=== PATIENT | male | born 1945 | race Caucasian/White ===

== ENCOUNTER 2019-08-21 12:47 | Outpatient (CLI) | payer MEDICARE, SELFPAY ==
--- NOTE | ~2019-08-21 | XR_ITS ---
XR chest 2V DATE: 08/21/2019 13:13 INDICATION: Malignant neoplasm of right breast in a male TECHNIQUE: PA and lateral views COMPARISON: 07/17/2018 portable AP chest FINDINGS: Removal left Port-A-Cath catheter since 07/17/2018. Surgical clips overlie the right lateral lower chest. There is mild discoid atelectasis or scarring at the lung bases. Otherwise no pulmonary consolidation , pleural effusion, pulmonary vascular congestion or pneumothorax is detected. Normal heart size. There is aortic calcification and tortuosity. There is dextro scoliosis and degenerative spurring of the thoracic spine. IMPRESSION: Mild bibasilar atelectasis and/or scarring Reviewed, dictated and finalized at location B. NT SPECIALIST
== END 2019-08-21 12:48 | disposition home or self-care (01) ==
LOC: ANHIMG 12:52
PROVIDERS: PCP Family Medicine; Visit Provider Internal Medicine Hematology & Oncology
DX: C50.421 Malignant neoplasm of upper-outer quadrant of right male breast (principal); Z17.0 Estrogen receptor positive status [ER+]; R91.8 Other nonspecific abnormal finding of lung field
CPT/HCPCS: 71046

== ENCOUNTER 2019-10-04 12:27 | Outpatient (CLI) | payer MEDICARE, SELFPAY ==
--- NOTE | 2019-10-04 12:58 | ECG_ITS ---
Measurements Intervals [place] Rate: 62 P: 38 MN: 219 QRS: 22 QRSD: 93 T: 29 QT: 393 QTc: 400 Interpretive Statements SINUS RHYTHM WITH FIRST DEGREE AV BLOCK LOW QRS VOLTAGE IN PRECORDIAL LEADS ABNORMAL ECG Electronically Signed On 10-04-2019 13:26:43 CDT by Liang Schmitt D.O.
== END 2019-10-04 12:28 | disposition home or self-care (01) ==
PROVIDERS: PCP Family Medicine; Visit Provider Anesthesiology
DX: I10 Essential (primary) hypertension (principal); I44.0 Atrioventricular block, first degree
CPT/HCPCS: 93005

== ENCOUNTER 2019-10-10 01:41 | Day surgery (SDC) | payer MEDICARE, SELFPAY ==
[2019-10-03 14:34] VITALS: BMI 42.4
[2019-10-10] VITALS (11 sets, daily range): BP systolic 121–157; BP diastolic 65–88; PULSE 62–76; RESP 14–24; TEMP 36.3–37.1; O2SAT 92–100
[2019-10-10] MEDS: LACTATED RINGERS 1,000 ML 30 ML IV CONT (07:00)
[2019-10-10 07:10] LABS: Glucose Point of Care 133 (65-105)
--- NOTE | 2019-10-10 08:01 | WPDANESEPPF ---
Anes - Initial Pre Proc Eval Procedure: Operation Date: 10/10/19 08:30 Proposed Procedures p Excision Right Chest Wall Mass, Possible Skin Graft Right Chest Wall - Forrest Ramirez MD Date/Time: 10/10/19 08:01 Surgeon: Forrest Ramirez MD Pre Op Diagnosis: Right Chest Wall Mass/ Ulcer Chest Wall Patient Data Age: 74 Gender: M Height: 6 ft 2 in Weight: 149.8 kg Last Vital Signs Temp 37.1 C 10/10/19 06:38 Pulse 76 10/10/19 06:38 Resp 20 10/10/19 06:38 BP 121/65 10/10/19 06:38 Pulse Ox 93 10/10/19 06:38 Allergies Allergy/AdvReac Type Severity Reaction Status Date / Time epinephrine Allergy Intermediate Chest Verified 10/10/19 07:42 tightness Home Medications Medication Instructions Recorded Confirmed Type tamoxifen 20 mg tablet 20 mg PO DAILY 05/25/19 10/10/19 History vitamin E 200 unit capsule 200 unit PO DAILY 05/25/19 10/10/19 History metformin 500 mg tablet 1,000 mg PO BID #120 tablet 06/04/19 10/10/19 Rx carvedilol 3.125 mg tablet 3.125 mg PO BID #60 tablet 06/19/19 10/10/19 Rx citalopram 20 mg tablet 20 mg PO DAILY #90 tablet 06/20/19 10/10/19 Rx finasteride 5 mg tablet 5 mg PO DAILY #90 tablet 08/13/19 10/10/19 Rx quinapril 20 mg tablet 20 mg PO BID #180 tablet 09/08/19 10/10/19 Rx aspirin [Aspir-81] 81 mg PO QPM 10/03/19 10/10/19 History atorvastatin 20 mg PO QPM 10/03/19 10/10/19 History diclofenac sodium 75 mg PO PRN PRN 10/03/19 10/10/19 History lorazepam 1 mg PO PRN PRN 10/03/19 10/10/19 History tadalafil 5 mg PO HS 10/03/19 10/10/19 History terazosin 2 mg PO HS 10/03/19 10/10/19 History Laboratory Tests 10/10/19 07:08 POC Capillary Glucose 133 mg/dl H mg/dl (65-105) Patient hx anesthesia problems: none Family hx anesthesia problems: none PMFSH Past Medical History Medical History Anxiety Breast cancer in male Diabetes High cholesterol HTN (hypertension) YULISA (obstructive sleep apnea) Surgical History Surgical History H/O total mastectomy of right breast Performed by Dr. Doherty in 2018 History of bilateral knee replacement 2014 & 2016 History of removal of Port-a-Cath Hx of breast biopsy Incisional right breast biopsy at mastectomy site 09/18/19 Family History Family History Other Hypertension Social History Social History Smoking status: Never smoker Alcohol intake: current Anes - Eval Final PreProcedure Day of Procedure 10/10/19 08:01 Patient weight: morbidly obese Heart: regular rate and rhythm Lungs: clear to auscultation Airway: Mallampati scale class II Neurological: alert and oriented Last oral intake: >/= 8 hours ASA classification: III Emergent: no Anesthetic plan: proceed Anesthesia type and monitoring: general LMA and standard monitoring Informed Consent: The patient's anesthetic plan and its attendant risks and benefits were discussed with the patient/family/POA. Questions were solicited and answers provided to the satisfaction of the patient/family/POA.
--- NOTE | 2019-10-10 09:11 | WPDHPUPDATE1 ---
History and Physical Update Update Date/Time: 10/10/19 09:11 History and Physical has been reviewed, including an updated exam of the patient. There are NO changes in the patient's condition. Risks, benefits, and alternatives have been discussed and questions answered. Patient agrees to proceed with procedure.
[2019-10-10] MEDS: ceFAZolin 3 GM/D5W 100 ML 100 ML IVPB (09:16)
--- NOTE | 2019-10-10 11:05 | PM.PROC ---
Procedure Note - Detailed Date of procedure: 10/10/19 Pre-op diagnosis: Right Chest Wall Mass/ Ulcer Chest Wall; right chest wall ulcerated mass, history right breast cancer and radiation therapy Post-op diagnosis: same Procedure performed: Excision right chest wall mass -skin, subcutaneous, muscle with partial closure. Excision 36 x 14 x 10 cm, elliptical, 266 sq cm.total Description of procedure: The patient was taken to surgery and induced into general anesthesia. The right chest was prepped and draped. The right arm was prepped and mobile in the field. The proposed elliptical excision was drawn around the right chest wall mass. The ulceration was more or less in the center of the mass. The mass was primarily on the superior flap of the previous mastectomy incision although some of it extended on to the inferior flap across the incision scar. The elliptical excision was then created. The skin edges were quite bloody and required a fair amount of cautery to control the bleeding. I started to elevate the mass off the chest wall musculature of the inferior flap. I was able to take a plane of tissue and proceeded towards the center of the mass removing it from the chest wall. I then moved the dissection to the medial aspect of the ellipse and excised that from the pectoralis major muscle taking what appeared to be pectoralis major fascia or at least some connective tissue associated with the muscle with the specimen. I also excised then, laterally, the edge of the ellipse and proceeded up to the upper aspect of the excision. Entry into a cyst-like portion of the mass occurred during the dissection. Some purulent appearing fluid was noted. This was cultured for aerobes and anaerobes and gram stain. The excision was continued but on the superior flap side there was the appearance of a large sebaceous cyst. This would be consistent with the incisional biopsy although certainly concern for malignancy did still exist. I continued to remove all of the cystic lesion with the surrounding skin but left all chest wall musculature other than the investing fibrous connective tissue or superficial fascia. Once the mass was excised it was sent to pathology in formalin. I then continued to use the cautery to achieve good hemostasis. There was quite a bit of axillary fat under the superior flap which was problematic for the patient in that it bothered him when he crossed his right arm towards his left. I went ahead and excised this and sent that off as right axillary fat. This area was made hemostatic as well. I then undermined some of the skin so that the skin edges were not scarred under and the skin would lay flat on the chest wall. There was a considerable dog ear at the lateral aspect of the excision. I removed the dog ear so that the lateral aspect of the wound could be closed and approximate well.. Once this dog ear was excised, the overall length of the excision was 36 cm. The width at the widest portion of the the excision was 14 cm. The greatest depth of the wound was 10 cm.. The extent of resection was then roughly 266 sq cm. After hemostasis was achieved, I then closed the deeper portions of the wound leading to the axilla with interrupted 3 0 Monocryl suture. The lateral 12 cm of the wound were closed with subcuticular interrupted 3 0 Vicryl suture. The remainder of the wound was not able to be drawn together nor was the tissue felt to be very healthy as it had been the focus of radiation treatment. This portion was left open with plans for wound VAC therapy to the area starting tomorrow. We dressed the wound with Xeroform gauze fluffs and ABDs. The patient was awakened and taken to recovery in good condition. Sponge and needle counts were correct x2. Anesthesia: GLMA Surgeon: Forrest Ramirez MD Valuation Manager: Leigha HILARIO Estimated blood loss (mL): 50 Drains: No Packing: Yes ( Xeroform gauze, fluffs) Pathology: yes ( chest wall mass and cult
--- NOTE | 2019-10-10 11:41 | SUR.PHASEI ---
1135- AT BESIDE TO VISIT WITH PT. ALL BELONGINGS AND WOUND VAC WILL GO WITH PT TO FLOOR.
[2019-10-10] MEDS: MORPHINE SULFATE 4 MG/ML INJ IV PUSH ×2 (12:19→16:25)
[2019-10-10] MEDS: LACTATED RINGERS 1,000 ML 100 ML IV CONT (12:24)
[2019-10-10 15:20] LABS: Glucose Point of Care 142 (65-105)
--- NOTE | 2019-10-10 16:33 | PHAR ---
Home Med Verified Tadalafil 5mg take 1 tablet po daily
[2019-10-10] MEDS: ASPIRIN 81 MG ENTERIC TABLET PO (18:40)
[2019-10-10] MEDS: metFORMIN HCL 500 MG TABLET 1000 MG PO (18:40)
[2019-10-10] MEDS: ATORVASTATIN 20 MG TABLET PO (18:40)
[2019-10-10] MEDS: carvediloL 3.125 MG TABLET PO (18:42)
[2019-10-10] MEDS: lisinopriL 20 MG TABLET PO (21:08)
[2019-10-10] MEDS: TERAZOSIN HCL 1 MG CAPSULE 2 MG PO (21:08)
[2019-10-10] MEDS: FAMOTIDINE 20 MG TABLET PO (21:08)
[2019-10-10] MEDS: ENOXAPARIN 30 MG/0.3 ML SYRINGE SUB-Q (21:09)
[2019-10-11 01:24] VITALS: PULSE 68; RESP 16; O2SAT 91
[2019-10-11 05:44] LABS: Hematocrit 40.8 % (42.0-52.0); Hemoglobin 12.9 g/dL (14.0-18.0); Immature Platelet Fraction Pct 4.2 % (0.9-11.2); Mean Corpuscular HGB Conc 31.6 g/dl (32-36); Mean Corpuscular Hemoglobin 30.4 pg (26-34); Mean Platelet Volume 11.2 fl (7.4-10.4); Platelet Count Result 114 k/mm3 (150-375); Red Blood Count 4.25 M/mm3 (4.6-6.20); Red Cell Distribution Width 14.4 % (11.5-14.5); White Blood Count 7.5 K/mm3 (4.5-10.0)
[2019-10-11 05:55] LABS: Blood Urea Nitrogen 15 mg/dL (9-20); Calcium 8.7 mg/dL (8.4-10.2); Carbon Dioxide 32 mmol/L (22-30); Chloride 101 mmol/L (98-107); Estimated CRCL calculation 101 ml/min; Estimated Glomerular Filt Rate > 60; Glucose 147 mg/dL (75-110); Potassium 4.6 mmol/L (3.4-5.0); Sodium 137 mmol/L (137-145)
[2019-10-11 06:00] VITALS: BP 108/56; PULSE 69; RESP 16; TEMP 36.6; O2SAT 92
[2019-10-11] MEDS: metFORMIN HCL 500 MG TABLET 1000 MG PO (08:32)
[2019-10-11] MEDS: lisinopriL 20 MG TABLET PO (08:32)
[2019-10-11] MEDS: FAMOTIDINE 20 MG TABLET PO (08:32)
[2019-10-11] MEDS: TAMOXIFEN CITRATE (*CHEMO) 10 MG TABLET 20 MG PO (08:32)
[2019-10-11] MEDS: CITALOPRAM HYDROBROMIDE 20 MG TABLET PO (08:32)
[2019-10-11] MEDS: ENOXAPARIN 30 MG/0.3 ML SYRINGE SUB-Q (08:32)
[2019-10-11 08:33] VITALS: PULSE 68
[2019-10-11] MEDS: carvediloL 3.125 MG TABLET PO (08:33)
[2019-10-11] MEDS: VITAMIN E 100 UNIT CAPSULE 200 UNIT PO (08:33)
[2019-10-11] MEDS: FINASTERIDE 5 MG TABLET PO (08:33)
--- NOTE | 2019-10-11 09:42 | PM.DS ---
DS: Diagnosis Admitting Diagnosis Admitting Diagnosis: Right chest wall mass, history right breast cancer status post radiation therapy post mastectomy Discharge Diagnosis (1) Mass of chest wall, right: Code(s): R22.2 - Localized swelling, mass and lump, trunk Status: Chronic Assessment and Plan: patient underwent excess patient of right chest wall mass on 10/10/2019. This included skin subcutaneous and the muscular fascia. Approximately half of the lateral aspect of the wound was able to be closed. More medial aspect was unable to be closed. Patient was observed overnight and wound VAC therapy is planned as an outpatient. Intraoperative findings suggested this was an epithelial inclusion cyst. Pathology is pending. (2) Hx of breast cancer: Code(s): Z85.3 - Personal history of malignant neoplasm of breast Status: Chronic Assessment and Plan: History of right mastectomy last year. (3) Hx of radiation therapy: Code(s): Z92.3 - Personal history of irradiation Status: Chronic Assessment and Plan: Completed radiation therapy last January. (4) YULISA (obstructive sleep apnea): Code(s): G47.33 - Obstructive sleep apnea (adult) (pediatric) Status: Chronic Assessment and Plan: Maintained on home CPAP settings. (5) HTN (hypertension): Code(s): I10 - Essential (primary) hypertension Status: Chronic Assessment and Plan: Monitored. Continue home meds on discharge. (6) Diabetes: Code(s): E11.9 - Type 2 diabetes mellitus without complications Status: Chronic Assessment and Plan: Monitored. Continue diabetic diet and home meds on discharge. DS: Summary Time Spent with Patient Time attestation: Total time spent providing and/or coordinating discharge services: Patient had excision of a suspicious right chest wall mass. This was in the setting of right breast cancer with previous right modified radical mastectomy. The chest wall mass occurred since last February. It had developed ulceration and drainage. Incisional biopsy in the office suggested epithelial inclusion cyst. The appearance and history however was very suspicious for recurrent cancer. The patient was taken to surgery and extensive excision of the mass was performed. Wound healing will of course be a problem as the patient has had radiation therapy to the right chest. Pathology is pending. He will go home on wound VAC therapy in follow-up in the wound clinic regularly. Dr. Ramirez will see him regularly as an outpatient in follow-up as well. If the wound does not heal with wound VAC therapy, skin graft for other modality may be necessary. Exam Chest: Chest palpation & inspection: abnormal inspection of the chest ( Right chest wall wound looks good, healthy and healing.) DS: Data Data Completed and Pending Pending studies at discharge: Pending at discharge 10/10/19 09:57 Surgical [PTH] Routine Labs on day of discharge: Labs from last 24 hours 10/11/19 10/11/19 10/10/19 05:23 05:23 10:46 WBC 7.5 RBC 4.25 L Hgb 12.9 L Hct 40.8 L MCV 96.0 MCH 30.4 MCHC 31.6 L RDW 14.4 Plt Count 114 L MPV 11.2 H % Immature Plt Fraction 4.2 Sodium 137 Potassium 4.6 Chloride 101 Carbon Dioxide 32 H BUN 15 Creatinine 0.90 Estim Creat Clear Calc 101 Estimated GFR > 60 Glucose 147 H POC Capillary Glucose 142 H Calcium 8.7 Discharge Plan Discharge Patient Disposition: Home, Self-Care Discharge Instructions: Ambulate 3-4 x per day and as tolerated. No lifting over 15-20lbs. May bathe or shower. Stairs are OK. May drive a car in 3 days. Follow-up/Referrals: Forrest Ramirez MD [Physician] - 2 Weeks ( Dr. Ramirez will see patient in wound clinic week after next.) Discharge Medications: New hydrocodone-acetaminophen 5-325 mg tablet 1 - 2 tablet PO Q6H PRN
== END 2019-10-11 12:15 | disposition home or self-care (01) ==
LOC: ANHSURGERY 11:06 → ANH3MED 11:56
PROVIDERS: PCP Family Medicine; Visit Provider Surgery
PROC: (CPT 11406; principal; 2019-10-10 08:30)
DX: L02.213 Cutaneous abscess of chest wall (principal); Z85.3 Personal history of malignant neoplasm of breast; Z92.3 Personal history of irradiation; I10 Essential (primary) hypertension; E78.00 Pure hypercholesterolemia, unspecified; E11.9 Type 2 diabetes mellitus without complications; G47.33 Obstructive sleep apnea (adult) (pediatric); F41.9 Anxiety disorder, unspecified; Z79.82 Long term (current) use of aspirin; Z79.84 Long term (current) use of oral hypoglycemic drugs; Z79.810 Long term (current) use of selective estrogen receptor modulators (SERMs); E66.01 Morbid (severe) obesity due to excess calories; Z68.41 Body mass index [BMI] 40.0-44.9, adult
CPT/HCPCS: 11406; 13101; 13102 ×6; 36415; 80048; 85027; 85055; 87070; 87075; 87205; 88305; 88307; A9270; J0690; J1650; J2270; J2405; J2704; J3010; J7120

== ENCOUNTER 2019-12-05 00:36 | Outpatient (CLI) | payer MEDICARE, SELFPAY ==
[2019-12-05 17:43] LABS: SARS-CoV-2 RNA PCR Negative
== END 2019-12-05 00:37 | disposition home or self-care (01) ==
LOC: ANHCOVIDDT 00:36
PROVIDERS: PCP Family Medicine; Visit Provider Surgery Plastic and Reconstructive Surgery
DX: Z01.818 Encounter for other preprocedural examination (principal); Z11.59 Encounter for screening for other viral diseases
CPT/HCPCS: 87635; C9803; U0003

== ENCOUNTER 2019-12-07 01:24 | Day surgery (SDC) | payer MEDICARE, SELFPAY ==
[2019-12-04 12:56] VITALS: BMI 41.1
[2019-12-07] VITALS (8 sets, daily range): BP systolic 120–148; BP diastolic 66–84; PULSE 60–68; RESP 16–20; TEMP 36.2–36.9; O2SAT 95–99
[2019-12-07] MEDS: LACTATED RINGERS 1,000 ML 30 ML IV CONT (11:30)
[2019-12-07 11:38] LABS: Glucose Point of Care 121 (65-105)
--- NOTE | 2019-12-07 11:39 | WPDHPUPDATE1 ---
History and Physical Update Update Date/Time: 12/07/19 11:39 History and Physical has been reviewed, including an updated exam of the patient. There are NO changes in the patient's condition. Risks, benefits, and alternatives have been discussed and questions answered. Patient agrees to proceed with procedure.
--- NOTE | 2019-12-07 11:41 | WPDANESEPPF ---
Anes - Initial Pre Proc Eval Procedure: Operation Date: 12/07/19 12:30 Proposed Procedures p Split Thickness Skin Graft Right Chest With Wound Vac - Sathish Rosado MD Date/Time: 12/07/19 11:41 Surgeon: Sathish Rosado MD Pre Op Diagnosis: wound right chest Patient Data Age: 74 Gender: M Height: 6 ft 2 in Weight: 145.15 kg Allergies Allergy/AdvReac Type Severity Reaction Status Date / Time epinephrine Allergy Severe Chest Verified 12/07/19 11:41 tightness Home Medications Medication Instructions Recorded Confirmed Type tamoxifen 20 mg tablet 20 mg PO DAILY 05/25/19 12/04/19 History vitamin E 200 unit capsule 200 unit PO DAILY 05/25/19 12/04/19 History metformin 500 mg tablet 1,000 mg PO BID #120 tablet 06/04/19 12/04/19 Rx carvedilol 3.125 mg tablet 3.125 mg PO BID #60 tablet 06/19/19 12/04/19 Rx citalopram 20 mg tablet 20 mg PO DAILY #90 tablet 06/20/19 12/04/19 Rx finasteride 5 mg tablet 5 mg PO DAILY #90 tablet 08/13/19 12/04/19 Rx atorvastatin 20 mg PO QPM 10/03/19 12/04/19 History lorazepam 1 mg PO PRN PRN 10/03/19 12/04/19 History tadalafil 5 mg PO HS 10/03/19 12/04/19 History terazosin 2 mg capsule 2 mg PO HS #90 cap 11/23/19 12/04/19 Rx ascorbic acid (vitamin C) 1 g PO DAILY 12/04/19 12/04/19 History quinapril 20 mg PO DAILY 12/04/19 12/04/19 History Laboratory Tests 12/07/19 11:36 POC Capillary Glucose 121 mg/dl H mg/dl (65-105) Patient hx anesthesia problems: none Family hx anesthesia problems: none PMFSH Social History Social History Smoking status: Never smoker Alcohol intake: current Gender identity (if verbalized by the patient): Male Anes - Eval Final PreProcedure Day of Procedure 12/07/19 11:41 Patient weight: morbidly obese Heart: regular rate and rhythm Lungs: decreased breath sounds Airway: Mallampati scale class II Neurological: alert and oriented Last oral intake: >/= 8 hours ASA classification: III Emergent: no Anesthetic plan: proceed Anesthesia type and monitoring: general LMA and standard monitoring Informed Consent: The patient's anesthetic plan and its attendant risks and benefits were discussed with the patient/family/POA. Questions were solicited and answers provided to the satisfaction of the patient/family/POA.
--- NOTE | 2019-12-07 11:54 | P.OP_ITS ---
Procedure Note - Detailed Date of procedure: 12/07/19 Pre-op diagnosis: wound right chest History right breast cancer. Post-op diagnosis: same Procedure performed: Debridement right chest subcutaneous tissue 6 x 20cm (120cm 2) STSG right chest 6x20cm (120cm2) with application of VAC Description of procedure: He was marked in the preoperative holding area with his verification. He was taken to the operating room placed supine on the operating room table. Anesthesia provided by anesthesiology and prepped and draped in a standard sterile fashion. Surgical time-out was taken. He describes an allergy to epinephrine but this is really just feels like his heart is racing and some tightness while he is awake. No true allergy. As such 1% lidocaine with epinephrine was used anesthetize locally. I also anesthetize the right thigh for planned graft harvest. A dermatome was used to harvest the split-thickness skin graft at 12/ thousands of an inch on the right thigh. An occlusive dressing placed. I meshed at a 1.5-1 ratio. I then sharply debrided the right chest wound back to good clean viable tissue. The split-thickness skin graft was placed and tacked into place with franco. I then used 6 layers of Adaptic and a VAC dressing was placed on 125 mm of continuous suction. Tolerated the procedure well. Was taken the PACU without difficulty. All in strument sponge counts were correct at the end of the case. Anesthesia: GLMA Surgeon: Sathish Rosado MD Estimated blood loss (mL): 10 Drains: No Packing: Yes (VAC dressing) Pathology: none sent Complications: No immediate complications Condition: stable Disposition: PACU
[2019-12-07] MEDS: ceFAZolin 3 GM/D5W 100 ML 100 ML IVPB (12:32)
[2019-12-07] MEDS: LIDO 1%/EPINEPHRINE 1:100,000 20 ML VIAL INFILTRATE (12:34)
--- NOTE | 2019-12-07 13:33 | PCWOUND ---
WOCN NOTE Skin graft applied to right chest, measures 6 cm in length by 20 cm in width. Wound vac applied over graft.
[2019-12-07] MEDS: BUPIVACAINE HCL 0.25% PF 30 ML VIAL INFILTRATE (13:52)
[2019-12-07] MEDS: EPINEPHrine HCL INJ 1 MG/ML AMPUL IRRIGATION (13:57)
--- NOTE | 2019-12-07 13:58 | SUR.OPER ---
EBL:10cc
[2019-12-10 11:18] LABS: Glucose Point of Care 119 (65-105)
== END 2019-12-07 15:34 | disposition home or self-care (01) ==
PROVIDERS: PCP Family Medicine; Visit Provider Surgery Plastic and Reconstructive Surgery
PROC: (CPT 15100; principal; 2019-12-07 12:30)
DX: T81.89XA Other complications of procedures, not elsewhere classified, initial encounter (principal); S21.101A Unspecified open wound of right front wall of thorax without penetration into thoracic cavity, initial encounter; Z85.3 Personal history of malignant neoplasm of breast; Z90.11 Acquired absence of right breast and nipple; Z79.82 Long term (current) use of aspirin; Z79.810 Long term (current) use of selective estrogen receptor modulators (SERMs); Z92.3 Personal history of irradiation; E11.9 Type 2 diabetes mellitus without complications; E66.01 Morbid (severe) obesity due to excess calories; Z68.41 Body mass index [BMI] 40.0-44.9, adult; Z79.84 Long term (current) use of oral hypoglycemic drugs
CPT/HCPCS: 15100; 15101; 15002; 15003; J0171; J0690; J2704; J7030; J7120

== ENCOUNTER 2019-12-21 07:22 | Outpatient (RCR) | payer MEDICARE, SELFPAY ==
--- NOTE | 2019-10-14 12:10 | WPDWOUNDNOTE ---
Wound Care Note Date/Time: 10/14/19 12:10 patient is a 74-year-old gentleman who in May of 2018 had a right modified radical mastectomy for stage IIIA, ER/GA + breast carcinoma. He completed radiation therapy in January. Aside from some depigmentation, his follow-up visit with showed only some depigmentation. Since then he developed a swelling reddened and draining mass in the right mastectomy wound. Imaging suggested a complex seroma hematoma or abscess. The patient 1st noticed this about the middle of September. I did an incisional biopsy in the office on September 17. This showed evidence of a sebaceous cyst. No sign of cancer was seen. The chest wall mass was ulcerated and was failing to heal. The patient was returned to surgery on 10/10/2019. Excision of the right chest wall mass as well as some skin subcutaneous and fascia was performed. The lateral aspect of the excision was able to be closed in surgery. The patient was able to be discharged on 10/11/2019 to continue wound VAC therapy at home. He is seen now in the wound clinic for surgical follow-up. Pathology on the chest wall mass shows chronic abscess, 5.5 cm in greatest dimension. No evidence of cancer was noted. Assessment and Plan Assessment and plan (1) Open wound of right chest wall: Code(s): S21.101A - Unspecified open wound of right front wall of thorax without penetration into thoracic cavity, initial encounter Status: Chronic Assessment and Plan: healing well. Continue wound VAC therapy and follow up as an outpatient. Patient may eventually need skin graft but we will see how this goes with wound VAC therapy only. 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 Completely excised with no sign of cancer. Now has resulting wound care as noted above. (3) Hx of breast cancer: Code(s): Z85.3 - Personal history of malignant neoplasm of breast Status: Chronic (4) Hx of radiation therapy: Code(s): Z92.3 - Personal history of irradiation Status: Chronic (5) Diabetes: Code(s): E11.9 - Type 2 diabetes mellitus without complications Status: Chronic (6) Morbid obesity with BMI of 40.0-44.9, adult: Code(s): E66.01 - Morbid (severe) obesity due to excess calories; Z68.41 - Body mass index (BMI) 40.0-44.9, adult Status: Chronic Review of Systems Review of Systems: All systems reviewed & are unremarkable except as noted in HPI and below ( HPI) Constitutional: Constitutional: Denies anorexia, Denies body ache(s), Denies chills and Denies fever(s) Exam Const: General: no acute distress, well developed, awake and Physically active Nutritional Appearance: obese Orientation/consciousness: patient oriented x3 Chest: Chest palpation & inspection: abnormal inspection of the chest ( wound VAC removed, right chest wound examined) Other: chest wound seems to be healing well. Developing granulation tissue. No evidence of purulence. No skin breakdown from the area that was closed previously. Improving.
[2019-10-15 09:00] VITALS: BMI 42.4
--- NOTE | 2019-10-25 15:56 | WPDWOUNDNOTE ---
Wound Care Note Date/Time: 10/25/19 15:56 patient is a 74-year-old gentleman who in May of 2018 had a right modified radical mastectomy for stage IIIA, ER/MA + breast carcinoma. He completed radiation therapy in January. After completing radiation therapy, his follow-up visits with showed only some depigmentation. Since then he developed a painful, reddened, and draining mass in the right mastectomy wound. Imaging suggested a complex seroma, hematoma, or abscess. The patient 1st noticed this about the middle of September. I did an incisional biopsy in the office on September 17. This showed evidence of a sebaceous cyst. No sign of cancer was seen. The chest wall mass was ulcerated and was failing to heal. The patient was returned to surgery on 10/10/2019. Excision of the right chest wall mass as well as some skin subcutaneous and fascia was performed. The lateral aspect of the excision was able to be partially closed in surgery. The patient was able to be discharged on 10/11/2019 to continue wound VAC therapy at home. Pathology on the chest wall mass shows chronic abscess, 5.5 cm in greatest dimension. No evidence of cancer was noted. He is continued to be followed in the wound clinic. He is taking [place] still due to pain associated with the wound and with changing the wound VAC. Dr. Hughes just called in a prescription for [place] 7.5/325 on October 18 and the patient is almost out of these pills. Assessment and Plan Assessment and plan (1) Open wound of right chest wall: Code(s): S21.101A - Unspecified open wound of right front wall of thorax without penetration into thoracic cavity, initial encounter Status: Chronic Assessment and Plan: Continue wound VAC therapy as before. Will contact Dr. Boykin to see him in the wound clinic in the next 1-2 weeks about possibly placing a skin graft over the most medial aspects of the wound. It is granulating well and appears it would accept a skin graft. I did refill the patient's prescription for [place] 7.5. I gave him 30 additional pills 1-2 Q 6 hours p.r.n. for pain. I instructed him that he is only to take these at night to sleep or before he comes in for dressing changes. He should not take more than about 1 pill during the day otherwise. I explained that he will have to work to distance in self from taking the [place] on such a regular basis as it is quite addictive. He will see me again in the wound clinic in 2 weeks. (2) Hx of radiation therapy: Code(s): Z92.3 - Personal history of irradiation Status: Chronic (3) Hx of breast cancer: Code(s): Z85.3 - Personal history of malignant neoplasm of breast Status: Chronic (4) Diabetes: Code(s): E11.9 - Type 2 diabetes mellitus without complications Status: Chronic (5) Morbid obesity with BMI of 40.0-44.9, adult: Code(s): E66.01 - Morbid (severe) obesity due to excess calories; Z68.41 - Body mass index (BMI) 40.0-44.9, adult Status: Chronic Review of Systems Review of Systems: All systems reviewed & are unremarkable except as noted in HPI and below (HPI) Constitutional: Constitutional: Denies chills, Denies fever(s) and Denies poor appetite Exam Chest: Chest palpation & inspection: abnormal inspection of the chest (Wound is beefy red, granulating well.) other (Skin dehiscence of at least 50% of the axillary closure) Other: Wound bed looks very good. The lateral aspect of the wound should contract and heal without difficulty. The most medial aspect however may require skin grafting.
--- NOTE | 2019-11-05 12:16 | WPDWOUNDNOTE ---
Wound Care Note Date/Time: 11/05/19 12:16 patient is a 74-year-old gentleman who in May of 2018 had a right modified radical mastectomy for stage IIIA, ER/LA + breast carcinoma. He completed radiation therapy in January. After completing radiation therapy, his follow-up visits with showed only some depigmentation. Since then he developed a painful, reddened, and draining mass in the right mastectomy wound. Imaging suggested a complex seroma, hematoma, or abscess. The patient 1st noticed this about the middle of September. I did an incisional biopsy in the office on September 17. This showed evidence of a sebaceous cyst. No sign of cancer was seen. The chest wall mass was ulcerated and was failing to heal. The patient was returned to surgery on 10/10/2019. Excision of the right chest wall mass as well as some skin subcutaneous and fascia was performed. The lateral aspect of the excision was able to be partially closed in surgery. The patient was able to be discharged on 10/11/2019 to continue wound VAC therapy at home. Pathology on the chest wall mass shows chronic abscess, 5.5 cm in greatest dimension. No evidence of cancer was noted. Today the patient is seen again in the wound clinic. He reports quite a bit less pain with the right chest wound. He is not requiring near as much narcotic pain medication. He is able to move his right shoulder almost 100%. He notices some pulling around the elbow and radial aspect of the right wrist when he reaches for something. Otherwise he is had significant improvement since his last visit. I spoke to since Mr. Walsh's last visit. Dr. Russell will see him in consultation in the wound clinic on December 02. Assessment and Plan Assessment and plan (1) Open wound of right chest wall: Code(s): S21.101A - Unspecified open wound of right front wall of thorax without penetration into thoracic cavity, initial encounter Status: Chronic Assessment and Plan: Much improved both in appearance and in symptoms. I reassured patient that the right arm complaints are not neurologic in nature and will resolve with time. I recommended some circular elbow movements as well as raising his right arm slowly to improved the range of motion of his right shoulder. We will continue wound VAC therapy with anti fungal powder to the area of maceration. He probably will need to skin graft at some point and is scheduled to see Dr. Russell on December 02. I will see him again in 2 weeks in the wound clinic. (2) Hx of radiation therapy: Code(s): Z92.3 - Personal history of irradiation Status: Chronic (3) Hx of breast cancer: Code(s): Z85.3 - Personal history of malignant neoplasm of breast Status: Chronic (4) Diabetes: Code(s): E11.9 - Type 2 diabetes mellitus without complications Status: Chronic (5) Morbid obesity with BMI of 40.0-44.9, adult: Code(s): E66.01 - Morbid (severe) obesity due to excess calories; Z68.41 - Body mass index (BMI) 40.0-44.9, adult Status: Chronic Review of Systems Review of Systems: All systems reviewed & are unremarkable except as noted in HPI and below ( HPI) Constitutional: Constitutional: Denies body ache(s), Denies chills, Denies fever(s), Denies night sweats and Denies poor appetite Exam Chest: Chest palpation & inspection: abnormal inspection of the chest ( right chest wound smaller and continues to granulate.) Other: Lateral aspect of the wound continues to decrease in size. Maceration around the wound edges in the more medial aspect is improved. Antifungal powder has been used on the skin around the wound. It is sealed in with skin prep before the wound VAC is applied. The lateral aspect of the wound is granulating and cailin. There is very little under the superior flap anymore. This is also starting to granulate in well.
--- NOTE | 2019-11-22 12:40 | WPDWOUNDNOTE ---
Wound Care Note Date/Time: 11/22/19 12:40 Patient seen in the wound clinic for continued management of his right chest wound status post mastectomy and radiation therapy to the right chest. He is having much less pain. His wound VAC was stopped for the last week and he was switched to silver gel dressings. He is moving his right arm much better. No new complaints or problems. Assessment and Plan Assessment and plan (1) Open wound of right chest wall: Code(s): S21.101A - Unspecified open wound of right front wall of thorax without penetration into thoracic cavity, initial encounter Status: Chronic Assessment and Plan: Patient did very well off the wound VAC. He was taken off the wound VAC due to some skin maceration around the edges of the wound. We will continue him on silver gel, Mepilex transfer, and antifungal powder. He will do these dressing changes daily. Dr. Rosado will see him in the wound clinic on December 04. I will recheck him again in the wound clinic in 3 weeks. Hopefully he can proceed to skin grafting in December. (2) Hx of breast cancer: Code(s): Z85.3 - Personal history of malignant neoplasm of breast Status: Chronic Assessment and Plan: No evidence cancer recurrence (3) Hx of radiation therapy: Code(s): Z92.3 - Personal history of irradiation Status: Chronic (4) Diabetes: Code(s): E11.9 - Type 2 diabetes mellitus without complications Status: Chronic (5) Morbid obesity with BMI of 40.0-44.9, adult: Code(s): E66.01 - Morbid (severe) obesity due to excess calories; Z68.41 - Body mass index (BMI) 40.0-44.9, adult Status: Chronic Review of Systems Review of Systems: All systems reviewed & are unremarkable except as noted in HPI and below (HPI) Exam Chest: Chest palpation & inspection: abnormal inspection of the chest (Open wound pink and granulating. Minimal tunneling towards right axilla.) other (Did very well off wound VAC last week.) Other: Right chest wound continues to improve. 100% pink and granulating with minimal tunneling.
--- NOTE | 2019-12-03 12:58 | PM.IMHP ---
H&P: HPI History of Present Illness Chief complaint: wound vac dressing change right chest Narrative: Rayray Walsh is a 74 year old male who was diagnosed with a right breast cancer. In May of 2018 he underwent a right breast mastectomy with axillary node dissection by Dr. Doherty. Postoperatively did developed a hematoma and has done well. He had chemo and radiation in his radiation therapy completed January of 2019. He developed right chest mass. Biopsy was completed which appeared to be a cyst. Subsequent excision returned as chronic abscess. Following this he developed open wound. He has been doing wound VAC for quite some time and wound has now come to a stable wound size without any tunneling. He states he feels well. No fevers or chills. No nausea vomiting. Overall doing well he is anxious to have resolution. History: 05/29/2018 - Right breast CA Stage IIIA, ER/TX+. Right breast mastectomy by Dr. Doherty. 05/30/2018 - Right breast hematoma. 01/2019 - Completed radiation 10/10/2019 - Debridement right chest - pathology chronic abscess. Review of Systems Review of Systems: All systems reviewed & are unremarkable except as noted in HPI and below PMFSH Social History Social History Smoking status: Never smoker Alcohol intake: current Gender identity (if verbalized by the patient): Male Meds Home Medications and Allergies Home Medications Medication Instructions Recorded Confirmed Type tamoxifen 20 mg tablet 20 mg PO DAILY 05/25/19 10/15/19 History vitamin E 200 unit capsule 200 unit PO DAILY 05/25/19 10/15/19 History metformin 500 mg tablet 1,000 mg PO BID #120 tablet 06/04/19 10/15/19 Rx carvedilol 3.125 mg tablet 3.125 mg PO BID #60 tablet 06/19/19 10/15/19 Rx citalopram 20 mg tablet 20 mg PO DAILY #90 tablet 06/20/19 10/15/19 Rx finasteride 5 mg tablet 5 mg PO DAILY #90 tablet 08/13/19 10/15/19 Rx quinapril 20 mg tablet 20 mg PO BID #180 tablet 09/08/19 10/15/19 Rx aspirin [Aspir-81] 81 mg PO QPM 10/03/19 10/15/19 History atorvastatin 20 mg PO QPM 10/03/19 10/15/19 History diclofenac sodium 75 mg PO PRN PRN 10/03/19 10/15/19 History lorazepam 1 mg PO PRN PRN 10/03/19 10/15/19 History tadalafil 5 mg PO HS 10/03/19 10/15/19 History ibuprofen 600 mg PO Q6H PRN #14 tablet 10/11/19 10/15/19 Rx hydrocodone-acetaminophen [[place]ber[place]] 1 tablet PO Q6H PRN #25 tablet 10/19/19 Rx hydrocodone 7.5 mg-acetaminophen 1 - 2 tablet PO Q6H PRN #30 tablet 10/25/19 Rx 325 mg tablet terazosin 2 mg capsule 2 mg PO HS #90 cap 11/23/19 Rx Allergies Allergy/AdvReac Type Severity Reaction Status Date / Time epinephrine Allergy Intermediate Chest Verified 10/10/19 07:42 tightness Exam Narrative: Exam Narrative: He has an open wound on his right chest with good granulation. There is no undermining. See wound care measurements. Const: General: no acute distress Eyes: General: appearance normal, both eyes and all related structures Resp: Effort & Inspection: normal respiratory effort Auscultation: no wheezes Cardio: Rate: regular rate GI: GI Palp: Yes Soft to palpation Skin: General skin exam: normal color Neuro: Cognition (Neuro): normal cognition Speech: normal speech Extrem: General: normal to inspection Psych: Mental Status: mental status grossly normal Assessment and Plan Assessment and plan (1) Open wound of right chest wall: Code(s): S21.101A - Unspecified open wound of right front wall of thorax without penetration into thoracic cavity, initial encounter Status: Chronic Assessment and Plan: He would like proceed with split-thickness skin graft to the right chest wall. Postop in surgery we will place a VAC dressing. We will submit for insurance approval. This was a 35 minutes visit with 25 minutes of [id number] time. Today we had a lengthy discussion with him and his about their options. Went o
--- NOTE | 2019-12-14 12:00 | WPDPN ---
Progress Note: A&P Assessment and Plan (1) Open wound of right chest wall: Code(s): S21.101A - Unspecified open wound of right front wall of thorax without penetration into thoracic cavity, initial encounter Status: Chronic Assessment and Plan: He has greater than 95% take of the skin graft to his chest. Donor site healing well. Xeroform dressings twice a day. We will see him back in 1 week. He has a full list of instructions. Understands what monitor for. He will call with any questions or concerns. (2) Hx of breast cancer: Code(s): Z85.3 - Personal history of malignant neoplasm of breast Status: Chronic (3) Hx of radiation therapy: Code(s): Z92.3 - Personal history of irradiation Status: Chronic (4) YULISA (obstructive sleep apnea): Code(s): G47.33 - Obstructive sleep apnea (adult) (pediatric) Status: Chronic (5) HTN (hypertension): Code(s): I10 - Essential (primary) hypertension Status: Chronic (6) Diabetes: Code(s): E11.9 - Type 2 diabetes mellitus without complications Status: Chronic (7) Morbid obesity with BMI of 40.0-44.9, adult: Code(s): E66.01 - Morbid (severe) obesity due to excess calories; Z68.41 - Body mass index (BMI) 40.0-44.9, adult Status: Chronic Review of Systems Review of Systems: All systems reviewed & are unremarkable except as noted in HPI and below Exam Narrative: Exam Narrative: Right chest wound has greater than 95% take of the split-thickness skin graft. No signs of infection. No hematoma. No seroma. Donor site is also healing well. Const: General: no acute distress Eyes: General: appearance normal, both eyes and all related structures Resp: Effort & Inspection: normal respiratory effort Auscultation: no wheezes Cardio: Rate: regular rate GI: GI Palp: Yes Soft to palpation Skin: General skin exam: normal color Neuro: Cognition (Neuro): normal cognition Speech: normal speech Extrem: General: normal to inspection Psych: Mental Status: mental status grossly normal Objective Data Meds/Results Medications: Active Medications Generic Name Dose Route Start Last Admin Trade Name Freq PRN Reason Stop Dose Admin Silver Nitrate 1 applic 11/19/19 11:51 Silvergel TOPICAL 02/19/20 23:59 PRN PRN Wound Care Tolnaftate 1 applic 10/25/19 08:54 Tolnaftate 1% Powder TOPICAL 01/24/20 23:59 PRN PRN Wound Care Wound Care/Dressing Products 1 patch 11/19/19 11:52 Mepilex Transfer Drsg 6x8 TOPICAL 02/19/20 23:59 PRN PRN Wound Care
--- NOTE | 2019-12-21 07:25 | P.PN_ITS ---
Progress Note: A&P Assessment and Plan (1) Open wound of right chest wall: Qualifiers: Encounter type: subsequent encounter Qualified Code(s): S21.101D - Unspecified open wound of right front wall of thorax without penetration into thoracic cavity, subsequent encounter Code(s): S21.101A - Unspecified open wound of right front wall of thorax without penetration into thoracic cavity, initial encounter Status: Chronic Assessment and Plan: Essentially healed. Discontinue dressings. Follow-up 3-4 weeks. He has a full list of instructions. Understands what to monitor for. He will call with any questions or concerns. (2) Hx of breast cancer: Code(s): Z85.3 - Personal history of malignant neoplasm of breast Status: Chronic (3) Hx of radiation therapy: Code(s): Z92.3 - Personal history of irradiation Status: Chronic (4) YULISA (obstructive sleep apnea): Code(s): G47.33 - Obstructive sleep apnea (adult) (pediatric) Status: Chronic (5) HTN (hypertension): Qualifiers: Hypertension type: essential hypertension Qualified Code(s): I10 - Essential (primary) hypertension Code(s): I10 - Essential (primary) hypertension Status: Chronic (6) Diabetes: Qualifiers: Diabetes mellitus type: type 2 Diabetes mellitus manager terminal insulin use: with manager terminal use Diabetes mellitus complication status: without complication Qualified Code(s): E11.9 - Type 2 diabetes mellitus without complications; Z79.4 - ferry terminal supervisor (current) use of insulin Code(s): E11.9 - Type 2 diabetes mellitus without complications Status: Chronic (7) Morbid obesity with BMI of 40.0-44.9, adult: Code(s): E66.01 - Morbid (severe) obesity due to excess calories; Z68.41 - Body mass index (BMI) 40.0-44.9, adult Status: Chronic Review of Systems Review of Systems: All systems reviewed & are unremarkable except as noted in HPI and below Exam Narrative: Exam Narrative: Right chest wound is healed. No signs of infection. No hematoma. No seroma. Jose removed. Donor site also healing well. Const: General: no acute distress Eyes: General: appearance normal, both eyes and all related structures Resp: Effort & Inspection: normal respiratory effort Auscultation: no wheezes Cardio: Rate: regular rate GI: GI Palp: Yes Soft to palpation Skin: General skin exam: normal color Neuro: Cognition (Neuro): normal cognition Speech: normal speech Extrem: General: normal to inspection Psych: Mental Status: mental status grossly normal Objective Data Meds/Results Medications: Active Medications Generic Name Dose Route Start Last Admin Trade Name Freq PRN Reason Stop Dose Admin Silver Nitrate 1 applic 11/19/19 11:51 Silvergel TOPICAL 02/19/20 23:59 PRN PRN Wound Care Tolnaftate 1 applic 10/25/19 08:54 Tolnaftate 1% Powder TOPICAL 01/24/20 23:59 PRN PRN Wound Care Wound Care/Dressing Products 1 patch 11/19/19 11:52 Mepilex Transfer Drsg 6x8 TOPICAL 02/19/20 23:59 PRN PRN Wound Care
== END 2020-01-13 23:59 | disposition home or self-care (01) ==
LOC: ANHWOC 07:22
PROVIDERS: PCP Family Medicine; Visit Provider Surgery Plastic and Reconstructive Surgery
DX: Z48.01 Encounter for change or removal of surgical wound dressing (principal)
CPT/HCPCS: 36415; 80061; 82043; 83036; 84439; 84443; 84480; 97606; 99212; 99213; A9270; G0463

== ENCOUNTER 2019-12-21 08:22 | Outpatient (CLI) | payer MEDICARE, SELFPAY ==
[2019-12-21 08:57] LABS: Cholesterol 128 mg/dL (0-200); HDL Direct 30 mg/dL; Triglycerides 142 mg/dL (<150)
[2019-12-21 09:05] LABS: Hemoglobin A1C 7.2 % (<5.7)
[2019-12-21 09:09] LABS: LDL Cholesterol Direct 76 mg/dL
[2019-12-21 09:27] LABS: Creatinine Urine 169.7 mg/dL; MALB Creatinine Ratio 6.5 mg/g (0-30)
[2019-12-21 22:11] LABS: Free T4 Free Thyroxine Reflex 0.93 ng/dL (0.78-2.19)
[2019-12-21 22:53] LABS: Total Triiodothyronine (T3) 1.46 NG/ML (0.97-1.69)
== END 2019-12-21 08:23 | disposition home or self-care (01) ==
LOC: ANHLAB 08:23
PROVIDERS: PCP Family Medicine; Visit Provider Nurse Practitioner
DX: E78.5 Hyperlipidemia, unspecified (principal); E03.9 Hypothyroidism, unspecified; E11.9 Type 2 diabetes mellitus without complications
CPT/HCPCS: 36415; 80061; 82043; 83036; 84439; 84443; 84480

== ENCOUNTER 2020-01-16 07:57 | Outpatient (RCR) | payer MEDICARE, SELFPAY ==
[2020-01-14 00:02] VITALS: BMI 42.4
== END 2020-01-30 15:04 | disposition home or self-care (01) ==
LOC: ANHWOC 07:57
PROVIDERS: PCP Family Medicine; Visit Provider Surgery Plastic and Reconstructive Surgery
DX: Z48.817 Encounter for surgical aftercare following surgery on the skin and subcutaneous tissue (principal)
CPT/HCPCS: 99212; A9270; G0463

== ENCOUNTER 2020-04-10 14:30 | Outpatient (RCR) | payer MEDICARE, SELFPAY ==
--- NOTE | 2020-02-20 10:23 | PTOPEVAL ---
PHYSICAL THERAPY EVALUATION AND PLAN OF CARE 02-20-2020 Thank you for referring Rayray Walsh to [facility].? He is scheduled to be seen for therapy? 2-3x/week for 4 weeks. Please review, sign, date and return this plan of care PEDRO. I agree with and certify that the following plan of care is medically necessary. Referring Physician Date Attending Provider: Abigail Hughes MD *PT Outpatient Evaluation Start: 02/20/20 09:07 Document 02/20/20 09:00 COOPER (Rec: 02/20/20 10:22 COOPER [id number]) Therapy Assessment Status Assessment Status Assessment Status Evaluation Outpatient Past Medical History Past Medical History Source of Past Medical History Patient Neurological History Hx Neurological Disorders No Significant History Cardiovascular History Hx Hypercholesterolemia Yes: meds Hx Hypertension Yes: meds Respiratory History Hx Sleep Apnea Yes: USES BI PAP Gastrointestinal History Hx Gastrointestinal Disorders No Significant History Genitourinary History Hx Benign Prostatic Hyperplasia Yes Hx Other Genitourinary Disorders Yes: FREQ. Musculoskeletal History Hx Arthritis Yes: GENERALIZED Hx Back Pain Yes Hx Joint Replacement Yes: BILAT TOTAL KNEES 2014 2015 Hematological History Hx Hematological Disorders No Significant History Endocrine History Hx Diabetes Yes: meds HEENT History Hx Cataracts Yes: BILAT SURG. Hx Deviated Septum Yes: SURGERY Integumentary History Hx Other Skin Disorders Yes: RT. CHEST WALL WOUND Reproductive History Hx Mastectomy Yes: 2018 RT MASTECTOMY BREAST CA Psychosocial History Hx Anxiety Yes: TAKES MED Hx Depression Yes: TAKES MED Pain History History of Any Previous or Ongoing No Significant History Instance of Pain Anesthesia History Hx Anesthesia Reactions No Significant History Other History Hx Cancer Yes: RT BREAST Hx Chemotherapy Yes: RT BREAST Hx Radiation Therapy Yes: RT BREAST 33 TX Evaluation Information Problem Diagnosis lymphedema, R UE Onset January 16, 2020 Prior Level of Function Activity Level (Last 3 Months) Occupation retired Cooking Yes Cleaning Yes Laundry Yes Shopping Yes Driving Yes Comments Additional Prior Level of Function able to do home and self tasks Comments , reports not have his full endurance back yet; have just
--- NOTE | 2020-03-20 14:50 | PTOPEVAL ---
PHYSICAL THERAPY RE-EVALUATION AND UPDATED PLAN OF CARE 03-20-2020 Refer to the clinical summary below, for comparison to initial evaluation. Recommend to have a re-assessment visit in 3 weeks, to assess how he is doing managing his lymphedema on his own. Thank you for referring Mr. Walsh to [facility].? Please review, sign, date and return this plan of care PEDRO. I agree with and certify that the following plan of care is medically necessary. Referring Physician Date Attending Provider: Abigail Hughes MD *PT Outpatient Re-Evaluation Document 03/20/20 14:09 COOPER (Rec: 03/20/20 14:49 COOPER [id number]) Subjective Information Sid reports: hand and arm are Query Text:As Reported By Patient/ swollen today, he has been Family using his arm and digging-- preparing for a patio at home; glove and sleeve are comfortable and he has not had any problems with them; understands that he can use the reduction/velcro strap garment at night to help get the swelling down; Pain Assessment Timing of Pain Assessment Timing of Pain Assessment Assessment Self Report Self Report Pain Level 0 Pain Score Pain Score 0: Self Report Upper Extremity Range of Motion General Upper Extremity Range of Motion Gross Upper Extremity Range of Motion R shoulder AROM WNL with ER Comments reports tight over anterior shoulder Lymphedema Evaluation Skin Inspection Location Right Upper Extremity,Right Anterior Upper Quadrant,Right Posterior Lower Quadrant Skin Observations Hyperpigmentation Tissue Texture Firm Skin Inspection Comment R UE: minimal redness over entire forearm with slight fibrosis of tissue over anterior forearm; R trunk: collection of fluid proximal to trunk indentation/ site of surgery, without fibrosis; at inferior incision, there is a ridge of fibrosis along entire incision ~ 1 to 1& 1/2 cm; center of surgical area/removed tissue, with minimal redness and adherent to his trunk; R axilla: firmness of tissue and tenderness to touch;
--- NOTE | 2020-04-10 15:48 | PTOPEVAL ---
PHYSICAL THERAPY DISCHARGE 04-10-2020 Thank you for referring Rayray Walsh to [facility].? Refer to the clinical summary below for the comparison to the last reevaluation and discharge summary. Please review, sign, date and return this discharge PEDRO. I agree with and certify that the following plan of care is medically necessary. Referring Physician Date Attending Provider: Abigail Hughes MD *PT Outpatient Discharge Document 04/10/20 14:40 COOPER (Rec: 04/10/20 15:41 COOPER [id number]) Subjective Information Rayray reports: has been Query Text:As Reported By Patient/ doing his self massage over Family the arm and chest; the garments are comfortable and no concerns about them; did have 2-3 days when his arm was more swollen- not sure why; has been working some in the yard and golfing about once every other week--tried every week and his chest was sore; Pain Assessment Timing of Pain Assessment Timing of Pain Assessment Assessment Self Report Self Report Pain Level 0 Pain Score Pain Score 0: Self Report Additional Pain Score Comments pain in arm, feels bruised in chest; have been golfing, but only able to about once every other week due to chest pain Upper Extremity Range of Motion General Upper Extremity Range of Motion Gross Upper Extremity Range of Motion R shoulder AROM is WNL, some Comments stretch across anterior shoulder, but not painful reinforced HEP and stretching to shoulder and theraband in doorway to simulate golf swing to increase tolerance with activity and increase strength ; Lymphedema Evaluation Skin Inspection Location Right Upper Extremity,Right Anterior Upper Quadrant,Right Posterior Lower Quadrant Skin Observations Hyperpigmentation Tissue Texture Firm Lymphedema Stage II Skin Inspection Comment -in sitting: slight edema over R lateral trunk/scapular area ; -in supine, palpation over R upper trunk scar, with shoulder abduction 90', fibrotic ridge ~ 1 cm below
== END 2020-05-05 10:05 | disposition home or self-care (01) ==
LOC: ANHPT 14:30
PROVIDERS: PCP Family Medicine; Visit Provider Radiology Radiation Oncology
DX: I89.0 Lymphedema, not elsewhere classified (principal); Z90.11 Acquired absence of right breast and nipple
CPT/HCPCS: 29581; 97140; 97161

== ENCOUNTER 2020-06-30 12:13 | Outpatient (CLI) | payer MEDICARE, SELFPAY ==
--- NOTE | ~2020-06-30 | XR_ITS ---
XR chest 2V DATE: 06/30/2020 12:35 INDICATION: Malignant neoplasm of upper outer quadrant of right breast TECHNIQUE: PA and lateral views COMPARISON: 08/21/2019 PA and lateral chest FINDINGS: Heart size is within normal range. There is aortic calcification, ectasia and tortuosity. N o hilar or mediastinal enlargement. No hilar or mediastinal mass lesion or adenopathy is evident. There is minimal atelectasis or infiltrate at the posterior lung bases; otherwise there is no pulmona ry infiltrate or consolidation, pleural effusion or pulmonary vascular congestion or pneumothorax. There is degenerative spurring and mild dextroscoliosis of the thoracic spine. IMPRESSION: Minimal infiltrate or atelectasis at the posterior lung bases Aortic atherosclerosis Reviewed, dictated and finalized at location A. ERCIAL LOAN ANALYST
== END 2020-06-30 12:14 | disposition home or self-care (01) ==
LOC: ANHIMG 12:23
PROVIDERS: PCP Nurse Practitioner Family; Visit Provider Internal Medicine Hematology & Oncology
DX: C50.421 Malignant neoplasm of upper-outer quadrant of right male breast (principal); Z17.0 Estrogen receptor positive status [ER+]; I70.0 Atherosclerosis of aorta
CPT/HCPCS: 71046

== ENCOUNTER 2020-09-19 10:11 | Outpatient (CLI) | payer MEDICARE, SELFPAY ==
[2020-09-19 10:49] LABS: Hematocrit 43.5 % (42.0-52.0); Hemoglobin 14.6 g/dL (14.0-18.0); Immature Platelet Fraction Pct 4.6 % (0.9-11.2); Mean Corpuscular HGB Conc 33.6 g/dl (32-36); Mean Corpuscular Hemoglobin 31.3 pg (26-34); Mean Corpuscular Volume 93.3 fl (80-100); Mean Platelet Volume 10.5 fl (7.4-10.4); Platelet Count Result 139 k/mm3 (150-375); Red Blood Count 4.66 M/mm3 (4.6-6.20); Red Cell Distribution Width 13.3 % (11.5-14.5); White Blood Count 7.1 K/mm3 (4.5-10.0)
[2020-09-19 11:00] LABS: Hemoglobin A1C 8.3 % (<5.7)
[2020-09-19 11:04] LABS: Alanine Aminotransferase 22 U/L (4-50); Albumin Level 3.8 g/dL (3.5-5.1); Alkaline Phosphatase 44 U/L (38-126); Anion Gap 6 mmol/L (8-16); Aspartate Amino Transferase 29 U/L (17-59); Bilirubin,Total 0.4 mg/dL (0.2-1.3); Blood Urea Nitrogen 19 mg/dL (9-20); Calcium 9.3 mg/dL (8.4-10.2); Carbon Dioxide 28 mmol/L (22-30); Chloride 104 mmol/L (98-107); Cholesterol 105 mg/dL (0-200); Estimated Glomerular Filt Rate > 60; Glucose 162 mg/dL (75-110); HDL Direct 39 mg/dL; Potassium 4.4 mmol/L (3.4-5.0); Sodium 138 mmol/L (137-145); Triglycerides 139 mg/dL (<150)
[2020-09-19 11:21] LABS: LDL Cholesterol Direct 50 mg/dL
[2020-09-19 11:55] LABS: Prostate Specific Antigen 0.4 ng/mL (< OR = 4.0)
== END 2020-09-19 10:12 | disposition home or self-care (01) ==
PROVIDERS: PCP Nurse Practitioner Family; Visit Provider Nurse Practitioner Family
DX: E11.9 Type 2 diabetes mellitus without complications (principal); I10 Essential (primary) hypertension; E78.5 Hyperlipidemia, unspecified; Z12.5 Encounter for screening for malignant neoplasm of prostate
CPT/HCPCS: 36415; 80053; 80061; 83036; 84153; 85027; 85055; G0103

== ENCOUNTER 2020-10-22 12:39 | Outpatient (CLI) | payer MEDICARE, SELFPAY ==
[2020-10-22 13:00] LABS: Basophils Percent Auto 0.5 % (0.2-1.2); Eosinophils Absolute Auto 0.2 K/mm3 (0-0.3); Eosinophils Percent Auto 2.8 % (0-4.4); Hematocrit 42.3 % (42.0-52.0); Immature Granulocyte Absolute 0.03 K/mm3 (0.00-0.031); Immature Granulocyte Percent A 0.5 % (0-0.5); Immature Platelet Fraction Pct 3.6 % (0.9-11.2); Lymphocytes Absolute Auto 1.51 K/mm3 (0.9-3.2); Lymphocytes Percent Auto 23.8 % (18.3-44.2); Mean Corpuscular HGB Conc 33.1 g/dl (32-36); Mean Corpuscular Volume 93.6 fl (80-100); Mean Platelet Volume 10.7 fl (7.4-10.4); Monocytes Absolute Auto 0.4 K/mm3 (0.1-0.6); Monocytes Percent Auto 6.3 % (2.6-8.5); Neutrophils Absolute Auto 4.2 K/mm3 (1.3-6.7); Neutrophils Percent Auto 66.1 % (45.5-73.1); Platelet Count Result 132 k/mm3 (150-375); Red Blood Count 4.52 M/mm3 (4.6-6.20); Red Cell Distribution Width 13.8 % (11.5-14.5); White Blood Count 6.4 K/mm3 (4.5-10.0)
[2020-10-22 16:39] LABS: Alanine Aminotransferase 21 U/L (4-50); Albumin Level 3.9 g/dL (3.5-5.1); Alkaline Phosphatase 44 U/L (38-126); Anion Gap 8 mmol/L (8-16); Aspartate Amino Transferase 32 U/L (17-59); Bilirubin,Total 0.3 mg/dL (0.2-1.3); Blood Urea Nitrogen 18 mg/dL (9-20); Carbon Dioxide 26 mmol/L (22-30); Chloride 105 mmol/L (98-107); Estimated Glomerular Filt Rate > 60; Glucose 160 mg/dL (75-110); Potassium 4.6 mmol/L (3.4-5.0); Sodium 139 mmol/L (137-145)
[2020-10-25 08:02] LABS: CA 15-3 16 U/mL (<32)
== END 2020-10-22 12:40 | disposition home or self-care (01) ==
LOC: ANHLAB 12:41
PROVIDERS: PCP Nurse Practitioner Family; Visit Provider Internal Medicine Hematology & Oncology
DX: C50.421 Malignant neoplasm of upper-outer quadrant of right male breast (principal); Z17.0 Estrogen receptor positive status [ER+]
CPT/HCPCS: 36415; 80053; 85025; 85055; 86300

== ENCOUNTER 2021-03-04 10:50 | Outpatient (CLI) | payer MEDICARE, SELFPAY ==
--- NOTE | ~2021-03-04 | XR_ITS ---
EXAMINATION: XR chest 2V DATE: 03/04/2021 11:17 INDICATION: Malignant neoplasm of the upper outer quadrant of the right breast in male TECHNIQUE: PA and lateral views of the chest are obtained. COMPARISON: 06/30/2020 FINDINGS: The lungs are free of acute opacities. There is no pleural effusion or pneumothorax. The ca rdiomediastinal silhouette is normal. There is moderate thoracic spondylosis. IMPRESSION: 1. No acute cardiopulmonary abnormality. Reviewed, dictated and finalized at location A.
== END 2021-03-04 10:51 | disposition home or self-care (01) ==
LOC: ANHIMG 10:56
PROVIDERS: PCP Nurse Practitioner Family; Visit Provider Internal Medicine Hematology & Oncology
DX: C50.421 Malignant neoplasm of upper-outer quadrant of right male breast (principal); Z17.0 Estrogen receptor positive status [ER+]
CPT/HCPCS: 71046

== ENCOUNTER 2021-04-08 07:28 | Outpatient (CLI) | payer MEDICARE, SELFPAY ==
--- NOTE | 2021-04-21 16:47 | WPDSLEEPSTUD ---
Sleep Study Date of Study: 04/08/21 <Delia Duarte DO - Last Filed: 04/21/21 17:29> Ordering Provider: Geovanna Hartman NP <Delia Duarte DO - Last Filed: 04/21/21 17:29> Interpreting Physician: Delia Duarte DO <Delia Duarte DO - Last Filed: 04/21/21 17:29> Sleep Study Type: Polysomnogram <Delia Duarte DO - Last Filed: 04/21/21 17:29> Height: 1.88 m <Delia Duarte DO - Last Filed: 04/21/21 17:29> Weight: 149.685 kg <Delia Duarte DO - Last Filed: 04/21/21 17:29> Body Mass Index: 42.3 <Delia Duarte DO - Last Filed: 04/21/21 17:29> Neck Circumference (inches): 19 <Delia Duarte DO - Last Filed: 04/21/21 17:29> [place]: 6 <Delia Duarte DO - Last Filed: 04/21/21 17:29> Reason for Sleep Study The patient has YULISA that is being treated with BPAP since 2012. He needs new equipment and he was told he had to have a repeat sleep study. <Delia Duarte DO - Last Filed: 04/21/21 17:29> Sleep History The patient is a 75-year-old male with hypertension, hyperlipidemia, type 2 diabetes, YULISA on BPAP, anxiety, hx of breast cancer and morbid obesity that had a split night study ordered because he needs a new BPAP machine. He has been on BPAP since 2012. He was put on testosterone in the past to help with his fatigue but he was taken off it when he was diagnosed with breast cancer. Since then, he has constant fatigue and sleeps during the day. Sleep history with patient consistently using BPAP: The patient states that he never awakens from sleep short of breath. He never awakens at night with heartburn, belching or cough. He rarely snores and is never loud enough that others complain. He denies having trouble sleeping when he has a cold. He denies suddenly waking up gasping for breath during the night. He denies having breathing problems at night observed by others. He constantly sweats is excessively at night. He denies heart palpitations throughout the night. He often falls asleep during the day. He denies falling asleep while driving. He denies sleep paralysis, cataplexy and hypnopompic/ hypnopompic hallucinations. He denies having trouble at school or work due to sleepiness. He rarely has nightmares. He never has thoughts racing through his mind. He frequently feels sad, depressed and anxious. He often notices parts of his body jerk. He often kicks throughout the night. He rarely experiences crawling and aching feelings in his legs as well as leg pain throughout night. He denies grinding his teeth during sleep and waking up with morning jaw pain. He has never bothered by pain during the day and never awakened by pain during the night. He constantly wakes up feeling stiff in the morning. He often wakes up with sore and achy muscles. The patient goes to bed at 10:30 p.m. on weekdays and weekends. He is unsure how long it takes him to fall asleep. He typically wakes up once per hours to urinate. He wakes up at 9:00 a.m. on the weekdays and weekends. The patient states he typically gets 8 hours of sleep per night. He currently lives with his . He denies consuming any caffeinated beverages 2 hours prior to bedtime. He does not engage in physical exercise before bedtime. He will read and watch television before falling asleep. He does takes naps in the afternoon or evening but they are not refreshing. The patient denies cigarette use. He will have alcohol occasionally. He denies recreational drug use. <Delia Duarte DO - Last Filed: 04/21/21 17:29> [facility] Past Medical History Medical History: Medical History Anxiety Breast cancer in male High cholesterol HTN (hypertension) YULISA (obstructive sleep apnea) Urinary incontinence <Delia Duarte DO - Last Filed: 04/21/21 17:29> Surgical History Surgical History:
[2021-04-21 16:54] VITALS: BMI 42.3
== END 2021-04-09 06:57 | disposition home or self-care (01) ==
LOC: ANHCSM 07:28
PROVIDERS: PCP Nurse Practitioner Family; Visit Provider Nurse Practitioner Family
DX: G47.33 Obstructive sleep apnea (adult) (pediatric) (principal)
CPT/HCPCS: 95810

== ENCOUNTER 2021-08-26 07:58 | Outpatient (CLI) | payer MEDICARE, SELFPAY ==
--- NOTE | 2021-09-06 00:31 | WPDSLEEPSTUD ---
Sleep Study Date of Study: 08/26/21 Ordering Provider: Geovanna Hartman NP Interpreting Physician: Delia Duarte DO Sleep Study Type: BiPAP Titration Height: 1.88 m Weight: 149.685 kg Body Mass Index: 42.3 Neck Circumference (inches): 19.5 [place]: 12 Reason for Sleep Study The patient has excessive daytime sleepiness, involuntary daytime napping and frequent urination throughout the night despite being compliant with BPAP therapy. Sleep History The patient is a 76-year-old male with hypertension, hyperlipidemia, type 2 diabetes, YULISA on BPAP, anxiety, hx of breast cancer and morbid obesity that had a split night study ordered because he needs a new BPAP machine. He has been on BPAP since 2012. He was put on testosterone in the past to help with his fatigue but he was taken off it when he was diagnosed with breast cancer. Since then, he has constant fatigue and sleeps during the day. Sleep history with patient consistently using BPAP: The patient states that he never awakens from sleep short of breath. He never awakens at night with heartburn, belching or cough. He rarely snores and is never loud enough that others complain. He denies having trouble sleeping when he has a cold. He denies suddenly waking up gasping for breath during the night. He denies having breathing problems at night observed by others. He constantly sweats is excessively at night. He denies heart palpitations throughout the night. He often falls asleep during the day. He denies falling asleep while driving. He denies sleep paralysis, cataplexy and hypnopompic/ hypnopompic hallucinations. He denies having trouble at school or work due to sleepiness. He rarely has nightmares. He never has thoughts racing through his mind. He frequently feels sad, depressed and anxious. He often notices parts of his body jerk. He often kicks throughout the night. He rarely experiences crawling and aching feelings in his legs as well as leg pain throughout night. He denies grinding his teeth during sleep and waking up with morning jaw pain. He has never bothered by pain during the day and never awakened by pain during the night. He constantly wakes up feeling stiff in the morning. He often wakes up with sore and achy muscles. The patient goes to bed at 10:30 p.m. on weekdays and weekends. He is unsure how long it takes him to fall asleep. He typically wakes up once per hours to urinate. He wakes up at 9:00 a.m. on the weekdays and weekends. The patient states he typically gets 8 hours of sleep per night. He currently lives with his . He denies consuming any caffeinated beverages 2 hours prior to bedtime. He does not engage in physical exercise before bedtime. He will read and watch television before falling asleep. He does takes naps in the afternoon or evening but they are not refreshing. The patient denies cigarette use. He will have alcohol occasionally. He denies recreational drug use. [facility] Past Medical History Medical History Anxiety Breast cancer in male High cholesterol HTN (hypertension) YULISA (obstructive sleep apnea) Urinary incontinence Surgical History Surgical History H/O total mastectomy of right breast Performed by Dr. Doherty in 2018 History of bilateral knee replacement 2015 & 2016 History of removal of Port-a-Cath Hx of breast biopsy Incisional right breast biopsy at mastectomy site 09/18/19 Family History Family History Other Hypertension Social History Social History Smoking status: Never smoker Alcohol intake: current Gender identity (if verbalized by the patient): Male Medications Home Medications Medication Instructions Recorded Confirmed Type tamoxifen 20 mg tablet 20 mg
[2021-09-07 10:52] VITALS: BMI 42.3
== END 2021-08-27 07:34 | disposition home or self-care (01) ==
LOC: ANHCSM 07:58
PROVIDERS: PCP Nurse Practitioner Family; Visit Provider Nurse Practitioner Family
DX: G47.33 Obstructive sleep apnea (adult) (pediatric) (principal); G47.61 Periodic limb movement disorder
CPT/HCPCS: 95811

== ENCOUNTER 2021-09-14 08:10 | Outpatient (CLI) | payer MEDICARE, SELFPAY ==
--- NOTE | 2021-09-14 08:33 | ECG_ITS ---
Measurements Intervals [place] Rate: 67 P: 58 MI: 176 QRS: -41 QRSD: 174 T: 150 QT: 461 QTc: 490 Interpretive Statements SINUS RHYTHM MARKED LEFT AXIS DEVIATION [QRS AXIS < -30] LEFT BUNDLE BRANCH BLOCK [120+ ms QRS DURATION, 80+ ms Q/S IN V1/V2, 85+ ms R IN I/aVL/V5/V6] COMPARED TO ECG 10/04/2019 13:04:22 LEFT BUNDLE-BRANCH BLOCK NOW PRESENT MYOCARDIAL INFARCT FINDING NOW PRESENT Electronically Signed On 09-14-2021 14:23:39 CDT by Tucker Tinsley M.D.
== END 2021-09-14 08:11 | disposition home or self-care (01) ==
PROVIDERS: PCP Nurse Practitioner Family; Visit Provider Urology
DX: I10 Essential (primary) hypertension (principal); Z01.818 Encounter for other preprocedural examination; I44.7 Left bundle-branch block, unspecified
CPT/HCPCS: 93005

== ENCOUNTER 2021-09-28 12:38 | Outpatient (CLI) | payer MEDICARE, SELFPAY ==
--- NOTE | ~2021-09-28 | CT_ITS ---
EXAMINATION: CTA chest DATE: 09/28/2021 13:14 INDICATION: Thoracic aortic aneurysm TECHNIQUE: Computed tomographic angiography (CTA) of the chest was performed without and with 100 mL Omnipaque-350 intravenous contrast. Volume-rendered 3D-reconstructions of the aorta and large arterie s were constructed by the technologist on a separate workstation. Automated exposure control and iter ative reconstruction technique were employed. The dose-length product was 1121.43 mGy-cm. COMPARISON: 07/28/2018 FINDINGS: Mild dependent atelectasis in the bilateral lower lobes. No pneumonia, pulmonary edema or other pulmo nary infiltrates. No pleural effusion or pneumothorax. Heart size is normal. Atherosclerotic coronary artery calcification. There is a 5.0 x 4.2 cm superior mediastinal fluid collection situated between the trachea, the ascending thoracic aorta and the inferior vena cava likely either fluid within the superior pericardial recess or a pericardial cyst with differential including less likely a foregut d uplication cyst. No pericardial effusion. Thoracic aorta is tortuous but normal in caliber with minim al scattered atherosclerotic plaque. No pathologically enlarged thoracic lymphadenopathy. Diffuse hep atic steatosis. 1.5 cm cyst at the upper pole of the right kidney. Postoperative change of prior righ t mastectomy. Unchanged T11 bone island. IMPRESSION: 1. Tortuous but normal caliber thoracic aorta. No aneurysm or dissection. 2. Unchanged 5.0 x 4.2 cm loculated superior mediastinal fluid collection most likely pericardial cys t or fluid within the superior pericardial recess versus less likely foregut duplication cyst. Reviewed, dictated and finalized at location A. IMPRESSION: 1. Tortuous but normal caliber thoracic aorta. No aneurysm or dissection. 2. Unchanged 5.0 x 4.2 cm loculated superior mediastinal fluid collection most likely pericardial cyst or fluid within the superior pericardial recess versus less likely foregut duplication cyst.
== END 2021-09-28 12:39 | disposition home or self-care (01) ==
LOC: ANHIMG 12:43
PROVIDERS: PCP Nurse Practitioner Family; Visit Provider Internal Medicine Cardiovascular Disease
DX: I71.2 Thoracic aortic aneurysm, without rupture (principal)
CPT/HCPCS: 71275; Q9967

== ENCOUNTER 2021-10-12 07:42 | Outpatient (CLI) | payer MEDICARE, SELFPAY ==
--- NOTE | 2021-10-12 08:10 | ECHO_ITS ---
Patient Info Name: Rayray Walsh Age: 76 years : 1945 Gender: Male Ht: 74 in Wt: 320 lbs BSA: 2.81 m2 HR: 66 bpm BP: 138 / 74 mmHg Technical Quality: Poor Exam Date: 10/12/2021 8:41 AM Exam Location: [facility] Patient Status: Outpatient Admit Date: 10/12/2021 Staff Ordering Physician: Liang Schmitt DO Steel Sash Erector: Piedad Glover RDCS Attending Provider: Liang Schmitt DO Referring Physician: Oskar DE PAZ; Exam Type: CA echo dop color flow w con Study Info Indications G47.33 - OBSTRUCTIVE SLEEP APNEA Complete two-dimensional, color flow and Doppler transthoracic echocardiogram is performed with contrast to opacify the left ventricle and to improve the deliniation of the left ventricle endocardial borders. Contrast/Agitated Saline Contrast/Ag. Saline: Definity Amount: 5.00 ml Administered By: Piedad Glover RDCS New IV Access: Inner Forearm and Left Site Condition: IV removed Reason for Poor Study: patient body habitus Summary 1. Left ventricular chamber dimension is normal. 2. Definity contrast administered improved wall motion interpretation. 3. Left ventricular systolic function is normal, estimated at 60-65%. 4. Left ventricular septal wall motion is abnormal with septal motion related to bundle branch block. 5. The left ventricular diastolic function is grade II diastolic dysfunction. 6. E/e' 11 is mildly elevated. 7. Left atrial chamber dimension is mildly enlarged. 8. There is mild aortic valve sclerosis. 9. No pulmonary hypertension, estimated pulmonary arterial systolic pressure is 20 mmHg. Left Ventricle E/e' 11 is mildly elevated. Definity contrast administered improved wall motion interpretation. Left ventricular chamber dimension is normal. Left ventricular systolic function is normal, estimated at 60-65%. Left ventricular septal wall motion is abnormal with septal motion related to bundle branch block. The left ventricular diastolic function is grade II diastolic dysfunction. Right Ventricle Right ventricular systolic function is normal and with normal TAPSE 2.1 cm. Right ventricular chamber dimension is normal. Left Atria Left atrial chamber dimension is mildly enlarged. Right Atria Right atrial chamber dimension is normal. Aortic Valve The aortic valve is trileaflet. There is mild aortic valve sclerosis. There is no aortic valve stenosis. There is no aortic valve regurgitation. Pulmonic Valve There is no pulmonic regurgitation. Mitral Valve There is no mitral valve stenosis. There is no mitral valve regurgitation. Tricuspid Valve There is no tricuspid valve regurgitation. No pulmonary hypertension, estimated pulmonary arterial systolic pressure is 20 mmHg. Pericardium/Pleural There is no pericardial effusion. Inferior Vena Cava Normal inferior vena cava with >50% collapse upon inspiration consistent with normal right atrial pressure, 5 mmHg. Aorta The aortic root size at the sinus of Valsalva is normal. Left Ventricular Outflow Tract Name Value Normal LVOT 2D LVOT Diameter 2.31 cm LVOT Doppler
[2021-10-12] MEDS: PERFLUTREN LIPID MICROSPHERES 1.5 ML VIAL DILUTED TO 10 ML TOTAL VOLUME IV PUSH (09:20)
== END 2021-10-12 07:43 | disposition home or self-care (01) ==
LOC: ANHCARD 07:43
PROVIDERS: PCP Family Medicine; Visit Provider Internal Medicine Cardiovascular Disease
DX: G47.33 Obstructive sleep apnea (adult) (pediatric) (principal)
CPT/HCPCS: C8929; Q9957

== ENCOUNTER 2021-12-17 08:55 | Outpatient (CLI) | payer MEDICARE, SELFPAY ==
[2021-12-17 09:32] LABS: Anion Gap 6 mmol/L (8-16); Blood Urea Nitrogen 14 mg/dL (9-20); Calcium 8.7 mg/dL (8.4-10.2); Carbon Dioxide 26 mmol/L (22-30); Chloride 107 mmol/L (98-107); Estimated Glomerular Filt Rate > 60; Glucose 174 mg/dL (65-110); Potassium 4.1 mmol/L (3.4-5.0); Sodium 139 mmol/L (137-145)
== END 2021-12-17 08:56 | disposition home or self-care (01) ==
LOC: ANHSURGERY 09:00
PROVIDERS: Anesthesiology; PCP Family Medicine; Visit Provider Urology
DX: E11.9 Type 2 diabetes mellitus without complications (principal); Z01.818 Encounter for other preprocedural examination
CPT/HCPCS: 36415; 80048

== ENCOUNTER 2021-12-24 01:10 | Day surgery (SDC) | payer MEDICARE, SELFPAY ==
[2021-12-16 12:47] VITALS: BMI 42.4
--- NOTE | 2021-12-16 12:55 | PC.NURSE ---
Report to the Outpatient Waiting Room, entrance under the green pavilion located off [facility], at time _1100 on date _12/24/21_. OR Time: _1 PM_. - You and your visitor will be asked a series of questions to screen for COVID 19 for your protection. - Only one visitor is allowed at this time. - The patient visitor is requested to leave or wait in car when not with patient. - A mask is required within the hospital. Patients may have clear liquids (water, carbonated beverages, clear teas, apple juice) until 3 hours prior to surgery (1000 AM) with a maximum of 20 ounces. - No food from midnight until time of surgery Take the following medications with a SIP of water the morning of surgery: _CARVEDILOL, CITALOPRAM, LORAZEPAM_ Medications to discontinue per ANESTHESIA - ALL VITAMINS/SUPPLEMENTS, PRO-BIOTIC 3 DAYS PRIOR TO SURGERY, Date to take last dose 12/20/21_ Please no make-up, nail irish, hairspray, perfume, deodorant, or body powder the day of surgery. No jewelry (including any body piercings) or valuables the day of surgery, leave them at home. Please take a shower or bath the night before, or the morning of, surgery with an antibacterial soap. Wear comfortable, loose fitting clothing. \ - Jewelry must be removed prior to entering the operating room. Rings and piercings that are not removed may be cut off. - The hospital will not accept responsibility for valuables. - Please leave all valuables, including medications, at home the day of surgery. If you are going home after surgery, a licensed truck driver flatbed must drive you home. - NO public transportation without another adult. - We recommend that an adult stay with you for 24 hours following discharge. - We also recommend that you do not drive, make important decision, drink alcoholic beverages, or take any drugs that were not prescribed by your health care provider for at least 24 hours after your discharge time. Follow any additional instructions given to you from your surgeon. If you or anyone in your household have experienced Covid symptoms in the past week, please notify your surgeon or the nurse liaison at the phone number below for possible testing. Telephone instructions given to _MAVIS (PT'S SPOUSE)_and asked if any additional questions and then verbalized understanding. Patient advised to call surgeon office or pre surgery nurse liaison [phone] if any additional questions.
--- NOTE | 2021-12-17 07:36 | PM.IMHP ---
H&P: HPI History of Present Illness Date/Time: 12/17/21 07:36 Chief Complaint: Difficulty urinating Narrative: Patient is a 76-year-old gentleman with longstanding outlet obstructive voiding symptoms at become refractory to medical management with both alpha blockers and 5 alpha reductase inhibitors. He continues to have both significant obstructive and irritable voiding symptoms. Urodynamics revealed high-grade obstruction. After discussion of therapeutic options, including areas minimally invasive procedures for BPH, he has elected to proceed with TURP. He is aware the risk of this procedure including, but not limited to, adverse cardiopulmonary events, postoperative hematuria, persistent voiding symptoms and urinary incontinence. Review of Systems Cardiovascular: Cardiovascular: Denies chest pain, Denies lightheadedness, Denies palpitations and Denies dyspnea Respiratory: Respiratory: Denies dyspnea Gastrointestinal: Gastrointestinal: Denies diarrhea, Denies nausea and Denies vomiting Genitourinary: Genitourinary: Denies hematuria and Denies dysuria Endocrine: Endocrine: Denies palpitations PMFSH Past Medical History Medical History Anxiety Breast cancer in male High cholesterol HTN (hypertension) YULISA (obstructive sleep apnea) Urinary incontinence Surgical History Surgical History H/O total mastectomy of right breast Performed by Dr. Doherty in 2018 History of bilateral knee replacement 2014 & 2016 History of removal of Port-a-Cath Hx of breast biopsy Incisional right breast biopsy at mastectomy site 09/18/19 Family History Family History Other Hypertension Social History Social History Smoking status: Never smoker Second hand tobacco smoke exposure: No Alcohol intake: current Alcohol use details: SPOUSE STATES VERY RARELY - MAYBE 1/MONTH IF THAT Substance use: never Substance use type: does not use Additional living arrangements comments: Gender identity (if verbalized by the patient): Male Spiritual care concerns: No Meds Home Medications and Allergies Home Medications Medication Instructions Recorded Confirmed Type tamoxifen 20 mg tablet 20 mg PO QAM 05/25/19 12/16/21 History vitamin E 200 unit capsule 200 unit PO QAM 05/25/19 12/16/21 History Lactobacillus acidophilus 1.5 mg 100 mmu cells PO QAM 03/19/21 12/16/21 History (250 million cell) capsule atorvastatin 20 mg tablet 20 mg PO QHS #90 tabs 04/30/21 12/16/21 Rx carvedilol 3.125 mg tablet 3.125 mg PO BID #180 tabs 04/30/21 12/16/21 Rx quinapril 20 mg tablet 20 mg PO BID #180 tabs 04/30/21 12/16/21 Rx cholecalciferol (vitamin D3) 25 75 mcg PO DAILY 09/10/21 12/16/21 History mcg (1,000 unit) chewable tablet citalopram 20 mg tablet 20 mg PO QAM 09/10/21 12/16/21 History finasteride 5 mg tablet 5 mg PO QAM 09/10/21 12/16/21 History lorazepam 1 mg tablet 2 mg PO PRN PRN anxiety 09/10/21 12/16/21 History tamsulosin 0.4 mg capsule 0.4 mg PO QAM 09/10/21 12/16/21 History zinc 50 mg capsule 50 mg PO QAM 09/10/21 12/16/21 History metformin 500 mg tablet 500 mg PO BID #180 tabs 09/22/21 12/16/21 Rx terazosin 2 mg capsule 2 mg PO QHS #90 caps 10/22/21 12/16/21 Rx glipizide 5 mg tablet, extended 5 mg PO QAM #180 tabs 12/10/21 12/16/21 Rx release 24 hr coffee extract 100 mg-phosphatidyl 1 cap PO QAM 12/16/21 12/16/21 History serine 100 mg capsule (Neuriva Original) Allergies Allergy/AdvReac Type Severity Reaction Status Date / Time epinephrine Allergy Severe Chest Verified 12/16/21 12:42 tightness Exam Const: General: no acute distress Resp: Effort & Inspection: normal respiratory effort GI: Inspection: non-distended GI Palp: No abdominal tenderness and No Guarding
[2021-12-24] VITALS (16 sets, daily range): BP systolic 119–143; BP diastolic 60–78; PULSE 62–92; RESP 14–25; TEMP 36.3–37.6; O2SAT 94–100
--- NOTE | 2021-12-24 06:24 | WPDHPUPDATE1 ---
History and Physical Update Update Date/Time: 12/24/21 06:24 History and Physical has been reviewed, including an updated exam of the patient. There are NO changes in the patient's condition. Risks, benefits, and alternatives have been discussed and questions answered. Patient agrees to proceed with procedure.
--- NOTE | 2021-12-24 12:11 | WPDANESEPPF ---
Anes - Initial Pre Proc Eval Procedure: Operation Date: 12/24/21 13:00 Proposed Procedures p Trans Urethral Resection Prostate - Alfred Nelson MD Date/Time: 12/24/21 12:11 Surgeon: Alfred Nelson MD Pre Op Diagnosis: BPH Patient Data Age: 76 Gender: M Height: 1.88 m Weight: 141.94 kg Allergies Allergy/AdvReac Type Severity Reaction Status Date / Time epinephrine Allergy Severe Chest Verified 12/24/21 11:39 tightness Home Medications Medication Instructions Recorded Confirmed Type tamoxifen 20 mg tablet 20 mg PO QAM 05/25/19 12/16/21 History vitamin E 200 unit capsule 200 unit PO QAM 05/25/19 12/16/21 History Lactobacillus acidophilus 1.5 mg 100 mmu cells PO QAM 03/19/21 12/16/21 History (250 million cell) capsule atorvastatin 20 mg tablet 20 mg PO QHS #90 tabs 04/30/21 12/16/21 Rx carvedilol 3.125 mg tablet 3.125 mg PO BID #180 tabs 04/30/21 12/16/21 Rx quinapril 20 mg tablet 20 mg PO BID #180 tabs 04/30/21 12/16/21 Rx cholecalciferol (vitamin D3) 25 75 mcg PO DAILY 09/10/21 12/16/21 History mcg (1,000 unit) chewable tablet finasteride 5 mg tablet 5 mg PO QAM 09/10/21 12/16/21 History lorazepam 1 mg tablet 2 mg PO PRN PRN anxiety 09/10/21 12/16/21 History tamsulosin 0.4 mg capsule 0.4 mg PO QAM 09/10/21 12/16/21 History zinc 50 mg capsule 50 mg PO QAM 09/10/21 12/16/21 History metformin 500 mg tablet 500 mg PO BID #180 tabs 09/22/21 12/16/21 Rx terazosin 2 mg capsule 2 mg PO QHS #90 caps 10/22/21 12/16/21 Rx glipizide 5 mg tablet, extended 5 mg PO QAM #180 tabs 12/10/21 12/16/21 Rx release 24 hr coffee extract 100 mg-phosphatidyl 1 cap PO QAM 12/16/21 12/16/21 History serine 100 mg capsule (Neuriva Original) citalopram 20 mg tablet 20 mg PO QAM #90 tabs 12/21/21 12/24/21 Rx Patient hx anesthesia problems: none Family hx anesthesia problems: none Results Review: All pre-operative results and documents have been reviewed as part of the pre-operative evaluation. [facility] Past Medical History Medical History Anxiety Breast cancer in male High cholesterol HTN (hypertension) YULISA (obstructive sleep apnea) Urinary incontinence Surgical History Surgical History H/O total mastectomy of right breast Performed by Dr. Doherty in 2018 History of bilateral knee replacement 2014 & 2016 History of removal of Port-a-Cath Hx of breast biopsy Incisional right breast biopsy at mastectomy site 09/18/19 Family History Family History Other Hypertension Social History Social History Smoking status: Never smoker Second hand tobacco smoke exposure: No Alcohol intake: current Alcohol use details: SPOUSE STATES VERY RARELY - MAYBE 1/MONTH IF THAT Substance use: never Substance use type: does not use Living arrangements: with family Additional living arrangements comments: Gender identity (if verbalized by the patient): Male Spiritual care concerns: No Anes - Eval Final PreProcedure Day of Procedure 12/24/21 12:11 Patient weight: morbidly obese Heart: regular rate and rhythm Lungs: clear to auscultation Airway: Mallampati scale class III Neurological: alert and oriented Last oral intake: >/= 8 hours ASA classification: III Emergent: no Anesthetic plan: proceed Anesthesia type and monitoring: general LMA and standard monitoring Results Review: All pre-operative results and documents have been reviewed as part of the pre-operative evaluation. Informed Consent: The patient's anesthetic plan and its attendant risks and benefits were discussed with the patient/family/POA. Questions were solicited and answers provided to the satisfaction of the patient/family/POA.
[2021-12-24 12:12] LABS: Glucose Point of Care 176 mg/dl (65-105)
[2021-12-24] MEDS: LACTATED RINGERS 1,000 ML 30 ML IV CONT (12:22)
[2021-12-24] MEDS: ceFAZolin 3 GM/D5W 100 ML 100 ML IVPB (12:49)
--- NOTE | 2021-12-24 13:51 | P.OP_ITS ---
Procedure Note - Detailed Date of Procedure 12/24/21 Pre-op Diagnosis BPH Post-op Diagnosis Same Procedure Performed TURP Surgeon Alfred Nelson MD Anesthesia General Description of Procedure The patient was brought to the operative suite where he is prepped and draped in routine sterile fashion while in the dorsal lithotomy position after the uneventful induction of a general LMA anesthetic. A 27 S[place]inese resectoscope sheath was placed into his bladder. He had no urethral strictures. The patient had trilobar hyperplasia with a small median lobe. The bladder itself was endoscopically normal, showing no mucosal hyperemia, intravesical neoplasm or foreign bodies. There was a single, orthotopic ureteral orifice bilaterally. These orifices were identified and preserved throughout the remainder of the procedure. Attention was first turned to resection of the median lobe. This resection was undertaken from the bladder neck to the verumontanum and carried out until the transverse fibers of the bladder neck were identified. The left lateral lobe was then resected starting at the 6 o'clock position, working counter clockwise to the 12 o'clock position. Again, resection was carried out from the bladder neck to the verumontanum until the capsular fibers of the prostate were identified. The right lateral lobe was resected in a similar fashion starting at the 6 o'clock position working clockwise to the 12 o'clock position and carried out until the capsular fibers of the prostate were identified. Apical tissue was then circumferentially resected. All chips were evacuated from the bladder using an [id number] evacuator. Hemostasis was obtained with electric cautery. The ureteral orifices were again inspected and found to be without injury. Estimated blood loss throughout this procedure was 50cc. The patient was taken to recovery room having tolerated this well. Drains Yes Pathology Yes Complications No immediate complications Condition Stable Disposition PACU
[2021-12-24 13:59] LABS: Glucose Point of Care 170 mg/dl (65-105)
--- NOTE | 2021-12-24 14:26 | ECG_ITS ---
Measurements Intervals [place] Rate: 63 P: 39 ND: 245 QRS: -29 QRSD: 189 T: 111 QT: 490 QTc: 503 Interpretive Statements SINUS RHYTHM WITH FIRST DEGREE AV BLOCK WITH OCCASIONAL SUPRAVENTRICULAR PREMATURE COMPLEXES LEFT BUNDLE BRANCH BLOCK [120+ ms QRS DURATION, 80+ ms Q/S IN V1/V2, 85+ ms R IN I/aVL/V5/V6] COMPARED TO ECG 09/14/2021 08:43:55 PACS ARE PRESENT Electronically Signed On 12-25-2021 16:32:54 CDT by Tucker Tinsley M.D.
--- NOTE | 2021-12-24 15:41 | ADMGEN ---
This patient, Rayray Walsh, was admitted to 2 Medical Room 241-01. Patient/family oriented to hospital policies and general routines including ID bracelet, bed and alarms, visiting hours, pain management, procedures, bathroom and other care routines, personal items, smoking policy, room service/diet, and visiting hours. Information on how to activate the Rapid Response Team has been discussed. Patient/Family are encouraged to report perceived risks to care and to ask questions if they do not understand what they are told or what they should do. Report received from CHIDI Anguiano
[2021-12-24 16:40] LABS: Glucose Point of Care 147 mg/dl (65-105)
[2021-12-24] MEDS: metFORMIN HCL 500 MG TABLET PO (17:28)
[2021-12-24] MEDS: glipiZIDE XL 5 MG TABCR PO (17:28)
[2021-12-24] MEDS: carvediloL 3.125 MG TABLET PO (17:28)
[2021-12-24] MEDS: HYDROcodone/acetaminophen (*CRX) 5-325 MG TABLET 1 TAB PO (20:14)
[2021-12-24] MEDS: ATORVASTATIN 20 MG TABLET PO (20:15)
[2021-12-24] MEDS: lisinopriL 20 MG TABLET PO (20:15)
[2021-12-24] MEDS: TERAZOSIN HCL 1 MG CAPSULE 2 MG PO (20:15)
[2021-12-25] VITALS (8 sets, daily range): BP systolic 103–129; BP diastolic 60–74; PULSE 65–119; RESP 16–18; TEMP 36.1–36.6; O2SAT 94–95
[2021-12-25] MEDS: HYDROcodone/acetaminophen (*CRX) 5-325 MG TABLET 1 TAB PO (00:53)
[2021-12-25 04:56] LABS: Hematocrit 40.3 % (42.0-52.0); Hemoglobin 13.7 g/dL (14.0-18.0)
[2021-12-25 05:03] LABS: Anion Gap 5 mmol/L (8-16); Blood Urea Nitrogen 13 mg/dL (9-20); Calcium 8.6 mg/dL (8.4-10.2); Carbon Dioxide 29 mmol/L (22-30); Chloride 102 mmol/L (98-107); Estimated CRCL calculation 95 ml/min; Estimated Glomerular Filt Rate > 60; Glucose 154 mg/dL (65-110); Potassium 4.3 mmol/L (3.4-5.0); Sodium 136 mmol/L (137-145)
--- NOTE | 2021-12-25 08:23 | WPDANESPN ---
Anes - Prog Note Post-Op Date/Time: 12/25/21 08:23 Vital Signs: Last Vital Signs Temp 36.1 C L 12/25/21 05:08 Pulse 81 12/25/21 08:00 Resp 16 12/25/21 05:08 BP 122/73 12/25/21 06:13 Pulse Ox 94 12/25/21 05:08 O2 Del Method Room Air 12/24/21 15:15 O2 Flow Rate 10 12/24/21 14:15 Pain Score (VAS): 0 I/O: Intake & Output 12/24/21 12/25/21 12/25/21 23:59 07:59 15:59 Intake Total 450 500 476 Output Total 500 1050 Balance -50 -550 476 Laboratory Tests 12/25/21 04:25 12/25/21 04:25 12/24/21 12/24/21 12/24/21 12:07 13:57 16:22 Hgb Hct Sodium Potassium Chloride Carbon Dioxide Anion Gap BUN Creatinine Estim Creat Clear Calc Estimated GFR Glucose POC Capillary Glucose 176 H 170 H 147 H Calcium 12/25/21 12/25/21 04:25 04:25 Hgb 13.7 L Hct 40.3 L Sodium 136 L Potassium 4.3 Chloride 102 Carbon Dioxide 29 Anion Gap 5 L BUN 13 Creatinine 0.90 Estim Creat Clear Calc 95 Estimated GFR > 60 Glucose 154 H POC Capillary Glucose Calcium 8.6 Patient Feedback: Patient satisfied with anesthetic care.
[2021-12-25] MEDS: carvediloL 3.125 MG TABLET PO (08:37)
[2021-12-25] MEDS: metFORMIN HCL 500 MG TABLET PO (08:37)
[2021-12-25] MEDS: glipiZIDE XL 5 MG TABCR PO (08:39)
[2021-12-25] MEDS: CITALOPRAM HYDROBROMIDE 20 MG TABLET PO (08:39)
[2021-12-25] MEDS: lisinopriL 20 MG TABLET PO (08:39)
[2021-12-25] MEDS: TAMOXIFEN CITRATE (*CHEMO) 10 MG TABLET 20 MG PO (08:39)
[2021-12-25] MEDS: CEPHALEXIN 500 MG CAPSULE PO (12:28)
--- NOTE | 2021-12-25 14:12 | WPDUROPN2 ---
Progress Note: A&P Assessment and Plan (1) BPH loc w urin obs/LUTS: Code(s): N40.1 - Benign prostatic hyperplasia with lower urinary tract symptoms Status: Acute Plan TURP postop day 1 -patient is voiding well. He has minimal PVR. -plan discharge home today. Subjective Subjective Date/Time Seen: 12/25/21 14:12 Patient is feeling well. He has voided since catheter removal. He states slight dysuria. Objective Data Vital Signs Vital Signs: Vital Signs - 24 hr 12/24/21 14:15 12/24/21 14:30 12/24/21 14:45 Temperature Pulse Rate 74 67 68 Respiratory Rate 17 25 H 19 Blood Pressure 127/78 134/70 119/67 Pulse Oximetry 100 95 94 Oxygen Delivery Simple Face Mask Room Air Room Air Oxygen Flow Rate 10 12/24/21 15:00 12/24/21 15:15 12/24/21 16:00 Temperature Pulse Rate 65 66 62 Respiratory Rate 19 19 Blood Pressure 119/67 141/72 H Pulse Oximetry 95 95 Oxygen Delivery Room Air Room Air Oxygen Flow Rate 12/24/21 15:35 12/24/21 15:50 12/24/21 17:28 Temperature 36.4 C 36.3 C L Pulse Rate 66 63 62 Respiratory Rate 18 18 Blood Pressure 141/75 H 133/69 Pulse Oximetry 99 96 Oxygen Delivery Oxygen Flow Rate 12/24/21 16:20 12/24/21 17:20 12/24/21 20:00 Temperature 36.3 C L 36.4 C L Pulse Rate 65 62 92 Respiratory Rate 16 16 Blood Pressure 139/63 143/75 H Pulse Oximetry 99 98 Oxygen Delivery Oxygen Flow Rate 12/24/21 21:04 12/25/21 00:00 12/25/21 01:08 Temperature 36.4 C 36.6 C Pulse Rate 73 78 119 H Respiratory Rate 18 18 Blood Pressure 140/76 129/74 Pulse Oximetry 97 95 Oxygen Delivery Oxygen Flow Rate 12/25/21 04:00 12/25/21 05:08 12/25/21 06:13 Temperature 36.1 C L Pulse Rate 72 74 Respiratory Rate 16 Blood Pressure 103/60 122/73 Pulse Oximetry 94 Oxygen Delivery Oxygen Flow Rate 12/25/21 08:00 12/25/21 08:37 12/25/21 10:38 Temperature 36.6 C Pulse Rate 81 70 65 Respiratory Rate 16 Blood Pressure 110/60 Pulse Oximetry 95 Oxygen Delivery Oxygen Flow Rate Intake/Output Intake/Output: Intake & Output 12/22/21 12/23/21 12/24/21 12/25/21 23:59 23:59 23:59 23:59 Intake Total 950 1716 Output Total 2350 1150 Balance -1400 566 Meds/Results Medications: Active Medications Generic Name Dose Route Start Last Admin Trade Name Freq PRN Reason Stop Dose Admin Hydrocodone Bitart/Acetaminophen 1 tab 12/24/21 15:23 12/25/21 00:53 Hydrocodone/Acetaminophen (*Crx) 5-325 Mg Tablet PO 1 tab Q4H PRN Administration Pain Rated 1-6 Atorvastatin Calcium 20 mg 12/24/21 21:00 12/24/21 20:15 Atorvastatin 20 Mg Tablet PO 20 mg QHS JOSHUA Administration Carvedilol 3.125 mg 12/24/21 17:00 12/25/21 08:37 Carvedilol 3.125 Mg Tablet PO 3.125 mg BID JOSHUA Administration Cephalexin HCl 500 mg 12/25/21 13:00 12/25/21 12:28 Cephalexin 500 Mg Capsule PO 500 mg QID JOSHUA Administration Citalopram Hydrobromide 20 mg 12/25/21 09:00 12/25/21 08:39 Citalopram Hydrobromide 20 Mg Tablet PO 20 mg QAM JOSHUA Administration Docusate Sodium 100 mg 12/24/21 17:00 12/25/21 08:39 Docusate Sodium 100 Mg Capsule PO Not Given BID JOSHUA Fentanyl Citrate 25 mcg 12/24/21 10:41 Fentanyl Citrate Inj (*Crx) 100 Mcg/2 Ml Vial IV PUSH Q2M PRN Pain Glipizide 5 mg 12/24/21 17:00 12/25/21 08:39 Glipizide Xl 5 Mg Tabcr PO 5 mg BID JOSHUA Administration Hyoscyamine 0.125 mg 12/24/21 15:23 Hyoscyamine Sulfate 0.125 Mg Tablet SUBLINGUAL Q6H PRN Bladder Spasm Lisinopril 20 mg 12/24/21 21:00 12/25/21 08:39 Lisinopril 20 Mg Tablet PO 20 mg Q12HR JOSHUA Administration Lorazepam 2 mg 12/24/21 15:23 Lorazepam (*Crx) 1 Mg Tablet PO BID PRN anxiety Metformin HCl 500 mg 12/24/21 17:00 12/25/21 08:37 Metformin Hcl 500 Mg Tablet PO 500 mg BIDWM JOSHUA Administration Morphine Sulfate 2 mg 12/24/21 15:
== END 2021-12-25 14:20 | disposition home or self-care (01) ==
LOC: ANHSURGERY 11:02 → ANH2MED 15:28
PROVIDERS: PCP Family Medicine; Visit Provider Urology
PROC: 0VT08ZZ Resection of Prostate, Via Natural or Artificial Opening Endoscopic (ICD-10-PCS; CPT 52601; principal; 2021-12-24 13:00)
DX: N40.1 Benign prostatic hyperplasia with lower urinary tract symptoms (principal); N13.9 Obstructive and reflux uropathy, unspecified; Z79.84 Long term (current) use of oral hypoglycemic drugs; I10 Essential (primary) hypertension; G47.33 Obstructive sleep apnea (adult) (pediatric); F41.9 Anxiety disorder, unspecified; E78.00 Pure hypercholesterolemia, unspecified; Z79.810 Long term (current) use of selective estrogen receptor modulators (SERMs); Z85.3 Personal history of malignant neoplasm of breast; E66.01 Morbid (severe) obesity due to excess calories; Z68.41 Body mass index [BMI] 40.0-44.9, adult
CPT/HCPCS: 52601; 36415; 80048; 82948; 85014; 85018; 88305; 93005; A9270; C1758; J0690; J2405; J2704; J3010; J7120

== ENCOUNTER 2022-03-05 13:52 | Outpatient (CLI) | payer MEDICARE, SELFPAY ==
[2022-03-05 14:08] LABS: Basophils Percent Auto 0.4 % (0.2-1.2); Eosinophils Absolute Auto 0.2 K/mm3 (0-0.3); Eosinophils Percent Auto 2.4 % (0-4.4); Hematocrit 43.4 % (42.0-52.0); Hemoglobin 14.5 g/dL (14.0-18.0); Immature Granulocyte Absolute 0.04 K/mm3 (0.00-0.031); Immature Granulocyte Percent A 0.6 % (0-0.5); Lymphocytes Absolute Auto 1.79 K/mm3 (0.9-3.2); Lymphocytes Percent Auto 24.9 % (18.3-44.2); Mean Corpuscular HGB Conc 33.4 g/dl (32-36); Mean Corpuscular Hemoglobin 31.4 pg (26-34); Mean Corpuscular Volume 93.9 fl (80-100); Monocytes Absolute Auto 0.5 K/mm3 (0.1-0.6); Monocytes Percent Auto 7.5 % (2.6-8.5); Neutrophils Absolute Auto 4.6 K/mm3 (1.3-6.7); Neutrophils Percent Auto 64.2 % (45.5-73.1); Platelet Count Result 147 k/mm3 (150-375); Red Blood Count 4.62 M/mm3 (4.6-6.20); White Blood Count 7.2 K/mm3 (4.5-10.0)
[2022-03-05 14:53] LABS: Alanine Aminotransferase 23 U/L (6-50); Albumin Level 4.1 g/dL (3.5-5.1); Alkaline Phosphatase 52 U/L (38-126); Anion Gap 12 mmol/L (8-16); Aspartate Amino Transferase 40 U/L (17-59); Bilirubin,Total 0.6 mg/dL (0.2-1.3); Blood Urea Nitrogen 16 mg/dL (9-20); Calcium 9.3 mg/dL (8.4-10.2); Carbon Dioxide 29 mmol/L (22-30); Chloride 99 mmol/L (98-107); Estimated Glomerular Filt Rate > 60; Glucose 185 mg/dL (65-110); Potassium 5.1 mmol/L (3.4-5.0); Sodium 140 mmol/L (137-145)
[2022-03-09 20:21] LABS: CA 15-3 19 U/mL (<32)
== END 2022-03-05 13:53 | disposition home or self-care (01) ==
LOC: ANHLAB 13:53
PROVIDERS: PCP Family Medicine; Visit Provider Internal Medicine Hematology & Oncology
DX: C50.421 Malignant neoplasm of upper-outer quadrant of right male breast (principal); Z17.0 Estrogen receptor positive status [ER+]
CPT/HCPCS: 36415; 80053; 85025; 86300

== ENCOUNTER 2022-03-15 11:26 | Outpatient (CLI) | payer MEDICARE, SELFPAY ==
[2022-03-15 19:09] LABS: Cholesterol 122 mg/dL (0-200); HDL Direct 35 mg/dL; Triglycerides 120 mg/dL (<150)
[2022-03-15 19:20] LABS: LDL Cholesterol Direct 63 mg/dL
[2022-03-15 19:33] LABS: Vitamin D 25 Hydroxy 38.2 ng/mL
[2022-03-15 19:48] LABS: Hemoglobin A1C 8.2 % (<5.7)
== END 2022-03-15 11:27 | disposition home or self-care (01) ==
LOC: ANHGOSHLAB 11:29
PROVIDERS: PCP Family Medicine; Visit Provider Nurse Practitioner Family
DX: E78.5 Hyperlipidemia, unspecified (principal); E11.9 Type 2 diabetes mellitus without complications; E55.9 Vitamin D deficiency, unspecified
CPT/HCPCS: 36415; 80061; 82306; 83036

== ENCOUNTER 2022-04-01 07:49 | Outpatient (CLI) | payer MEDICARE, SELFPAY ==
--- NOTE | ~2022-04-01 | MR_ITS ---
EXAMINATION: MR lumbar spine wo con DATE: 04/01/2022 08:32 INDICATION: Left-sided low back pain. TECHNIQUE: Magnetic resonance imaging (MRI) of the lumbar spine was performed without intravenous con trast. Sequences included sagittal T2-weighted FSE, sagittal T2-weighted FS FSE, sagittal T1-weighted FSE, and axial T2-weighted FSE. COMPARISON: None FINDINGS: There is 4 mm retrolisthesis of L2 on L3 and 3 mm retrolisthesis of L5 on S1. Vertebral bod y heights are normal. There is severely decreased disc height at L2-L3 and L5-S1. The distal spinal c ord signal intensity is normal. The conus medullaris is at L1. The following disc levels are specific ally discussed: L1-L2: The disc does not extend beyond the endplate margin. There is severe right and moderate left f acet joint osteoarthritis. There is mild lateral neural foraminal stenosis. There is no central canal stenosis. L2-L3: The disc is bulging with superimposed central extrusion. There is severe right and moderate le ft facet joint osteoarthritis. There is moderate bilateral neural foraminal stenosis. There is mild c entral canal stenosis. L3-L4: The disc is mildly bulging. There is severe bilateral facet joint osteoarthritis. There is mil d bilateral neural foraminal stenosis. There is no central canal stenosis. L4-L5: The disc is bulging and has an annular fissure. There is severe bilateral facet joint osteoart hritis. There is mild bilateral neural foraminal stenosis. There is mild central canal stenosis. L5-S1: The disc is bulging and has an annular fissure. There is moderate bilateral facet joint osteoa rthritis. There is moderate bilateral neural foraminal stenosis. There is mild central canal stenosis . IMPRESSION: 1. Severe lumbar spondylosis. Reviewed, dictated and finalized at location A.
== END 2022-04-01 07:50 | disposition home or self-care (01) ==
PROVIDERS: PCP Family Medicine; Visit Provider Nurse Practitioner Family
DX: M54.50 Low back pain, unspecified (principal); M47.816 Spondylosis without myelopathy or radiculopathy, lumbar region
CPT/HCPCS: 72148

== ENCOUNTER 2022-05-05 07:45 | Outpatient (CLI) | payer MEDICARE, SELFPAY ==
--- NOTE | 2022-06-04 12:22 | WPDSLEEPSTUD ---
Sleep Study Date of Study: 05/05/22 Ordering Provider: CAMILLA Kang Interpreting Physician: Pinky Akhtar MD Sleep Study Type: BiPAP Titration Height: 1.88 m Weight: 143.789 kg Body Mass Index: 40.6 Neck Circumference (inches): 19.5 [place]: 14 Reason for Sleep Study Obstructive sleep apnea with treatment emergent central apneas, previously called complex sleep apnea; he needs a repeat BiPAP titration. Sleep History Rayray Walsh is a 76-year-old man with obstructive sleep apnea his been on BiPAP since 2012. He had an unsuccessful BiPAP titration on 08/26/2021. He returns for a repeat BiPAP titration. His medical conditions include hypertension, hyperlipidemia, type 2 diabetes, anxiety, history of breast cancer as well as YULISA. He was put on testosterone in the past to help with his fatigue but he was taken off it when he was diagnosed with breast cancer. Since then, he has constant fatigue and sleeps during the day. He never awakens from sleep short of breath.? He never awakens at night with heartburn, belching or cough.? He rarely snores, and never is his snoring loud enough that others complain. He denies having trouble sleeping when he has a cold.? He denies suddenly waking up gasping for breath during the night.? He denies having breathing problems at night observed by others.? He constantly sweats excessively at night.? He denies heart palpitations during the night.? He often falls asleep during the day.? He denies falling asleep while driving.? He denies feeling muscle weakness with strong emotion or feeling paralyzed and waking or falling asleep. HE does not have vivid dream like hallucinations on waking or falling asleep. He denies having daytime difficulties due to excessive daytime sleepiness.? He rarely has nightmares.? He never has thoughts racing through his mind.? He frequently feels sad, depressed and anxious.??He often notices parts of his body jerk.? He often kicks throughout the night.??He rarely experiences crawling and aching feelings in his legs as well as leg pain throughout night.? He denies grinding his teeth during sleep and waking up with morning jaw pain.? He has never bothered by pain during the day and never awakened by pain during the night.? He constantly wakes up feeling stiff in the morning.? He often wakes up with sore and achy muscles. Normal bedtime is 10:30 p.m., uncertain regarding how long it takes him to fall asleep. He typically wakes up every few hours to urinate.? He wakes up at 9:00 a.m. He typically gets 8 hours of sleep per night.? He takes naps in the afternoon or evening but they are not refreshing.? Habits: No tobacco, occasional alcohol, no recreational drug use. [facility] Past Medical History Medical History (Updated 06/04/22 @ 13:31 by Pinky Akhtar MD) Anxiety Anxiety disorder, unspecified Breast cancer in male Complex sleep apnea syndrome High cholesterol HTN (hypertension) YULISA (obstructive sleep apnea) Treatment-emergent central sleep apnea Urinary incontinence Surgical History Surgical History H/O total mastectomy of right breast Performed by Dr. Doherty in 2018 History of bilateral knee replacement 2015 & 2016 History of prostate surgery (~11/2021) History of removal of Port-a-Cath Hx of breast biopsy Incisional right breast biopsy at mastectomy site 09/18/19 Family History Family History Unknown Hypertension Social History Social History Smoking status: Never smoker Second hand tobacco smoke exposure: No Alcohol intake: current Alcohol use details: SPOUSE STATES VERY RARELY - MAYBE 1/MONTH IF THAT Substance use: never Substance use type: does not use Lack of Transportation: No Lack of Food: Never True Current Housing: I Have Housing Concerned About Future Housi
[2022-06-04 12:59] VITALS: BMI 40.6
--- NOTE | 2022-08-12 16:06 | SLEEP ---
pt just got machine adjusted
== END 2022-05-06 06:44 | disposition home or self-care (01) ==
PROVIDERS: PCP Family Medicine; Visit Provider Physician Assistant
DX: G47.31 Primary central sleep apnea (principal); G47.33 Obstructive sleep apnea (adult) (pediatric); G47.39 Other sleep apnea; G47.61 Periodic limb movement disorder
CPT/HCPCS: 95811

== ENCOUNTER 2022-05-14 01:52 | Day surgery (SDC) | payer MEDICARE, SELFPAY ==
[2022-05-14 09:58] VITALS: BP 147/96; PULSE 95; RESP 18; TEMP 36.8; O2SAT 98; BMI 39.5
[2022-05-14 10:06] LABS: Glucose Point of Care 180 mg/dl (65-105)
[2022-05-14] MEDS: LACTATED RINGERS 1,000 ML 150 ML IV CONT (10:25)
--- NOTE | 2022-05-14 10:25 | WPDANESEPPF ---
Anes - Initial Pre Proc Eval Procedure: Operation Date: 05/14/22 11:00 Proposed Procedures p Screening Colonoscopy - Eligio Hardin MD Date/Time: 05/14/22 10:25 Surgeon: Eligio Hardin MD Pre Op Diagnosis: Hx of colon polyps Patient Data Age: 76 Gender: M Height: 1.88 m Weight: 139.6 kg Last Vital Signs Temp 36.8 C 05/14/22 09:58 Pulse 95 05/14/22 09:58 Resp 18 05/14/22 09:58 BP 147/96 H 05/14/22 09:58 Pulse Ox 98 05/14/22 09:58 O2 Del Method Room Air 05/14/22 09:58 Allergies Allergy/AdvReac Type Severity Reaction Status Date / Time epinephrine Allergy Severe Chest Verified 04/14/22 13:28 tightness Home Medications Medication Instructions Recorded Confirmed Type tamoxifen 20 mg tablet 20 mg PO QAM 05/25/19 05/04/22 History vitamin E 200 unit capsule 200 unit PO QAM 05/25/19 05/04/22 History cholecalciferol (vitamin D3) 25 75 mcg PO DAILY 09/10/21 05/04/22 History mcg (1,000 unit) chewable tablet lorazepam 1 mg tablet 2 mg PO PRN PRN anxiety 09/10/21 05/04/22 History zinc 50 mg capsule 50 mg PO QAM 09/10/21 05/04/22 History coffee extract 100 mg-phosphatidyl 1 cap PO QAM 12/16/21 05/04/22 History serine 100 mg capsule (Neuriva Original) citalopram 20 mg tablet 20 mg PO QAM #90 tabs 12/21/21 05/04/22 Rx carvedilol 3.125 mg tablet 3.125 mg PO BID #180 tabs 02/15/22 05/04/22 Rx flash glucose scanning reader #1 ea 03/15/22 04/14/22 Rx (FreeStyle Vikki 14 Day [place]) flash glucose sensor (FreeStyle #1 ea 03/15/22 04/14/22 Rx Vikki 14 Day Sensor kit) metformin 1,000 mg tablet 1,000 mg PO BID #180 tabs 03/16/22 05/04/22 Rx terazosin 2 mg capsule 2 mg PO QHS #90 caps 03/22/22 05/04/22 Rx glipizide 5 mg tablet, extended 5 mg PO QAM #180 tabs 03/23/22 05/04/22 Rx release 24 hr cephalexin 500 mg capsule 500 mg PO DAILY 04/12/22 05/04/22 History tadalafil 5 mg tablet 5 mg PO DAILY 04/13/22 05/04/22 History eszopiclone 2 mg tablet (Lunesta) 2 mg PO ONCE #1 tablet 04/14/22 05/04/22 Rx sodium,potassium,mag sulfates 17.5 See Rx Instructions PO .COMPLEX 04/23/22 05/04/22 Rx gram-3.13 gram-1.6 gram oral soln #354 mL (Suprep Bowel Prep Kit) atorvastatin 20 mg tablet See Rx Instructions .Route 05/13/22 Rx .COMPLEX #90 tabs quinapril 20 mg tablet See Rx Instructions .Route 05/13/22 Rx .COMPLEX #180 tabs Laboratory Tests 05/14/22 10:03 POC Capillary Glucose 180 mg/dl H mg/dl (65-105) Patient hx anesthesia problems: none Family hx anesthesia problems: none Results Review: All pre-operative results and documents have been reviewed as part of the pre-operative evaluation. [facility] Past Medical History Medical History Anxiety Anxiety disorder, unspecified Breast cancer in male Complex sleep apnea syndrome High cholesterol HTN (hypertension) YULISA (obstructive sleep apnea) Urinary incontinence Surgical History Surgical History H/O total mastectomy of right breast Performed by Dr. Doherty in 2018 History of bilateral knee replacement 2015 & 2016 History of prostate surgery (~11/2021) History of removal of Port-a-Cath Hx of breast biopsy Incisional right breast biopsy at mastectomy site 09/18/19 Family History Family History Unknown Hypertension Social History Social History Smoking status: Never smoker Second hand tobacco smoke exposure: No Alcohol intake: current Alcohol use details: SPOUSE STATES VERY RARELY - MAYBE 1/MONTH IF THAT Substance use: never Substance use type: does not use Living arrangements: with family Additional living arrangements comments: Gender identity (if verbalized by the patient): Male Spiritual care concerns: No Anes - Eval Final PreProcedure Day of Proced
--- NOTE | 2022-05-14 10:49 | PM.HPGS ---
History of Present Illness History of Present Illness Consent: Risks, benefits, and alternatives have been discussed and questions answered. Patient agrees to proceed with procedure. Chief complaint: Hx of colon polyps Narrative: Rayray Walsh is a 76 year old male Presents for screening colonoscopy. Patient's current weight appetite and bowel movements are normal. Patient denies abdominal pain. He has had no bleeding. Family history noncontributory. Patient does have a history of adenomatous colon polyp removed from the colon 2015. Past medical history is significant for breast carcinoma with status post right mastectomy felt to be cured. Review of Systems Review of Systems: Review of systems noncontributory. [facility] Past Medical History Medical History Anxiety Anxiety disorder, unspecified Breast cancer in male Complex sleep apnea syndrome High cholesterol HTN (hypertension) YULISA (obstructive sleep apnea) Urinary incontinence Surgical History Surgical History H/O total mastectomy of right breast Performed by Dr. Doherty in 2018 History of bilateral knee replacement 2014 & 2016 History of prostate surgery (~11/2021) History of removal of Port-a-Cath Hx of breast biopsy Incisional right breast biopsy at mastectomy site 09/18/19 Family History Family History Unknown Hypertension Social History Social History Smoking status: Never smoker Second hand tobacco smoke exposure: No Alcohol intake: current Alcohol use details: SPOUSE STATES VERY RARELY - MAYBE 1/MONTH IF THAT Substance use: never Substance use type: does not use Living arrangements: with family Additional living arrangements comments: Gender identity (if verbalized by the patient): Male Spiritual care concerns: No Meds Home Medications and Allergies Home Medications Medication Instructions Recorded Confirmed Type tamoxifen 20 mg tablet 20 mg PO QAM 05/25/19 05/04/22 History vitamin E 200 unit capsule 200 unit PO QAM 05/25/19 05/04/22 History cholecalciferol (vitamin D3) 25 75 mcg PO DAILY 09/10/21 05/04/22 History mcg (1,000 unit) chewable tablet lorazepam 1 mg tablet 2 mg PO PRN PRN anxiety 09/10/21 05/04/22 History zinc 50 mg capsule 50 mg PO QAM 09/10/21 05/04/22 History coffee extract 100 mg-phosphatidyl 1 cap PO QAM 12/16/21 05/04/22 History serine 100 mg capsule (Neuriva Original) citalopram 20 mg tablet 20 mg PO QAM #90 tabs 12/21/21 05/04/22 Rx carvedilol 3.125 mg tablet 3.125 mg PO BID #180 tabs 02/15/22 05/04/22 Rx flash glucose scanning reader #1 ea 03/15/22 04/14/22 Rx (FreeStyle Vikki 14 Day [place]) flash glucose sensor (FreeStyle #1 ea 03/15/22 04/14/22 Rx Vikki 14 Day Sensor kit) metformin 1,000 mg tablet 1,000 mg PO BID #180 tabs 03/16/22 05/04/22 Rx terazosin 2 mg capsule 2 mg PO QHS #90 caps 03/22/22 05/04/22 Rx glipizide 5 mg tablet, extended 5 mg PO QAM #180 tabs 03/23/22 05/04/22 Rx release 24 hr cephalexin 500 mg capsule 500 mg PO DAILY 04/12/22 05/04/22 History tadalafil 5 mg tablet 5 mg PO DAILY 04/13/22 05/04/22 History eszopiclone 2 mg tablet (Lunesta) 2 mg PO ONCE #1 tablet 04/14/22 05/04/22 Rx sodium,potassium,mag sulfates 17.5 See Rx Instructions PO .COMPLEX 04/23/22 05/04/22 Rx gram-3.13 gram-1.6 gram oral soln #354 mL (Suprep Bowel Prep Kit) atorvastatin 20 mg tablet See Rx Instructions .Route 05/13/22 Rx .COMPLEX #90 tabs quinapril 20 mg tablet See Rx Instructions .Route 05/13/22 Rx .COMPLEX #180 tabs Allergies Allergy/AdvReac Type Severity Reaction Status Date / Time epinephrine Allergy Severe Chest Verified 04/14/22 13:28 tightness Vital Signs Vital Signs - 24 hr 05/14/22 09:58 Temperature 98.2 F Pulse Ra
[2022-05-14 11:05] VITALS: BP 148/97; PULSE 81; RESP 25; O2SAT 95
[2022-05-14 11:15] VITALS: BP 152/94; PULSE 73; RESP 24; O2SAT 97
[2022-05-14 11:25] VITALS: BP 136/80; PULSE 75; RESP 22; O2SAT 97
== END 2022-05-14 11:35 | disposition home or self-care (01) ==
PROVIDERS: PCP Family Medicine; Visit Provider Internal Medicine Gastroenterology
PROC: 0DJD8ZZ Inspection of Lower Intestinal Tract, Via Natural or Artificial Opening Endoscopic (ICD-10-PCS; CPT 45378; principal; 2022-05-14 11:00)
DX: Z12.11 Encounter for screening for malignant neoplasm of colon (principal); D12.5 Benign neoplasm of sigmoid colon; K64.8 Other hemorrhoids; K57.30 Diverticulosis of large intestine without perforation or abscess without bleeding; Z85.3 Personal history of malignant neoplasm of breast; I10 Essential (primary) hypertension; G47.33 Obstructive sleep apnea (adult) (pediatric); E78.00 Pure hypercholesterolemia, unspecified; Z96.653 Presence of artificial knee joint, bilateral
CPT/HCPCS: 45385; 82948; 88305; J2704; J7120

== ENCOUNTER → 2022-05-28 14:05 | Outpatient (CLI) | payer MEDICARE, SELFPAY ==
--- NOTE | ~2022-05-28 | XR_ITS ---
XR knee LT min 4V DATE: 05/28/2022 14:23 INDICATION: Left knee pain. No injury. TECHNIQUE: 4 views including sunrise COMPARISON: 05/29/2015 left knee FINDINGS: Status post left total knee arthroplasty with patellar resurfacing. No recent fracture or dislocation or joint effusion is detected. No periosteal reaction or bone destr uction. There is osteopenia. IMPRESSION: Status post left total knee arthroplasty Osteopenia Reviewed, dictated and finalized at location A. [employer]TER
== END ==
PROVIDERS: PCP Family Medicine; Visit Provider Family Medicine
DX: M25.562 Pain in left knee (principal); Z96.652 Presence of left artificial knee joint; M85.862 Other specified disorders of bone density and structure, left lower leg
CPT/HCPCS: 73564

== ENCOUNTER 2022-08-18 10:13 | Outpatient (CLI) | payer MEDICARE, SELFPAY ==
[2022-08-18 19:59] LABS: Basophils Percent Auto 0.7 % (0.2-1.2); Eosinophils Absolute Auto 0.1 K/mm3 (0-0.3); Eosinophils Percent Auto 2.2 % (0-4.4); Hematocrit 41.7 % (42.0-52.0); Hemoglobin 14.1 g/dL (14.0-18.0); Immature Granulocyte Absolute 0.02 K/mm3 (0.00-0.031); Immature Granulocyte Percent A 0.3 % (0-0.5); Lymphocytes Absolute Auto 1.25 K/mm3 (0.9-3.2); Lymphocytes Percent Auto 21.2 % (18.3-44.2); Mean Corpuscular HGB Conc 33.8 g/dl (32-36); Mean Corpuscular Volume 91.6 fl (80-100); Mean Platelet Volume 10.8 fl (7.4-10.4); Monocytes Absolute Auto 0.5 K/mm3 (0.1-0.6); Monocytes Percent Auto 9.1 % (2.6-8.5); Neutrophils Absolute Auto 3.9 K/mm3 (1.3-6.7); Neutrophils Percent Auto 66.5 % (45.5-73.1); Platelet Count Result 158 k/mm3 (150-375); Red Blood Count 4.55 M/mm3 (4.6-6.20); Red Cell Distribution Width 13.1 % (11.5-14.5); White Blood Count 5.9 K/mm3 (4.5-10.0)
[2022-08-18 21:06] LABS: Alanine Aminotransferase 39 U/L (6-50); Albumin Level 3.9 g/dL (3.5-5.1); Alkaline Phosphatase 43 U/L (38-126); Amylase 200 U/L (30-110); Anion Gap 6 mmol/L (8-16); Aspartate Amino Transferase 54 U/L (17-59); Bilirubin,Total 0.7 mg/dL (0.2-1.3); Blood Urea Nitrogen 17 mg/dL (9-20); Calcium 8.8 mg/dL (8.4-10.2); Carbon Dioxide 27 mmol/L (22-30); Chloride 98 mmol/L (98-107); Estimated Glomerular Filt Rate > 60; Glucose 181 mg/dL (65-110); Lipase 1465 U/L (23-300); Potassium 4.5 mmol/L (3.4-5.0); Sodium 131 mmol/L (137-145)
[2022-08-18 21:07] LABS: Hemoglobin A1C 7.5 % (<5.7)
== END 2022-08-18 10:14 | disposition home or self-care (01) ==
LOC: ANHGOSHLAB 10:14
PROVIDERS: PCP Family Medicine; Visit Provider Nurse Practitioner
DX: E11.9 Type 2 diabetes mellitus without complications (principal); R10.9 Unspecified abdominal pain
CPT/HCPCS: 36415; 80053; 82150; 83036; 83690; 85025

== ENCOUNTER 2022-08-19 10:01 | Inpatient (IN) | payer MEDICARE, SELFPAY ==
--- NOTE | ~2022-08-19 | MR_ITS ---
EXAMINATION: MR MRCP wo/w con/w 3D wo ind DATE: 08/20/2022 12:04 INDICATION: Pancreatitis. Generalized abdominal pain. TECHNIQUE: Magnetic resonance imaging (MRI) of the abdomen was performed without and with 20 mL Multi Philippe intravenous contrast. Sequences included coronal T2-weighted FS FSE, coronal T2-weighted FSE, a xial T1-weighted LAVA, coronal FS FIESTA, axial dual-echo T1-weighted SPGR, coronal lava-FLEX, sagitt al T2-weighted FSE, axial T2-weighted FSE, and axial DWI. Thick-slab T2-weighted FSE images were obta ined for magnetic resonance cholangiopancreatography (MRCP). Maximum intensity projection 3-D reconst ructions of the volumetric data were created by the technologist. Postcontrast sequences included cor onal LAVA-flex and time course of axial T1-weighted LAVA. COMPARISON: CT abdomen and pelvis 08/19/2022 FINDINGS: ABDOMEN MRI: There is diffuse hepatic steatosis. The gallbladder is distended, likely secondary to fa sting. The spleen is normal. There is fat stranding around the pancreas, consistent with acute inters titial pancreatitis. The adrenal glands are normal. There is cortical thinning of the kidneys. There are cysts in right kidney measuring up to 2.5 cm. There are no dilated loops of bowel. The appendix i s normal. There are no pathologically enlarged lymph nodes. There is no free intraperitoneal fluid. ABDOMEN MRCP: The common duct is normal and measures 1 mm. IMPRESSION: 1. Normal common duct. No choledocholithiasis. 2. Acute interstitial pancreatitis. 3. Diffuse hepatic steatosis. Reviewed, dictated and finalized at location A. [facility]
--- NOTE | ~2022-08-19 | US_ITS ---
EXAMINATION: US abdomen limited DATE: 08/19/2022 13:47 INDICATION: Right upper quadrant pain TECHNIQUE: Multiple grayscale and Doppler ultrasound images of the abdomen were obtained. COMPARISON: None available FINDINGS: Bowel gas obscures visualization of the pancreas. The liver demonstrates increased echogeni city, heterogenous echotexture, and decreased through transmission. No surface nodularity. Normal hep atopetal flow in the main portal vein. The gallbladder is normal with no abnormal wall thickening, pe richolecystic fluid or stones. The normal common bile duct measures 4 mm. There was no sonographic Mu rphy sign. There is an approximately 12.7 x 9.2 x 13.5 cm heterogeneous masslike area in the perihepa tic space of the right upper quadrant which appears to exert mass effect on the liver. IMPRESSION: 1. Large heterogeneous, masslike area of the right upper quadrant of unclear etiology. Further evalua tion with CT with contrast is recommended. Reviewed, dictated and finalized at location A. HEN AIDE IMPRESSION: 1. Large heterogeneous, masslike area of the right upper quadrant of unclear et iology. Further evaluation with CT with contrast is recommended.
--- NOTE | ~2022-08-19 | CT_ITS ---
EXAMINATION: CT abdomen pelvis w con DATE: 08/19/2022 14:16 INDICATION: Epigastric pain TECHNIQUE: Computed tomography (CT) of the abdomen and pelvis was performed with 100 mL Omnipaque-350 intravenous contrast. Automated exposure control and iterative reconstruction technique were employe d. The dose-length product was 1515.93 mGy-cm. COMPARISON: None FINDINGS: Mild linear discoid atelectasis in the left lower lobe. Tree-in-bud opacities in the right lower lobe consistent with endobronchial spread of disease such as pneumonia. Heart size is normal. Atheroscler otic coronary artery calcifications. No pericardial or pleural effusion. Liver, gallbladder, spleen a nd bilateral adrenal glands are normal. Pancreas appears normal but there is subtle haziness to some of the peripancreatic fat. There is also a aurelia mesentery with relative sparing of fat halos surroun ding the vessels and multiple normal-sized mesenteric lymph nodes. Mild bilateral renal atrophy with a few small left parapelvic cysts and larger cortical cyst at the right kidney, the latter measuring up to 2.3 cm . Bladder is normal. Mild prostatomegaly. Bowels including the appendix are normal. No f ree intraperitoneal gas or fluid. No pathologically enlarged abdominal or pelvic lymphadenopathy. IMPRESSION: 1. Tree-in-bud opacities in the right lower lobe consistent with pneumonia. 2. Subtle haziness to the fat surrounding the pancreas and in the mesentery without evident soft tiss ue nodules or lymphadenopathy. Differential would include acute interstitial pancreatitis or other no nspecific inflammation including mesenteric panniculitis. Correlate with amylase and lipase levels. N o associate soft tissue deposits or pathologically enlarged lymphadenopathy to suggest lymphoma or ot her malignancy. Reviewed, dictated and finalized at location A. ANIC HELPER IMPRESSION: 1. Tree-in-bud opacities in the right lower lobe consistent with pneumonia. 2. Subtle haziness to the fat surrounding the pancreas and in the mesentery wit hout evident soft tissue nodules or lymphadenopathy. Differential would include acute interstitial pancreatitis or other nonspecific inflammation including me senteric panniculitis. Correlate with amylase and lipase levels. No associate s oft tissue deposits or pathologically enlarged lymphadenopathy to suggest lymph judd or other malignancy.
[2022-08-19 10:31] VITALS: BP 128/52; PULSE 116; RESP 18; TEMP 36.6; O2SAT 96
[2022-08-19 12:44] VITALS: BP 139/92; PULSE 65; RESP 16; O2SAT 99
--- NOTE | 2022-08-19 12:46 | ED.ABDPAIN ---
HPI - Abdominal Pain General Chief Complaint: Abdominal Pain Stated Complaint: abdominal pain - concerns for pancreatitis Time Seen by Provider: 08/19/22 12:37 History of Present Illness HPI narrative: 76-year-old male here for evaluation of epigastric abdominal discomfort for the past several weeks. Patient states that the pain that is present in numerous spots over his abdomen but appears to be the most severe in his epigastric region. He has had decreased appetite over the past several weeks and has lost weight. Also notes numerous episodes of diarrhea that is nonbloody. No nausea, vomiting, fevers, chills. Has a history of breast cancer and status postmastectomy on the right but has had no intra-abdominal surgeries. No significant alcohol use. Related Data Home Medications Medication Instructions Recorded Confirmed tamoxifen 20 mg tablet 20 mg PO QAM 05/25/19 08/18/22 vitamin E 200 unit capsule 200 unit PO QAM 05/25/19 08/18/22 cholecalciferol (vitamin D3) 25 75 mcg PO DAILY 09/10/21 08/18/22 mcg (1,000 unit) chewable tablet zinc 50 mg capsule 50 mg PO QAM 09/10/21 08/18/22 coffee extract 100 mg-phosphatidyl 1 cap PO QAM 12/16/21 08/18/22 serine 100 mg capsule (Neuriva Original) tadalafil 5 mg tablet 5 mg PO DAILY 04/13/22 08/18/22 atorvastatin 20 mg tablet 20 mg PO DAILY 08/17/22 08/18/22 quinapril 20 mg tablet 20 mg PO BID 08/17/22 08/18/22 Allergies Allergy/AdvReac Type Severity Reaction Status Date / Time epinephrine Allergy Severe Chest Verified 08/19/22 10:02 tightness Review of Systems Review of Systems: Gen.: Denies fevers or chills Eyes: Denies eye pain or visual change ENT: Denies congestion Respiratory: Denies shortness of breath or cough CV: Denies chest pain or palpitations GI: Reports abdominal pain and diarrhea denies burning, urgency, frequency or hematuria Musculoskeletal: Denies back pain or muscle pain Neuro: Denies numbness, tingling, weakness or focal weakness Skin: Denies rash Except as documented, all other systems reviewed and negative [facility] Past Medical History Medical History (Updated 08/19/22 @ 18:01 by Iesha You PA-C) Anxiety Benign prostatic hyperplasia 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 Gout Hypercholesterolemia Hypertension Obstructive sleep apnea treated with BiPAP Urinary incontinence Surgical History Surgical History (Updated 08/19/22 @ 15:48 by Devorah Underwood PA-C) History of arthroscopy of left knee (06/2013) History of bilateral knee replacement Right knee in June 2014. Left knee in May 2015. History of colonoscopy with polypectomy History of nasal septoplasty History of prostate surgery (11/2021) History of removal of Port-a-Cath History of right breast biopsy At incisional site of mastectomy History of total mastectomy of right breast (05/2018) Family History Family History Other Heart disease High cholesterol Hypertension Social History Social History (Updated 08/19/22 @ 15:49 by Devorah Underwood PA-C) Social History: Surrogate medical decision maker: Code status: Smoking status: Never smoker Second hand tobacco smoke exposure: No Alcohol intake: current Alcohol use details: Perhaps 1 alcoholic beverage a month. Substance use: never Substance use type: does not use Lack of Transportation: No Lack of Food: Never True Current Housing: I Do Not Have Housing Concerned About Future Housing: No Difficulty Paying Gas/Electric Bills: No Difficulty Paying for Meds: No Currently Unemployed: No Education: Master's Degree or Higher Difficulty w/ Childcare or Family Care: No Additional living arrangements comments: Lives with in [place]. Additional occupation/education comments: Retired teacher. Spiritual care concerns: No Exam Narrative: APPEARANCE:
[2022-08-19] MEDS: SODIUM CHLORIDE 0.9% IV 1,000 ML 999 ML IV CONT (12:50)
--- NOTE | 2022-08-19 12:50 | PC.NURSE ---
ultrasound at bedside for exam
[2022-08-19 13:29] LABS: Basophils Percent Auto 0.5 % (0.2-1.2); Eosinophils Absolute Auto 0.2 K/mm3 (0-0.3); Eosinophils Percent Auto 3.2 % (0-4.4); Hematocrit 40.3 % (42.0-52.0); Hemoglobin 13.8 g/dL (14.0-18.0); Immature Granulocyte Absolute 0.02 K/mm3 (0.00-0.031); Immature Granulocyte Percent A 0.4 % (0-0.5); Lymphocytes Absolute Auto 1.43 K/mm3 (0.9-3.2); Lymphocytes Percent Auto 25.4 % (18.3-44.2); Mean Corpuscular HGB Conc 34.2 g/dl (32-36); Mean Corpuscular Hemoglobin 31.4 pg (26-34); Mean Corpuscular Volume 91.8 fl (80-100); Mean Platelet Volume 10.4 fl (7.4-10.4); Monocytes Absolute Auto 0.4 K/mm3 (0.1-0.6); Monocytes Percent Auto 7.5 % (2.6-8.5); Neutrophils Absolute Auto 3.6 K/mm3 (1.3-6.7); Platelet Count Result 169 k/mm3 (150-375); Red Blood Count 4.39 M/mm3 (4.6-6.20); Red Cell Distribution Width 13.2 % (11.5-14.5); White Blood Count 5.6 K/mm3 (4.5-10.0)
[2022-08-19 13:41] LABS: Lactic Acid Reflex 0.9 mmol/L (0.7-2.0)
[2022-08-19 13:42] LABS: Alanine Aminotransferase 46 U/L (6-50); Albumin Level 3.8 g/dL (3.5-5.1); Alkaline Phosphatase 44 U/L (38-126); Anion Gap 5 mmol/L (8-16); Aspartate Amino Transferase 52 U/L (17-59); Bilirubin,Total 0.7 mg/dL (0.2-1.3); Blood Urea Nitrogen 16 mg/dL (9-20); Calcium 8.7 mg/dL (8.4-10.2); Carbon Dioxide 26 mmol/L (22-30); Chloride 104 mmol/L (98-107); Estimated CRCL calculation 93 ml/min; Estimated Glomerular Filt Rate > 60; Glucose 145 mg/dL (65-110); Lipase 782 U/L (23-300); Potassium 4.7 mmol/L (3.4-5.0); Sodium 135 mmol/L (137-145)
[2022-08-19 14:04] LABS: Influenza A QL RT-PCR Negative (Negative); Influenza B QL RT-PCR Negative (Negative); SARS-CoV-2 RNA PCR Negative
[2022-08-19 15:20] LABS: Triglycerides 107 mg/dL (<150)
[2022-08-19] MEDS: LACTATED RINGERS 1,000 ML 999 ML IV CONT (15:36)
--- NOTE | 2022-08-19 16:00 | PM.IMHP ---
H&P: HPI History of Present Illness Date/Time: 08/19/22 16:00 Chief Complaint: Abdominal pain. Narrative: This is a very pleasant 76-year-old male with history of hypertension, hyperlipidemia, type 2 diabetes mellitus, obstructive sleep apnea on BiPAP, benign prostatic hyperplasia with urinary incontinence, anxiety, and breast cancer who presented to the emergency department from home for evaluation of abdominal pain. Patient provides the following history. He has had intermittent abdominal pain and loose stools since May 2022. The pain is mainly throughout the upper quadrant and tends to occur most frequently after eating certain meals (creamy sauces or soups and fried food) but not always. He has been taking Imodium daily for the loose stools and that seems to keep them at bay. He has lost about 20 lb since he started having these issues as his appetite has not been as great as it was before. He denies fever, chills, sweats, vomiting, bloating, belching, hematemesis, melena, and hematochezia. He had a colonoscopy in May by Dr. Hardin which showed diverticulosis. He was seen by his PCP yesterday and had some lab work drawn which showed that his lipase was elevated he was directed to the ER today. He was afebrile on arrival with stable vital signs. White blood cell count, electrolytes, creatinine, and LFTs were all normal on labs drawn today. Lipase was a bit elevated at 782 which is about half of what it was on labs drawn yesterday. Right upper quadrant ultrasound showed a large heterogeneous masslike area in the right upper quadrant of unclear etiology. A subsequent CT of the abdomen and pelvis showed subtle haziness to the fat surrounding the pancreas and in the mesentery without evidence soft tissue nodules or lymphadenopathy with a differential to include acute interstitial pancreatitis or other nonspecific inflammation cleaning mesenteric panniculitis. No soft tissue deposits or pathologically enlarged lymphadenopathy to suggest lymphoma or malignancy. He is being admitted in this setting for further treatment and evaluation as well as GI consultation. Review of Systems Review of Systems: Twelve systems were reviewed. No fever, chills, or sweats. No recent cold or flu symptoms. No history of malignancy. He has chronic low back pain and had radiofrequency ablation a couple of weeks ago which seems to have helped. Except as documented, all other systems were reviewed and are negative. [facility] Past Medical History Medical History (Updated 08/19/22 @ 21:15 by Devorah Underwood PA-C) Anxiety Benign prostatic hyperplasia 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 Gout Hypercholesterolemia Hypertension Obstructive sleep apnea treated with BiPAP Type 2 diabetes mellitus Urinary incontinence Surgical History Surgical History History of arthroscopy of left knee (06/2013) History of bilateral knee replacement Right knee in June 2014. Left knee in May 2015. History of colonoscopy with polypectomy History of nasal septoplasty History of prostate surgery (11/2021) History of removal of Port-a-Cath History of right breast biopsy At incisional site of mastectomy History of total mastectomy of right breast (05/2018) Family History Family History Other Heart disease High cholesterol Hypertension Social History Social History (Updated 08/19/22 @ 21:11 by Devorah Underwood PA-C) Social History: Surrogate medical decision maker: Princess Walsh, spouse. Code status: Full code. Smoking status: Never smoker Second hand tobacco smoke exposure: No Alcohol intake: current Alcohol use details: Perhaps 1 alcoholic beverage a month. Substance use: never Substance use type: does not use Lack of Transportation: No Lack of Food: Never True Current Housing: I Do
[2022-08-19 16:17] VITALS: BP 125/71; PULSE 76; RESP 16; O2SAT 98
--- NOTE | 2022-08-19 16:48 | ADMGEN ---
This patient, Rayray Walsh, was admitted to Medical Room 344-01. Patient/family oriented to hospital policies and general routines including ID bracelet, bed and alarms, visiting hours, pain management, procedures, bathroom and other care routines, personal items, smoking policy, room service/diet, and visiting hours. Information on how to activate the Rapid Response Team has been discussed. Patient/Family are encouraged to report perceived risks to care and to ask questions if they do not understand what they are told or what they should do.
[2022-08-19 17:00] VITALS: BP 153/79; PULSE 63; RESP 20; TEMP 36.4; O2SAT 100
[2022-08-19] MEDS: LACTATED RINGERS 1,000 ML 150 ML IV CONT (17:26)
[2022-08-19 17:29] VITALS: BMI 38.7
[2022-08-19 18:34] VITALS: BMI 37.3
[2022-08-19 21:24] VITALS: BP 139/82; PULSE 81; RESP 18; TEMP 36.6; O2SAT 99
--- NOTE | 2022-08-19 23:55 | PCRCNOTE ---
Pt does not want to wear our cpap/bipap machine. Pt in no apparent distress
[2022-08-20 00:32] LABS: Glucose Point of Care 104 mg/dl (65-105)
[2022-08-20 04:51] VITALS: BP 151/69; PULSE 62; RESP 16; TEMP 36.4; O2SAT 98
[2022-08-20 04:57] LABS: Glucose Point of Care 112 mg/dl (65-105)
[2022-08-20 06:57] LABS: Hematocrit 41.5 % (42.0-52.0); Hemoglobin 14.1 g/dL (14.0-18.0); Mean Corpuscular Hemoglobin 31.5 pg (26-34); Mean Corpuscular Volume 92.6 fl (80-100); Mean Platelet Volume 10.4 fl (7.4-10.4); Platelet Count Result 177 k/mm3 (150-375); Red Blood Count 4.48 M/mm3 (4.6-6.20); Red Cell Distribution Width 13.2 % (11.5-14.5); White Blood Count 5.9 K/mm3 (4.5-10.0)
[2022-08-20 07:31] LABS: Alanine Aminotransferase 54 U/L (6-50); Albumin Level 3.7 g/dL (3.5-5.1); Alkaline Phosphatase 45 U/L (38-126); Anion Gap 6 mmol/L (8-16); Aspartate Amino Transferase 66 U/L (17-59); Bilirubin,Total 0.7 mg/dL (0.2-1.3); Blood Urea Nitrogen 12 mg/dL (9-20); Calcium 8.8 mg/dL (8.4-10.2); Carbon Dioxide 24 mmol/L (22-30); Chloride 107 mmol/L (98-107); Estimated CRCL calculation 102 ml/min; Estimated Glomerular Filt Rate > 60; Glucose 125 mg/dL (65-110); Lipase 603 U/L (23-300); Magnesium 1.6 mg/dL (1.6-2.3); Potassium 4.5 mmol/L (3.4-5.0); Sodium 137 mmol/L (137-145)
[2022-08-20 08:33] LABS: Hemoglobin A1C 7.3 % (<5.7)
[2022-08-20] MEDS: ASPIRIN 81 MG CHEWABLE TABLET PO (10:12)
[2022-08-20] MEDS: ATORVASTATIN 20 MG TABLET PO (10:12)
[2022-08-20] MEDS: metFORMIN HCL 500 MG TABLET 1000 MG PO ×2 (10:12→18:17)
[2022-08-20] MEDS: CITALOPRAM HYDROBROMIDE 20 MG TABLET PO (10:12)
[2022-08-20] MEDS: lisinopriL 20 MG TABLET PO ×2 (10:18→17:20)
[2022-08-20] MEDS: ZINC SULFATE 220 MG CAPSULE PO (10:18)
[2022-08-20] MEDS: TAMOXIFEN CITRATE (*CHEMO) 10 MG TABLET 20 MG PO (10:18)
[2022-08-20] MEDS: PANTOPRAZOLE 40 MG TABLET PO (10:18)
[2022-08-20] MEDS: glipiZIDE XL 5 MG TABCR PO ×2 (10:18→18:17)
[2022-08-20] MEDS: VITAMIN E 400 UNIT CAPSULE PO (10:18)
[2022-08-20 10:20] VITALS: PULSE 77
[2022-08-20] MEDS: carvediloL 3.125 MG TABLET PO ×2 (10:20→17:19)
[2022-08-20 10:36] VITALS: BMI 37.3
[2022-08-20 10:37] VITALS: O2SAT 96
[2022-08-20 12:33] LABS: Glucose Point of Care 151 mg/dl (65-105)
[2022-08-20 14:00] VITALS: BP 101/44; PULSE 64; RESP 20; TEMP 36.6; O2SAT 99
--- NOTE | 2022-08-20 14:35 | WPDGICN ---
Assessment and Plan Assessment and plan (1) Abnormal computed tomography of abdomen and pelvis: Code(s): R93.5 - Abnormal findings on diagnostic imaging of other abdominal regions, including retroperitoneum Status: Acute Assessment and Plan: the ultrasound showed what appeared to be a mass in the right upper quadrant near the liver. CT scan did not show any actual mass but shows some haziness in the fat around the pancreas suggestive of pancreatitis. (2) Elevated lipase: Code(s): R74.8 - Abnormal levels of other serum enzymes Status: Acute Assessment and Plan: Lipase was elevated when done in the lab at his primary care physician's request; it is coming down but still elevated today at over 600. LFTs are normal hence it is unlikely that this is biliary pancreatitis. (3) Abdominal pain: Code(s): R10.9 - Unspecified abdominal pain Status: Acute Assessment and Plan: His pain is not severe but it was 1 of the primary reasons he saw his primary care provider yesterday because it has been present for several weeks (4) Chronic diarrhea: Code(s): K52.9 - Noninfective gastroenteritis and colitis, unspecified Status: Acute Assessment and Plan: this began a few months ago. He does not believe that he was having diarrhea when he had his last colonoscopy about 4 months ago. He does not see blood in his stools. He had not been traveling has not been on any recent antibiotics. Will order stool studies including fecal leukocytes, culture, and the last days (5) Obstructive sleep apnea treated with BiPAP: Code(s): G47.33 - Obstructive sleep apnea (adult) (pediatric) Status: Acute Assessment and Plan: He uses CPAP at home. (6) Hx of colonic polyps: Code(s): Z86.010 - Personal history of colonic polyps Status: Acute Assessment and Plan: His last colonoscopy was okay except for the presence of 1 small sigmoid polyp which was removed. He also had diverticulosis. The report shows no indication of inflammation and likewise the images show no colitis. He does not believe that he was having any significant diarrhea at the time of that exam (7) Weight loss: Code(s): R63.4 - Abnormal weight loss Status: Acute Assessment and Plan: he believes that he has lost about 30 lb in the last couple of months. Part of this he states his because he gets uncomfortable when he eats and he is most likely a have diarrhea after meal. He denies vomiting Plan order MRCP to get better imaging of the pancreas and hopefully an understanding as to why he is having pancreatitis. GI Consult Note Consult date/time: 08/20/22 14:35 HPI: Rayray Walsh is a 76 year old male Was admitted with abdominal pain and diarrhea. He states that for the past couple months he has had loose stools. Some days he may only have 1 bowel movement other days he could have fiber stick. Almost always he has a bowel movement after he eats. He has tried taking Imodium which has helped slightly. He is also having discomfort across the upper abdomen. It waxes and wanes. Only once that he have a severe pain. He saw his primary care provider yesterday who ordered blood work and he was found have an elevation of his lipase. He was 1465. On arrival here was 782 and today it is a bit lower. He denies having any prior history of pancreatitis or of liver disease. He states he rarely drinks alcohol. He has never been known to have gallbladder disease. There is no family history of pancreatic disease. He does not have hyperlipidemia. Denies vomiting significant heartburn dysphagia but has been losing weight, at least 20 more likely 30 lb in the last few months. Review of Systems Review of Systems: All systems reviewed & are unremarkable except as noted in HPI and below [facility] Past Medical History Medical History (Reviewed 08/20/22 @ 14:36 by Anthony Boateng
--- NOTE | 2022-08-20 16:19 | PM.IMPN ---
Progress Note: A&P Assessment and Plan (1) Pancreatitis: Code(s): K85.90 - Acute pancreatitis without necrosis or infection, unspecified Status: Acute Assessment and Plan: Patient presented to the ED due to abdominal pain and lose stools and found to have elevated Lipase. CT of the abdomen and pelvis showed subtle haziness to the fat surrounding the pancreas and in the mesentery which could be secondary to pancreatitis or other nonspecific inflammation including mesenteric panniculitis. Consulted Dr. Sanchez to see the patient consultation for his recommendations. ERCP preformed and revealed acute interstitial pancreatitis and diffuse hepatic steatosis. Advance diet as tolerated analgesics as needed. (2) Elevated lipase: Code(s): R74.8 - Abnormal levels of other serum enzymes Status: Acute Assessment and Plan: see above. (3) Type 2 diabetes mellitus: Code(s): E11.9 - Type 2 diabetes mellitus without complications Status: Acute Assessment and Plan: Continue home medications hypogycemic protocols sliding scale accu check achs (4) Hypertension: Code(s): I10 - Essential (primary) hypertension Status: Acute Assessment and Plan: Continue home medication (5) Obstructive sleep apnea treated with BiPAP: Code(s): G47.33 - Obstructive sleep apnea (adult) (pediatric) Status: Acute Assessment and Plan: BiPap provided Subjective Date/time seen: 08/20/22 16:19 Interval history: Patient resting in bed upon entering room. Patient states that he has been having abdominal pain for couple weeks. He has had decreased appetite, approximately a 20 lb weight loss since . Patient was found to have elevated lipase. Patient denies that he is had diarrhea although he told the admitting provider that he did. He denies fever, chest pain, shortness a breath, nausea, vomiting and lower extremity edema. Review of Systems Review of Systems: All systems reviewed & are unremarkable except as noted in HPI and below Exam Narrative: GENERAL: Comfortable, no acute distress HENMT: moist mucous membranes EYES: EOM intact b/l NECK: no lymphadenopathy RESPIRATORY: clear to auscultation CARDIO: RRR GI: distended, Right upper quadrant tenderness, bowel sounds present SKIN: no rashes EXTREMITIES: no edema, redness or tenderness Objective Data Vital Signs Vital Signs: Vital Signs - 24 hr 08/19/22 17:00 08/19/22 18:11 08/19/22 21:24 Temperature 97.5 F L 98 F Pulse Rate 63 81 Respiratory Rate 20 18 Blood Pressure 153/79 H 139/82 Pulse Oximetry 100 99 Oxygen Delivery Room Air 08/20/22 04:51 08/20/22 10:20 08/20/22 10:37 Temperature 97.6 F Pulse Rate 62 77 Respiratory Rate 16 Blood Pressure 151/69 H Pulse Oximetry 98 96 Oxygen Delivery Room Air 08/20/22 08:00 08/20/22 14:00 Temperature 97.9 F Pulse Rate 64 Respiratory Rate 20 Blood Pressure 101/44 L Pulse Oximetry 99 Oxygen Delivery Room Air Intake/Output Intake/Output: Intake & Output 08/17/22 08/18/22 08/19/22 08/20/22 23:59 23:59 23:59 23:59 Intake Total 1999 1000 Balance 1999 1000 Meds/Results Medications: Active Medications Generic Name Dose Route Start Last Admin Trade Name Freq PRN Reason Stop Dose Admin Aspirin 81 mg 08/20/22 08:00 08/20/22 10:12 Aspirin 81 Mg Chewable Tablet PO 81 mg DAILY@0800 JOSHUA Administration Atorvastatin Calcium 20 mg 08/20/22 09:00 08/20/22 10:12 Atorvastatin 20 Mg Tablet PO 20 mg DAILY JOSHUA Administration Carvedilol 3.125 mg 08/20/22 09:00 08/20/22 10:20 Carvedilol 3.125 Mg Tablet PO 3.125 mg BID JOSHUA Administration Citalopram Hydrobromide 20 mg 08/20/22 09:00 08/20/22 10:12 Citalopram Hydrobromide 20 Mg Tablet PO 20 mg QAM JOSHUA Administration Dextrose 12.5 gm 08/19/22 21:19 Dextrose 50% 25 Gm/50 Ml S
[2022-08-20 17:11] LABS: Glucose Point of Care 98 mg/dl (65-105)
[2022-08-20 17:19] VITALS: PULSE 53
--- NOTE | 2022-08-20 17:23 | PC.NURSE ---
Pt takes glipizide and metformin at home. Pt does not check his blood sugar. Education provided to pt regarding the importance of checking blood sugars before meals and at bedtime. Will add educational paperwork to discharge packet and continue to educate where needed.
[2022-08-20 20:07] VITALS: BP 114/61; PULSE 65; RESP 20; TEMP 37.1; O2SAT 97
[2022-08-20 20:14] LABS: Glucose Point of Care 173 mg/dl (65-105)
[2022-08-20] MEDS: PANTOPRAZOLE SODIUM IV 40 MG VIAL IV PUSH (21:43)
[2022-08-20] MEDS: TERAZOSIN HCL 1 MG CAPSULE 2 MG PO (21:43)
[2022-08-21 05:16] VITALS: BP 99/56; PULSE 58; RESP 18; TEMP 36.9; O2SAT 95
[2022-08-21 06:43] LABS: Glucose Point of Care 118 mg/dl (65-105)
[2022-08-21 06:52] LABS: Hematocrit 39.5 % (42.0-52.0); Hemoglobin 13.5 g/dL (14.0-18.0); Mean Corpuscular HGB Conc 34.2 g/dl (32-36); Mean Corpuscular Hemoglobin 31.3 pg (26-34); Mean Corpuscular Volume 91.6 fl (80-100); Mean Platelet Volume 10.1 fl (7.4-10.4); Platelet Count Result 172 k/mm3 (150-375); Red Blood Count 4.31 M/mm3 (4.6-6.20); Red Cell Distribution Width 13.1 % (11.5-14.5)
[2022-08-21 07:03] LABS: Alanine Aminotransferase 50 U/L (6-50); Albumin Level 3.5 g/dL (3.5-5.1); Alkaline Phosphatase 41 U/L (38-126); Anion Gap 7 mmol/L (8-16); Aspartate Amino Transferase 50 U/L (17-59); Bilirubin,Total 0.4 mg/dL (0.2-1.3); Blood Urea Nitrogen 14 mg/dL (9-20); Calcium 8.6 mg/dL (8.4-10.2); Carbon Dioxide 27 mmol/L (22-30); Chloride 104 mmol/L (98-107); Estimated CRCL calculation 91 ml/min; Estimated Glomerular Filt Rate > 60; Glucose 114 mg/dL (65-110); Lipase 603 U/L (23-300); Potassium 4.2 mmol/L (3.4-5.0); Sodium 138 mmol/L (137-145)
[2022-08-21 08:44] LABS: Glucose Point of Care 155 mg/dl (65-105)
[2022-08-21 09:00] VITALS: PULSE 83; RESP 18; O2SAT 95
[2022-08-21] MEDS: ATORVASTATIN 20 MG TABLET PO (09:00)
[2022-08-21] MEDS: TAMOXIFEN CITRATE (*CHEMO) 10 MG TABLET 20 MG PO (09:00)
[2022-08-21] MEDS: ASPIRIN 81 MG CHEWABLE TABLET PO (09:00)
[2022-08-21] MEDS: VITAMIN E 400 UNIT CAPSULE PO (09:00)
[2022-08-21] MEDS: PANTOPRAZOLE 40 MG TABLET PO (09:00)
[2022-08-21] MEDS: metFORMIN HCL 500 MG TABLET 1000 MG PO ×2 (09:00→17:01)
[2022-08-21] MEDS: carvediloL 3.125 MG TABLET PO ×2 (09:00→17:03)
[2022-08-21] MEDS: lisinopriL 20 MG TABLET PO ×2 (09:01→17:04)
[2022-08-21] MEDS: CITALOPRAM HYDROBROMIDE 20 MG TABLET PO (09:01)
[2022-08-21] MEDS: ZINC SULFATE 220 MG CAPSULE PO (09:01)
[2022-08-21] MEDS: glipiZIDE XL 5 MG TABCR PO ×2 (09:02→17:02)
[2022-08-21] MEDS: PANTOPRAZOLE SODIUM IV 40 MG VIAL IV PUSH (09:02)
[2022-08-21 12:16] LABS: Glucose Point of Care 185 mg/dl (65-105)
--- NOTE | 2022-08-21 12:21 | WPDGIPROGNO ---
Progress Note: A&P Assessment and Plan (1) Abnormal computed tomography of abdomen and pelvis: Code(s): R93.5 - Abnormal findings on diagnostic imaging of other abdominal regions, including retroperitoneum Status: Acute Assessment and Plan: the ultrasound showed what appeared to be a mass in the right upper quadrant near the liver. CT scan did not show any actual mass but shows some haziness in the fat around the pancreas suggestive of pancreatitis. MRI rule out any lesion other than the pancreatitis. Specifically: 1. Normal common duct. No choledocholithiasis. 2. Acute interstitial pancreatitis. 3. Diffuse hepatic steatosis. (2) Elevated lipase: Code(s): R74.8 - Abnormal levels of other serum enzymes Status: Acute Assessment and Plan: Lipase was elevated when done in the lab at his primary care physician's request; it is coming down but still elevated today at over 600. LFTs are normal hence it is unlikely that this is biliary pancreatitis. lipase remains at 603, no change from yesterday. I told that if we placed him on clear liquids another day that it should start coming down more (3) Abdominal pain: Code(s): R10.9 - Unspecified abdominal pain Status: Acute Assessment and Plan: His pain is not severe but it was 1 of the primary reasons he saw his primary care provider yesterday because it has been present for several weeks the pain came back when he tried eating last night and again this morning. We will switch him to clear liquid diet and perhaps try solid food again tomorrow. (4) Chronic diarrhea: Code(s): K52.9 - Noninfective gastroenteritis and colitis, unspecified Status: Acute Assessment and Plan: this began a few months ago. He does not believe that he was having diarrhea when he had his last colonoscopy about 4 months ago. He does not see blood in his stools. He had not been traveling has not been on any recent antibiotics. Will order stool studies including fecal leukocytes, culture, and Elastase (5) Obstructive sleep apnea treated with BiPAP: Code(s): G47.33 - Obstructive sleep apnea (adult) (pediatric) Status: Acute Assessment and Plan: He uses CPAP at home. (6) Hx of colonic polyps: Code(s): Z86.010 - Personal history of colonic polyps Status: Acute Assessment and Plan: His last colonoscopy was okay except for the presence of 1 small sigmoid polyp which was removed. He also had diverticulosis. The report shows no indication of inflammation and likewise the images show no colitis. He does not believe that he was having any significant diarrhea at the time of that exam (7) Weight loss: Code(s): R63.4 - Abnormal weight loss Status: Acute Assessment and Plan: he believes that he has lost about 30 lb in the last couple of months. Part of this he states his because he gets uncomfortable when he eats and he is most likely a have diarrhea after meal. He denies vomiting Plan order MRCP to get better imaging of the pancreas and hopefully an understanding as to why he is having pancreatitis. resume liquid diet because of intolerance to low-fat diet Subjective Date/time seen: 08/21/22 12:21 He states that he is having more pain today. He was uncomfortable after he ate breakfast. Apparently he was placed on a regular low-fat diet yesterday because he had dinner which also made him a bit uncomfortable. He is having bowel movements which remain somewhat loose. He is anxious to go home. I reminded him that we would like to advance his diet slowly and then begin pancreatic enzyme supplements along with his diet. Exam Const: General: alert and obese Nutritional Appearance: obese Orientation/consciousness: patient oriented x3 Resp: Auscultation: clear to auscultation bilaterally Cardio: Rhythm: regular rhythm GI: Inspection: distended and obesity GI Palp: Yes S
[2022-08-21 14:00] VITALS: BP 122/69; PULSE 72; RESP 20; TEMP 36.9; O2SAT 95
--- NOTE | 2022-08-21 15:46 | PM.IMPN ---
Progress Note: A&P Assessment and Plan (1) Pancreatitis: Code(s): K85.90 - Acute pancreatitis without necrosis or infection, unspecified Status: Acute Assessment and Plan: Patient presented to the ED due to abdominal pain and lose stools and found to have elevated Lipase. CT of the abdomen and pelvis showed subtle haziness to the fat surrounding the pancreas and in the mesentery which could be secondary to pancreatitis or other nonspecific inflammation including mesenteric panniculitis. Consulted Dr. Sanchez to see the patient consultation for his recommendations. ERCP preformed and revealed acute interstitial pancreatitis and diffuse hepatic steatosis. Advance diet as tolerated analgesics as needed. 08/21/22 Patient stated that he had some abdominal pain and diarrhea last night after he consumed the bland diet. Recommended patient regress back to clear liquid diet. Lipase stay the same as yesterday. This is not surprising due to patient starting oral intake again. Will continue to trend lipase levels. Patient has had diarrhea on and off for about 2 months and he was recently on antibiotic therapy. Ordered C. diff in stool cultures to rule out infectious etiology of diarrhea. Patient has had a history of C. diff in the past. (2) Elevated lipase: Code(s): R74.8 - Abnormal levels of other serum enzymes Status: Acute Assessment and Plan: see above. (3) Type 2 diabetes mellitus: Code(s): E11.9 - Type 2 diabetes mellitus without complications Status: Acute Assessment and Plan: Continue home medications hypogycemic protocols sliding scale accu check achs (4) Hypertension: Code(s): I10 - Essential (primary) hypertension Status: Acute Assessment and Plan: Continue home medication (5) Obstructive sleep apnea treated with BiPAP: Code(s): G47.33 - Obstructive sleep apnea (adult) (pediatric) Status: Acute Assessment and Plan: BiPap provided Time Spent With Patient Time with patient: Greater than 35 minutes Subjective Date/time seen: 08/21/22 15:46 Interval history: Patient resting in bed with in the room at bedside. Patient stated that he was having some abdominal pain and diarrhea after dinner last night on a bland diet. Regressed patient's diet to clear liquids. patient did come in with complaints of diarrhea and states that he has had diarrhea for approximately 2 months. Patient has a history of C diff. will order stool cultures and C diff do diarrhea. Patient denies nausea, vomiting, fever, chest pain, shortness a breath and lower extremity edema. Review of Systems Review of Systems: All systems reviewed & are unremarkable except as noted in HPI and below Exam Narrative: GENERAL: Comfortable, no acute distress HENMT: moist mucous membranes EYES: EOM intact b/l NECK: no lymphadenopathy RESPIRATORY: clear to auscultation CARDIO: RRR GI: distended, Right upper quadrant tenderness, bowel sounds present SKIN: no rashes EXTREMITIES: no edema, redness or tenderness Objective Data Vital Signs Vital Signs: Vital Signs - 24 hr 08/20/22 17:19 08/20/22 20:07 08/21/22 05:16 Temperature 98.7 F 98.4 F Pulse Rate 53 L 65 58 L Respiratory Rate 20 18 Blood Pressure 114/61 99/56 L Pulse Oximetry 97 95 Oxygen Delivery 08/21/22 09:00 08/21/22 09:00 Temperature Pulse Rate 83 83 Respiratory Rate 18 Blood Pressure Pulse Oximetry 95 Oxygen Delivery Room Air Intake/Output Intake/Output: Intake & Output 08/18/22 08/19/22 08/20/22 08/21/22 23:59 23:59 23:59 23:59 Intake Total 1999 1350 Output Total 300 Balance 1999 1050 Meds/Results Medications: Active Medications Generic Name Dose Route Start Last Admin Trade Name Freq PRN Reason Stop Dose Admin Acetaminophen 650 mg 08/20/22 16:26 Acetaminophen 325 Mg Tablet PO Q6H PRN
[2022-08-21 17:00] LABS: Glucose Point of Care 135 mg/dl (65-105)
[2022-08-21 17:03] VITALS: PULSE 73
[2022-08-21 20:00] VITALS: PULSE 73; RESP 20; O2SAT 95
[2022-08-21] MEDS: TERAZOSIN HCL 1 MG CAPSULE 2 MG PO (20:20)
[2022-08-21 20:21] LABS: Glucose Point of Care 110 mg/dl (65-105)
[2022-08-21 22:00] VITALS: BP 131/77; PULSE 78; RESP 20; TEMP 36.6; O2SAT 97
[2022-08-22 04:55] VITALS: BP 102/50; PULSE 64; RESP 22; TEMP 36.9; O2SAT 97
[2022-08-22 08:13] LABS: Glucose Point of Care 134 mg/dl (65-105)
[2022-08-22] MEDS: ATORVASTATIN 20 MG TABLET PO (08:31)
[2022-08-22] MEDS: TAMOXIFEN CITRATE (*CHEMO) 10 MG TABLET 20 MG PO (08:31)
[2022-08-22] MEDS: metFORMIN HCL 500 MG TABLET 1000 MG PO (08:31)
[2022-08-22] MEDS: lisinopriL 20 MG TABLET PO (08:31)
[2022-08-22] MEDS: ZINC SULFATE 220 MG CAPSULE PO (08:31)
[2022-08-22] MEDS: CITALOPRAM HYDROBROMIDE 20 MG TABLET PO (08:31)
[2022-08-22] MEDS: ASPIRIN 81 MG CHEWABLE TABLET PO (08:31)
[2022-08-22] MEDS: VITAMIN E 400 UNIT CAPSULE PO (08:31)
[2022-08-22] MEDS: PANTOPRAZOLE 40 MG TABLET PO (08:31)
[2022-08-22 08:32] VITALS: PULSE 75
[2022-08-22] MEDS: carvediloL 3.125 MG TABLET PO (08:32)
[2022-08-22] MEDS: glipiZIDE XL 5 MG TABCR PO (08:32)
[2022-08-22 10:54] LABS: Hematocrit 43.7 % (42.0-52.0); Hemoglobin 14.8 g/dL (14.0-18.0); Mean Corpuscular HGB Conc 33.9 g/dl (32-36); Mean Corpuscular Hemoglobin 31.4 pg (26-34); Mean Corpuscular Volume 92.6 fl (80-100); Mean Platelet Volume 10.3 fl (7.4-10.4); Platelet Count Result 176 k/mm3 (150-375); Red Blood Count 4.72 M/mm3 (4.6-6.20); Red Cell Distribution Width 13.2 % (11.5-14.5); White Blood Count 6.1 K/mm3 (4.5-10.0)
[2022-08-22 11:08] LABS: Alanine Aminotransferase 55 U/L (6-50); Albumin Level 4.1 g/dL (3.5-5.1); Alkaline Phosphatase 44 U/L (38-126); Anion Gap 7 mmol/L (8-16); Aspartate Amino Transferase 63 U/L (17-59); Bilirubin,Total 0.5 mg/dL (0.2-1.3); Blood Urea Nitrogen 14 mg/dL (9-20); Carbon Dioxide 24 mmol/L (22-30); Chloride 103 mmol/L (98-107); Estimated CRCL calculation 84 ml/min; Estimated Glomerular Filt Rate > 60; Glucose 169 mg/dL (65-110); Lipase 518 U/L (23-300); Potassium 4.6 mmol/L (3.4-5.0); Sodium 134 mmol/L (137-145)
--- NOTE | 2022-08-22 11:45 | WPDGIPROGNO ---
Progress Note: A&P Assessment and Plan (1) Abnormal computed tomography of abdomen and pelvis: Code(s): R93.5 - Abnormal findings on diagnostic imaging of other abdominal regions, including retroperitoneum Status: Acute Assessment and Plan: the ultrasound showed what appeared to be a mass in the right upper quadrant near the liver. CT scan did not show any actual mass but shows some haziness in the fat around the pancreas suggestive of pancreatitis. MRI rule out any lesion other than the pancreatitis. Specifically: 1. Normal common duct. No choledocholithiasis. 2. Acute interstitial pancreatitis. 3. Diffuse hepatic steatosis. (2) Elevated lipase: Code(s): R74.8 - Abnormal levels of other serum enzymes Status: Acute Assessment and Plan: Lipase was elevated when done in the lab at his primary care physician's request; it is coming down but still elevated today at over 600. LFTs are normal hence it is unlikely that this is biliary pancreatitis. lipase remains at 603, no change from yesterday. I told that if we placed him on clear liquids another day that it should start coming down more 08/21/22 lipase is down to 500 today (3) Abdominal pain: Code(s): R10.9 - Unspecified abdominal pain Status: Acute Assessment and Plan: His pain is not severe but it was 1 of the primary reasons he saw his primary care provider yesterday because it has been present for several weeks the pain came back when he tried eating last night and again this morning. We will switch him to clear liquid diet and perhaps try solid food again tomorrow. he is feeling good today. No pain after eating (4) Chronic diarrhea: Code(s): K52.9 - Noninfective gastroenteritis and colitis, unspecified Status: Acute Assessment and Plan: this began a few months ago. He does not believe that he was having diarrhea when he had his last colonoscopy about 4 months ago. He does not see blood in his stools. He had not been traveling has not been on any recent antibiotics. Will order stool studies including fecal leukocytes, culture, and Elastase 08/22/2022 his diarrhea has subsided. Stool studies therefore will not be necessary (5) Obstructive sleep apnea treated with BiPAP: Code(s): G47.33 - Obstructive sleep apnea (adult) (pediatric) Status: Acute Assessment and Plan: He uses CPAP at home. (6) Hx of colonic polyps: Code(s): Z86.010 - Personal history of colonic polyps Status: Acute Assessment and Plan: His last colonoscopy was okay except for the presence of 1 small sigmoid polyp which was removed. He also had diverticulosis. The report shows no indication of inflammation and likewise the images show no colitis. He does not believe that he was having any significant diarrhea at the time of that exam (7) Weight loss: Code(s): R63.4 - Abnormal weight loss Status: Acute Assessment and Plan: he believes that he has lost about 30 lb in the last couple of months. Part of this he states his because he gets uncomfortable when he eats and he is most likely a have diarrhea after meal. He denies vomiting I asked him to weigh himself on a scale at home today and again prior to coming to the office for follow-up. Plan Gradually advancing him to a low-fat diet. He will be a pancreatic enzyme supplements for the next few weeks office follow-up in 3 weeks no alcohol Subjective Date/time seen: 08/22/22 11:45 He is feeling better today and tolerating his diet. We discussed the need for low-fat diet for several weeks. I told that along with that he will be on pancreatic enzyme supplements. Also, his diarrhea has stopped. He had no bowel movement for over 24 hours and passed only 1 soft stool. Exam Const: General: alert and obese Nutritional Appearance: obese Orientation/consciousness: patient oriented x3 Resp: Ausc
[2022-08-22 12:32] LABS: Glucose Point of Care 198 mg/dl (65-105)
[2022-08-22] MEDS: LIPASE/AMYLASE/PROTEASE 12,000 UNITS CAP 2 CAP PO (13:12)
--- NOTE | 2022-08-22 14:36 | PM.DS ---
DS: Admitting Diagnosis Discharge Date 08/22/22 Admitting Diagnosis pancreatitis DS: Discharge Diagnosis Discharge Diagnosis (1) Pancreatitis: Code(s): K85.90 - Acute pancreatitis without necrosis or infection, unspecified Status: Acute Assessment and Plan: Patient presented to the ED due to abdominal pain and lose stools and found to have elevated Lipase. CT of the abdomen and pelvis showed subtle haziness to the fat surrounding the pancreas and in the mesentery which could be secondary to pancreatitis or other nonspecific inflammation including mesenteric panniculitis. Consulted Dr. Sanchez to see the patient consultation for his recommendations. ERCP preformed and revealed acute interstitial pancreatitis and diffuse hepatic steatosis. Advance diet as tolerated analgesics as needed. 08/21/22 Patient stated that he had some abdominal pain and diarrhea last night after he consumed the bland diet. Recommended patient regress back to clear liquid diet. Lipase stay the same as yesterday. This is not surprising due to patient starting oral intake again. Will continue to trend lipase levels. Patient has had diarrhea on and off for about 2 months and he was recently on antibiotic therapy. Ordered C. diff in stool cultures to rule out infectious etiology of diarrhea. Patient has had a history of C. diff in the past. (2) Elevated lipase: Code(s): R74.8 - Abnormal levels of other serum enzymes Status: Acute Assessment and Plan: see above. (3) Type 2 diabetes mellitus: Code(s): E11.9 - Type 2 diabetes mellitus without complications Status: Acute Assessment and Plan: Continue home medications hypogycemic protocols sliding scale accu check achs (4) Hypertension: Code(s): I10 - Essential (primary) hypertension Status: Acute Assessment and Plan: Continue home medication (5) Obstructive sleep apnea treated with BiPAP: Code(s): G47.33 - Obstructive sleep apnea (adult) (pediatric) Status: Acute Assessment and Plan: BiPap provided DS: Summary Hospital Course Reason for hospitalization: pancreatitis Hospital Course: 76-year-old patient with history of hypertension, hyperlipidemia, type 2 diabetes and YULISA presents to the ED on 08/19/2022 for evaluation of abdominal pain. Patient's abdominal pain located in upper quadrants and occurs most frequently after meals. Patient also has associated diarrhea with the abdominal pain. Patient has been taking Imodium for the abdominal pain. Patient mentions a 20 lb Unintentional weight loss over the past couple months. patient was found to have an elevated lipase level. right upper quadrant ultrasound showed a large heterogeneous masslike area in the right upper quadrant. CT abdomen pelvis revealed a subtle haziness to the fat surrounding the pancreas and in the mesentery without evidence of soft tissue nodules or lymphadenopathy To suggest lymphoma or malignancy. GI consulted. GI performed an MRCP which revealed acute interstitial pancreatitis and diffuse hepatic steatosis. MRI showed a normal common duct, no choledocholithiasis, acute interstitial pancreatitis and diffuse hepatic steatosis. Patient's diet was advanced as tolerated. Patient was experiencing some diarrhea. Stool studies were ordered but canceled after patient did not have a bowel movement after 24 hours. With the lack of bowel movement in 24 hours it is unlikely that patient has infectious diarrhea. patient does not have a history of smoking or alcohol intake. Patient does ingest a lot of rich and fatty foods. Diet was discussed with the patient and he voices understanding although his told me that he wanted her to get him Anshul in the [facility] once they were discharged. Again had long conversation about triggers for pancreatitis and that patient could possibly have another flare if he is not complian
[2022-08-30 23:33] LABS: Calprotectin, Stool 11 mcg/g
[2022-08-31 00:34] LABS: Pancreatic Elastase, Stool >500 mcg/g
== END 2022-08-22 15:00 | disposition home or self-care (01) | DRG 440 ==
LOC: ANHED 13:49 → ANH3MED 16:31
PROVIDERS: Internal Medicine Gastroenterology; Physician Assistant; Admitting Provider Hospitalist; Emergency Provider Physician Assistant; PCP Family Medicine; Visit Provider Internal Medicine Critical Care Medicine
DX: K85.80 Other acute pancreatitis without necrosis or infection (principal); K52.9 Noninfective gastroenteritis and colitis, unspecified; R63.4 Abnormal weight loss; Z20.822 Contact with and (suspected) exposure to COVID-19; N40.0 Benign prostatic hyperplasia without lower urinary tract symptoms; G47.33 Obstructive sleep apnea (adult) (pediatric); F41.9 Anxiety disorder, unspecified; R32 Unspecified urinary incontinence; Z96.653 Presence of artificial knee joint, bilateral; E78.5 Hyperlipidemia, unspecified; I10 Essential (primary) hypertension; Z85.3 Personal history of malignant neoplasm of breast; E66.9 Obesity, unspecified; Z68.38 Body mass index [BMI] 38.0-38.9, adult; Z86.010 Personal history of colon polyps
CPT/HCPCS: 36415; 74177; 74183; 76376; 76705; 80053; 82150; 82653; 82948; 83036; 83605; 83690; 83735; 83993; 84478; 85025; 85027; 87636; 89055; 96360; 99285; A9270; A9577; C9113; J7030; J7120; Q9967

== ENCOUNTER 2022-08-28 18:15 | Emergency (ER) | payer MEDICARE, SELFPAY ==
[2022-08-28 18:30] VITALS: BP 136/57; PULSE 88; RESP 20; TEMP 36.9; O2SAT 99
--- NOTE | 2022-08-28 18:36 | ED.NAVMDI ---
HPI - Nausea/Vomiting/Diarrhea General Chief complaint: Urogenital-Male Stated complaint: BLOOD IN URINE Time Seen by Provider: 08/28/22 18:30 Source: patient, family, RN notes reviewed and old records reviewed Mode of arrival: ambulatory Limitations: no limitations History of Present Illness HPI Narrative: 77 year old male accompanied with with complaints of blood noted in his urine since last night with urinary burning and some chills. reports that patient had TURP in December of last year and had problems with urinary tract infections and was on Keflex daily till June prophylactically. Patient was released from the hospital on the with diagnosis of pancreatitis. Patient reports that he has not had fevers but has felt chilled, denies any pain anywhere at this time, denies any CVA tenderness,. MD elicited complaint: other (blood in urine and burning with urination) Pertinent past history: other (recent hospitalization for pancreatitis) Onset (ago): day(s) (yesterday) Treatment prior to arrival: none Related Data Home Medications Medication Instructions Recorded Confirmed tamoxifen 20 mg tablet 20 mg PO QAM 05/25/19 08/28/22 vitamin E 200 unit capsule 200 unit PO QAM 05/25/19 08/28/22 zinc 50 mg capsule 50 mg PO QAM 09/10/21 08/28/22 coffee extract 100 mg-phosphatidyl 1 cap PO QAM 12/16/21 08/28/22 serine 100 mg capsule (Neuriva Original) tadalafil 5 mg tablet 5 mg PO DAILY 04/13/22 08/28/22 atorvastatin 20 mg tablet 20 mg PO DAILY 08/17/22 08/28/22 quinapril 20 mg tablet 20 mg PO BID 08/17/22 08/28/22 aspirin 81 mg capsule 81 mg PO DAILY 08/19/22 08/28/22 Allergies Allergy/AdvReac Type Severity Reaction Status Date / Time epinephrine Allergy Severe Chest Verified 08/28/22 18:22 tightness Review of Systems Review of Systems: CONSTITUTIONAL: Denies fever,positive for chills, no sweats. CARDIOVASCULAR: Denies chest pain, palpitations, or edema. RESPIRATORY: Denies cough or dyspnea. GASTROINTESTINAL: Denies abdominal pain, nausea, vomiting, or diarrhea. GENITOURINARY: Reports dysuria, frequency, urgency. Denies flank pain positive for hematuria SKIN: Denies rash or itching. MUSCULOSKELETAL: Denies back pain or myalgia. 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 Gout Hypercholesterolemia Hypertension Obstructive sleep apnea treated with BiPAP Type 2 diabetes mellitus Urinary incontinence Surgical History Surgical History History of arthroscopy of left knee (06/2013) History of bilateral knee replacement Right knee in June 2014. Left knee in May 2015. History of colonoscopy with polypectomy History of nasal septoplasty History of prostate surgery (11/2021) History of removal of Port-a-Cath History of right breast biopsy At incisional site of mastectomy History of total mastectomy of right breast (05/2018) Family History Family History Other Heart disease High cholesterol Hypertension Social History Social History Social History: Surrogate medical decision maker: Princess Walsh, spouse. Code status: Full code. Smoking status: Never smoker Second hand tobacco smoke exposure: No Alcohol intake: current Alcohol use details: Perhaps 1 alcoholic beverage a month. Substance use: never Substance use type: does not use Lack of Transportation: No Lack of Food: Never True Current Housing: I Do Not Have Housing Concerned About Future Housing: No Difficulty Paying Gas/Electric Bills: No Difficulty Paying f
== END 2022-08-28 19:09 | disposition home or self-care (01) ==
PROVIDERS: Emergency Provider Registered Nurse; PCP Family Medicine
DX: N39.0 Urinary tract infection, site not specified (principal); B96.1 Klebsiella pneumoniae [K. pneumoniae] as the cause of diseases classified elsewhere; N40.0 Benign prostatic hyperplasia without lower urinary tract symptoms; M10.9 Gout, unspecified; E78.00 Pure hypercholesterolemia, unspecified; I10 Essential (primary) hypertension; G47.33 Obstructive sleep apnea (adult) (pediatric); E11.9 Type 2 diabetes mellitus without complications; Z85.3 Personal history of malignant neoplasm of breast; Z96.653 Presence of artificial knee joint, bilateral; Z90.11 Acquired absence of right breast and nipple; Z79.82 Long term (current) use of aspirin
CPT/HCPCS: 81003; 87077; 87086; 87186; 99213; G0463

== ENCOUNTER 2022-08-31 06:58 | Inpatient (IN) | payer MEDICARE, SELFPAY ==
[2022-08-31] VITALS (23 sets, daily range): BP systolic 110–160; BP diastolic 62–86; PULSE 70–88; RESP 13–26; TEMP 36.2–38.9; O2SAT 90–99
--- NOTE | ~2022-08-31 | CT_ITS ---
Non-contrast Head CT History: Head injury COMPARISON: 02/21/2012 Technique: Axial non-contrast imaging of the brain was performed. Dose reduction technique was used on this scan by utilizing automated exposure control and iterative reconstruction technique. The dose -length product (DLP) was 681.00 mGy-cm. Findings: There is no evidence of intracranial hemorrhage, mass lesion, or acute infarct. Brain par enchyma appears normal. The ventricles and subarachnoid spaces are normal in size. The calvarium ap pears normal. The visualized paranasal sinuses and mastoid air cells are clear. Impression: No significant abnormality seen. Reviewed, dictated and finalized at [facility]. PROCESSING TECHNICIAN Impression: No significant abnormality seen.
--- NOTE | ~2022-08-31 | XR_ITS ---
EXAMINATION: XR chest 1V portable DATE: 08/31/2022 09:50 INDICATION: Fever. TECHNIQUE: A single frontal view of the chest was obtained on 2 radiographs. COMPARISON: Chest 2 views 03/04/2021, CT abdomen and pelvis 08/31/2022 FINDINGS: There is no pneumonia, pleural effusion, or pneumothorax. The heart size is normal. IMPRESSION: 1. No acute cardiopulmonary disease. Reviewed, dictated and finalized at location A. EPOINT NET DEVELOPER
--- NOTE | ~2022-08-31 | CT_ITS ---
CT of the Abdomen and Pelvis: Indication: Abdominal pain, recent pancreatitis Technique: 2.5 mm axial scans were obtained through the abdomen and pelvis following intravenous adm inistration of 100 cc of Omnipaque 350. Dose reduction technique was used on this scan by utilizing a utomated exposure control and iterative reconstruction technique. The dose-length product (DLP) was 1 536.44 mGy-cm. COMPARISON: 08/19/2022 Findings: Scans through the lung bases are unremarkable. Coronary artery calcifications are noted. The liver, spleen, pancreas, gallbladder, adrenals and kidneys are within normal limits. No evidence of aortic aneurysm. No lymphadenopathy. No bowel obstruction or bowel wall thickening. There is no evidence to suggest acute appendicitis. Images through the pelvis were performed. Urinary bladder unremarkable. Prostate gland and seminal ve sicles are unremarkable. No ascites. Impression: No significant abnormalities seen. Reviewed, dictated and finalized at [facility]. OR APPLICATIONS DEVELOPER Impression: No significant abnormalities seen.
--- NOTE | 2022-08-31 07:53 | ED.GENADULT ---
HPI - General Adult General Chief complaint: Urogenital-Male Stated complaint: bladder infection Time Seen by Provider: 08/31/22 07:03 History of Present Illness HPI narrative: 77-year-old male presenting to the emergency department for evaluation of fever with associated abdominal pain. Patient had a recent hospitalization for pancreatitis, patient was recommended to have dietary changes and will have follow-up with GI. Since being discharged patient was having urinary pain and did have follow-up with a urgent care and was started on cefdinir. Since that time patient reports he has had increased generalized weakness. Patient also noticed some hematuria as well. Patient does have a prior history of enlarged prostate and did have a TURP procedure by Dr. Nelson. Related Data Home Medications Medication Instructions Recorded Confirmed tamoxifen 20 mg tablet 20 mg PO QAM 05/25/19 08/31/22 vitamin E 200 unit capsule 200 unit PO QAM 05/25/19 08/31/22 zinc 50 mg capsule 50 mg PO QAM 09/10/21 08/31/22 coffee extract 100 mg-phosphatidyl 1 cap PO QAM 12/16/21 08/31/22 serine 100 mg capsule (Neuriva Original) tadalafil 5 mg tablet 5 mg PO DAILY 04/13/22 08/31/22 atorvastatin 20 mg tablet 20 mg PO DAILY 08/17/22 08/31/22 quinapril 20 mg tablet 20 mg PO BID 08/17/22 08/31/22 aspirin 81 mg capsule 81 mg PO DAILY 08/19/22 08/31/22 Allergies Allergy/AdvReac Type Severity Reaction Status Date / Time epinephrine Allergy Severe Chest Verified 08/31/22 14:04 tightness Review of Systems Review of Systems: CONSTITUTIONAL: See HPI EYES: Denies visual changes, redness, or discharge. ENT: Denies rhinorrhea, congestion, sore throat, or otalgia. CARDIOVASCULAR: Denies chest pain, palpitations, or edema. RESPIRATORY: Denies cough or dyspnea. GASTROINTESTINAL: See HPI GENITOURINARY: See HPI SKIN: Denies rash or itching. MUSCULOSKELETAL: Denies back pain, joint pain, or myalgia. NEUROLOGIC: Denies headache, numbness, or weakness. [facility] Past Medical History Medical History (Updated 08/31/22 @ 17:52 by Colt Potts MD) Anxiety Benign prostatic hyperplasia 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 Gout Hypercholesterolemia Hypertension Obstructive sleep apnea treated with BiPAP Pancreatitis (08/2022) Type 2 diabetes mellitus Urinary incontinence Surgical History Surgical History History of arthroscopy of left knee (06/2013) History of bilateral knee replacement Right knee in June 2014. Left knee in May 2015. History of colonoscopy with polypectomy History of nasal septoplasty History of prostate surgery (11/2021) History of removal of Port-a-Cath History of right breast biopsy At incisional site of mastectomy History of total mastectomy of right breast (05/2018) Family History Family History Other Heart disease High cholesterol Hypertension Social History Social History Social History: Surrogate medical decision maker: Princess Walsh, spouse. Code status: Full code. Smoking status: Never smoker Second hand tobacco smoke exposure: No Alcohol intake: current Alcohol use details: Perhaps 1 alcoholic beverage a month. Substance use: never Substance use type: does not use Lack of Transportation: No Lack of Food: Never True Current Housing: I Have Housing Concerned About Future Housing: No Difficulty Paying Gas/Electric Bills: No Difficulty Paying for Meds: No Currently Unemployed: No Education: Master's Degree or Higher Difficulty w/ Childcare or Family Care: No Additional living arrangements comments: Lives with in [place]. Additional occupation/education comments: Retired teacher. Spiritual care concerns: No Exam Narrative: APPEARANC
[2022-08-31 08:07] LABS: Basophils Percent Auto 0.5 % (0.2-1.2); Eosinophils Percent Auto 0.2 % (0-4.4); Hematocrit 40.8 % (42.0-52.0); Hemoglobin 13.9 g/dL (14.0-18.0); Immature Granulocyte Absolute 0.03 K/mm3 (0.00-0.031); Immature Granulocyte Percent A 0.5 % (0-0.5); Immature Platelet Fraction Pct 5.7 % (0.9-11.2); Lymphocytes Absolute Auto 0.64 K/mm3 (0.9-3.2); Lymphocytes Percent Auto 10.4 % (18.3-44.2); Mean Corpuscular HGB Conc 34.1 g/dl (32-36); Mean Corpuscular Volume 93.8 fl (80-100); Mean Platelet Volume 10.9 fl (7.4-10.4); Monocytes Absolute Auto 0.4 K/mm3 (0.1-0.6); Monocytes Percent Auto 7.1 % (2.6-8.5); Neutrophils Percent Auto 81.3 % (45.5-73.1); Platelet Count Result 128 k/mm3 (150-375); Red Blood Count 4.35 M/mm3 (4.6-6.20); Red Cell Distribution Width 12.9 % (11.5-14.5); White Blood Count 6.2 K/mm3 (4.5-10.0)
[2022-08-31 08:13] LABS: Lipase 189 U/L (23-300)
[2022-08-31 08:13] LABS: Lactic Acid Reflex 1.3 mmol/L (0.7-2.0)
[2022-08-31 08:13] LABS: INR 1.3; Prothrombin Time 15.2 Seconds (11.1-14.7)
[2022-08-31 08:15] LABS: Alanine Aminotransferase 36 U/L (6-50); Albumin Level 3.7 g/dL (3.5-5.1); Alkaline Phosphatase 55 U/L (38-126); Anion Gap 7 mmol/L (8-16); Aspartate Amino Transferase 39 U/L (17-59); Bilirubin,Total 0.6 mg/dL (0.2-1.3); Blood Urea Nitrogen 18 mg/dL (9-20); Calcium 8.6 mg/dL (8.4-10.2); Carbon Dioxide 27 mmol/L (22-30); Chloride 98 mmol/L (98-107); Estimated CRCL calculation 91 ml/min; Estimated Glomerular Filt Rate > 60; Glucose 139 mg/dL (65-110); Partial Thromboplastin Time 27.6 SECONDS (22.3-36.8); Sodium 132 mmol/L (137-145)
[2022-08-31 09:10] LABS: Influenza A QL RT-PCR Negative (Negative); Influenza B QL RT-PCR Negative (Negative); RSV RNA, RT-PCR Negative (Negative); SARS-CoV-2 RNA PCR Negative
[2022-08-31 09:17] LABS: Appearance Urine Cloudy (Clear); Bacteria Urine None Seen /hpf; Bilirubin Urine 1+ (Negative); Blood Urine 3+ (Negative); Color Urine Dark Yellow (Yellow); Glucose Urine UA Negative (Negative); Ketones Urine Trace mg/dL (Negative); Leukocyte Esterase Ur 2+ LEU/UL (Negative); Need Manual Microscopic Need Manual; Nitrate Urine Negative (Negative); Protein Urine 2+ mg/dL (Negative); Specific Grav Ur 1.025 (1.001-1.035); Squamous Epithelial Cell Urine None seen /hpf (Few); WBC Urine >100 /hpf
[2022-08-31 09:18] LABS: Non Pathogenic Casts Not Present
[2022-08-31 09:19] LABS: Add Urine Microscopic? YES
[2022-08-31 11:51] LABS: CRP 17.1 mg/dL (<1.0)
[2022-08-31 11:57] LABS: Procalcitonin 0.3 ng/mL
--- NOTE | 2022-08-31 13:30 | PM.IMHP ---
H&P: HPI History of Present Illness Date/Time: 08/31/22 13:30 Chief Complaint: Fever and weakness. Narrative: This is a very pleasant 77-year-old male with history of hypertension, hyperlipidemia, type 2 diabetes mellitus, obstructive sleep apnea on BiPAP, benign prostatic hyperplasia with urinary incontinence, anxiety, and breast cancer who presented to the emergency department from home for evaluation of fever and weakness. Patient provides the following history. He is known to myself and the hospitalist service from a recent admission on 08/19/2022 for pancreatitis after presenting with abdominal pain. He improved with supportive care and was discharged on the . He has not had issues with abdominal pain but his appetite is still not great and he has occasional loose stools. On the evening of the when he noticed blood in his urine associated with dysuria and chills. He was seen at a local urgent care where he was diagnosed with a UTI and prescribed cefdinir. Urine culture has since grown out Klebsiella pneumoniae and sensitivity suggests cefdinir would be an affective treatment. He has been compliant with his antibiotic but he is not feeling any better with continue dysuria, mild suprapubic discomfort, and he has noticed a decrease in urine output. He continues to run fevers and was 102.1? F on arrival to the ED today. Labs were significant for WBC of 6.2, CRP 17.1, creatinine 0.90, lipase 189. Urine was cloudy with 2+ protein, 3+ blood, 2+ leukocyte esterase, and greater than 100 WBC. He tested negative for influenza, RSV, and COVID. CT of the abdomen and pelvis showed no significant abnormalities and chest x-ray was unremarkable. A brain CT was done as he reports getting tripped up when his dog was under his feet and he fell onto the ground and hit his head a couple of days ago. CT was negative for acute intracranial process. Review of Systems Review of Systems: Twelve systems were reviewed. No headache or neck ache. No rash or joint swelling. No sinus congestion or sore throat. He denies vomiting. He feels generally weak, nothing focal. Currently in physical therapy for left knee pain which is unchanged. No neurologic symptoms. Except as documented, all other systems were reviewed and are negative. [facility] Past Medical History Medical History Anxiety Benign prostatic hyperplasia 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 Gout Hypercholesterolemia Hypertension Obstructive sleep apnea treated with BiPAP Pancreatitis (08/2022) Type 2 diabetes mellitus Urinary incontinence Surgical History Surgical History History of arthroscopy of left knee (06/2013) History of bilateral knee replacement Right knee in June 2014. Left knee in May 2015. History of colonoscopy with polypectomy History of nasal septoplasty History of prostate surgery (11/2021) History of removal of Port-a-Cath History of right breast biopsy At incisional site of mastectomy History of total mastectomy of right breast (05/2018) Family History Family History Other Heart disease High cholesterol Hypertension Social History Social History Social History: Surrogate medical decision maker: Princess Walsh, spouse. Code status: Full code. Smoking status: Never smoker Second hand tobacco smoke exposure: No Alcohol intake: current Alcohol use details: Perhaps 1 alcoholic beverage a month. Substance use: never Substance use type: does not use Lack of Transportation: No Lack of Food: Never True Current Housing: I Have Housing Concerned About Future Housing: No Difficulty Paying Gas/Electric Bills: No Difficulty Paying for Meds: No Currently Unemployed: No Education:
--- NOTE | 2022-08-31 14:03 | ADMGEN ---
This patient, Rayray Walsh, was admitted to [facility] Surg Room 317-02. Report received from CHIDI Cueto. Patient/family oriented to hospital policies and general routines including ID bracelet, bed and alarms, visiting hours, pain management, procedures, bathroom and other care routines, personal items, smoking policy, room service/diet, and visiting hours. Information on how to activate the Rapid Response Team has been discussed. Patient/Family are encouraged to report perceived risks to care and to ask questions if they do not understand what they are told or what they should do.
[2022-08-31 16:28] LABS: Glucose Point of Care 143 mg/dl (65-105)
[2022-08-31] MEDS: ACETAMINOPHEN 325 MG TABLET 650 MG PO (17:16)
[2022-08-31 21:39] LABS: Glucose Point of Care 159 mg/dl (65-105)
[2022-08-31] MEDS: carvediloL 3.125 MG TABLET PO (22:43)
[2022-08-31] MEDS: lisinopriL 20 MG TABLET PO (22:44)
[2022-08-31] MEDS: TERAZOSIN HCL 1 MG CAPSULE 2 MG PO (22:44)
--- NOTE | 2022-08-31 22:50 | PCRCNOTE ---
Bipap offered to pt. Pt kindly refused.
[2022-09-01] VITALS (12 sets, daily range): BP systolic 101–130; BP diastolic 60–87; PULSE 61–122; RESP 14–32; TEMP 36.6–37.4; O2SAT 25–96; BMI 38.9
[2022-09-01 06:39] LABS: Hematocrit 39.2 % (42.0-52.0); Hemoglobin 13.1 g/dL (14.0-18.0); Immature Platelet Fraction Pct 5.7 % (0.9-11.2); Mean Corpuscular HGB Conc 33.4 g/dl (32-36); Mean Corpuscular Hemoglobin 31.6 pg (26-34); Mean Corpuscular Volume 94.7 fl (80-100); Mean Platelet Volume 10.9 fl (7.4-10.4); Platelet Count Result 122 k/mm3 (150-375); Red Blood Count 4.14 M/mm3 (4.6-6.20); Red Cell Distribution Width 12.9 % (11.5-14.5); White Blood Count 4.7 K/mm3 (4.5-10.0)
[2022-09-01 06:47] LABS: Anion Gap 3 mmol/L (8-16); Blood Urea Nitrogen 14 mg/dL (9-20); Calcium 8.5 mg/dL (8.4-10.2); Carbon Dioxide 28 mmol/L (22-30); Chloride 96 mmol/L (98-107); Estimated CRCL calculation 102 ml/min; Estimated Glomerular Filt Rate > 60; Glucose 121 mg/dL (65-110); Magnesium 1.7 mg/dL (1.6-2.3); Potassium 4.1 mmol/L (3.4-5.0); Sodium 127 mmol/L (137-145)
[2022-09-01 07:22] LABS: Glucose Point of Care 125 mg/dl (65-105)
[2022-09-01] MEDS: CITALOPRAM HYDROBROMIDE 20 MG TABLET PO (09:33)
[2022-09-01] MEDS: ZINC SULFATE 220 MG CAPSULE PO (09:33)
[2022-09-01] MEDS: ASPIRIN 81 MG CHEWABLE TABLET PO (09:33)
[2022-09-01] MEDS: TAMOXIFEN CITRATE (*CHEMO) 10 MG TABLET 20 MG PO (09:34)
[2022-09-01] MEDS: PANTOPRAZOLE 40 MG TABLET PO (09:34)
[2022-09-01] MEDS: ATORVASTATIN 20 MG TABLET PO (09:34)
[2022-09-01] MEDS: VITAMIN E 100 UNIT CAPSULE 200 UNIT PO (09:34)
[2022-09-01] MEDS: lisinopriL 20 MG TABLET PO ×2 (09:35→16:42)
[2022-09-01] MEDS: carvediloL 3.125 MG TABLET PO ×2 (09:35→16:42)
[2022-09-01] MEDS: LIPASE/AMYLASE/PROTEASE 12,000 UNITS CAP 1 CAP PO ×3 (09:36→16:42)
[2022-09-01 11:24] LABS: Glucose Point of Care 160 mg/dl (65-105)
[2022-09-01] MEDS: cefTRIAXone 2 GM in SODIUM CHLORIDE 0.9% IV 100 ML 200 ML IVPB (13:54)
--- NOTE | 2022-09-01 14:55 | PM.IMPN ---
Progress Note: A&P Assessment and Plan (1) Recent urinary tract infection: Code(s): Z87.440 - Personal history of urinary (tract) infections Status: Acute Assessment and Plan: Patient present to the ED on 08/31/2022 with complaints of fever. patient presented to the clinic a couple days ago and was found to have a UTI and was prescribed cefdinir. Cultures came back positive for Klebsiella pneumonia. Repeat urine with 3+ blood, 2+ LE, 11-20 rbc's, and greater than [address] abdomen and pelvis negative for acute pyelonephritis. Blood culture positive for Gram-negative bacilli in the aerobic bottle only repeat Urine culture pending Patient started on 1 g Rocephin that was increased to 2 g after blood culture came back positive. Tylenol P.r.n. for fever (2) Generalized weakness: Code(s): R53.1 - Weakness Status: Acute Assessment and Plan: Most likely due to possible bacteremia /UTI PT evaluation Fall precautions (3) Hypertension: Code(s): I10 - Essential (primary) hypertension Status: Acute Assessment and Plan: blood pressure stable Continue home antihypertensives. (4) Type 2 diabetes mellitus: Code(s): E11.9 - Type 2 diabetes mellitus without complications Status: Acute Assessment and Plan: Initiate sliding scale insulin, Accu-Cheks, and hypoglycemic protocol. Hold oral hypoglycemics given poor oral intake. (5) Obstructive sleep apnea treated with BiPAP: Code(s): G47.33 - Obstructive sleep apnea (adult) (pediatric) Status: Acute Assessment and Plan: CPAP provided. (6) Head injury: Qualifiers: Encounter type: initial encounter Qualified Code(s): S09.90XA - Unspecified injury of head, initial encounter Code(s): S09.90XA - Unspecified injury of head, initial encounter Status: Acute Assessment and Plan: Patient stated that he had tripped over his dog a couple days ago and fell and hit his head. CT head negative for acute intracranial process If neurological status changes can repeat head CT. Subjective Date/time seen: 09/01/22 14:55 Interval history: Patient lying in room bed resting When I entered the room. Patient states that he feels very weak. patient denies urinary frequency, urgency and pain with urination. Patient does state that it is difficult to start urinate although he does have a history of BPH. Patient denies body aches, chills, nausea, vomiting, chest pain, shortness a breath and diarrhea. Review of Systems Review of Systems: All systems reviewed & are unremarkable except as noted in HPI and below Exam Narrative: GENERAL: Comfortable, no acute distress HENMT: moist mucous membranes EYES: EOM intact b/l NECK: no lymphadenopathy RESPIRATORY: clear to auscultation CARDIO: RRR GI: Distended, soft, nontender, bowel sounds present SKIN: no rashes EXTREMITIES: no edema, redness or tenderness Objective Data Vital Signs Vital Signs: Vital Signs - 24 hr 08/31/22 17:16 08/31/22 22:43 08/31/22 22:00 Temperature 98.2 F 99.0 F Pulse Rate 76 80 Respiratory Rate 14 Blood Pressure 149/79 H Pulse Oximetry 90 Oxygen Delivery 08/31/22 20:00 09/01/22 06:00 09/01/22 08:53 Temperature 98.3 F Pulse Rate 76 88 Respiratory Rate 14 Blood Pressure 130/68 Pulse Oximetry 91 93 Oxygen Delivery Room Air Room Air 09/01/22 09:35 09/01/22 08:00 09/01/22 10:29 Temperature 99.4 F Pulse Rate 93 79 122 H Respiratory Rate 32 H Blood Pressure 122/67 101/61 Pulse Oximetry 94 Oxygen Delivery 09/01/22 10:29 09/01/22 09:40 09/01/22 14:00 Temperature 97.8 F Pulse Rate 105 H 105 H 71 Respiratory Rate 32 H 22 H Blood Pressure 112/70 107/61 Pulse Oximetry 93 96 Oxygen Delivery Room Air Intake/Output Intake/Output: Intake & Output 08/29/22 08/30/22 08/31/22 09/01/22 23:59
[2022-09-01 16:37] LABS: Glucose Point of Care 169 mg/dl (65-105)
[2022-09-01] MEDS: TERAZOSIN HCL 1 MG CAPSULE 2 MG PO (20:09)
[2022-09-01 21:43] LABS: Glucose Point of Care 166 mg/dl (65-105)
[2022-09-02] VITALS (7 sets, daily range): BP systolic 101–131; BP diastolic 60–97; PULSE 60–116; RESP 16–22; TEMP 36–37.2; O2SAT 94–96
[2022-09-02 07:34] LABS: Glucose Point of Care 146 mg/dl (65-105)
[2022-09-02 07:46] LABS: Basophils Percent Auto 0.8 % (0.2-1.2); Eosinophils Absolute Auto 0.2 K/mm3 (0-0.3); Eosinophils Percent Auto 3.9 % (0-4.4); Hematocrit 38.4 % (42.0-52.0); Hemoglobin 13.1 g/dL (14.0-18.0); Immature Granulocyte Absolute 0.04 K/mm3 (0.00-0.031); Immature Granulocyte Percent A 0.8 % (0-0.5); Immature Platelet Fraction Pct 4.7 % (0.9-11.2); Lymphocytes Percent Auto 22.7 % (18.3-44.2); Mean Corpuscular HGB Conc 34.1 g/dl (32-36); Mean Corpuscular Hemoglobin 31.3 pg (26-34); Mean Corpuscular Volume 91.6 fl (80-100); Mean Platelet Volume 10.7 fl (7.4-10.4); Monocytes Absolute Auto 0.7 K/mm3 (0.1-0.6); Monocytes Percent Auto 13.8 % (2.6-8.5); Neutrophils Absolute Auto 2.8 K/mm3 (1.3-6.7); Platelet Count Result 111 k/mm3 (150-375); Red Blood Count 4.19 M/mm3 (4.6-6.20); Red Cell Distribution Width 12.6 % (11.5-14.5); White Blood Count 4.8 K/mm3 (4.5-10.0)
[2022-09-02 08:00] LABS: Alanine Aminotransferase 57 U/L (6-50); Albumin Level 3.3 g/dL (3.5-5.1); Alkaline Phosphatase 53 U/L (38-126); Anion Gap 4 mmol/L (8-16); Aspartate Amino Transferase 65 U/L (17-59); Bilirubin,Total 0.4 mg/dL (0.2-1.3); Blood Urea Nitrogen 13 mg/dL (9-20); Calcium 8.6 mg/dL (8.4-10.2); Carbon Dioxide 28 mmol/L (22-30); Chloride 98 mmol/L (98-107); Estimated CRCL calculation 102 ml/min; Estimated Glomerular Filt Rate > 60; Glucose 133 mg/dL (65-110); Lipase 201 U/L (23-300); Magnesium 1.8 mg/dL (1.6-2.3); Potassium 3.9 mmol/L (3.4-5.0); Sodium 130 mmol/L (137-145)
[2022-09-02] MEDS: ZINC SULFATE 220 MG CAPSULE PO (09:13)
[2022-09-02] MEDS: lisinopriL 20 MG TABLET PO ×2 (09:14→16:54)
[2022-09-02] MEDS: carvediloL 3.125 MG TABLET PO ×2 (09:14→16:52)
[2022-09-02] MEDS: PANTOPRAZOLE 40 MG TABLET PO (09:14)
[2022-09-02] MEDS: ASPIRIN 81 MG CHEWABLE TABLET PO (09:14)
[2022-09-02] MEDS: LIPASE/AMYLASE/PROTEASE 12,000 UNITS CAP 1 CAP PO ×3 (09:14→16:54)
[2022-09-02] MEDS: VITAMIN E 100 UNIT CAPSULE 200 UNIT PO (09:14)
[2022-09-02] MEDS: ATORVASTATIN 20 MG TABLET PO (09:14)
[2022-09-02] MEDS: CITALOPRAM HYDROBROMIDE 20 MG TABLET PO (09:14)
[2022-09-02] MEDS: TAMOXIFEN CITRATE (*CHEMO) 10 MG TABLET 20 MG PO (09:15)
[2022-09-02] MEDS: cefTRIAXone 2 GM in SODIUM CHLORIDE 0.9% IV 100 ML 200 ML IVPB (09:17)
[2022-09-02 11:19] LABS: Glucose Point of Care 223 mg/dl (65-105)
[2022-09-02] MEDS: INSULIN ASPART (*BKC) 100 UNITS/ML SUB-Q ×2 (12:18→16:54)
--- NOTE | 2022-09-02 15:19 | PM.IMPN ---
Progress Note: A&P Assessment and Plan (1) Recent urinary tract infection: Code(s): Z87.440 - Personal history of urinary (tract) infections Status: Acute Assessment and Plan: Patient present to the ED on 08/31/2022 with complaints of fever. patient presented to the clinic a couple days ago and was found to have a UTI and was prescribed cefdinir. Cultures came back positive for Klebsiella pneumonia. Repeat urine with 3+ blood, 2+ LE, 11-20 rbc's, and greater than [address] abdomen and pelvis negative for acute pyelonephritis. Blood culture positive for Klebsiella pneumoniae sensitivities pending Urine culture no growth Patient started on 1 g Rocephin that was increased to 2 g after blood culture came back positive. Tylenol P.r.n. for fever (2) Generalized weakness: Code(s): R53.1 - Weakness Status: Acute Assessment and Plan: Most likely due to possible bacteremia /UTI PT evaluation Fall precautions (3) Hypertension: Code(s): I10 - Essential (primary) hypertension Status: Acute Assessment and Plan: blood pressure stable Continue home antihypertensives. (4) Type 2 diabetes mellitus: Code(s): E11.9 - Type 2 diabetes mellitus without complications Status: Acute Assessment and Plan: Initiate sliding scale insulin, Accu-Cheks, and hypoglycemic protocol. Hold oral hypoglycemics given poor oral intake. (5) Obstructive sleep apnea treated with BiPAP: Code(s): G47.33 - Obstructive sleep apnea (adult) (pediatric) Status: Acute Assessment and Plan: CPAP provided. (6) Head injury: Qualifiers: Encounter type: initial encounter Qualified Code(s): S09.90XA - Unspecified injury of head, initial encounter Code(s): S09.90XA - Unspecified injury of head, initial encounter Status: Acute Assessment and Plan: Patient stated that he had tripped over his dog a couple days ago and fell and hit his head. CT head negative for acute intracranial process If neurological status changes can repeat head CT. Subjective Date/time seen: 09/02/22 15:19 Interval history: Patient sitting up in bed patient's is in room. Patient is still feeling very fatigue and tired. Patient's blood cultures positive for Klebsiella pneumoniae. Patient denies chest pain, shortness a breath, nausea, vomiting, dysuria. Review of Systems Review of Systems: All systems reviewed & are unremarkable except as noted in HPI and below Exam Narrative: GENERAL: Comfortable, no acute distress HENMT: moist mucous membranes EYES: EOM intact b/l NECK: no lymphadenopathy RESPIRATORY: clear to auscultation CARDIO: RRR GI: soft, nontender, bowel sounds present SKIN: no rashes EXTREMITIES: no edema, redness or tenderness Objective Data Vital Signs Vital Signs: Vital Signs - 24 hr 09/01/22 16:42 09/01/22 22:00 09/01/22 20:00 Temperature 98.4 F Pulse Rate 73 61 Respiratory Rate 20 Blood Pressure 123/70 Pulse Oximetry 25 L Oxygen Delivery Room Air 09/01/22 20:00 09/02/22 06:00 09/01/22 20:05 Temperature 97.7 F Pulse Rate 73 70 75 Respiratory Rate 20 Blood Pressure 101/60 101/60 104/87 Pulse Oximetry 95 Oxygen Delivery 09/01/22 20:10 09/02/22 09:14 09/02/22 08:00 Temperature 96.8 F L Pulse Rate 88 83 60 Respiratory Rate 22 H Blood Pressure 120/84 122/84 Pulse Oximetry 95 Oxygen Delivery 09/02/22 10:13 09/02/22 10:13 09/02/22 14:00 Temperature 98.8 F Pulse Rate 99 116 H 71 Respiratory Rate 18 Blood Pressure 108/78 117/97 H 128/68 Pulse Oximetry 96 Oxygen Delivery Intake/Output Intake/Output: Intake & Output 08/30/22 08/31/22 09/01/22 09/02/22 23:59 23:59 23:59 23:59 Intake Total 594 6370 801 Output Total 250 250 Balance 594 1530 551 Meds/Results Medications: Active Medications Ge
[2022-09-02 16:42] LABS: Glucose Point of Care 224 mg/dl (65-105)
[2022-09-02] MEDS: TERAZOSIN HCL 1 MG CAPSULE 2 MG PO (20:11)
[2022-09-03 06:00] VITALS: BP 147/86; PULSE 74; RESP 18; TEMP 36.6; O2SAT 97
[2022-09-03 08:14] LABS: Glucose Point of Care 153 mg/dl (65-105)
[2022-09-03 08:36] LABS: Hematocrit 38.8 % (42.0-52.0); Hemoglobin 13.4 g/dL (14.0-18.0); Mean Corpuscular HGB Conc 34.5 g/dl (32-36); Mean Corpuscular Hemoglobin 31.8 pg (26-34); Mean Corpuscular Volume 92.2 fl (80-100); Mean Platelet Volume 10.4 fl (7.4-10.4); Platelet Count Result 143 k/mm3 (150-375); Red Blood Count 4.21 M/mm3 (4.6-6.20); Red Cell Distribution Width 12.7 % (11.5-14.5); White Blood Count 6.1 K/mm3 (4.5-10.0)
[2022-09-03 08:53] LABS: Alanine Aminotransferase 52 U/L (6-50); Albumin Level 3.4 g/dL (3.5-5.1); Alkaline Phosphatase 54 U/L (38-126); Anion Gap 3 mmol/L (8-16); Aspartate Amino Transferase 54 U/L (17-59); Bilirubin,Total 0.4 mg/dL (0.2-1.3); Blood Urea Nitrogen 13 mg/dL (9-20); Calcium 8.4 mg/dL (8.4-10.2); Carbon Dioxide 28 mmol/L (22-30); Chloride 100 mmol/L (98-107); Estimated CRCL calculation 101 ml/min; Estimated Glomerular Filt Rate > 60; Glucose 172 mg/dL (65-110); Sodium 131 mmol/L (137-145)
[2022-09-03 09:14] VITALS: PULSE 96
[2022-09-03] MEDS: ATORVASTATIN 20 MG TABLET PO (09:14)
[2022-09-03] MEDS: carvediloL 3.125 MG TABLET PO (09:14)
[2022-09-03] MEDS: ASPIRIN 81 MG CHEWABLE TABLET PO (09:14)
[2022-09-03] MEDS: CITALOPRAM HYDROBROMIDE 20 MG TABLET PO (09:15)
[2022-09-03] MEDS: lisinopriL 20 MG TABLET PO (09:16)
[2022-09-03] MEDS: PANTOPRAZOLE 40 MG TABLET PO (09:16)
[2022-09-03] MEDS: TAMOXIFEN CITRATE (*CHEMO) 10 MG TABLET 20 MG PO (09:16)
[2022-09-03] MEDS: LIPASE/AMYLASE/PROTEASE 12,000 UNITS CAP 1 CAP PO ×2 (09:16→12:34)
[2022-09-03] MEDS: VITAMIN E 100 UNIT CAPSULE 200 UNIT PO (09:17)
[2022-09-03] MEDS: ZINC SULFATE 220 MG CAPSULE PO (09:17)
[2022-09-03 11:47] LABS: Glucose Point of Care 179 mg/dl (65-105)
--- NOTE | 2022-09-03 11:57 | PM.DS ---
DS: Admitting Diagnosis Discharge Date 09/02/22 Admitting Diagnosis UTI DS: Discharge Diagnosis Discharge Diagnosis (1) Recent urinary tract infection: Code(s): Z87.440 - Personal history of urinary (tract) infections Status: Acute Assessment and Plan: Patient present to the ED on 08/31/2022 with complaints of fever. patient presented to the clinic a couple days ago and was found to have a UTI and was prescribed cefdinir. Cultures came back positive for Klebsiella pneumonia. Repeat urine with 3+ blood, 2+ LE, 11-20 rbc's, and greater than [address] abdomen and pelvis negative for acute pyelonephritis. Blood culture positive for Klebsiella pneumoniae Sensitive to Levaquin Urine culture no growth 2 g Rocephin transition to Levaquin 750 for an additional 7 days. Discussed with ID pharmacist about treatment of patient And he recommended Levaquin 750 mg. (2) Generalized weakness: Code(s): R53.1 - Weakness Status: Acute Assessment and Plan: Most likely due to possible bacteremia /UTI PT evaluation Fall precautions (3) Hypertension: Code(s): I10 - Essential (primary) hypertension Status: Acute Assessment and Plan: blood pressure stable Continue home antihypertensives. (4) Type 2 diabetes mellitus: Code(s): E11.9 - Type 2 diabetes mellitus without complications Status: Acute Assessment and Plan: Initiate sliding scale insulin, Accu-Cheks, and hypoglycemic protocol. Hold oral hypoglycemics given poor oral intake. (5) Obstructive sleep apnea treated with BiPAP: Code(s): G47.33 - Obstructive sleep apnea (adult) (pediatric) Status: Acute Assessment and Plan: CPAP provided. (6) Head injury: Qualifiers: Encounter type: initial encounter Qualified Code(s): S09.90XA - Unspecified injury of head, initial encounter Code(s): S09.90XA - Unspecified injury of head, initial encounter Status: Acute Assessment and Plan: Patient stated that he had tripped over his dog a couple days ago and fell and hit his head. CT head negative for acute intracranial process If neurological status changes can repeat head CT. DS: Summary Hospital Course Reason for hospitalization: UTI Hospital Course: 77-year-old male with history of hypertension, hyperlipidemia, diabetes, obstructive sleep apnea and BPH presented to the ED on 08/31/2022 for evaluation of weakness. Patient had recently been at the hospital for acute pancreatitis on 08/19/2022. Patient recently seen is low-grade altered care and was diagnosed for UTI and was prescribed cefdinir. Urine culture from Urgent Care grew Klebsiella pneumoniae that suggested sensitivity to cefdinir. Although patient has been taking medication as prescribed he was still not feeling better and presented to the ED. patient was found to have a fever of 102.1. Labs unremarkable UA with +2 protein, 3+ blood, 2+ leukocyte esterase greater than [address] abdomen pelvis negative for acute abnormalities and chest x-ray unremarkable. Patient was started on Rocephin. Blood cultures drawn and positive for Klebsiella pneumoniae. Rocephin then increase to 2 g after positive blood cultures. Repeat urine culture negative for bacteria. culture sensitive to Levaquin. Discussed case with ID pharmacist and he agreed that Levaquin would be a good choice to continue for an additional 7 days. Patient received 3 days of Rocephin 2 g in the hospital. Patient feeling much better on discharge day and is very eager to go home. His weakness has improved as well as urinary symptoms. Patient's labs are stable. Time Spent with Patient Time attestation: Total time spent providing and/or coordinating discharge services: Exam Narrative: GENERAL: Comfortable, no acute distress HENMT: moist mucous membranes EYES: EOM intact b/l NECK:
[2022-09-03 13:38] VITALS: BP 122/65; PULSE 67; RESP 18; TEMP 36.6; O2SAT 93
[2022-09-03 13:39] VITALS: BP 121/60; PULSE 70; RESP 20; TEMP 36.7; O2SAT 96
[2022-09-03 13:40] VITALS: BP 85/49; PULSE 82; RESP 20; TEMP 36.6; O2SAT 94
[2022-09-03 13:42] VITALS: BP 122/65; PULSE 67; RESP 18; TEMP 36.6; O2SAT 93
== END 2022-09-03 15:20 | disposition home or self-care (01) | DRG 690 ==
LOC: ANHED 10:38 → ANH3MEDSUR 11:40
PROVIDERS: Physician Assistant; Admitting Provider Student in an Organized Health Care Education/Training Program; Emergency Provider Emergency Medicine; PCP Family Medicine; Visit Provider Internal Medicine Critical Care Medicine
DX: N39.0 Urinary tract infection, site not specified (principal); R78.81 Bacteremia; B96.1 Klebsiella pneumoniae [K. pneumoniae] as the cause of diseases classified elsewhere; R32 Unspecified urinary incontinence; S09.90XA Unspecified injury of head, initial encounter; W01.198A Fall on same level from slipping, tripping and stumbling with subsequent striking against other object, initial encounter; G47.33 Obstructive sleep apnea (adult) (pediatric); E78.5 Hyperlipidemia, unspecified; I10 Essential (primary) hypertension; N40.0 Benign prostatic hyperplasia without lower urinary tract symptoms; E11.9 Type 2 diabetes mellitus without complications; F41.9 Anxiety disorder, unspecified; Z96.653 Presence of artificial knee joint, bilateral; Z85.3 Personal history of malignant neoplasm of breast
CPT/HCPCS: 36415; 70450; 71045; 74177; 80048; 80053; 81001; 82948; 83605; 83690; 83735; 84145; 85025; 85027; 85055; 85610; 85730; 86140; 87040; 87077; 87086; 87186; 87637; 96365; 96375; 97161; 99285; A9270; G0378; J0131; J0696; J1815; Q9967

== ENCOUNTER 2023-01-07 12:18 | Outpatient (CLI) | payer MEDICARE, SELFPAY ==
[2023-01-07 13:04] LABS: Cholesterol 138 mg/dL (0-200); HDL Direct 40 mg/dL; Triglycerides 191 mg/dL (<150)
[2023-01-07 13:14] LABS: LDL Cholesterol Direct 63 mg/dL
== END 2023-01-07 12:19 | disposition home or self-care (01) ==
LOC: ANHLAB 12:20
PROVIDERS: PCP Internal Medicine Cardiovascular Disease; Visit Provider Internal Medicine Cardiovascular Disease
DX: E78.00 Pure hypercholesterolemia, unspecified (principal)
CPT/HCPCS: 36415; 80061

== ENCOUNTER 2023-04-15 11:04 | Outpatient (CLI) | payer MEDICARE, SELFPAY ==
[2023-04-15 19:43] LABS: Basophils Absolute Auto 0.1 K/mm3 (0.0-0.1); Basophils Percent Auto 0.7 % (0.2-1.2); Eosinophils Absolute Auto 0.2 K/mm3 (0-0.3); Eosinophils Percent Auto 3.2 % (0-4.4); Hematocrit 46.2 % (42.0-52.0); Hemoglobin 15.1 g/dL (14.0-18.0); Immature Granulocyte Absolute 0.03 K/mm3 (0.00-0.031); Immature Granulocyte Percent A 0.4 % (0-0.5); Lymphocytes Absolute Auto 2.11 K/mm3 (0.9-3.2); Lymphocytes Percent Auto 28.2 % (18.3-44.2); Mean Corpuscular HGB Conc 32.7 g/dl (32-36); Mean Corpuscular Volume 97.9 fl (80-100); Mean Platelet Volume 11.5 fl (7.4-10.4); Monocytes Absolute Auto 0.6 K/mm3 (0.1-0.6); Monocytes Percent Auto 7.6 % (2.6-8.5); Neutrophils Absolute Auto 4.5 K/mm3 (1.3-6.7); Neutrophils Percent Auto 59.9 % (45.5-73.1); Platelet Count Result 126 k/mm3 (150-375); Red Blood Count 4.72 M/mm3 (4.6-6.20); Red Cell Distribution Width 13.3 % (11.5-14.5); White Blood Count 7.5 K/mm3 (4.5-10.0)
[2023-04-15 19:57] LABS: Alanine Aminotransferase 18 U/L (6-50); Alkaline Phosphatase 56 U/L (38-126); Anion Gap 5 mmol/L (8-16); Aspartate Amino Transferase 28 U/L (17-59); Bilirubin,Total 0.6 mg/dL (0.2-1.3); Blood Urea Nitrogen 20 mg/dL (9-20); Calcium 9.1 mg/dL (8.4-10.2); Carbon Dioxide 30 mmol/L (22-30); Chloride 102 mmol/L (98-107); Cholesterol 126 mg/dL (0-200); Estimated Glomerular Filt Rate > 60; Glucose 175 mg/dL (65-110); HDL Direct 33 mg/dL; Potassium 4.9 mmol/L (3.4-5.0); Sodium 137 mmol/L (137-145); Triglycerides 152 mg/dL (<150)
[2023-04-15 20:07] LABS: LDL Cholesterol Direct 67 mg/dL
[2023-04-15 20:27] LABS: Creatinine Urine 74.8 mg/dL
[2023-04-15 20:28] LABS: Vitamin D 25 Hydroxy 42.2 ng/mL
[2023-04-15 20:38] LABS: Hemoglobin A1C 8.4 % (<5.7)
[2023-04-15 20:39] LABS: MALB Creatinine Ratio < 8.0 mg/g (0-30); Microalbumin Urine Random < 6.0 mg/L (0-16.7)
== END 2023-04-15 11:05 | disposition home or self-care (01) ==
PROVIDERS: PCP Internal Medicine Cardiovascular Disease; Visit Provider Nurse Practitioner Family
DX: E11.9 Type 2 diabetes mellitus without complications (principal); I10 Essential (primary) hypertension; E78.5 Hyperlipidemia, unspecified; E55.9 Vitamin D deficiency, unspecified
CPT/HCPCS: 36415; 80053; 80061; 82043; 82306; 83036; 84443; 85025

== ENCOUNTER 2023-07-26 12:53 | Outpatient (CLI) | payer MEDICARE, SELFPAY ==
[2023-07-26 14:30] LABS: Alanine Aminotransferase 24 U/L (6-50); Albumin Level 3.9 g/dL (3.5-5.1); Alkaline Phosphatase 54 U/L (38-126); Anion Gap 7 mmol/L (8-16); Aspartate Amino Transferase 45 U/L (17-59); Bilirubin,Total 0.6 mg/dL (0.2-1.3); Blood Urea Nitrogen 24 mg/dL (9-20); Calcium 9.3 mg/dL (8.4-10.2); Carbon Dioxide 30 mmol/L (22-30); Chloride 101 mmol/L (98-107); Estimated Glomerular Filt Rate > 60; Glucose 229 mg/dL (65-110); Potassium 4.6 mmol/L (3.4-5.0); Sodium 138 mmol/L (137-145)
[2023-07-26 16:21] LABS: Prostate Specific Antigen 0.5 ng/mL (< OR = 4.0)
== END 2023-07-26 12:54 | disposition home or self-care (01) ==
LOC: ANHGOSHLAB 12:56
PROVIDERS: PCP Family Medicine; Visit Provider Nurse Practitioner Family
DX: E11.9 Type 2 diabetes mellitus without complications (principal); I10 Essential (primary) hypertension; N40.1 Benign prostatic hyperplasia with lower urinary tract symptoms; Z12.5 Encounter for screening for malignant neoplasm of prostate
CPT/HCPCS: 36415; 80053; 83036; 84153; G0103

== ENCOUNTER 2024-09-21 15:03 | Outpatient (CLI) | payer MEDICARE, SELFPAY ==
--- OUTSIDE RECORDS SUMMARY | 2024-09-21 15:06 | XMS_ITS ---
Care Plan - [facility] Created on: September 21, 2024 ALEX JENSEN : 1945 Sex: Male Author Organization [facility] Address [address] [place] [address] Phone Care Team Providers Care Eight Section Blower Name Role Phone Unavailable Unavailable Unavailable
--- OUTSIDE RECORDS SUMMARY | 2024-09-21 15:06 | XMS_ITS | Clinical Summary ---
Author Organization [facility] Address [address] [place] [address] Phone Care Team Providers Care Garbage Collector Driver Name Role Phone Unavailable Unavailable Unavailable Reason for Visit and Chief Complaint NEW PATIENT VISIT Plan of Treatment No Plan of Treatment Recorded Assessments Includes: Assessments from this encounter No Assessments Recorded Medical Equipment - Implanted Devices Includes: Current Devices No Medical Equipment Recorded Medications Administered Includes: Administered Medications from this encounter No Administered Medications Recorded Results Includes: Results discussed during this encounter No Results Recorded For Specified Dates History of Present Illness Includes: History of Present Illness from this encounter No History of Present Illness Recorded Social History No Social History Recorded - Smoking Status Unknown Medical History Includes: Medical History addressed during this encounter No Medical History Recorded Family History Includes: Family History addressed during this encounter No Family History Recorded Review of Systems Includes: Review of Systems from this encounter No Review of Systems Recorded Mental Status Includes: Mental Status from this encounter No Mental Status Recorded Functional Status Includes: Functional Status from this encounter No Functional Status Recorded Physical Exam Includes: Physical Exam from this encounter No Physical Exam Recorded Encounters Encounter Provider Location Date Check-In Time Check- Out Time Diagnosis NEW PATIENT VISIT [facility] 6 9:00AM 11:59PM Clinical Notes Includes: Clinical Notes from this encounter No Clinical Notes Recorded
--- OUTSIDE RECORDS SUMMARY | 2024-09-21 15:06 | XMS_ITS | Encounter Summary ---
Author Organization [facility] Address [address] [place] [address] Care Team Providers Care Regional Agronomist Name Role Phone Gabriel Barrios MD Primary Care Provider [phone] Encounter Details Date Type Department Care Team (Late Contact Info) Description 11/16/2018 Chart Note [facility] Radiation Therapy [address] [place] [address] [place] [address] [place] [address] Social History Tobacco Use Types Packs/Day Years Used Date Smoking Tobacco: Never Smokeless Tobacco: Never Alcohol Use Standard Drinks/Week Comments Yes 0 (1 standard drink = 0.6 oz pur e alcohol) Sex and Gender Information Value Date Recorded Sex Assigned at Not on file Legal Sex Male 1:07 PM CDT Gender Identity Not on file Sexual Orientation Not on file documented as of this encounter Plan of Treatment Upcoming Encounters Date Type Department Care Team (Late st Contact Info) Description 09/25/2024 11:00 AM CDT Office Visit [facility] Oncology and Hematology - [place] [address] [facility] [address] [place] [address] Raul Leger MD [address] [facility] [address] [place] [address] documented as of this encounter Visit Diagnoses Not on filedocumented in this encounter Care Teams Regional Agronomist Relationship Specialty Start Date End Date Gabriel Barrios MD [address] [place] [address] PCP - General Family Practice 05/01/18 documented as of this encounter
--- OUTSIDE RECORDS SUMMARY | 2024-09-21 15:06 | XMS_ITS ---
Author Organization [facility] Address [address] [place] [address] Phone Care Team Providers Care Sexual Assault Social Worker Name Role Phone Unavailable Unavailable Unavailable Plan of Treatment No Plan of Treatment Recorded Assessments Includes: Assessments for all patient encounters No Assessments Recorded Medical Equipment - Implanted Devices Includes: Current and historical Devices No Medical Equipment Recorded Medications Administered Includes: Administered Medications in patient's chart No Administered Medications Recorded Results Includes: Results from 09/22/2023 through 09/21/2024 No Results Recorded For Specified Dates History of Present Illness History of Present Illness not supported for this document type No History of Present Illness Recorded Social History No Social History Recorded - Smoking Status Unknown Medical History Includes: Medical History in patient's chart No Medical History Recorded Family History Includes: Family History in patient's chart No Family History Recorded Review of Systems Review of Systems not supported for this document type No Review of Systems Recorded Mental Status No Mental Status Recorded Functional Status No Functional Status Recorded Physical Exam Physical Exam not supported for this document type No Physical Exam Recorded Clinical Notes Includes: Signed Clinical Notes starting from 07/23/2022 No Clinical Notes Recorded
--- OUTSIDE RECORDS SUMMARY | 2024-09-21 15:06 | XMS_ITS | Clinical Summary ---
Author Organization [facility] Address [address] [place] [address] Care Team Providers Care Director Of Analytical Development Name Role Phone Geovanny Mccarty MD Primary Care Provider Source Comments [facility],non-owned Affiliates and Associated Physician Practices is amultiple site organization consisting of ambulatory clinics and hospital sitesin [place], [place], [place] and [place]. This disclosure is being madepursuant to the Care Everywhere program and may not contain all information available regarding this patient. Last updated 18.[facility] Allergies Active Allergy Reactions Criticality Noted Date Comments Epinephrine Anaphylaxis High 08/14/2017 Medications * Be aware that medications may not be up to date on this document. Alwaysverify current medications with the patient. Medication Sig Dispensed Refills Start Date End Date Status QUINAPRIL HCL PO Take 40 mg by mouth Active terazosin (HYTRIN) 5 MG capsule Take 5 mg by mouth once daily Active finasteride (PROPECIA) 1 MG tablet Take 2 mg by mouth once daily Active Testosterone Cypionate 200 MG/ML Activ e acetaZOLAMIDE (DIAMOX) 250 MG tablet Take 250 mg by mouth 3 times daily Active citalopram (CELEXA) 20 MG tablet Take 20 mg by mouth once daily Active tadalafil (CIALIS) 5 MG tablet Take 5 mg by mouth once as needed Active amLODIPine (NORVASC) 10 MG tablet Take 10 mg by mouth once daily Active fluticasone propionate (FLONASE) 50 MCG/ACT nasal spray [place] 2 sprays into each nostril once daily 1 bottles 08/14/2017 Active LORazepam (ATIVAN) 1 MG tablet Take 1 mg by mouth every 8 hours as needed for Anxiety Active Active Problems No known active problems Family History Medical History Relation Name Comments CAD (Coronary Artery Disease) Father Relation Name Status Comments Father Mother Alive Social History Tobacco Use Types Packs/Day Years Used Date Smoking Tobacco: Never Smokeless Tobacco: Never Sex and Gender Information Value Date Recorded Sex Assigned at Not on file Gender Identity Not on file Sexual Orientation Not on file Last Filed Vital Signs Vital Sign Reading Time Taken Comments Blood Pressure 140/80 08/14/2017 10:40 AM ENGRAVER LETTER Pulse 102 08/14/2017 10:40 AM ENGRAVER LETTER Temperature 36.5 C (97.7 F) 08/14/2017 10:40 AM ENGRAVER LETTER Respiratory Rate 16 08/14/2017 10:40 AM ENGRAVER LETTER Oxygen Saturation 96% 08/14/2017 10:40 AM ENGRAVER LETTER Inhaled Oxygen Concentration - - Weight 149.7 kg (330 lb) 08/14/2017 10:40 AM ENGRAVER LETTER Height 188 cm (6' 2 ) 08/14/2017 10:40 AM ENGRAVER LETTER Body Mass Index 42.37 08/14/2017 10:40 AM ENGRAVER LETTER Plan of Treatment Health Maintenance Due Date Last Done Comments MEDICARE AWV 12 MONTHS 1945 HEPATITIS C SCREENING 08/19/1965 DTAP/TDAP/TD VACCINES (1 - Tdap) 1966 PNEUMOCOCCAL VACCINE 50+ (1 of 1 - PCV) 1997 ZOSTER VACCINE (1 of 2) 1997 SCREENING FOR DIABETES 08/14/2017 Respiratory Syncytial Virus (RSV) Vaccine Pt: or over 60 yrs (1 - 1-dose 75+ series) 2022 COVID-19 VACCINE ( - 2023-2 5 season) 2024 INFLUENZA VACCINE (#1) 2024 DEPRESSION SCREENING 07/04/2024 HEPATITIS B VACCINE Aged Out No longe r eligible based on patient's age to complete this topic HIB VACCINE Aged Out No longer eligi ble based on patient's age to complete this topic HPV VACCINE Aged Out No longer eligi ble based on patient's age to complete this topic MENINGOCOCCAL (Group B) VACC INE SHARED DECISION-MAKING Aged Out No longer eligibl e based on patient's age to complete this topic MENINGOCOCCAL GROUPS A/C/Y/W VACCINE Aged Out No longer eligible b ased on patient's age to complete this topic Care Teams Director Of Analytical Development Relationship Specialty Start Date End Date Geovanny Mccarty MD [address] [place] [address] PCP - General 12/29/21
--- OUTSIDE RECORDS SUMMARY | 2024-09-21 15:07 | XMS_ITS | Clinical Summary ---
Author Organization [facility] Address [address] [place] [address] Care Team Providers Care Country Printer Apprentice Name Role Phone Gabriel Barrios MD Primary Care Provider [phone] Allergies Active Allergy Reactions Criticality Noted Date Comments Epinephrine Arrhythmia High 05/10/2018 Medications atorvastatin (LIPITOR) 20 mg tablet Take 20 mg by mouth daily . 0 04/14/20 18 Active citalopram (CeleXA) 20 mg tablet Take 20 mg by mouth daily . 1 03/22/20 18 Active metFORMIN (GLUCOPHAGE) 500 mg tablet Take 500 mg by mouth 2 times daily with meals . 2 04/13/20 18 Active CIALIS 5 mg tablet Take 5 mg by mouth daily . 0 02/09/20 18 Active finasteride (PROPECIA) 1 mg Tablet Take 2 mg by mouth daily . Active LORazepam (ATIVAN) 1 mg tablet Take 1 mg by mouth every 8 hours as needed . Active Lactobacillus acidophilus (PROBIOTIC ACIDOPHILUS) 1.5 mg (250 million cell) Capsule Take 1 Capsule by mouth 2 times daily. 60 Capsule 2 06/06/20 18 Active Additional Information Patient taking differently:1 Capsule OralDAILY, Reported on 06/22/2018 lidocaine-prilo dona (EMLA) 2.5-2.5 % Cream Apply to port site 30-60 min before use. 30 Gram 3 07/18/19 19 Active quinapril (ACCUPRIL) 20 mg tablet Take 20 mg by mouth 2 times daily . 4 07/19/19 19 Active carvedilol (COREG) 3.125 mg tablet Take 3.125 mg by mouth every 12 hours . 4 07/19/19 19 Active terazosin (HYTRIN) 2 mg capsule Take 2 mg by mouth daily at bedtime . 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, estrogen receptor positive 05/10/2018 Resolved Problems Problem Noted Date Diagnosed Date Resolved Date Lump of left breast 05/04/2019 05/14/20 19 Breast skin changes 08/03/2018 11/23/19 19 Venous insufficiency 06/29/2018 019 Enlarged lymph nodes in armpit 05/16/2018 08/03/2018 Carcinoma of upper-outer fawn drant of right breast in male, estrogen receptor positive 05/16/2018 11/22/2018 Encounters Date Type Department Care Team Description 09/05/2024 External Device Data ST[facility] ABSTRACTION Provider, Abstract 08/22/2024 External Device Data ST[facility] ABSTRACTION Provider, Abstract 08/21/2024 External Device Data [facility] ABSTRACTION Provider, Abstract 08/07/2024 External Device Data [facility] ABSTRACTION Provider, Abstract 08/07/2024 External Device Data [facility] ABSTRACTION Provider, Abstract 08/07/2024 External Device Data [facility] ABSTRACTION Provider, Abstract 08/02/2024 4:30 PM INSURANCE MARKETING REP Telephone Check Up [facility] Oncology and [facility] [address] [place] [address] Raul Leger MD 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, estrogen receptor positive (CMS/HCC) (Primary Dx) 07/30/2024 Orders Only [facility] Oncology and [facility] [address] [place] [address] Raul Leger MD 07/26/2024 External Device Data ST[facility] ABSTRACTION Provider, Abstract 07/25/2024 External Device Data [facility] ABSTRACTION Provider, Abstract 07/24/2024 External Device Data [facility] ABSTRACTION Provider, Abstract 07/17/2024 External Device Data STL ABSTRACTION Provider, Abstract 07/17/2024 Telephone [facility] Oncology and [facility] [address] [place] [address] Raul Leger MD Test Review 07/17/2024 Telephone [facility] Oncology and [facility] [address] [place] [address] Raul Leger MD Testing 07/13/2024 Telephone [facility] Oncology and [facility] [address] [place] [address] Raul Leger MD Dexa bone scan appt (Dexa bone scan scheduled at [facility] ) from Last 3 Months Family History Medical History Relation Name Comments Diabetes Brother 1 Diabetes Brother 2 Diabetes Father Diabetes Sister 1 Relation Name Status Comments Brother 1 Alive Brother 2 Alive Father Mother Alive Sister 1 Alive Sister 2 Alive Sister 3 Alive Social History Tobacco Use Types Packs/Day Years Used Date Smoking Tobacco: Never Smokeless Tobacco: Never Tobacco Cessation:Counseling Given: Not Answered Alcohol Use Standard Drinks/Week Comments Yes 0 (1 standard drink = 0.6 oz pur e alcohol) Sex and Gender Information Value Date Recorded Sex Assigned at Not on file Legal Sex Male 1:07 PM CDT Gender Identity Not on file Sexual Orientation Not on file Last Filed Vital Signs Vital Sign Reading Time Taken Comments Blood Pressure 105/68 03/26/2024 11:24 AM CDT Pulse 71 03/26/2024 11:24 AM CDT Temperature 36.4 C (97.5 F) 03/26/2024 11:24 AM CDT Respiratory Rate 16 03/26/2024 11:24 AM CDT Oxygen Saturation 95% 03/26/2024 11:24 AM CDT Inhaled Oxygen Concentration - - Weight 129 kg (284 lb 6.4 oz) 03/26/2024 11:24 A M CDT Height 188 cm (6' 2 ) 03/11/2022 10:58 AM CDT Body Mass Index 36.51 03/11/2022 10:58 AM CDT Plan of Treatment Upcoming Encounters Date Type Department Care Team (Late st Contact Info) Description 09/25/2024 11:00 AM CDT Office Visit [facility] Oncology and Hematology - [place] [address] [facility] [address] [place] [address] Raul Leger MD [address] [facility] [place] [address] Health Maintenance Due Date Last Done Comments DTAP/TDAP/TD VACCINES (1 - Tdap) 1966 PNEUMOCOCCAL VACCINE 50+ YEA RS (1 of 2 - PCV) 1966 Traditional Medicare (ACO) A nnual Wellness Visit 1966 ZOSTER VACCINE (1 of 2) 1966 RSV VACCINE (60+ or ) (1 - 1-dose 75+ series) 2022 INFLUENZA VACCINE (#1) 2024 COLORECTAL SCREENING Discontinued 05/14/2022, 10/01/19 16 Colorectal Cancer Screening Discontinued FIT-DNA Q 3 years Discontinued FIT/FOBT Q 1 year Discontinued Flex Sig/CT Colonography Q 5 years Discontinued Procedures Procedure Name Priority Date/Time Associated Diagnosis Comments NM BONE SCAN WHOLE BODY Routine 07/27/2024 10:57 AM INSURANCE MARKETING REP from Last 3 Months Results * NM BONE SCAN WHOLE BODY (07/27/2024 10:57 AM INSURANCE MARKETING REP) Anatomical Region Laterality Modality Nuclear Medicine Rual Leger MD NM ORDERABLES Final Result from Last 3 Months Insurance [facility] SUPP [facility] MEDICARE PART A AND B [facility] SUPP Care Teams Country Printer Apprentice Relationship Specialty Start Date End Date Gabriel Barrios MD [address] [place] [address] PCP - General Family Practice 05/01/18
[2024-09-21 15:18] LABS: Basophils Percent Auto 0.5 % (0.2-1.2); Eosinophils Absolute Auto 0.3 K/mm3 (0-0.3); Eosinophils Percent Auto 3.2 % (0-4.4); Hematocrit 51.5 % (42.0-52.0); Hemoglobin 17.4 g/dL (14.0-18.0); Immature Granulocyte Absolute 0.04 K/mm3 (0.00-0.031); Immature Granulocyte Percent A 0.5 % (0-0.5); Lymphocytes Absolute Auto 2.03 K/mm3 (0.9-3.2); Lymphocytes Percent Auto 23.1 % (18.3-44.2); Mean Corpuscular HGB Conc 33.8 g/dl (32-36); Mean Corpuscular Hemoglobin 31.8 pg (26-34); Mean Platelet Volume 10.9 fl (7.4-10.4); Monocytes Absolute Auto 0.7 K/mm3 (0.1-0.6); Monocytes Percent Auto 7.7 % (2.6-8.5); Neutrophils Absolute Auto 5.7 K/mm3 (1.3-6.7); Platelet Count Result 143 k/mm3 (150-375); Red Blood Count 5.48 M/mm3 (4.6-6.20); Red Cell Distribution Width 12.9 % (11.5-14.5); White Blood Count 8.8 K/mm3 (4.5-10.0)
[2024-09-21 17:00] LABS: Alanine Aminotransferase 16 U/L (6-50); Albumin Level 4.3 g/dL (3.5-5.1); Alkaline Phosphatase 71 U/L (38-126); Anion Gap 9 mmol/L (4-12); Aspartate Amino Transferase 39 U/L (17-59); Bilirubin,Total 0.6 mg/dL (0.2-1.3); Blood Urea Nitrogen 24 mg/dL (9-20); Calcium 9.3 mg/dL (8.4-10.2); Carbon Dioxide 30 mmol/L (22-30); Chloride 100 mmol/L (98-107); Estimated Glomerular Filt Rate > 60; Glucose 193 mg/dL (65-110); Potassium 4.5 mmol/L (3.4-5.0); Sodium 139 mmol/L (137-145)
[2024-09-24 17:59] LABS: CA 15-3 25 U/mL (<32)
== END 2024-09-21 15:04 | disposition home or self-care (01) ==
LOC: ANHLAB 15:04
PROVIDERS: PCP Family Medicine; Visit Provider Internal Medicine Hematology & Oncology
DX: C50.421 Malignant neoplasm of upper-outer quadrant of right male breast (principal); Z17.0 Estrogen receptor positive status [ER+]
CPT/HCPCS: 36415; 80053; 85025; 86300

== ENCOUNTER 2024-10-06 11:31 | Emergency (ER) | payer MEDICARE, SELFPAY ==
--- OUTSIDE RECORDS SUMMARY | 2024-10-06 11:33 | XMS_ITS ---
Care Plan - [facility] Created on: October 06, 2024 ALEX JENSEN : 1945 Sex: Male Author Organization [facility] Address [address] [place] [address] Phone Care Team Providers Care Director Data Analytics Name Role Phone Unavailable Unavailable Unavailable
--- OUTSIDE RECORDS SUMMARY | 2024-10-06 11:33 | XMS_ITS | Clinical Summary ---
Author Organization [facility] Address [address] [place] [address] Phone Care Team Providers Care Senior Reservations Agent Name Role Phone Unavailable Unavailable Unavailable Reason [...]
--- OUTSIDE RECORDS SUMMARY | 2024-10-06 11:33 | XMS_ITS | Clinical Summary ---
Author Organization [facility] Address [address] [place] [address] Care Team Providers Care Lab Support Tech Name Role Phone Geovanny Mccarty MD Primary Care Provider Source Comments [facility],non-owned Affiliates and Associated Physician Practices is amultiple site organization consisting of ambulatory clinics and hospital sitesin [place], [place], [place] and [place]. This disclosure is being madepursuant to the Care Everywhere program and may not contain all information available regarding this patient. Last updated 18.[facility] Allergies Active Allergy Reactions Criticality Noted Date [...] fluticasone propionate (FLONASE) 50 MCG/ACT nasal spray [place] 2 sprays into each nostril once daily [...] Comments Blood Pressure 140/80 08/14/2017 10:40 AM GALLEY COOK Pulse 102 08/14/2017 10:40 AM GALLEY COOK Temperature 36.5 C (97.7 F) 08/14/2017 10:40 AM GALLEY COOK Respiratory Rate 16 08/14/2017 10:40 AM GALLEY COOK Oxygen Saturation 96% 08/14/2017 10:40 AM GALLEY COOK Inhaled Oxygen Concentration - - Weight 149.7 kg (330 lb) 08/14/2017 10:40 AM GALLEY COOK Height 188 cm (6' 2 ) 08/14/2017 10:40 AM GALLEY COOK Body Mass Index 42.37 08/14/2017 10:40 AM GALLEY COOK Plan of Treatment Health Maintenance Due Date [...] age to complete this topic Care Teams Lab Support Tech Relationship Specialty Start Date End Date Geovanny Mccarty MD [address] [place] [address] PCP - General 12/29/21
--- OUTSIDE RECORDS SUMMARY | 2024-10-06 11:33 | XMS_ITS ---
Author Organization [facility] MEDICAL [facility] Address [address] [place] [address] Phone Care Team Providers Care Chief Sustainability Officer Name Role Phone Unavailable Unavailable Unavailable Plan of Treatment No Plan of Treatment Recorded Assessments Includes: Assessments for all patient encounters No Assessments Recorded Medical Equipment - Implanted Devices Includes: Current and historical Devices No Medical Equipment Recorded Medications Administered Includes: Administered Medications in patient's chart No Administered Medications Recorded Results Includes: Results from 10/07/2023 through 10/06/2024 No Results Recorded For Specified Dates History [...]
--- OUTSIDE RECORDS SUMMARY | 2024-10-06 11:33 | XMS_ITS | Encounter Summary ---
Author Organization [facility] Address [address] [place] [address] Care Team Providers Care Accountant Budget Name Role Phone Gabriel Barrios MD Primary Care Provider [phone] Encounter Details Date Type Department Care Team (Late Contact Info) Description 11/16/2018 Chart Note [facility] Radiation Therapy [address] [place] [address] [place] [address] [place] [address] Social History Tobacco Use Types [...] Care Team (Late st Contact Info) Description 04/01/2025 10:15 AM CDT Office Visit [facility] Oncology and Hematology - [place] [address] [facility] [address] [place] [address] Raul Leger MD [address] [facility] [address] [place] [address] documented as of this encounter Visit Diagnoses Not on filedocumented in this encounter Care Teams Accountant Budget Relationship Specialty Start Date End Date Gabriel Barrios MD [address] [place] [address] PCP - General Family Practice 05/01/18 documented as of this encounter
--- OUTSIDE RECORDS SUMMARY | 2024-10-06 11:34 | XMS_ITS | Clinical Summary ---
Author Organization [facility] Address [address] [place] [address] Care Team Providers Care Horse Racer Name Role Phone Gabriel Barrios MD Primary Care Provider [phone] Allergies Active Allergy Reactions Criticality Noted Date [...] mouth. Active tamoxifen (NOLVADEX) 20 mg tablet Take 1 Tablet (20 mg) by mouth daily. 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, estrogen receptor positive (CMS/HCC) (Primary Dx) 09/25/2024 Orders Only [facility] Oncology and Hematology [facility] [address] [place] [address] Raul Leger MD 09/05/2024 External Device Data STL ABSTRACTION Provider, Abstract 08/22/2024 External Device Data STL ABSTRACTION Provider, Abstract 08/21/2024 External Device Data STL ABSTRACTION Provider, Abstract 08/07/2024 External Device Data STL ABSTRACTION Provider, Abstract 08/07/2024 External Device Data STL ABSTRACTION Provider, Abstract 08/07/2024 External Device Data STL ABSTRACTION Provider, Abstract 08/02/2024 4:30 PM PROCESSING SUPERVISOR Telephone Check Up [facility] Oncology [facility] Hematology [facility] [address] [place] [address] Raul Leger MD 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, estrogen receptor positive (CMS/HCC) (Primary Dx) 07/30/2024 Orders Only [facility] Oncology and Hematology [facility] [address] [place] [address] Raul Leger MD 07/26/2024 External Device Data STL ABSTRACTION Provider, Abstract 07/25/2024 External Device Data STL ABSTRACTION Provider, Abstract 07/24/2024 External Device Data STL ABSTRACTION Provider, Abstract 07/17/2024 External Device Data STL ABSTRACTION Provider, Abstract 07/17/2024 Telephone [facility] Oncology [facility] [address] [place] [address] Raul Leger MD Test Review 07/17/2024 Telephone [facility] Oncology [facility] Hematology [facility] [address] [place] [address] Raul Leger MD Testing 07/13/2024 Telephone [facility] Oncology and Hematology - [place] [address] [place] [address] Raul Leger MD Dexa bone scan appt (Dexa bone scan scheduled at [facility] ) from Last 3 Months Family History [...] Sign Reading Time Taken Comments Blood Pressure 137/69 09/25/2024 10:54 AM CDT Pulse 61 09/25/2024 10:54 AM CDT Temperature 36.2 C (97.2 F) 09/25/2024 10:54 AM CDT Respiratory Rate 16 09/25/2024 10:5 4 AM CDT Oxygen Saturation 93% 09/25/2024 10: 54 AM CDT Inhaled Oxygen Concentration - - Weight 130.4 kg (287 lb 6.4 oz) 025 10:54 AM CDT Height 188 cm (6' 2 ) 03/11/2022 10:58 AM CDT Body Mass Index 36.9 03/11/2022 10:58 AM CDT Plan of Treatment Upcoming Encounters Date Type Department Care Team (Late st Contact Info) Description 04/01/2025 10:15 AM CDT Office Visit [facility] Oncology and Hematology - [place] [address] [place] [address] Raul Leger MD [address] [facility] [address] [place] [address] Health Maintenance Due Date Last [...] Procedure Name Priority Date/Time Associated Diagnosis Comments CANCER ANTIGEN 15-3 Routine 09/21/2024 3:17 PM CDT NM BONE SCAN WHOLE BODY Routine 07/27/2024 10:57 AM PROCESSING SUPERVISOR from Last 3 Months Results * CANCER ANTIGEN 15-3 (09/21/2024 3:17 PM CDT) Blood Raul Leger MD CHEMISTRY ORDERABLES Final Resu lt * NM BONE SCAN WHOLE BODY (07/27/2024 10:57 AM PROCESSING SUPERVISOR) Anatomical Region Laterality Modality Nuclear Medicine Raul Leger MD NM ORDERABLES Final Result from Last [address] [facility]PP [facility] MEDICARE PART A AND [facility] SUPP Care Teams Horse Racer Relationship Specialty Start Date End Date Gabriel Barrios MD [address] [place] [address] PCP - General Family Practice 05/01/18
--- NOTE | 2024-10-06 11:42 | ECG_ITS ---
Test Date: 2024-10-06 11:47:25 Measurements Intervals Luck Rate: 77 P: -71 OK: 164 QRS: -32 QRSD: 175 T: 120 QT: 430 QTc: 488 Interpretive Statements ECTOPIC ATRIAL RHYTHM LEFT AXIS DEVIATION LEFT BUNDLE BRANCH BLOCK BASELINE ARTIFACT- I, II, III, AVR, AVL, AVF, V6 ABNORMAL ECG No previous ECG available for comparison Electronically Signed On 10-06-2024 14:47:57 CDT by Liang Schmitt D.O.
--- OUTSIDE RECORDS SUMMARY | 2024-10-06 11:47 | XMS_ITS ---
Care Plan - [facility] Created on: October 06, 2024 ALEX JENSEN : 1945 Sex: Male Author Organization [facility] Address [address] [place] [address] Phone Care Team Providers Care Crepe Machine Operator Name Role Phone Unavailable Unavailable Unavailable
--- OUTSIDE RECORDS SUMMARY | 2024-10-06 11:47 | XMS_ITS ---
Author Organization [facility] Address [address] [place] [address] Phone Care Team Providers Care Fugitive Detective Name Role Phone Unavailable Unavailable Unavailable Plan [...]
--- OUTSIDE RECORDS SUMMARY | 2024-10-06 11:47 | XMS_ITS | Clinical Summary ---
Author Organization [facility] Address [address] [place] [address] Phone Care Team Providers Care Dba Developer Name Role Phone Unavailable Unavailable Unavailable Reason [...]
[2024-10-06 11:51] VITALS: BP 147/78; PULSE 78; RESP 22; TEMP 36.8; O2SAT 100
[2024-10-06 11:59] LABS: Basophils Percent Auto 0.4 % (0.2-1.2); Eosinophils Absolute Auto 0.2 K/mm3 (0-0.3); Eosinophils Percent Auto 2.5 % (0-4.4); Hematocrit 48.6 % (42.0-52.0); Hemoglobin 16.5 g/dL (14.0-18.0); Immature Granulocyte Absolute 0.05 K/mm3 (0.00-0.031); Immature Granulocyte Percent A 0.6 % (0-0.5); Immature Platelet Fraction Pct 4.4 % (0.9-11.2); Lymphocytes Absolute Auto 1.75 K/mm3 (0.9-3.2); Lymphocytes Percent Auto 20.6 % (18.3-44.2); Mean Corpuscular Hemoglobin 31.7 pg (26-34); Mean Corpuscular Volume 93.5 fl (80-100); Monocytes Absolute Auto 0.5 K/mm3 (0.1-0.6); Monocytes Percent Auto 6.4 % (2.6-8.5); Neutrophils Absolute Auto 5.9 K/mm3 (1.3-6.7); Neutrophils Percent Auto 69.5 % (45.5-73.1); Platelet Count Result 137 k/mm3 (150-375); White Blood Count 8.5 K/mm3 (4.5-10.0)
[2024-10-06] MEDS: LORazepam INJ (*CRX) 2 MG/ML VIAL 1 MG IV PUSH (12:07)
[2024-10-06 12:13] LABS: Alanine Aminotransferase 19 U/L (6-50); Alkaline Phosphatase 74 U/L (38-126); Anion Gap 11 mmol/L (4-12); Aspartate Amino Transferase 25 U/L (17-59); Bilirubin,Total 0.8 mg/dL (0.2-1.3); Blood Urea Nitrogen 17 mg/dL (9-20); Calcium 9.1 mg/dL (8.4-10.2); Carbon Dioxide 22 mmol/L (22-30); Chloride 101 mmol/L (98-107); Estimated CRCL calculation 110 ml/min; Estimated Glomerular Filt Rate > 60; Glucose 270 mg/dL (65-110); Potassium 4.4 mmol/L (3.4-5.0); Sodium 134 mmol/L (137-145)
[2024-10-06 13:02] VITALS: BP 154/82; PULSE 76; RESP 16; O2SAT 96
--- NOTE | 2024-10-06 13:03 | PC.NURSE ---
Pt. states his anxiety is much better.
--- NOTE | 2024-10-06 13:15 | ED.ANXIETY ---
HPI - Anxiety General Chief Complaint: Anxiety Stated Complaint: anxiety Time Seen by Provider: 10/06/24 11:36 Source: patient and family Mode of arrival: ambulatory Limitations: no limitations History of Present Illness HPI narrative: 79-year-old a history of hypertension, diabetes, anxiety disorder here with the complaints of having panic attack symptoms since this morning. Patient states that he was unable to see his primary doctor because of insurance plan however he did get his insurance back and hip he was off his medications for almost a year. Since this morning and feels extremely anxious, having mild shortness of breath and chest pain and he also states feels his skin is crawling. Usually takes 1 mg of Ativan.. MD complaint: anxiety, heart racing and shortness of breath Onset (ago): day(s) (1) Symptoms: chest pain Severity: mild Quality: constant Place: home Provoking factors: none known Relieving factors: nothing Exacerbating factors: nothing Associated symptoms: denies other symptoms Related Data Home Medications ?Medication ?Instructions ?Recorded ?Confirmed ?Last Taken ?Type tamoxifen 20 mg tablet 20 mg PO QAM 05/25/19 08/31/23 12/06/19 History vitamin E 200 unit capsule 200 unit PO QAM 05/25/19 08/31/23 12/04/19 History zinc 50 mg capsule 50 mg PO QAM 09/10/21 08/31/23 Unknown History coffee extract 100 mg-phosphatidyl 1 cap PO QAM 12/16/21 08/31/23 Unknown History serine 100 mg capsule (Neuriva Original) tadalafil 5 mg tablet 5 mg PO DAILY 04/13/22 08/31/23 Unknown History aspirin 81 mg capsule 81 mg PO DAILY 08/19/22 08/31/23 Unknown History cephalexin 250 mg capsule 250 mg PO DAILY 10/12/22 08/31/23 Unknown History sildenafil 100 mg tablet (Viagra) 100 mg PO DAILY PRN 11/08/22 08/31/23 Unknown History vibegron 75 mg tablet (Gemtesa) 75 mg PO DAILY 07/11/23 08/31/23 Unknown History Allergies Allergy/AdvReac Type Severity Reaction Status Date / Time epinephrine Allergy Severe Chest Verified 07/11/23 13:58 tightness Review of Systems Review of Systems: All systems reviewed & are unremarkable except as noted in HPI and below Constitutional: Constitutional: Reports no additional constitutional complaints Eyes: Eyes: Reports no additional eye complaints ENT: Reports system reviewed and no additional complaints, except as documented Cardiovascular: Cardiovascular: Reports no additional cardiovascular complaints Respiratory: Respiratory: Reports no additional respiratory complaints Gastrointestinal: Gastrointestinal: Reports no additional gastrointestinal complaints Integumentary/Breasts: Skin/Breast: Reports system reviewed and no additional complaints, except as docu Neurologic: Reports system reviewed and no additional complaints, except as documented Psychiatric: Psychiatric: Reports as per [facility] Past Medical History Medical History (Updated 10/06/24 @ 13:20 by David Jc MD) COVID Pancreatitis (08/2022) Type 2 diabetes mellitus Gout 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 Hypercholesterolemia Hypertension Anxiety Obstructive sleep apnea treated with BiPAP Urinary incontinence Surgical History Surgical History History of arthroscopy of left knee (06/2013) History of nasal septoplasty History of colonoscopy with polypectomy History of total mastectomy of right breast (05/2018) History of right breast biopsy At incisional site of mastectomy History of prostate surgery (11/2021) History of removal of Port-a-Cath History of bilateral knee replacement Right knee in June 2014. Left knee in May 2015. Family History Family History Other Heart disease High cholesterol Hypertension Social History Social History Social History: Surrogate medical decision maker: Princess Walsh, spouse. Code status: Full code. Smoking status: Never smoker Second hand tobacco smoke exposure: No Alcohol intake: current Alcohol use details: Perhaps 1 alcoholic beverage a month. Substance use: never Substance use type: does not use Lack of Transportation: No Lack of Food: Never True Current Housing: I Have Housing Concerned About Future Housing: No Difficulty Paying Gas/Electric Bills: No Difficulty Paying for Meds: No Currently Unemployed: No Education: Master's Degree or Higher Difficulty w/ Childcare or Family Care: No Additional living arrangements comments: Lives with in [place]. Additional occupation/education comments: Retired teacher. Spiritual care concerns: No Exam Narrative: GENERAL: Well-appearing, well-nourished, and in no acute distress. HEAD: Normocephalic, atraumatic. EYES: PERRLA and EOMI. ENT: Nares clear, no rhinorrhea or epistaxis. Mucous membranes moist. NECK: Supple. CHEST: Clear to auscultation. No respiratory distress. HEART: Regular rate and rhythm. No murmur heard. Normal peripheral pulses. ABDOMEN: Soft, nontender, nondistended, normal active bowel sounds. EXTREMITIES: Normal range of motion. No edema. SKIN: Warm, dry, no rash. NEURO: No focal deficits. Alert and oriented x3. PSYCH: Normal mood and affect. Course Course Emergency Course: Patient feeling much better after 1 mg of Ativan given in the ER. I did inform him and his about the lab work, EKG findings. Recommended him to follow up with his primary doctor for medication refills. Will give him Ativan tablets for few days Vital Signs Vital signs: Vital Signs Temperature 36.8 C 10/06/24 11:51 Pulse Rate 78 10/06/24 11:51 Respiratory Rate 22 H 10/06/24 11:51 Blood Pressure 147/78 H 10/06/24 11:51 Pulse Oximetry 100 10/06/24 11:51 Oxygen Delivery Room Air 10/06/24 11:51 Temperature 36.8 C 10/06/24 11:51 Pulse Rate 76 10/06/24 13:02 Respiratory Rate 16 10/06/24 13:02 Blood Pressure 154/82 H 10/06/24 13:02 Pulse Oximetry 96 10/06/24 13:02 Oxygen Delivery Room Air 10/06/24 11:51 MDM - Anxiety Differential Diagnosis Differential diagnosis: Likely panic disorder and acute anxiety Medical Records Attestation: I reviewed the patient's medical records. Lab Data Attestation: I reviewed the patient's lab results. 10/06/24 11:53 10/06/24 11:53 Labs: Lab Results 10/06/24 Range/Units 11:53 WBC 8.5 (4.5-10.0) K/mm3 RBC 5.20 (4.6-6.20) M/mm3 Hgb 16.5 (14.0-18.0) g/dL Hct 48.6 (42.0-52.0) % MCV 93.5 (80-100) fl MCH 31.7 (26-34) pg MCHC 34.0 (32-36) g/dl RDW 13.0 (11.5-14.5) % Plt Count 137 L (150-375) k/mm3 MPV 11.0 H (7.4-10.4) fl Immature Gran % (Auto) 0.6 H (0-0.5) % Neut % (Auto) 69.5 (45.5-73.1) % Lymph % (Auto) 20.6 (18.3-44.2) % [place] % (Auto) 6.4 (2.6-8.5) % Eos % (Auto) 2.5 (0-4.4) % Baso % (Auto) 0.4 (0.2-1.2) % Lymph # (Auto) 1.75 (0.9-3.2) K/mm3 [place] # (Auto) 0.5 (0.1-0.6) K/mm3 Eos # (Auto) 0.2 (0-0.3) K/mm3 Baso # (Auto) 0.0 (0.0-0.1) K/mm3 Abs Immat Gran (auto) 0.05 H (0.00-0.031) K/mm3 Absolute Neuts (auto) 5.9 (1.3-6.7) K/mm3 Absolute Nucleated RBC 0.000 (0.0-0.012) K/mm3 Nucleated RBC % 0.0 (0.0-0.2) % % Immature Plt Fraction 4.4 (0.9-11.2) % Sodium 134 L (137-145) mmol/L Potassium 4.4 (3.4-5.0) mmol/L Chloride 101 (98-107) mmol/L Carbon Dioxide 22 (22-30) mmol/L Anion Gap 11 (4-12) mmol/L BUN 17 (9-20) mg/dL Creatinine 0.70 (0.7-1.3) mg/dL Estim Creat Clear Calc 110 ml/min Estimated GFR > 60 (59 - ) Glucose 270 H (65-110) mg/dL Calcium 9.1 (8.4-10.2) mg/dL Total Bilirubin 0.8 (0.2-1.3) mg/dL AST 25 (17-59) U/L ALT 19 (6-50) U/L Alkaline Phosphatase 74 (38-126) U/L Total Protein 7.0 (6.3-8.2) g/dL Albumin 4.0 (3.5-5.1) g/dL ECG Data EKG #1: ECG completion date: 10/06/24 ECG completion time: 11:47 EKG Interpretation: normal rate (77), sinus rhythm and LBBB Discharge Plan Discharge Clinical Impression: Anxiety Patient Disposition: Home, Self-Care Condition: Stable Instructions: Anxiety (ED) Patient Language: Kiswahili Prescriptions: New lorazepam [Ativan] 1 mg tablet 1 mg PO DAILY PRN (Reason: anxiety) Qty: 4 0RF No Action tamoxifen 20 mg tablet 20 mg PO QAM vitamin E 200 unit capsule 200 unit PO QAM tadalafil 5 mg tablet 5 mg PO DAILY sildenafil [Viagra] 100 mg tablet 100 mg PO DAILY PRN Rx Instructions: administer 30 minutes to 4 hours before activity cephalexin 250 mg capsule 250 mg PO DAILY modafinil 200 mg tablet 200 mg PO QAM 30 Days Qty: 30 2RF Gemtesa 75 mg tablet 75 mg PO DAILY zinc 50 mg Capsule 50 mg PO QAM Neuriva Original 100-100 mg Capsule 1 cap PO QAM aspirin 81 mg Capsule 81 mg PO DAILY Creon 12,000-38,000 -60,000 unit capsule,delayed release(DR/EC) 1 cap PO TID Qty: 90 0RF Rx Instructions: administer with meals and/or snacks glimepiride 4 mg tablet 4 mg PO QAM Qty: 90 0RF Rx Instructions: administer with breakfast citalopram 40 mg tablet 20 mg PO DAILY Qty: 90 1RF lisinopril 20 mg tablet 20 mg PO BID Qty: 60 0RF Rx Instructions: LAST REFILL UNTIL APPOINTMENT IS MADE. lorazepam 1 mg tablet 1 mg PO DAILY PRN (Reason: anxiety) Qty: 30 0RF terazosin 2 mg capsule 2 mg PO QHS Qty: 30 0RF Rx Instructions: NEEDS APPOINTMENT FOR FURTHER REFILLS glipizide 5 mg tablet extended release 24hr 5 mg PO BID Qty: 180 1RF Rx Instructions: Take 1 tablet by mouth twice daily Jardiance 25 mg tablet 25 mg PO DAILY Qty: 90 1RF carvedilol 3.125 mg tablet 3.125 mg PO BID Qty: 180 0RF Rx Instructions: NEEDS APPOINTMENT FOR FURTHER REFILLS atorvastatin 20 mg tablet See Rx Instructions .ROUTE .COMPLEX Qty: 90 2RF Dose Instruction: TAKE 1 TABLET BY MOUTH EVERY NIGHT AT BEDTIME Rx Instructions: TAKE 1 TABLET BY MOUTH EVERY NIGHT AT BEDTIME Follow-up/Referrals: Maria M Mccarty MD [Primary Care Provider] - Time of Disposition: 13:22
[2024-10-06 14:00] VITALS: BP 150/92; PULSE 90; RESP 16; O2SAT 96
== END 2024-10-06 14:13 | disposition home or self-care (01) ==
PROVIDERS: Emergency Provider Family Medicine; PCP Family Medicine
DX: F41.9 Anxiety disorder, unspecified (principal); I10 Essential (primary) hypertension; E11.9 Type 2 diabetes mellitus without complications; Z79.899 Other long term (current) drug therapy
CPT/HCPCS: 36415; 80053; 85025; 85055; 93005; 96374; 99284; J2060

== ENCOUNTER 2024-10-16 11:46 | Outpatient (CLI) | payer MEDICARE, SELFPAY ==
--- OUTSIDE RECORDS SUMMARY | 2024-10-16 12:57 | XMS_ITS | Clinical Summary ---
Author Organization [facility] Address [address] [place] [address] Care Team Providers Care Ornamental Metal Fabricator Apprentice Name Role Phone Geovanny Mccarty MD Primary Care Provider Source Comments [facility],non-owned Affiliates and Associated Physician Practices is amultiple site organization consisting of ambulatory clinics and hospital sitesin [place], [place], [place]. This disclosure is being madepursuant to the Care Everywhere program and may not contain all information available regarding this patient. Last updated 18.[facility] Allergies Active Allergy Reactions Criticality Noted Date Comments Epinephrine Anaphylaxis High 08/14/2017 Medications * Be aware that medications may not be up to date on this document. Alwaysverify current medications with the patient. QUINAPRIL HCL PO Take 40 mg by mouth Active terazosin (HYTRIN) 5 MG capsule Take 5 mg by mouth once daily Active finasteride (PROPECIA) 1 MG tablet Take 2 mg by mouth once daily Active Testosterone Cypionate 200 MG/ML Active acetaZOLAMIDE (DIAMOX) 250 MG tablet Take 250 mg by mouth 3 times daily Active citalopram (CELEXA) 20 MG tablet Take 20 mg by mouth once daily Active tadalafil (CIALIS) 5 MG tablet Take 5 mg by mouth once as needed Active amLODIPine (NORVASC) 10 MG tablet Take 10 mg by mouth once daily Active fluticasone propionate (FLONASE) 50 MCG/ACT nasal spray Phillips 2 sprays into each nostril once daily [...] at Not on file Legal Sex Male 10:23 AM SLASHER RUNNER Gender Identity Not on file Sexual Orientation Not on file Last Filed Vital Signs Vital Sign Reading Time Taken Comments Blood Pressure 140/80 08/14/2017 10:40 AM SLASHER RUNNER Pulse 102 08/14/2017 10:40 AM SLASHER RUNNER Temperature 36.5 C (97.7 F) 08/14/2017 10:40 AM SLASHER RUNNER Respiratory Rate 16 08/14/2017 10:40 AM SLASHER RUNNER Oxygen Saturation 96% 08/14/2017 10:40 AM SLASHER RUNNER Inhaled Oxygen Concentration - - Weight 149.7 kg (330 lb) 08/14/2017 10:40 AM SLASHER RUNNER Height 188 cm (6' 2 ) 08/14/2017 10:40 AM SLASHER RUNNER Body Mass Index 42.37 08/14/2017 10:40 AM SLASHER RUNNER Plan of Treatment Health Maintenance Due Date [...] VACCINE ( - 2023-2 5 season) 2024 DEPRESSION SCREENING 07/04/2024 INFLUENZA VACCINE (Season Ended) 2025 HEPATITIS B VACCINE Aged Out No longe [...] on patient's age to complete this topic Insurance MEDICARE MEDICARE FOR[facility]LY [facility] MEDICARE Care Teams Ornamental Metal Fabricator Apprentice Relationship Specialty Start Date End Date Geovanny Mccarty MD [address] [place] [address] PCP - General 12/29/21
--- OUTSIDE RECORDS SUMMARY | 2024-10-16 12:57 | XMS_ITS ---
Care Plan - [facility] Created on: October 16, 2024 ALEX JENSEN : 1945 Sex: Male Author Organization [facility] Address [address] [place] [address] Phone Care Team Providers Care Talent Buyer Name Role Phone Unavailable Unavailable Unavailable
--- OUTSIDE RECORDS SUMMARY | 2024-10-16 12:58 | XMS_ITS | Clinical Summary ---
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, estrogen receptor positive (CMS/HCC) (Primary Dx) 09/25/2024 Orders Only [facility] Oncology and Hematology [facility] [address] [place] [address] Raul Leger MD 09/05/2024 External Device Data STL ABSTRACTION Provider, Abstract 08/22/2024 External Device Data STL ABSTRACTION Provider, Abstract 08/21/2024 External Device Data STL ABSTRACTION Provider, Abstract 08/07/2024 External Device Data STL ABSTRACTION Provider, Abstract 08/07/2024 External Device Data STL ABSTRACTION Provider, Abstract 08/07/2024 External Device Data STL ABSTRACTION Provider, Abstract 08/02/2024 4:30 PM ASSEMBLY PERSON Telephone Check Up [facility] Oncology and Hematology [facility] [address] [place] [address] Raul Leger MD 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, estrogen receptor positive (CMS/HCC) (Primary Dx) 07/30/2024 Orders Only [facility] Oncology and Hematology [facility] [address] [place] [address] Raul Leger MD 07/26/2024 External Device Data STL ABSTRACTION Provider, Abstract 07/25/2024 External Device Data STL ABSTRACTION Provider, Abstract 07/24/2024 External Device Data STL ABSTRACTION Provider, Abstract from Last 3 Months Family History Medical [...] Description 04/01/2025 10:15 AM CDT Office Visit [facility] Oncology and Hematology - [place] [address] [facility] [address] [place] [address] Raul Leger MD [address] [address] [place] [address] Health Maintenance Due Date Last [...] SCAN WHOLE BODY Routine 07/27/2024 10:57 AM ASSEMBLY PERSON from Last 3 Months Results * CANCER ANTIGEN 15-3 (09/21/2024 3:17 PM CDT) Blood Raul Leger MD CHEMISTRY ORDERABLES Final Resu lt * NM BONE SCAN WHOLE BODY (07/27/2024 10:57 AM ASSEMBLY PERSON) Anatomical Region Laterality Modality Nuclear Medicine Raul Leger MD NM ORDERABLES Final Result from Last 3 Months Insurance [facility] SUPP [facility] SUPP MEDICARE PART A AND B BS SUPP Care Teams Train Controller Relationship Specialty Start Date End Date Gabriel Barrios MD [address] [place] [address] PCP - General Family Practice 05/01/18
--- OUTSIDE RECORDS SUMMARY | 2024-10-16 12:58 | XMS_ITS | Encounter Summary ---
Author Organization [facility] Address [address] [place] [address] Care Team Providers Care Computer Customer Support Specialist Name Role Phone Gabriel Barrios MD Primary Care Provider [phone] Encounter Details Date Type Department Care Team (Late Contact Info) Description 11/16/2018 Chart Note [facility] Radiation Therapy [address] [place] [address] [place] [address] [place] [address] Social History Tobacco Use Types [...] Description 04/01/2025 10:15 AM CDT Office Visit [facility] Oncology and Hematology - [place] [address] [facility] [address] [place] [address] Raul Leger MD [address] [place] [address] documented as of this encounter Visit Diagnoses Not on filedocumented in this encounter Care Teams Computer Customer Support Specialist Relationship Specialty Start Date End Date Gabriel Barrios MD [address] [place] [address] PCP - General Family Practice 05/01/18 documented as of this encounter
--- OUTSIDE RECORDS SUMMARY | 2024-10-16 12:58 | XMS_ITS ---
Author Organization [facility] Address [address] [place] [address] Phone Care Team Providers Care Revenue Field Auditor Name Role Phone Unavailable Unavailable Unavailable Plan of Treatment No Plan of Treatment Recorded Assessments Includes: Assessments for all patient encounters No Assessments Recorded Medical Equipment - Implanted Devices Includes: Current and historical Devices No Medical Equipment Recorded Medications Administered Includes: Administered Medications in patient's chart No Administered Medications Recorded Results Includes: Results from 10/17/2023 through 10/16/2024 No Results Recorded For Specified Dates History [...]
[2024-10-16 18:44] LABS: Alanine Aminotransferase 16 U/L (6-50); Albumin Level 3.9 g/dL (3.5-5.1); Alkaline Phosphatase 94 U/L (38-126); Anion Gap 8 mmol/L (4-12); Aspartate Amino Transferase 43 U/L (17-59); Bilirubin,Total 0.5 mg/dL (0.2-1.3); Blood Urea Nitrogen 19 mg/dL (9-20); Carbon Dioxide 28 mmol/L (22-30); Chloride 100 mmol/L (98-107); Cholesterol 174 mg/dL (0-200); Estimated Glomerular Filt Rate > 60; Glucose 292 mg/dL (65-110); HDL Direct 31 mg/dL; Potassium 4.4 mmol/L (3.4-5.0); Sodium 136 mmol/L (137-145); Triglycerides 486 mg/dL (<150)
[2024-10-16 18:55] LABS: LDL Cholesterol Direct 86 mg/dL
[2024-10-16 19:04] LABS: Vitamin D 25 Hydroxy 19.7 ng/mL
[2024-10-16 19:07] LABS: Creatinine Urine 96.6 mg/dL
[2024-10-16 19:09] LABS: MALB Creatinine Ratio 86.3 mg/g (0-30); Microalbumin Urine Random 83.4 mg/L (0-16.7)
[2024-10-16 19:11] LABS: Hemoglobin A1C 10.2 % (<5.7)
== END 2024-10-16 11:47 | disposition home or self-care (01) ==
LOC: ANHGOSHLAB 11:47
PROVIDERS: PCP Family Medicine; Visit Provider Student in an Organized Health Care Education/Training Program
DX: E11.9 Type 2 diabetes mellitus without complications (principal); E55.9 Vitamin D deficiency, unspecified; E78.00 Pure hypercholesterolemia, unspecified; R53.83 Other fatigue
CPT/HCPCS: 36415; 80053; 80061; 82043; 82306; 82607; 83036; 84443

== ENCOUNTER 2024-10-18 06:50 | Emergency (ER) | payer MEDICARE, SELFPAY ==
--- NOTE | ~2024-10-18 | CT_ITS ---
History: Confusion PROCEDURE: CT head without contrast. COMPARISON: 08/31/2022 TECHNIQUE: Axial imaging of the head performed from the skull base to the vertex without IV contrast. Sagittal a nd coronal reformations obtained. DLP: 681 mGy-cm FINDINGS: The ventricles are normal in size, shape and position. There is no mass, mass effect or midline shift. There is no abnormal extra-axial fluid collection or intracranial hemorrhage. Visualized paranasal sinuses are clear. The mastoid air cells are well aerated. No acute displaced fractures within the overlying cranium. Impression: No acute intracranial hemorrhage or suspicious mass effect. Reviewed, dictated and finalized at location A. Impression: No acute intracranial hemorrhage or suspicious mass effect.
--- NOTE | ~2024-10-18 | XR_ITS ---
CHEST RADIOGRAPH CLINICAL HISTORY: ANXIETY LIKE SYMPTOMS . COMPARISON: 08/31/2022 TECHNIQUE: Single portable view of the chest. FINDINGS Low lung volumes detected bilaterally, unchanged from prior. The cardiomediastinal silhouette is enlarged, also unchanged. The lungs are clear. IMPRESSION: Low lung volumes and cardiomegaly, without focal infiltrate or effusion. Reviewed, dictated and finalized at location A.
--- OUTSIDE RECORDS SUMMARY | 2024-10-18 06:52 | XMS_ITS ---
Care Plan - [facility] Created on: October 18, 2024 ALEX JENSEN : 1945 Sex: Male Author Organization [facility] Address [address] [place] [address] Phone Care Team Providers Care Fleet Administrative Assistant Name Role Phone Unavailable Unavailable Unavailable
--- OUTSIDE RECORDS SUMMARY | 2024-10-18 06:52 | XMS_ITS | Clinical Summary ---
Author Organization [facility] Address [address] [place] [address] Phone Care Team Providers Care Staff Air Tactical Officer Name Role Phone Unavailable Unavailable Unavailable Reason [...]
--- OUTSIDE RECORDS SUMMARY | 2024-10-18 06:52 | XMS_ITS | Clinical Summary ---
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, estrogen receptor positive (CMS/HCC) (Primary Dx) 09/25/2024 Orders Only [facility] Oncology and Hematology [facility] [address] [place] [address] Raul Leger MD 09/05/2024 External Device Data STL ABSTRACTION Provider, Abstract 08/22/2024 External Device Data STL ABSTRACTION Provider, Abstract 08/21/2024 External Device Data STL ABSTRACTION Provider, Abstract 08/07/2024 External Device Data STL ABSTRACTION Provider, Abstract 08/07/2024 External Device Data STL ABSTRACTION Provider, Abstract 08/07/2024 External Device Data STL ABSTRACTION Provider, Abstract 08/02/2024 4:30 PM FOOTWEAR SALES REPRESENTATIVE Telephone Check Up [facility] Oncology and Hematology [facility] [address] [place] [address] Raul Leger MD 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, estrogen receptor positive (CMS/HCC) (Primary Dx) 07/30/2024 Orders Only [facility] Oncology and Hematology [facility] [address] [place] [address] Raul Leger MD 07/26/2024 External Device Data [...] Description 04/01/2025 10:15 AM CDT Office Visit [facility] Oncology and Hematology - [place] [address] [facility] [address] [place] [address] Raul Leger MD [address] [facility] [address] [place] [address] Health Maintenance Due Date Last [...] SCAN WHOLE BODY Routine 07/27/2024 10:57 AM FOOTWEAR SALES REPRESENTATIVE from Last 3 Months Results * CANCER ANTIGEN 15-3 (09/21/2024 3:17 PM CDT) Blood Raul Leger MD CHEMISTRY ORDERABLES Final Resu lt * NM BONE SCAN WHOLE BODY (07/27/2024 10:57 AM FOOTWEAR SALES REPRESENTATIVE) Anatomical Region Laterality Modality Nuclear Medicine Raul Leger MD NM ORDERABLES Final Result from Last 3 Months Insurance [facility] SUPP [facility] SUPP MEDICARE PART A AND B BS SUPP Care Teams Sifter And Miller Relationship Specialty Start Date End Date Gabriel Barrios MD [address] [place] [address] PCP - General Family Practice 05/01/18
--- OUTSIDE RECORDS SUMMARY | 2024-10-18 06:52 | XMS_ITS | Encounter Summary ---
Author Organization [facility] Address [address] [place] [address] Care Team Providers Care Cisco Network Architect Name Role Phone Gabriel Barrios MD Primary Care Provider [phone] Encounter Details Date Type Department Care Team (Late Contact Info) Description 11/16/2018 Chart Note [facility] Radiation Therapy [address] [place] [address] [place] [address] [place] [address] Social History Tobacco Use Types [...] Description 04/01/2025 10:15 AM CDT Office Visit [facility] Oncology and Hematology - [place] [address] [facility] [address] [place] [address] Raul Leger MD [address] [facility] [address] [place] [address] documented as of this encounter Visit Diagnoses Not on filedocumented in this encounter Care Teams Cisco Network Architect Relationship Specialty Start Date End Date Gabriel Barrios MD [address] [place] [address] PCP - General Family Practice 05/01/18 documented as of this encounter
--- OUTSIDE RECORDS SUMMARY | 2024-10-18 06:52 | XMS_ITS ---
Author Organization [facility] Address [address] [place] [address] Phone Care Team Providers Care Sales Representative [facility] Name Role Phone Unavailable Unavailable Unavailable Plan of Treatment No Plan of Treatment Recorded Assessments Includes: Assessments for all patient encounters No Assessments Recorded Medical Equipment - Implanted Devices Includes: Current and historical Devices No Medical Equipment Recorded Medications Administered Includes: Administered Medications in patient's chart No Administered Medications Recorded Results Includes: Results from 10/19/2023 through 10/18/2024 No Results Recorded For Specified Dates History [...]
--- OUTSIDE RECORDS SUMMARY | 2024-10-18 06:52 | XMS_ITS | Clinical Summary ---
Author Organization [facility] Address [address] [address] Care Team Providers Care Surveillance Systems Analyst Name Role Phone Geovanny Mccarty MD Primary Care Provider Source Comments [facility],non-owned Affiliates and Associated Physician Practices is amultiple site organization consisting of ambulatory clinics and hospital sitesin [place], [place], [place] and [place]. This disclosure is being madepursuant to the Care Everywhere program and may not contain all information available regarding this patient. 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 Gender Identity Not on file Sexual Orientation Not on file Last Filed Vital Signs Vital Sign Reading Time Taken Comments Blood Pressure 140/80 08/14/2017 10:40 AM SCHOOL BUS ATTENDANT Pulse 102 08/14/2017 10:40 AM SCHOOL BUS ATTENDANT Temperature 36.5 C (97.7 F) 08/14/2017 10:40 AM SCHOOL BUS ATTENDANT Respiratory Rate 16 08/14/2017 10:40 AM SCHOOL BUS ATTENDANT Oxygen Saturation 96% 08/14/2017 10:40 AM SCHOOL BUS ATTENDANT Inhaled Oxygen Concentration - - Weight 149.7 kg (330 lb) 08/14/2017 10:40 AM SCHOOL BUS ATTENDANT Height 188 cm (6' 2 ) 08/14/2017 10:40 AM SCHOOL BUS ATTENDANT Body Mass Index 42.37 08/14/2017 10:40 AM SCHOOL BUS ATTENDANT Plan of Treatment Health Maintenance Due Date [...] to complete this topic Insurance MEDICARE MEDICARE [facility] MEDICARE Care Teams Surveillance Systems Analyst Relationship Specialty Start Date End Date Geovanny Mccarty MD [address] [place] [address] PCP - General 12/29/21
[2024-10-18 06:56] VITALS: BP 151/59; PULSE 68; RESP 16; TEMP 36.9; O2SAT 92
--- OUTSIDE RECORDS SUMMARY | 2024-10-18 07:39 | XMS_ITS | Clinical Summary ---
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, estrogen receptor positive (CMS/HCC) (Primary Dx) 09/25/2024 Orders Only [facility] On[facility] and Hematology [facility] [address] [place] [address] Raul Leger MD 09/05/2024 External Device Data STL ABSTRACTION Provider, Abstract 08/22/2024 External Device Data STL ABSTRACTION Provider, Abstract 08/21/2024 External Device Data [facility] ABSTRACTION Provider, Abstract 08/07/2024 External Device Data ST[place] ABSTRACTION Provider, Abstract 08/07/2024 External Device Data ST[facility] ABSTRACTION Provider, Abstract 08/07/2024 External Device Data STL ABSTRACTION Provider, Abstract 08/02/2024 4:30 PM AWNING CRAFTSPERSON Telephone Check Up [facility] On[facility] and Hematology [facility] [address] [place] [address] Raul Leger MD 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, estrogen receptor positive (CMS/HCC) (Primary Dx) 07/30/2024 Orders Only [facility] Oncology and Hematology [facility] [address] [place] [address] Raul Leger MD 07/26/2024 External Device Data [...] Description 04/01/2025 10:15 AM CDT Office Visit [facility] Oncology and Hematology - [place] [address] [facility] [address] [place] [address] Raul Leger MD [address] [place] [address] Health Maintenance Due Date Last [...] SCAN WHOLE BODY Routine 07/27/2024 10:57 AM AWNING CRAFTSPERSON from Last 3 Months Results * CANCER ANTIGEN 15-3 (09/21/2024 3:17 PM CDT) Blood Raul Leger MD CHEMISTRY ORDERABLES Final Resu lt * NM BONE SCAN WHOLE BODY (07/27/2024 10:57 AM AWNING CRAFTSPERSON) Anatomical Region Laterality Modality Nuclear Medicine Raul Leger MD NM ORDERABLES Final Result from Last 3 Months Insurance [facility] SUPP [facility] SUPP MEDICARE PART A AND B BS SUPP Care Teams Technical Sales Consultant Relationship Specialty Start Date End Date Gabriel Barrios MD [address] [place] [address] PCP - General Family Practice 05/01/18
--- OUTSIDE RECORDS SUMMARY | 2024-10-18 07:39 | XMS_ITS | Encounter Summary ---
Author Organization [facility] Address [address] [place] [address] Care Team Providers Care Gin Clerk Name Role Phone Gabriel Barrios MD Primary Care Provider [phone] Encounter Details Date Type Department Care Team (Late Contact Info) Description 11/16/2018 Chart Note [facility] Radiation Therapy [address] [place] [address] [place] [address] [place] [address] Social History Tobacco Use Types [...] Description 04/01/2025 10:15 AM CDT Office Visit [facility] Oncology and Hematology - [place] [address] [facility] [address] [place] [address] Raul Leger MD [address] [facility] [address] [place] [address] documented as of this encounter Visit Diagnoses Not on filedocumented in this encounter Care Teams Gin Clerk Relationship Specialty Start Date End Date Gabriel Barrios MD [address] [place] [address] PCP - General Family Practice 05/01/18 documented as of this encounter
--- OUTSIDE RECORDS SUMMARY | 2024-10-18 07:39 | XMS_ITS | Clinical Summary ---
Author Organization [facility] [employer] Address [address] [place] [address] Care Team Providers Care Inletter Name Role Phone Geovanny Mccarty MD Primary Care Provider Source Comments [facility] [employer],non-owned Affiliates and Associated Physician Practices is amultiple site organization consisting of ambulatory clinics and hospital sitesin [place], [place], [place] and [place]. This disclosure is being madepursuant to the Care Everywhere program and may not contain all information available regarding this patient. Last updated 18.[facility] [employer] Allergies Active Allergy Reactions Criticality Noted Date [...] fluticasone propionate (FLONASE) 50 MCG/ACT nasal spray [place] 2 sprays into each nostril once daily [...] on file Legal Sex Male 10:23 AM STRING CUTTER Gender Identity Not on file Sexual Orientation Not on file Last Filed Vital Signs Vital Sign Reading Time Taken Comments Blood Pressure 140/80 08/14/2017 10:40 AM STRING CUTTER Pulse 102 08/14/2017 10:40 AM STRING CUTTER Temperature 36.5 C (97.7 F) 08/14/2017 10:40 AM STRING CUTTER Respiratory Rate 16 08/14/2017 10:40 AM STRING CUTTER Oxygen Saturation 96% 08/14/2017 10:40 AM STRING CUTTER Inhaled Oxygen Concentration - - Weight 149.7 kg (330 lb) 08/14/2017 10:40 AM STRING CUTTER Height 188 cm (6' 2 ) 08/14/2017 10:40 AM STRING CUTTER Body Mass Index 42.37 08/14/2017 10:40 AM STRING CUTTER Plan of Treatment Health Maintenance Due Date [...] to complete this topic Insurance MEDICARE MEDICARE [facility] MEDICARE Care Teams Inletter Relationship Specialty Start Date End Date Geovanny Mccarty MD [address] [place] [address] PCP - General 12/29/21
--- OUTSIDE RECORDS SUMMARY | 2024-10-18 07:39 | XMS_ITS ---
Author Organization [facility] Address [address] [place] [address] Phone Care Team Providers Care Loan Funder Name Role Phone Unavailable Unavailable Unavailable Plan [...]
--- OUTSIDE RECORDS SUMMARY | 2024-10-18 07:39 | XMS_ITS | Clinical Summary ---
Author Organization [facility] Address [address] [place] [address] Phone Care Team Providers Care Retail Loan Originator Assistant Name Role Phone Unavailable Unavailable Unavailable Reason [...]
--- OUTSIDE RECORDS SUMMARY | 2024-10-18 07:39 | XMS_ITS ---
Care Plan - [facility] Created on: October 18, 2024 ALEX JENSEN : 1945 Sex: Male Author Organization [facility] Address [address] [place] [address] Phone Care Team Providers Care Bath Mixer Name Role Phone Unavailable Unavailable Unavailable
--- NOTE | 2024-10-18 08:13 | ED.ANXIETY ---
HPI - Anxiety General Chief Complaint: Anxiety Stated Complaint: anxiety Time Seen by Provider: 10/18/24 07:16 Source: patient Mode of arrival: ambulatory Limitations: no limitations History of Present Illness HPI narrative: 79 YEARS OLD WHITE MALE CAME TO THE ED FROM HOME WITH HIS COMPLAINING OF PANIC ATTACKS, ANXIETY, RESTLESSNESS, ANXIOUS ALL THE TIME CAN NUTS RELAX OR SLEEP. PATIENT CURRENTLY ON ANTI ANXIETY MEDICATION AND LORAZEPAM NEEDED, LAST LORAZEPAM USED PRIOR TO ARRIVAL TO THE EMERGENCY ROOM. PATIENT IS TELLING ME THAT HIS BROTHER AND 4 OF HIS FRIEND THIS YEAR. WAS SEEN BY HIS FAMILY PHYSICIAN FOR 4 DAYS AGO, SCHEDULED TO BE SEEN BY A PSYCHIATRIST. HISTORY OF DIABETES NOT ON ANY MEDICATION, HYPERTENSION, SLEEP APNEA, ON BIPAP, HISTORY OF NARCOLEPSY AND STATUS POST RIGHT BREAST SURGERY, MASTECTOMY, BREAST CANCER, NOT ON ANY MEDICATION AT THIS TIME. CURRENTLY PATIENT FEELING TIRED EXHAUSTED AND SLEEPY HE DENIES ANY FEVER, CHILLS, NAUSEA, VOMITING, DIARRHEA, CONSTIPATION OR FOCAL NEURO DEFICIT. Related Data Home Medications ?Medication ?Instructions ?Recorded ?Confirmed ?Last Taken ?Type tamoxifen 20 mg tablet 20 mg PO QAM 05/25/19 10/16/24 12/06/19 History vitamin E 200 unit capsule 200 unit PO QAM 05/25/19 10/16/24 12/04/19 History coffee extract 100 mg-phosphatidyl 1 cap PO QAM 12/16/21 10/16/24 Unknown History serine 100 mg capsule (Neuriva Original) tadalafil 5 mg tablet 5 mg PO DAILY 04/13/22 10/16/24 Unknown History aspirin 81 mg capsule 81 mg PO DAILY 08/19/22 10/16/24 Unknown History cephalexin 250 mg capsule 250 mg PO DAILY 10/12/22 10/16/24 Unknown History vibegron 75 mg tablet (Gemtesa) 75 mg PO DAILY 07/11/23 10/16/24 Unknown History Allergies Allergy/AdvReac Type Severity Reaction Status Date / Time epinephrine Allergy Severe Chest Verified 10/15/24 15:07 tightness Review of Systems Review of Systems: All systems reviewed & are unremarkable except as noted in HPI and below PMFSH Past Medical History Medical History COVID Pancreatitis (08/2022) Type 2 diabetes mellitus Gout 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 Hypercholesterolemia Hypertension Anxiety Obstructive sleep apnea treated with BiPAP Urinary incontinence Surgical History Surgical History History of arthroscopy of left knee (06/2013) History of nasal septoplasty History of colonoscopy with polypectomy History of total mastectomy of right breast (05/2018) History of right breast biopsy At incisional site of mastectomy History of prostate surgery (11/2021) History of removal of Port-a-Cath History of bilateral knee replacement Right knee in June 2014. Left knee in May 2015. Family History Family History Other Heart disease High cholesterol Hypertension Social History Social History Social History: Surrogate medical decision maker: Princess Walsh, spouse. Code status: Full code. Smoking status: Never smoker Second hand tobacco smoke exposure: No Alcohol intake: current Alcohol use details: Perhaps 1 alcoholic beverage a month. Substance use: never Substance use type: does not use Lack of Transportation: No Lack of Food: Never True Current Housing: I Have Housing Concerned About Future Housing: No Difficulty Paying Gas/Electric Bills: No Difficulty Paying for Meds: No Currently Unemployed: No Education: Master's Degree or Higher Difficulty w/ Childcare or Family Care: No Additional living arrangements comments: Lives with in [place]. Additional occupation/education comments: Retired teacher. Spiritual care concerns: No Exam Narrative: GENERAL APPEARANCE: WELL-DEVELOPED, WELL-NOURISHED SKIN: NORMAL COLOR HEAD: NORMOCEPHALIC, NONTRAUMATIC EYES: CLEAR CONJUNCTIVA ENT: OROPHARYNX NORMAL, EARS NORMAL, NOSE NORMAL NECK: SUPPLE, NONTENDER CHEST AND RESPIRATORY: AIRWAY PATENT, NO RESPIRATORY DISTRESS, NO ACCESSORY MUSCLE USE, RIGHT BREAST SHOWED STATUS POST RIGHT BREAST SURGERY, SCAR TISSUE HEART: REGULAR RATE/RHYTHM ABDOMEN: SOFT, NONTENDER, NO ORGANOMEGALY, QUIET BOWEL SOUNDS VASCULAR: NORMAL PERIPHERAL PULSES, NORMAL CAPILLARY REFILL. MUSCULOSKELETAL: NORMAL RANGE OF MOTION, NONTENDER BACK NEUROLOGIC: ALERT AND ORIENTED ?3, SENIOR MARKETING ENGINEER IS NORMAL TESTED, NO GROSS MOTOR DEFICIT Course Vital Signs Vital signs: Vital Signs Temperature 36.9 C 10/18/24 06:56 Pulse Rate 68 10/18/24 06:56 Respiratory Rate 16 10/18/24 06:56 Blood Pressure 151/59 H 10/18/24 06:56 Pulse Oximetry 92 10/18/24 06:56 Temperature 36.9 C 10/18/24 06:56 Pulse Rate 82 10/18/24 10:24 Respiratory Rate 20 10/18/24 10:24 Blood Pressure 151/91 H 10/18/24 10:24 Pulse Oximetry 94 10/18/24 10:24 MDM - Anxiety MDM Narrative Medical decision making narrative: PATIENT CAME WITH ANXIETY LIKE SYMPTOMS VITAL SIGNS ARE STABLE PHYSICAL EXAMINATION SHOWING TIRED LOOKING PATIENT OTHERWISE INSIGNIFICANT DIFFERENTIAL DIAGNOSIS INCLUDE MAJOR DEPRESSION WITH ANXIETY, INSOMNIA, HYPERCAPNIC RESPIRATORY DISEASE, ELECTROLYTE IMBALANCE, DEHYDRATION, THYROID ABNORMALITY, URINARY TRACT INFECTION, DRUG USE. BLOOD WORKUP TODAY INCLUDES CBC, CMP, SHOWED BLOOD GLUCOSE OF 348 OTHERWISE INSIGNIFICANT ABNORMALITIES URINALYSIS SHOWED NO EVIDENCE OF INFECTION URINE DRUG SCREEN SHOWED NO DRUG ABUSE ABG ON ROOM AIR SHOWED NORMAL PH NORMAL PCO2, NORMAL BICARB CHEST X-RAY SHOWED NO ACUTE ABNORMALITIES CT HEAD WITHOUT CONTRAST SHOWED NO ACUTE ABNORMALITY. DIAGNOSIS DEPRESSION, ANXIETY, INSOMNIA. THE PT WAS DISCHARGED TO HOME.THE PT,S CONDITION UPON DISCHARGE WAS FAIR,EDUCATION WAS PROVIDED TO THE PT IN REFERENCE TO THE FINAL IMPRESSION,DISCHARGE STUDY RESULTS,TREATMENT,PROGNOSIS AND NEED FOR FOLLOW UP . Differential Diagnosis Differential diagnosis: Likely other ( ABOVE) Lab Data 10/18/24 08:42 10/18/24 08:42 Labs: Lab Results 10/18/24 10/18/24 Range/Units 08:42 09:03 WBC 5.6 (4.5-10.0) K/mm3 RBC 5.00 (4.6-6.20) M/mm3 Hgb 15.5 (14.0-18.0) g/dL Hct 47.0 (42.0-52.0) % MCV 94.0 (80-100) fl MCH 31.0 (26-34) pg MCHC 33.0 (32-36) g/dl RDW 12.9 (11.5-14.5) % Plt Count 132 L (150-375) k/mm3 MPV 11.0 H (7.4-10.4) fl Immature Gran % (Auto) 0.7 H (0-0.5) % Neut % (Auto) 59.9 (45.5-73.1) % Lymph % (Auto) 26.0 (18.3-44.2) % [place] % (Auto) 8.6 H (2.6-8.5) % Eos % (Auto) 4.1 (0-4.4) % Baso % (Auto) 0.7 (0.2-1.2) % Lymph # (Auto) 1.45 (0.9-3.2) K/mm3 [place] # (Auto) 0.5 (0.1-0.6) K/mm3 Eos # (Auto) 0.2 (0-0.3) K/mm3 Baso # (Auto) 0.0 (0.0-0.1) K/mm3 Abs Immat Gran (auto) 0.04 H (0.00-0.031) K/mm3 Absolute Neuts (auto) 3.3 (1.3-6.7) K/mm3 Absolute Nucleated RBC 0.000 (0.0-0.012) K/mm3 Nucleated RBC % 0.0 (0.0-0.2) % % Immature Plt Fraction 5.7 (0.9-11.2) % Sodium 134 L (137-145) mmol/L Potassium 4.3 (3.4-5.0) mmol/L Chloride 100 (98-107) mmol/L Carbon Dioxide 23 (22-30) mmol/L Anion Gap 11 (4-12) mmol/L BUN 23 H (9-20) mg/dL Creatinine 0.70 (0.7-1.3) mg/dL Estim Creat Clear Calc 110 ml/min Estimated GFR > 60 (59 - ) Glucose 348 H (65-110) mg/dL Calcium 9.0 (8.4-10.2) mg/dL Total Bilirubin 0.6 (0.2-1.3) mg/dL AST 24 (17-59) U/L ALT 18 (6-50) U/L Alkaline Phosphatase 78 (38-126) U/L Total Protein 7.0 (6.3-8.2) g/dL Albumin 3.8 (3.5-5.1) g/dL TSH 3.780 (0.465-4.680) uIU/mL Urine Color Yellow (Yellow) Urine Appearance Clear (Clear) Urine pH 5.0 (5.0-9.0) Ur Specific [place] 1.035 (1.001-1.035) Urine Protein Negative (Negative) mg/dL Urine Glucose (UA) 3+ H (Negative) mg/dL Urine Ketones 1+ H (Negative) mg/dL Ur Blood (Man) Negative (Negative) Urine Nitrate Negative (Negative) Urine Bilirubin Negative (Negative) Urine Urobilinogen 0.2 (<2.0) mg/dL Leukocyte Esterase Rfl Negative (Negative) LIAN/UL Urine Opiates Screen Negative (Negative) Urine Methadone Screen Negative (Negative) Ur Barbiturates Screen Negative (Negative) Ur Phencyclidine Scrn Negative (Negative) Ur Amphetamine Screen Negative (Negative) U Benzodiazepines Scrn Negative (Negative) Urine Cocaine Screen Negative (Negative) U Cannabinoids Screen Negative (Negative) ABG Data ABG results: 10/18/24 09:46 Puncture Site Left brachial ABG pH 7.392 ABG pCO2 40.1 ABG pO2 76.5 L ABG PO2/FiO2 Ratio 3.64 ABG HCO3 23.8 ABG O2 Saturation 95.2 ABG O2 Content 21.7 ABG Base Excess -0.9 A-a Gradient 25.2 Oxyhemoglobin 94.3 Total Hemoglobin 16.4 O2 Delivery Device Room air O2 Liters/Min 0.0 FiO2 21 Discharge Plan Discharge Clinical Impression: Depression, Insomnia Patient Disposition: Home Condition: Stable Instructions: Insomnia (ED), Anxiety (ED) Patient Language: Ukrainian Prescriptions: No Action tamoxifen 20 mg tablet 20 mg PO QAM vitamin E 200 unit capsule 200 unit PO QAM tadalafil 5 mg tablet 5 mg PO DAILY cephalexin 250 mg capsule 250 mg PO DAILY modafinil 200 mg tablet 200 mg PO QAM 30 Days Qty: 30 2RF lorazepam 1 mg tablet 1 mg PO DAILY PRN (Reason: anxiety) Qty: 30 0RF citalopram 40 mg tablet 20 mg PO DAILY Qty: 90 1RF terazosin 2 mg capsule 2 mg PO QHS Qty: 30 2RF lisinopril 20 mg tablet 20 mg PO BID Qty: 60 2RF carvedilol 3.125 mg tablet 3.125 mg PO BID Qty: 180 0RF glipizide 5 mg tablet extended release 24hr 5 mg PO BID Qty: 180 1RF Rx Instructions: Take 1 tablet by mouth twice daily Jardiance 25 mg tablet 25 mg PO DAILY Qty: 90 1RF Gemtesa 75 mg tablet 75 mg PO DAILY Neuriva Original 100-100 mg Capsule 1 cap PO QAM aspirin 81 mg Capsule 81 mg PO DAILY atorvastatin 20 mg tablet See Rx Instructions .ROUTE .COMPLEX Qty: 90 2RF Dose Instruction: TAKE 1 TABLET BY MOUTH EVERY NIGHT AT BEDTIME Rx Instructions: TAKE 1 TABLET BY MOUTH EVERY NIGHT AT BEDTIME Follow-up/Referrals: Maria M Mccarty MD [Primary Care Provider] -
--- NOTE | 2024-10-18 08:14 | ECG_ITS ---
Test Date: 2024-10-18 08:28:14 Measurements Intervals [place] Rate: 99 P: 0 PA: 0 QRS: -33 QRSD: 177 T: 112 QT: 426 QTc: 547 Interpretive Statements SINUS RHYTHM WITH FREQUENT ATRIAL PREMATURE COMPLEXES LEFT AXIS DEVIATION LEFT BUNDLE BRANCH BLOCK BASELINE ARTIFACT- I, II, III, AVR, AVL ABNORMAL ECG Compared to ECG 10/06/2024 11:47:25 Ectopic atrial rhythm no longer present Electronically Signed On 10-18-2024 09:14:23 CDT by Liang Schmitt D.O.
[2024-10-18 08:51] VITALS: BP 109/92; PULSE 107; RESP 20
[2024-10-18 08:52] LABS: Basophils Percent Auto 0.7 % (0.2-1.2); Eosinophils Absolute Auto 0.2 K/mm3 (0-0.3); Eosinophils Percent Auto 4.1 % (0-4.4); Hemoglobin 15.5 g/dL (14.0-18.0); Immature Granulocyte Absolute 0.04 K/mm3 (0.00-0.031); Immature Granulocyte Percent A 0.7 % (0-0.5); Immature Platelet Fraction Pct 5.7 % (0.9-11.2); Lymphocytes Absolute Auto 1.45 K/mm3 (0.9-3.2); Monocytes Absolute Auto 0.5 K/mm3 (0.1-0.6); Monocytes Percent Auto 8.6 % (2.6-8.5); Neutrophils Absolute Auto 3.3 K/mm3 (1.3-6.7); Neutrophils Percent Auto 59.9 % (45.5-73.1); Platelet Count Result 132 k/mm3 (150-375); Red Cell Distribution Width 12.9 % (11.5-14.5); White Blood Count 5.6 K/mm3 (4.5-10.0)
[2024-10-18 08:54] VITALS: BP 109/92; PULSE 94; RESP 16; O2SAT 96
[2024-10-18 09:00] LABS: Alanine Aminotransferase 18 U/L (6-50); Albumin Level 3.8 g/dL (3.5-5.1); Alkaline Phosphatase 78 U/L (38-126); Anion Gap 11 mmol/L (4-12); Aspartate Amino Transferase 24 U/L (17-59); Bilirubin,Total 0.6 mg/dL (0.2-1.3); Blood Urea Nitrogen 23 mg/dL (9-20); Carbon Dioxide 23 mmol/L (22-30); Chloride 100 mmol/L (98-107); Estimated CRCL calculation 110 ml/min; Estimated Glomerular Filt Rate > 60; Glucose 348 mg/dL (65-110); Potassium 4.3 mmol/L (3.4-5.0); Sodium 134 mmol/L (137-145)
[2024-10-18 09:11] LABS: Add Urine Microscopic? NO; Appearance Urine Clear (Clear); Bilirubin Urine Negative (Negative); Blood Urine Negative (Negative); Color Urine Yellow (Yellow); Glucose Urine UA 3+ mg/dL (Negative); Ketones Urine 1+ mg/dL (Negative); Leukocyte Esterase Ur Negative LEU/UL (Negative); Nitrate Urine Negative (Negative); Protein Urine Negative (Negative); Specific Grav Ur 1.035 (1.001-1.035); Urobilinogen Urine 0.2 mg/dL (<2.0)
[2024-10-18 09:27] LABS: Amphetamine Screen Urine Negative (Negative); Barbiturate Screen Urine Negative (Negative); Benzodiazepines Screen Urine Negative (Negative); Cannabinoid Screen Urine Negative (Negative); Cocaine Screen Urine Negative (Negative); Methadone Screen Urine Negative (Negative); Opiate Screen Urine Negative (Negative); Phencyclidine Screen Urine Negative (Negative)
[2024-10-18 09:50] LABS: Alveolar/Arterial O2 Gradient 25.2 mmHg; Base Excess ABG -0.9 mEq/l (+/-2.0); Fractional Inspired Oxygen 21 %; HCO3 ABG 23.8 mEq/l (22.0-26.0); Oxygen Content ABG 21.7 %vol (16.0-22.0); Oxygen Saturation ABG 95.2 % (95.0-100.0); Oxyhemoglobin 94.3 % THb (90.0-100.0); PCO2 ABG 40.1 mmHg (35.0-45.0); PO2 ABG 76.5 mmHg (80.0-100.0); PO2 FiO2 Ratio Arterial Blood 3.64 %; Total Hemoglobin 16.4 g/dL (12.0-18.0); pH ABG 7.392 (7.350-7.450)
[2024-10-18 09:52] LABS: Device ROOM AIR; Site Drawn LEFT BRACHIAL
[2024-10-18 10:24] VITALS: BP 151/91; PULSE 82; RESP 20; O2SAT 94
== END 2024-10-18 10:55 | disposition home or self-care (01) ==
PROVIDERS: Emergency Provider Emergency Medicine; PCP Family Medicine
DX: F41.8 Other specified anxiety disorders (principal); G47.00 Insomnia, unspecified; E11.9 Type 2 diabetes mellitus without complications; I10 Essential (primary) hypertension; Z85.3 Personal history of malignant neoplasm of breast; Z90.11 Acquired absence of right breast and nipple; Z79.82 Long term (current) use of aspirin; E78.00 Pure hypercholesterolemia, unspecified; G47.33 Obstructive sleep apnea (adult) (pediatric); Z99.89 Dependence on other enabling machines and devices; M10.9 Gout, unspecified; Z96.653 Presence of artificial knee joint, bilateral
CPT/HCPCS: 36415; 36600; 70450; 71045; 80053; 80307; 81003; 82805; 84443; 85018; 85025; 85055; 93005; 99284

== ENCOUNTER 2024-10-25 16:34 | Emergency (ER) | payer MEDICARE, SELFPAY ==
[2024-10-25 16:45] VITALS: BP 111/80; PULSE 110; RESP 16; TEMP 36.6; O2SAT 92
--- NOTE | 2024-10-25 17:14 | ED_ITS ---
HPI - Anxiety General Chief Complaint: Anxiety Stated Complaint: ANXIETY Source: patient Mode of arrival: ambulatory Limitations: no limitations History of Present Illness HPI narrative: 79 y/o male with history of hypertension, anxiety, breast cancer, and diabetes presented for c/o anxiety. Says symptoms started 10/06, and has had panic attacks intermittently since. Pt has been in the ER 10/06, 10/15, and 10/18 for the same. Says labs and EKG were normal, and he has been given lorazepam. Says he is taking them more often than normal, and has no relief. Says he has trouble sitting still and feels like his 'body is going crazy.' Denies SI/HI. Denies chest pain palpitations, sob, n/v/d/f/c. Related Data Home Medications ?Medication ?Instructions ?Recorded ?Confirmed ?Last Taken ?Type tamoxifen 20 mg tablet 20 mg PO QAM 05/25/19 10/16/24 12/06/19 History vitamin E 200 unit capsule 200 unit PO QAM 05/25/19 10/16/24 12/04/19 History coffee extract 100 mg-phosphatidyl 1 cap PO QAM 12/16/21 10/16/24 Unknown History serine 100 mg capsule (Neuriva Original) tadalafil 5 mg tablet 5 mg PO DAILY 04/13/22 10/16/24 Unknown History aspirin 81 mg capsule 81 mg PO DAILY 08/19/22 10/16/24 Unknown History cephalexin 250 mg capsule 250 mg PO DAILY 10/12/22 10/16/24 Unknown History vibegron 75 mg tablet (Gemtesa) 75 mg PO DAILY 07/11/23 10/16/24 Unknown History Allergies Allergy/AdvReac Type Severity Reaction Status Date / Time epinephrine Allergy Severe Chest Verified 10/25/24 16:52 tightness Review of Systems Review of Systems: CONSTITUTIONAL: Denies body aches, fever, chills, or sweats. EYES: Denies visual changes, redness, or discharge. ENT: Denies rhinorrhea, congestion, sore throat, or otalgia. CARDIOVASCULAR: Denies chest pain, palpitations, or edema. RESPIRATORY: Denies cough or dyspnea. GASTROINTESTINAL: Denies abdominal pain, nausea, vomiting, or diarrhea. SKIN: Denies rash, itching, or wounds. MUSCULOSKELETAL: Denies back pain NEUROLOGIC: Denies headache, numbness, tingling, or weakness. PSYCH: reports anxiety. All systems reviewed & are unremarkable except as noted in HPI and below PMFSH Past Medical History Medical History COVID Pancreatitis (08/2022) Type 2 diabetes mellitus Gout 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 Hypercholesterolemia Hypertension Anxiety Obstructive sleep apnea treated with BiPAP Urinary incontinence Surgical History Surgical History History of arthroscopy of left knee (06/2013) History of nasal septoplasty History of colonoscopy with polypectomy History of total mastectomy of right breast (05/2018) History of right breast biopsy At incisional site of mastectomy History of prostate surgery (11/2021) History of removal of Port-a-Cath History of bilateral knee replacement Right knee in June 2014. Left knee in May 2015. Family History Family History Other Heart disease High cholesterol Hypertension Social History Social History Social History: Surrogate medical decision maker: Princess Walsh, spouse. Code status: Full code. Smoking status: Never smoker Second hand tobacco smoke exposure: No Alcohol intake: current Alcohol use details: Perhaps 1 alcoholic beverage a month. Substance use: never Substance use type: does not use Lack of Transportation: No Lack of Food: Never True Current Housing: I Have Housing Concerned About Future Housing: No Difficulty Paying Gas/Electric Bills: No Difficulty Paying for Meds: No Currently Unemployed: No Education: Master's Degree or Higher Difficulty w/ Childcare or Family Care: No Additional living arrangements comments: Lives with in [place]. Additional occupation/education comments: Retired teacher. Spiritual care concerns: No Comments At time of signature, I have reviewed and agree with nursing past medical, surgical, social and family history unless otherwise noted. Please see nursing chart for further information. There is no relevant family history pertinent to the presenting complaint Exam Narrative: GENERAL: Well-appearing, and in no acute distress. EYES: EOMI. No redness or drainage. Conjunctivae normal. ENT: Mucous membranes pink and moist. CHEST: No respiratory distress. Clear to auscultation. HEART: Regular rate and rhythm. No murmur appreciated. Normal peripheral pulses. SKIN: Warm, dry, no rash. Capillary refill normal. Normal skin turgor. NEURO: Alert and oriented x3. Forgets some answers (phone number and email). Gait steady. PSYCH: Anxious, pacing flores. Pleasant and cooperative. Course Course Emergency Course: Patient is aware of diagnosis, understands and agrees to treatment plan. Anticipatory guidance given. Patient agrees to follow-up as directed and is aware of reasons to seek care at the emergency department. Portions of this record may have been created with voice recognition software Level of Care: Express Care Visit Vital Signs Vital signs: Vital Signs Oxygen Delivery Room Air 10/25/24 16:44 Temperature 98 F 10/25/24 16:45 Pulse Rate 110 H 10/25/24 16:45 Respiratory Rate 16 10/25/24 16:45 Blood Pressure 111/80 10/25/24 16:45 Pulse Oximetry 92 10/25/24 16:45 Oxygen Delivery Room Air 10/25/24 16:44 MDM - Anxiety MDM Narrative Medical decision making narrative: Discussed physical exam findings, pt is advised at length to go to ER at this time for further evaluation and management of the anxiety. He declines at this time stating he has been to the ER 2 times this week with no changes in medication. He says he will contact Geovanna GONZALEZ in the morning. Spoke with RN, [facility] has walk in appointments, online appointment set up at 1030 10/26/24 per RN. pt is agreeable. Pt is in stable condition, denies SI/HI. Frequently asked how often the lorazepam can be taken; advised only according to package directions. v/u. The patient is clinically sober, AA&Ox3, free from distracting injury. The patient has demonstrated concrete thinking/reasoning, has maintained an software security consultant/reasonable conversation, appears to have intact insight/judgment/reason and therefore has capacity to make decisions. Given the patients presentation, we communicated our concern for anxiety in laymans terms. The patient verbalized an understanding. The patient is aware the evaluation is incomplete & many troublesome conditions have not been r/o. We have discussed the need for further ED evaluation. We have discussed the range of possible dx, potential testing & treatment options. Our discussions included the potential outcomes of leaving AMA, including worsening of their condition, becoming permanently disabled/in pain/critically ill, or . Despite these efforts, we were unable to convince the pt to go to the ER. We have attempted to offer tx/rx/guidance for any dangerous conditions which are most likely and/or dangerous. We have answered all questions and have implored the patient to go to ER [facility] to complete the w/u. A staff member witnessed the patient consenting to AMA. Differential Diagnosis Differential diagnosis: Likely hyperventilation, panic disorder, acute anxiety and other Discharge Plan Discharge Clinical Impression: Anxiety Patient Disposition: Left Against Medical Advice Condition: Stable Patient Language: Malay Prescriptions: No Action tamoxifen 20 mg tablet 20 mg PO QAM vitamin E 200 unit capsule 200 unit PO QAM tadalafil 5 mg tablet 5 mg PO DAILY cephalexin 250 mg capsule 250 mg PO DAILY modafinil 200 mg tablet 200 mg PO QAM 30 Days Qty: 30 2RF lorazepam 1 mg tablet 1 mg PO DAILY PRN (Reason: anxiety) Qty: 30 0RF citalopram 40 mg tablet 20 mg PO DAILY Qty: 90 1RF terazosin 2 mg capsule 2 mg PO QHS Qty: 30 2RF lisinopril 20 mg tablet 20 mg PO BID Qty: 60 2RF carvedilol 3.125 mg tablet 3.125 mg PO BID Qty: 180 0RF Jardiance 25 mg tablet 25 mg PO DAILY Qty: 90 1RF Gemtesa 75 mg tablet 75 mg PO DAILY Neuriva Original 100-100 mg Capsule 1 cap PO QAM aspirin 81 mg Capsule 81 mg PO DAILY atorvastatin 20 mg tablet See Rx Instructions .ROUTE .COMPLEX Qty: 90 2RF Dose Instruction: TAKE 1 TABLET BY MOUTH EVERY NIGHT AT BEDTIME Rx Instructions: TAKE 1 TABLET BY MOUTH EVERY NIGHT AT BEDTIME ergocalciferol (vitamin D2) 1,250 mcg (50,000 unit) capsule 1,250 mcg PO WEEKLY Qty: 14 1RF glipizide 10 mg tablet extended release 24hr 10 mg PO BID Qty: 180 1RF Follow-up/Referrals: Geovanna Hartman NP [Primary Care Provider] - Time of Disposition: 17:36
--- NOTE | 2024-10-25 17:47 | PC.NURSE ---
PT DECLINED TO BE TRANSFERRED TO ER. PT REPORTS HE HAS BEEN TO THE ER AND HIS PRIMARY DR FOR THIS, GIVEN LORAZEPAM WITHOUT ANY RELIEF. PT DENIES SI OR HI. PT SIGNS AMA. THIS RN HAS FACILITATED AN APPOINTMENT WITH [facility] IN [place] WITH GABY LARA ON 10/26/24 AT 10:30. THIS RN SPOKE WITH , WALKED PT OUT TO [facility] AND PROVIDED INSTRUCTIONS AND FOLLOW UP INFORMATION TO . MENTAL HEALTH RESOURCES WERE PROVIDED.
== END 2024-10-25 17:45 | disposition left against medical advice (07) ==
PROVIDERS: Emergency Provider Nurse Practitioner Family; PCP Nurse Practitioner Family
DX: F41.9 Anxiety disorder, unspecified (principal); E11.9 Type 2 diabetes mellitus without complications; I10 Essential (primary) hypertension; E78.00 Pure hypercholesterolemia, unspecified; M10.9 Gout, unspecified; G47.33 Obstructive sleep apnea (adult) (pediatric); Z86.16 Personal history of COVID-19; Z85.3 Personal history of malignant neoplasm of breast; Z90.11 Acquired absence of right breast and nipple; Z96.653 Presence of artificial knee joint, bilateral
CPT/HCPCS: 99211; G0463

== ENCOUNTER 2024-10-28 12:31 | Emergency (ER) | payer MEDICARE, SELFPAY ==
--- OUTSIDE RECORDS SUMMARY | 2024-10-28 12:33 | XMS_ITS ---
Care Plan - [facility] Created on: October 28, 2024 ALEX JENSEN : 1945 Sex: Male Author Organization [facility] Address [address] [place] [address] Phone Care Team Providers Care Black Oxide Operator Name Role Phone Unavailable Unavailable Unavailable
--- OUTSIDE RECORDS SUMMARY | 2024-10-28 12:33 | XMS_ITS | Clinical Summary ---
Author Organization [facility] Address [address] [place] [address] Phone Care Team Providers Care Special Effects Designer Name Role Phone Unavailable Unavailable Unavailable Reason [...]
--- OUTSIDE RECORDS SUMMARY | 2024-10-28 12:33 | XMS_ITS ---
Author Organization [facility] Address [address] [place] [address] Phone Care Team Providers Care School Bus Dispatcher Name Role Phone Unavailable Unavailable Unavailable Plan of Treatment No Plan of Treatment Recorded Assessments Includes: Assessments for all patient encounters No Assessments Recorded Medical Equipment - Implanted Devices Includes: Current and historical Devices No Medical Equipment Recorded Medications Administered Includes: Administered Medications in patient's chart No Administered Medications Recorded Results Includes: Results from 10/29/2023 through 10/28/2024 No Results Recorded For Specified Dates History [...]
--- OUTSIDE RECORDS SUMMARY | 2024-10-28 12:33 | XMS_ITS | Clinical Summary ---
Author Organization [facility] Address [address] [place] [address] Care Team Providers Care Quality Intern Name Role Phone Geovanny Mccarty MD Primary Care Provider Source Comments [facility],non-owned Affiliates and Associated Physician Practices is amultiple site organization consisting of ambulatory clinics and hospital sitesin [place], [place], [place] and [place]. This disclosure is being madepursuant to the Care Everywhere program and may not contain all information available regarding this patient. Last updated 18.[facility] Allergies Active Allergy Reactions Criticality Noted Date [...] fluticasone propionate (FLONASE) 50 MCG/ACT nasal spray [place] 2 sprays into each nostril once daily [...] on file Legal Sex Male 10:23 AM MACHINE STRIPPER CUTTER Gender Identity Not on file Sexual Orientation Not on file Last Filed Vital Signs Vital Sign Reading Time Taken Comments Blood Pressure 140/80 08/14/2017 10:40 AM MACHINE STRIPPER CUTTER Pulse 102 08/14/2017 10:40 AM MACHINE STRIPPER CUTTER Temperature 36.5 C (97.7 F) 08/14/2017 10:40 AM MACHINE STRIPPER CUTTER Respiratory Rate 16 08/14/2017 10:40 AM MACHINE STRIPPER CUTTER Oxygen Saturation 96% 08/14/2017 10:40 AM MACHINE STRIPPER CUTTER Inhaled Oxygen Concentration - - Weight 149.7 kg (330 lb) 08/14/2017 10:40 AM MACHINE STRIPPER CUTTER Height 188 cm (6' 2 ) 08/14/2017 10:40 AM MACHINE STRIPPER CUTTER Body Mass Index 42.37 08/14/2017 10:40 AM MACHINE STRIPPER CUTTER Plan of Treatment Health Maintenance Due Date Last Done Comments HEPATITIS C SCREENING 08/19/1965 DTAP/TDAP/TD VACCINES (1 [...] to complete this topic Insurance MEDICARE MEDICARE Member Subscriber Plan / Payer (Ef fective 2012-Present) Name:Amberayden Alex [place] Member ID:[id number] Relation to Subscriber:Self Name:Alex Jensen Subscriber ID:[id number] Payer ID:Not on file Group ID:Not on file Type:Medicare Address: [facility] [address] [place] [address] [facility] MEDICARE Care Teams Quality Intern Relationship Specialty Start Date End Date Geovanny Mccarty MD [address] [place] [address] PCP - General 12/29/21
--- OUTSIDE RECORDS SUMMARY | 2024-10-28 12:33 | XMS_ITS | Encounter Summary ---
Author Organization [facility] Address [address] [place] [address] Care Team Providers Care Program Associate Name Role Phone Gabriel Barrios MD Primary Care Provider [phone] [phone] Encounter Details Date Type Department Care Team (Late Contact Info) Description 11/16/2018 Chart Note [facility] Radiation Therapy [address] [place] [address] [place] [address] [place] [address] Social History Tobacco Use Types [...] Description 04/01/2025 10:15 AM CDT Office Visit [facility] Oncology and Hematology - [place] [address] [facility] [address] [place] [address] Raul Leger MD [address] [facility] [address] [place] [address] documented as of this encounter Visit Diagnoses Not on filedocumented in this encounter Care Teams Program Associate Relationship Specialty Start Date End Date Gabriel Barrios MD [address] [place] [address] PCP - General Family Practice 05/01/18 documented as of this encounter
--- OUTSIDE RECORDS SUMMARY | 2024-10-28 12:33 | XMS_ITS | Clinical Summary ---
Author Organization [facility] Address [address] [place] [address] Care Team Providers Care Motorcycle Fabricator Name Role Phone Gabriel Barrios MD Primary Care Provider [phone]- [phone] Allergies Active Allergy Reactions Criticality Noted Date [...] daily. 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, estrogen receptor positive (CMS/HCC) (Primary Dx) 09/25/2024 Orders Only [facility] Oncology and Hematology [facility] [address] [place] [address] Raul Leger MD 09/05/2024 External Device Data STL ABSTRACTION Provider, Abstract 08/22/2024 External Device Data STL ABSTRACTION Provider, Abstract 08/21/2024 External Device Data STL ABSTRACTION Provider, Abstract 08/07/2024 External Device Data STL ABSTRACTION Provider, Abstract 08/07/2024 External Device Data STL ABSTRACTION Provider, Abstract 08/07/2024 External Device Data STL ABSTRACTION Provider, Abstract 08/02/2024 4:30 PM PEOPLESOFT CONSULTANT Telephone Check Up [facility] Oncology [facility] [address] [place] [address] Raul Leger MD 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, estrogen receptor positive (CMS/HCC) (Primary Dx) 07/30/2024 Orders Only [facility] Oncology [facility] Hematology [facility] [address] [place] [address] Raul Leger MD from Last 3 Months Family History Medical [...] Description 04/01/2025 10:15 AM CDT Office Visit [facility] Oncology and Hematology - [place] [address] [facility] [address] [place] [address] Raul Leger MD [address] [facility] [address] [place] [address] Health Maintenance Due Date Last Done Comments DTAP/TDAP/TD VACCINES (1 - Tdap) 1964 PNEUMOCOCCAL VACCINE 50+ YEA RS (1 of 2 - PCV) 1966 ZOSTER VACCINE (1 of 2) 1966 [...] ANTIGEN 15-3 Routine 09/21/2024 3:17 PM CDT from Last 3 Months Results * CANCER ANTIGEN 15-3 (09/21/2024 3:17 PM CDT) Blood us Raul Leger MD CHEMISTRY ORDERABLES Final Resu lt from Last 3 Months Insurance [facility] SUPP [facility] SUPP MEDICARE PART A AND B [facility] SUPP Care Teams Motorcycle Fabricator Relationship Specialty Start Date End Date Gabriel Barrios MD [address] [place] [address] PCP - General Family Practice 05/01/18
[2024-10-28 12:37] VITALS: BP 148/72; PULSE 89; RESP 20; TEMP 36.4; O2SAT 94
--- NOTE | 2024-10-28 13:44 | PC.NURSE ---
Pt to the intake desk and states the anxiety has left me Pt states he no longer wants to be seen and ambulated to the exit with no difficulty
--- OUTSIDE RECORDS SUMMARY | 2024-10-28 13:56 | XMS_ITS | Clinical Summary ---
Author Organization [facility] Address [address] [place] [address] Phone Care Team Providers Care License And Permit Specialist Name Role Phone Unavailable Unavailable Unavailable Reason [...]
--- OUTSIDE RECORDS SUMMARY | 2024-10-28 13:56 | XMS_ITS ---
Care Plan - [facility] Created on: October 28, 2024 ALEX JENSEN : 1945 Sex: Male Author Organization [facility] Address [address] [place] [address] Phone Care Team Providers Care Flavorer Name Role Phone Unavailable Unavailable Unavailable
--- OUTSIDE RECORDS SUMMARY | 2024-10-28 13:56 | XMS_ITS ---
Author Organization [facility] Address [address] [place] [address] Phone Care Team Providers Care Angiography Nurse Name Role Phone Unavailable Unavailable Unavailable Plan [...]
--- OUTSIDE RECORDS SUMMARY | 2024-10-28 13:56 | XMS_ITS | Clinical Summary ---
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, estrogen receptor positive (CMS/HCC) (Primary Dx) 09/25/2024 Orders Only [facility] Oncology and Hematology [facility] [address] [place] [address] Raul Leger MD 09/05/2024 External Device Data STL ABSTRACTION Provider, Abstract 08/22/2024 External Device Data STL ABSTRACTION Provider, Abstract 08/21/2024 External Device Data STL ABSTRACTION Provider, Abstract 08/07/2024 External Device Data ST[place] ABSTRACTION Provider, Abstract 08/07/2024 External Device Data STL ABSTRACTION Provider, Abstract 08/07/2024 External Device Data STL ABSTRACTION Provider, Abstract 08/02/2024 4:30 PM SCHEDULING COORDINATOR Telephone Check Up [facility] Oncology [facility] [address] [place] [address] Raul Leger MD 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, estrogen receptor positive (CMS/HCC) (Primary Dx) 07/30/2024 Orders Only [facility] Oncology [facility] H[facility] [address] [place] [address] Raul Leger MD from Last 3 Months [...] Description 04/01/2025 10:15 AM CDT Office Visit [facility] Oncology and Hematology - [place] [address] [facility] [address] [place] [address] Raul Leger MD [address] [facility] [address] [place] [address] Health Maintenance Due Date Last [...] Resu lt from Last 3 Months Insurance [facility] SUPP [facility] SUPP MEDICARE PART A AND B [facility] SUPP Care Teams Paper Novelty Maker Relationship Specialty Start Date End Date Gabriel Barrios MD [address] [place] [address] PCP - General Family Practice 05/01/18
--- OUTSIDE RECORDS SUMMARY | 2024-10-28 13:56 | XMS_ITS | Encounter Summary ---
Author Organization [facility] Address [address] [place] [address] Care Team Providers Care Data Modeler Name Role Phone Gabriel Barrios MD Primary Care Provider [phone] [phone] Encounter Details Date Type Department Care Team (Late Contact Info) Description 11/16/2018 Chart Note [facility] Radiation Therapy [address] [place] [address] [place] [address] [place] [address] Social History Tobacco Use Types [...] Description 04/01/2025 10:15 AM CDT Office Visit [facility] Oncology and Hematology - [place] [address] [facility] [address] [place] [address] Raul Leger MD [address] [facility] [address] [place] [address] documented as of this encounter Visit Diagnoses Not on filedocumented in this encounter Care Teams Data Modeler Relationship Specialty Start Date End Date Gabriel Barrios MD [address] [place] [address] PCP - General Family Practice 05/01/18 documented as of this encounter
--- OUTSIDE RECORDS SUMMARY | 2024-10-28 13:56 | XMS_ITS | Clinical Summary ---
Author Organization [facility] Address [address] [place] [address] Care Team Providers Care Strip Machine Tender Name Role Phone Geovanny Mccarty MD Primary Care Provider Source Comments [facility],non-owned Affiliates and Associated Physician Practices is amultiple site organization consisting of ambulatory clinics and hospital sitesin [place], [place], [place] and [place]. This disclosure is being madepursuant to the Care Everywhere program and may not contain all information available regarding this patient. Last updated 18.[facility] Allergies Active Allergy Reactions Criticality Noted Date [...] fluticasone propionate (FLONASE) 50 MCG/ACT nasal spray [place] 2 sprays into each nostril once daily [...] on file Legal Sex Male 10:23 AM BEE TENDER Gender Identity Not on file Sexual Orientation Not on file Last Filed Vital Signs Vital Sign Reading Time Taken Comments Blood Pressure 140/80 08/14/2017 10:40 AM BEE TENDER Pulse 102 08/14/2017 10:40 AM BEE TENDER Temperature 36.5 C (97.7 F) 08/14/2017 10:40 AM BEE TENDER Respiratory Rate 16 08/14/2017 10:40 AM BEE TENDER Oxygen Saturation 96% 08/14/2017 10:40 AM BEE TENDER Inhaled Oxygen Concentration - - Weight 149.7 kg (330 lb) 08/14/2017 10:40 AM BEE TENDER Height 188 cm (6' 2 ) 08/14/2017 10:40 AM BEE TENDER Body Mass Index 42.37 08/14/2017 10:40 AM BEE TENDER Plan of Treatment Health Maintenance Due Date [...] to complete this topic Insurance MEDICARE MEDICARE [facility] MEDICARE Care Teams Strip Machine Tender Relationship Specialty Start Date End Date Geovanny Mccarty MD [address] [place] [address] PCP - General 12/29/21
== END 2024-10-28 14:22 | disposition left against medical advice (07) ==
LOC: ANHED 13:54
PROVIDERS: PCP Nurse Practitioner Family
DX: F41.9 Anxiety disorder, unspecified (principal)
CPT/HCPCS: 99199

== ENCOUNTER 2024-10-28 20:19 | Emergency (ER) | payer MEDICARE, SELFPAY ==
[2024-10-28 20:21] VITALS: BP 131/57; PULSE 98; RESP 18; TEMP 36.6; O2SAT 94
--- OUTSIDE RECORDS SUMMARY | 2024-10-28 20:21 | XMS_ITS | Encounter Summary ---
Author Organization [facility] Address [address] [place] [address] Care Team Providers Care Partition Making Machine Operator Name Role Phone Gabriel Barrios MD Primary Care Provider [phone] [phone] Encounter Details Date Type Department Care Team (Late Contact Info) Description 11/16/2018 Chart Note [facility] Radiation Therapy [address] [place] [address] [place] [address] [place] [address] Social History Tobacco Use Types [...] Description 04/01/2025 10:15 AM CDT Office Visit [facility] Oncology and Hematology - [place] [address] [facility] [address] [place] [address] Raul Leger MD [address] [facility] [address] [place] [address] documented as of this encounter Visit Diagnoses Not on filedocumented in this encounter Care Teams Partition Making Machine Operator Relationship Specialty Start Date End Date Gabriel Barrios MD [address] [place] [address] PCP - General Family Practice 05/01/18 documented as of this encounter
--- OUTSIDE RECORDS SUMMARY | 2024-10-28 20:21 | XMS_ITS | Clinical Summary ---
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, estrogen receptor positive (CMS/HCC) (Primary Dx) 09/25/2024 Orders Only [facility] Oncology and Hematology [facility] [address] [place] [address] Raul Leger MD 09/05/2024 External Device Data STL ABSTRACTION Provider, Abstract 08/22/2024 External Device Data STL ABSTRACTION Provider, Abstract 08/21/2024 External Device Data STL ABSTRACTION Provider, Abstract 08/07/2024 External Device Data STL ABSTRACTION Provider, Abstract 08/07/2024 External Device Data STL ABSTRACTION Provider, Abstract 08/07/2024 External Device Data STL ABSTRACTION Provider, Abstract 08/02/2024 4:30 PM AUTOMOBILE DRIVERS Telephone Check Up [facility] Oncology [facility] [address] [place] [address] Raul Leger MD 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, estrogen receptor positive (CMS/HCC) (Primary Dx) 07/30/2024 Orders Only [facility] Oncology [facility] Hematology [facility] [address] [place] [address] Raul Leger MD from Last 3 Months [...] Description 04/01/2025 10:15 AM CDT Office Visit [facility] Oncology and Hematology - [place] [address] [facility] [address] [place] [address] Raul Leger MD [address] [facility] [address] [place] [address] Health Maintenance Due Date Last [...] Resu lt from Last 3 Months Insurance [facility] SUPP [facility] SUPP MEDICARE PART A AND B [facility] SUPP Care Teams Assurance Manager Relationship Specialty Start Date End Date Gabriel Barrios MD [address] [place] [address] PCP - General Family Practice 05/01/18
--- OUTSIDE RECORDS SUMMARY | 2024-10-28 20:21 | XMS_ITS ---
Author Organization [facility] Address [address] [facility] [place] [address] Phone Care Team Providers Care Block Splitter Operator Name Role Phone Unavailable Unavailable Unavailable Plan [...]
--- OUTSIDE RECORDS SUMMARY | 2024-10-28 20:21 | XMS_ITS | Clinical Summary ---
Author Organization [facility] Address [address] [place] [address] Phone Care Team Providers Care Cornice Maker Name Role Phone Unavailable Unavailable Unavailable Reason [...]
--- OUTSIDE RECORDS SUMMARY | 2024-10-28 20:21 | XMS_ITS | Clinical Summary ---
Author Organization [facility] Address [address] [place] [address] Care Team Providers Care Utilization Supervisor Name Role Phone Geovanny Mccarty MD Primary Care Provider Source Comments [facility],non-owned Affiliates and Associated Physician Practices is amultiple site organization consisting of ambulatory clinics and hospital sitesin [place], [place] and [place]. This disclosure is being madepursuant to the Care Everywhere program and may not contain all information available regarding this patient. Last updated 18.[facility] Allergies Active Allergy Reactions Criticality Noted Date [...] fluticasone propionate (FLONASE) 50 MCG/ACT nasal spray [place] 2 sprays into each nostril once daily [...] on file Legal Sex Male 10:23 AM BLOCK MECHANIC Gender Identity Not on file Sexual Orientation Not on file Last Filed Vital Signs Vital Sign Reading Time Taken Comments Blood Pressure 140/80 08/14/2017 10:40 AM BLOCK MECHANIC Pulse 102 08/14/2017 10:40 AM BLOCK MECHANIC Temperature 36.5 C (97.7 F) 08/14/2017 10:40 AM BLOCK MECHANIC Respiratory Rate 16 08/14/2017 10:40 AM BLOCK MECHANIC Oxygen Saturation 96% 08/14/2017 10:40 AM BLOCK MECHANIC Inhaled Oxygen Concentration - - Weight 149.7 kg (330 lb) 08/14/2017 10:40 AM BLOCK MECHANIC Height 188 cm (6' 2 ) 08/14/2017 10:40 AM BLOCK MECHANIC Body Mass Index 42.37 08/14/2017 10:40 AM BLOCK MECHANIC Plan of Treatment Health Maintenance Due Date [...] to complete this topic Insurance MEDICARE MEDICARE [facility] MEDICARE Care Teams Utilization Supervisor Relationship Specialty Start Date End Date Geovanny Mccatry MD [address] [place] [address] PCP - General 12/29/21
--- OUTSIDE RECORDS SUMMARY | 2024-10-28 20:21 | XMS_ITS ---
Care Plan - [facility] Created on: October 28, 2024 ALEX JENSEN : 1945 Sex: Male Author Organization [facility] Address [address] [place] [address] Phone Care Team Providers Care Clerical Office Worker Name Role Phone Unavailable Unavailable Unavailable
--- NOTE | 2024-10-28 21:05 | ECG_ITS ---
Test Date: 2024-10-28 23:05:03 Measurements Intervals [place] Rate: 87 P: -76 RI: 159 QRS: -50 QRSD: 175 T: 116 QT: 432 QTc: 520 Interpretive Statements ECTOPIC ATRIAL RHYTH LEFT AXIS DEVIATION LEFT BUNDLE BRANCH BLOCK BASELINE ARTIFACT- I, III, AVR, AVL, V4 ABNORMAL ECG Compared to ECG 10/18/2024 08:28:14 Ectopic atrial rhythm now present Electronically Signed On 10-29-2024 06:10:42 CDT by Liang Schmitt D.O.
--- NOTE | 2024-10-28 21:05 | ED_ITS ---
HPI - Anxiety General Chief Complaint: Anxiety Stated Complaint: anxiety for a couple weeks Time Seen by Provider: 10/28/24 20:36 History of Present Illness HPI narrative: Patient is a 79-year-old male who presents to the ER with concerns regarding anxiety. He reports his symptoms started approximately 2-3 weeks ago. Patient reports they have become more frequent recently. He endorses ?panic attacks where my skin crawls and I just want to go to sleep and not wake up. Patient reports he has no mental health history. He endorses a history of breast cancer, sleep apnea, diabetes and high blood pressure. Patient denies suicidal and homicidal ideation at the time of examination. He denies any chest pain, urinary symptoms, abdominal pain, or headaches. Related Data Home Medications ?Medication ?Instructions ?Recorded ?Confirmed ?Last Taken ?Type tamoxifen 20 mg tablet 20 mg PO QAM 05/25/19 10/16/24 12/06/19 History vitamin E 200 unit capsule 200 unit PO QAM 05/25/19 10/16/24 12/04/19 History coffee extract 100 mg-phosphatidyl 1 cap PO QAM 12/16/21 10/16/24 Unknown History serine 100 mg capsule (Neuriva Original) tadalafil 5 mg tablet 5 mg PO DAILY 04/13/22 10/16/24 Unknown History aspirin 81 mg capsule 81 mg PO DAILY 08/19/22 10/16/24 Unknown History cephalexin 250 mg capsule 250 mg PO DAILY 10/12/22 10/16/24 Unknown History vibegron 75 mg tablet (Gemtesa) 75 mg PO DAILY 07/11/23 10/16/24 Unknown History Allergies Allergy/AdvReac Type Severity Reaction Status Date / Time epinephrine Allergy Severe Chest Verified 10/28/24 20:21 tightness Review of Systems 2 Review of Systems: All systems reviewed & are unremarkable except as noted in HPI and below PMFSH Past Medical History Medical History COVID Pancreatitis (08/2022) Type 2 diabetes mellitus Gout 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 Hypercholesterolemia Hypertension Anxiety Obstructive sleep apnea treated with BiPAP Urinary incontinence Surgical History Surgical History History of arthroscopy of left knee (06/2013) History of nasal septoplasty History of colonoscopy with polypectomy History of total mastectomy of right breast (05/2018) History of right breast biopsy At incisional site of mastectomy History of prostate surgery (11/2021) History of removal of Port-a-Cath History of bilateral knee replacement Right knee in June 2014. Left knee in May 2015. Family History Family History Other Heart disease High cholesterol Hypertension Social History Social History Social History: Surrogate medical decision maker: Princess Walsh, spouse. Code status: Full code. Smoking status: Never smoker Second hand tobacco smoke exposure: No Alcohol intake: current Alcohol use details: Perhaps 1 alcoholic beverage a month. Substance use: never Substance use type: does not use Lack of Transportation: No Lack of Food: Never True Current Housing: I Have Housing Concerned About Future Housing: No Difficulty Paying Gas/Electric Bills: No Difficulty Paying for Meds: No Currently Unemployed: No Education: Master's Degree or Higher Difficulty w/ Childcare or Family Care: No Additional living arrangements comments: Lives with in [place]. Additional occupation/education comments: Retired teacher. Spiritual care concerns: No Exam 2 Narrative: GENERAL: Well appearing, obese, non-toxic, in no acute distress. HEAD: Normocephalic, atraumatic. NECK: Supple. No adenopathy, no masses. RESPIRATORY: Airway patent, respirations nonlabored. Clear to auscultation bilaterally, no rales, rhonchi, wheezing. CARDIOVASCULAR: Regular rate and rhythm without murmurs, rubs, or gallops. Peripheral pulses 2+ and equal bilaterally. ABDOMINAL: Soft, nontender, distended, no hepatosplenomegaly. Normoactive BS. MUSCULOSKELETAL: Moves all extremities. Strength/ROM intact without gross deformities. SKIN: Warm, dry, normal color. No rashes. NEURO: A&O X3. Speech clear. Cranial nerves II-XII intact. No ataxic movements. PSYCHIATRIC: Appropriate mood and affect. Normal interaction. Course Vital Signs Vital signs: Vital Signs Temperature 36.6 C 10/28/24 20:21 Pulse Rate 98 10/28/24 20:21 Respiratory Rate 18 10/28/24 20:21 Blood Pressure 131/57 L 10/28/24 20:21 Pulse Oximetry 94 10/28/24 20:21 Oxygen Delivery Room Air 10/28/24 20:21 Temperature 36.6 C 10/28/24 20:21 Pulse Rate 98 10/28/24 20:21 Respiratory Rate 18 10/28/24 20:21 Blood Pressure 131/57 L 10/28/24 20:21 Pulse Oximetry 94 10/28/24 20:21 Oxygen Delivery Room Air 10/28/24 20:21 MDM - Anxiety MDM Narrative Medical decision making narrative: Patient is a 79-year-old male who presents to the ER with concerns regarding anxiety. He reports his symptoms started approximately 2-3 weeks ago. Patient reports they have become more frequent recently. He endorses ?panic attacks where my skin crawls and I just want to go to sleep and not wake up. Patient reports he has no mental health history. He endorses a history of breast cancer, sleep apnea, diabetes and high blood pressure. Patient denies suicidal and homicidal ideation at the time of examination. He denies any chest pain, urinary symptoms, abdominal pain, or headaches. Labs Ordered: CBC, CMP, UA, ethanol, TSH, UDS, COVID Imaging Ordered: None necessary 0030- Pt is medically clear for mental health intake. Medications Ordered: Ativan 0.5 mg p.o. (per pt request) Consults: 0130- mental health intake here to assess pt. Shared Decision Making: Mental health intake advised pt is safe to be discharged home with a safety plan. They are setting up outpatient resources for pt. Pt verbalizes understanding and is in agreement with plan for discharge. He continues to deny SI/HI. Pt will be discharged home with a prescription for Hydroxyzine for anxiety. He should follow the discharged plan established by mental health intake, but should also follow up with his primary care provider as soon as possible. Vital signs stable at the time of discharge. All questions answered. Strict return precautions advised. Differential Diagnosis Differential diagnosis: Likely panic disorder, acute anxiety and other (depression, suicidal ideation) Lab Data Attestation: I reviewed the patient's lab results. 10/28/24 22:32 10/28/24 22:32 Labs: Lab Results 10/28/24 10/28/24 10/29/24 Range/Units 22:32 23:32 00:29 WBC 7.1 (4.5-10.0) K/mm3 RBC 4.94 (4.6-6.20) M/mm3 Hgb 15.5 (14.0-18.0) g/dL Hct 45.8 (42.0-52.0) % MCV 92.7 (80-100) fl MCH 31.4 (26-34) pg MCHC 33.8 (32-36) g/dl RDW 13.2 (11.5-14.5) % Plt Count 130 L (150-375) k/mm3 MPV 10.9 H (7.4-10.4) fl Immature Gran % (Auto) 0.6 H (0-0.5) % Neut % (Auto) 58.7 (45.5-73.1) % Lymph % (Auto) 28.4 (18.3-44.2) % [place] % (Auto) 7.9 (2.6-8.5) % Eos % (Auto) 3.8 (0-4.4) % Baso % (Auto) 0.6 (0.2-1.2) % Lymph # (Auto) 2.00 (0.9-3.2) K/mm3 [place] # (Auto) 0.6 (0.1-0.6) K/mm3 Eos # (Auto) 0.3 (0-0.3) K/mm3 Baso # (Auto) 0.0 (0.0-0.1) K/mm3 Abs Immat Gran (auto) 0.04 H (0.00-0.031) K/mm3 Absolute Neuts (auto) 4.1 (1.3-6.7) K/mm3 Absolute Nucleated RBC 0.000 (0.0-0.012) K/mm3 Nucleated RBC % 0.0 (0.0-0.2) % % Immature Plt Fraction 5.3 (0.9-11.2) % Sodium 138 (137-145) mmol/L Potassium 4.2 (3.4-5.0) mmol/L Chloride 104 (98-107) mmol/L Carbon Dioxide 24 (22-30) mmol/L Anion Gap 10 (4-12) mmol/L BUN 21 H (9-20) mg/dL Creatinine 0.84 (0.7-1.3) mg/dL Estim Creat Clear Calc 91 ml/min Estimated GFR > 60 (59 - ) Glucose 278 H (65-110) mg/dL Calcium 9.5 (8.4-10.2) mg/dL Total Bilirubin 0.4 (0.2-1.3) mg/dL AST 26 (17-59) U/L ALT 20 (6-50) U/L Alkaline Phosphatase 65 (38-126) U/L Total Protein 7.0 (6.3-8.2) g/dL Albumin 4.0 (3.5-5.1) g/dL TSH (Reflex) 4.210 (0.465-4.68) uIU/mL Free T4 0.96 (0.78-2.19) ng/dL Total T3 1.38 (0.97-1.69) NG/ML Urine Color Yellow (Yellow) Urine Appearance Clear (Clear) Urine pH 5.0 (5.0-9.0) Ur Specific [place] 1.041 H (1.001-1.035) Urine Protein Negative (Negative) mg/dL Urine Glucose (UA) 3+ H (Negative) mg/dL Urine Ketones Negative (Negative) mg/dL Ur Blood (Man) Negative (Negative) Urine Nitrate Negative (Negative) Urine Bilirubin Negative (Negative) Urine Urobilinogen 0.2 (<2.0) mg/dL Leukocyte Esterase Rfl Negative (Negative) LIAN/UL Urine Opiates Screen Negative (Negative) Urine Methadone Screen Negative (Negative) Ur Barbiturates Screen Negative (Negative) Ur Phencyclidine Scrn Negative (Negative) Ur Amphetamine Screen Negative (Negative) U Benzodiazepines Scrn Negative (Negative) Urine Cocaine Screen Negative (Negative) U Cannabinoids Screen Negative (Negative) Ethyl Alcohol < 10 (<10) mg/dL SARS-CoV-2 RNA (RT-PCR) Negative (Negative) Discharge Plan Discharge Clinical Impression: Acute anxiety, Panic attack Patient Disposition: Home Condition: Stable Instructions: Antibiotic Form, Anxiety (ED) Additional Instructions: Please return to the ER with any worsening symptoms. Follow-up with primary care provider as soon as possible. Take all medications as prescribed, including regularly scheduled medications. Follow discharge plan as established by the mental health coordinators in the emergency department. Patient Language: Tongan Prescriptions: New hydroxyzine HCl 25 mg tablet 25 mg PO TID PRN (Reason: anxiety) Qty: 20 0RF No Action tamoxifen 20 mg tablet 20 mg PO QAM vitamin E 200 unit capsule 200 unit PO QAM tadalafil 5 mg tablet 5 mg PO DAILY cephalexin 250 mg capsule 250 mg PO DAILY modafinil 200 mg tablet 200 mg PO QAM 30 Days Qty: 30 2RF lorazepam 1 mg tablet 1 mg PO DAILY PRN (Reason: anxiety) Qty: 30 0RF citalopram 40 mg tablet 20 mg PO DAILY Qty: 90 1RF terazosin 2 mg capsule 2 mg PO QHS Qty: 30 2RF lisinopril 20 mg tablet 20 mg PO BID Qty: 60 2RF carvedilol 3.125 mg tablet 3.125 mg PO BID Qty: 180 0RF Jardiance 25 mg tablet 25 mg PO DAILY Qty: 90 1RF Gemtesa 75 mg tablet 75 mg PO DAILY Neuriva Original 100-100 mg Capsule 1 cap PO QAM aspirin 81 mg Capsule 81 mg PO DAILY atorvastatin 20 mg tablet See Rx Instructions .ROUTE .COMPLEX Qty: 90 2RF Dose Instruction: TAKE 1 TABLET BY MOUTH EVERY NIGHT AT BEDTIME Rx Instructions: TAKE 1 TABLET BY MOUTH EVERY NIGHT AT BEDTIME ergocalciferol (vitamin D2) 1,250 mcg (50,000 unit) capsule 1,250 mcg PO WEEKLY Qty: 14 1RF glipizide 10 mg tablet extended release 24hr 10 mg PO BID Qty: 180 1RF Follow-up/Referrals: Geovanna Hartman INTAKE SPECIALIST [Primary Care Provider] -
--- OUTSIDE RECORDS SUMMARY | 2024-10-28 21:07 | XMS_ITS ---
Author Organization [facility] Address [address] [place] [address] Phone Care Team Providers Care Delivery Stock Clerk Name Role Phone Unavailable Unavailable Unavailable Plan [...]
--- OUTSIDE RECORDS SUMMARY | 2024-10-28 21:07 | XMS_ITS | Clinical Summary ---
Author Organization [facility] Address [address] [place] [address] Care Team Providers Care Residential Roofer Name Role Phone Geovanny Mccarty MD Primary Care Provider Source Comments [facility],non-owned Affiliates and Associated Physician Practices is amultiple site organization consisting of ambulatory clinics and hospital sitesin [place], [place], [place] and [place]. This disclosure is being madepursuant to the Care Everywhere program and may not contain all information available regarding this patient. Last updated 18.[facility] Allergies Active Allergy Reactions Criticality Noted Date [...] fluticasone propionate (FLONASE) 50 MCG/ACT nasal spray [place] 2 sprays into each nostril once daily [...] on file Legal Sex Male 10:23 AM PAPER AND PRINTS RESTORER Gender Identity Not on file Sexual Orientation Not on file Last Filed Vital Signs Vital Sign Reading Time Taken Comments Blood Pressure 140/80 08/14/2017 10:40 AM PAPER AND PRINTS RESTORER Pulse 102 08/14/2017 10:40 AM PAPER AND PRINTS RESTORER Temperature 36.5 C (97.7 F) 08/14/2017 10:40 AM PAPER AND PRINTS RESTORER Respiratory Rate 16 08/14/2017 10:40 AM PAPER AND PRINTS RESTORER Oxygen Saturation 96% 08/14/2017 10:40 AM PAPER AND PRINTS RESTORER Inhaled Oxygen Concentration - - Weight 149.7 kg (330 lb) 08/14/2017 10:40 AM PAPER AND PRINTS RESTORER Height 188 cm (6' 2 ) 08/14/2017 10:40 AM PAPER AND PRINTS RESTORER Body Mass Index 42.37 08/14/2017 10:40 AM PAPER AND PRINTS RESTORER Plan of Treatment Health Maintenance Due Date [...] to complete this topic Insurance MEDICARE MEDICARE [facility] MEDICARE Care Teams Residential Roofer Relationship Specialty Start Date End Date Geovanny Mccarty MD [address] [place] [address] PCP - General 12/29/21
--- OUTSIDE RECORDS SUMMARY | 2024-10-28 21:07 | XMS_ITS ---
Care Plan - [facility] Created on: October 28, 2024 ALXE JENSEN : 1945 Sex: Male Author Organization [facility] Address [address] [place] [address] Phone Care Team Providers Care Chief Talent Officer Name Role Phone Unavailable Unavailable Unavailable
--- OUTSIDE RECORDS SUMMARY | 2024-10-28 21:07 | XMS_ITS | Clinical Summary ---
Author Organization [facility] Address [address] [place] [address] Phone Care Team Providers Care Writing Manager Name Role Phone Unavailable Unavailable Unavailable Reason [...]
--- OUTSIDE RECORDS SUMMARY | 2024-10-28 21:07 | XMS_ITS | Encounter Summary ---
Author Organization [facility] Address [address] [place] [address] Care Team Providers Care Woodwinds Teacher Name Role Phone Gabriel Barrios MD Primary Care Provider [phone] Encounter Details Date Type Department Care Team (Late Contact Info) Description 11/16/2018 Chart Note [facility] Radiation Therapy [address] [place] [address] [place] [address] [place] [address] Social History Tobacco Use Types [...] Description 04/01/2025 10:15 AM CDT Office Visit [facility] Oncology and Hematology - [place] [address] [facility] [address] [place] [address] Raul Leger MD [address] [facility] [address] [place] [address] documented as of this encounter Visit Diagnoses Not on filedocumented in this encounter Care Teams Woodwinds Teacher Relationship Specialty Start Date End Date Gabriel Barrios MD [address] [place] [address] PCP - General Family Practice 05/01/18 documented as of this encounter
--- OUTSIDE RECORDS SUMMARY | 2024-10-28 21:07 | XMS_ITS | Clinical Summary ---
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, estrogen receptor positive (CMS/HCC) (Primary Dx) 09/25/2024 Orders Only [facility] Oncology and Hematology [facility] [address] [place] [address] Raul Leger MD 09/05/2024 External Device Data STL ABSTRACTION Provider, Abstract 08/22/2024 External Device Data STL ABSTRACTION Provider, Abstract 08/21/2024 External Device Data STL ABSTRACTION Provider, Abstract 08/07/2024 External Device Data STL ABSTRACTION Provider, Abstract 08/07/2024 External Device Data STL ABSTRACTION Provider, Abstract 08/07/2024 External Device Data STL ABSTRACTION Provider, Abstract 08/02/2024 4:30 PM SURVEY RESEARCH ASSOCIATE Telephone Check Up [facility] Oncology [facility] [address] [place] [address] Raul Leger MD 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, estrogen receptor positive (CMS/HCC) (Primary Dx) 07/30/2024 Orders Only [facility] Oncology [facility] Hematology [facility] [address] [place] [address] Raul Leger MD from Last 3 Months [...] Description 04/01/2025 10:15 AM CDT Office Visit [facility] Oncology and Hematology - [place] [address] [facility] [address] [place] [address] Raul Leger MD [address] [facility] [address] [place] [address] Health Maintenance Due Date Last [...] Resu lt from Last 3 Months Insurance [facility] SUPP [facility] SUPP MEDICARE PART A AND B [facility] SUPP Care Teams Public Works Laborer Relationship Specialty Start Date End Date Gabriel Barrios MD [address] [place] [address] PCP - General Family Practice 05/01/18
[2024-10-28 22:39] LABS: Basophils Percent Auto 0.6 % (0.2-1.2); Eosinophils Absolute Auto 0.3 K/mm3 (0-0.3); Eosinophils Percent Auto 3.8 % (0-4.4); Hematocrit 45.8 % (42.0-52.0); Hemoglobin 15.5 g/dL (14.0-18.0); Immature Granulocyte Absolute 0.04 K/mm3 (0.00-0.031); Immature Granulocyte Percent A 0.6 % (0-0.5); Immature Platelet Fraction Pct 5.3 % (0.9-11.2); Lymphocytes Percent Auto 28.4 % (18.3-44.2); Mean Corpuscular HGB Conc 33.8 g/dl (32-36); Mean Corpuscular Hemoglobin 31.4 pg (26-34); Mean Corpuscular Volume 92.7 fl (80-100); Mean Platelet Volume 10.9 fl (7.4-10.4); Monocytes Absolute Auto 0.6 K/mm3 (0.1-0.6); Monocytes Percent Auto 7.9 % (2.6-8.5); Neutrophils Absolute Auto 4.1 K/mm3 (1.3-6.7); Neutrophils Percent Auto 58.7 % (45.5-73.1); Platelet Count Result 130 k/mm3 (150-375); Red Blood Count 4.94 M/mm3 (4.6-6.20); Red Cell Distribution Width 13.2 % (11.5-14.5); White Blood Count 7.1 K/mm3 (4.5-10.0)
[2024-10-28 22:48] LABS: Alanine Aminotransferase 20 U/L (6-50); Alkaline Phosphatase 65 U/L (38-126); Anion Gap 10 mmol/L (4-12); Aspartate Amino Transferase 26 U/L (17-59); Bilirubin,Total 0.4 mg/dL (0.2-1.3); Blood Urea Nitrogen 21 mg/dL (9-20); Calcium 9.5 mg/dL (8.4-10.2); Carbon Dioxide 24 mmol/L (22-30); Chloride 104 mmol/L (98-107); Estimated CRCL calculation 91 ml/min; Estimated Glomerular Filt Rate > 60; Ethanol < 10 mg/dL (<10); Glucose 278 mg/dL (65-110); Potassium 4.2 mmol/L (3.4-5.0); Sodium 138 mmol/L (137-145)
[2024-10-28 23:39] LABS: Add Urine Microscopic? NO; Appearance Urine Clear (Clear); Bilirubin Urine Negative (Negative); Blood Urine Negative (Negative); Color Urine Yellow (Yellow); Glucose Urine UA 3+ mg/dL (Negative); Ketones Urine Negative (Negative); Leukocyte Esterase Ur Negative LEU/UL (Negative); Nitrate Urine Negative (Negative); Protein Urine Negative (Negative); Specific Grav Ur 1.041 (1.001-1.035); Urobilinogen Urine 0.2 mg/dL (<2.0)
[2024-10-29 00:25] LABS: Free T4 Free Thyroxine Reflex 0.96 ng/dL (0.78-2.19)
[2024-10-29 01:13] LABS: SARS-CoV-2 RNA PCR Negative (Negative)
[2024-10-29 01:29] LABS: Total Triiodothyronine (T3) 1.38 NG/ML (0.97-1.69)
[2024-10-29 01:45] LABS: Amphetamine Screen Urine Negative (Negative); Barbiturate Screen Urine Negative (Negative); Benzodiazepines Screen Urine Negative (Negative); Cannabinoid Screen Urine Negative (Negative); Cocaine Screen Urine Negative (Negative); Methadone Screen Urine Negative (Negative); Opiate Screen Urine Negative (Negative); Phencyclidine Screen Urine Negative (Negative)
--- NOTE | 2024-10-29 03:00 | PC.NURSE ---
Pt wanted to leave as soon as possible. No repeat VS. Pt denied.
== END 2024-10-29 03:30 | disposition home or self-care (01) ==
PROVIDERS: Emergency Provider Registered Nurse; PCP Nurse Practitioner Family
DX: F41.0 Panic disorder [episodic paroxysmal anxiety] (principal); Z11.52 Encounter for screening for COVID-19; I10 Essential (primary) hypertension; E11.9 Type 2 diabetes mellitus without complications; E78.00 Pure hypercholesterolemia, unspecified; M10.9 Gout, unspecified; G47.33 Obstructive sleep apnea (adult) (pediatric); R32 Unspecified urinary incontinence; Z96.653 Presence of artificial knee joint, bilateral; Z85.3 Personal history of malignant neoplasm of breast; Z86.16 Personal history of COVID-19; Z86.0100 Personal history of colon polyps, unspecified; Z90.11 Acquired absence of right breast and nipple; Z79.84 Long term (current) use of oral hypoglycemic drugs; Z79.899 Other long term (current) drug therapy; Z79.82 Long term (current) use of aspirin; I44.7 Left bundle-branch block, unspecified; R94.31 Abnormal electrocardiogram [ECG] [EKG]
CPT/HCPCS: 36415; 80053; 80307; 81003; 82077; 84439; 84443; 84480; 85025; 85055; 87635; 93005; 99284

== ENCOUNTER 2024-11-01 15:15 | Emergency (ER) | payer MEDICARE, SELFPAY ==
--- NOTE | 2024-11-01 15:20 | ED.URI ---
HPI - URI/Sore Throat General Chief Complaint: Upper Respiratory Infection Stated Complaint: Sore Throat Time Seen by Provider: 11/01/24 15:29 Source: patient, RN notes reviewed and old records reviewed Mode of arrival: ambulatory Limitations: no limitations History of Present Illness HPI Narrative: 79-year-old male presents to the [facility] with a sore throat. Patient is not a very good historian, patient reports sore throat for about a week. Related Data Home Medications ?Medication ?Instructions ?Recorded ?Confirmed ?Last Taken ?Type tamoxifen 20 mg tablet 20 mg PO QAM 05/25/19 10/16/24 12/06/19 History vitamin E 200 unit capsule 200 unit PO QAM 05/25/19 10/16/24 12/04/19 History coffee extract 100 mg-phosphatidyl 1 cap PO QAM 12/16/21 10/16/24 Unknown History serine 100 mg capsule (Neuriva Original) tadalafil 5 mg tablet 5 mg PO DAILY 04/13/22 10/16/24 Unknown History aspirin 81 mg capsule 81 mg PO DAILY 08/19/22 10/16/24 Unknown History cephalexin 250 mg capsule 250 mg PO DAILY 10/12/22 10/16/24 Unknown History vibegron 75 mg tablet (Gemtesa) 75 mg PO DAILY 07/11/23 10/16/24 Unknown History Allergies Allergy/AdvReac Type Severity Reaction Status Date / Time epinephrine Allergy Severe Chest Verified 11/01/24 15:18 tightness Review of Systems Review of Systems: All systems reviewed & are unremarkable except as noted in HPI and below Constitutional: Constitutional: Reports no additional constitutional complaints ENT: Reports as per HPI and Reports sore throat Cardiovascular: Cardiovascular: Reports no additional cardiovascular complaints, Denies chest pain and Denies dyspnea Respiratory: Respiratory: Reports no additional respiratory complaints, Denies chest congestion, Denies cough and Denies dyspnea Musculoskeletal: Musculoskeletal: Reports no additional musculoskeletal complaints Integumentary/Breasts: Skin/Breast: Reports system reviewed and no additional complaints, except as docu PMFSH Past Medical History Medical History COVID Pancreatitis (08/2022) Type 2 diabetes mellitus Gout 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 Hypercholesterolemia Hypertension Anxiety Obstructive sleep apnea treated with BiPAP Urinary incontinence Surgical History Surgical History History of arthroscopy of left knee (06/2013) History of nasal septoplasty History of colonoscopy with polypectomy History of total mastectomy of right breast (05/2018) History of right breast biopsy At incisional site of mastectomy History of prostate surgery (11/2021) History of removal of Port-a-Cath History of bilateral knee replacement Right knee in June 2014. Left knee in May 2015. Family History Family History Other Heart disease High cholesterol Hypertension Social History Social History Social History: Surrogate medical decision maker: Princess Walsh, spouse. Code status: Full code. Smoking status: Never smoker Second hand tobacco smoke exposure: No Alcohol intake: current Alcohol use details: Perhaps 1 alcoholic beverage a month. Substance use: never Substance use type: does not use Lack of Transportation: No Lack of Food: Never True Current Housing: I Have Housing Concerned About Future Housing: No Difficulty Paying Gas/Electric Bills: No Difficulty Paying for Meds: No Currently Unemployed: No Education: Master's Degree or Higher Difficulty w/ Childcare or Family Care: No Additional living arrangements comments: Lives with in [place]. Additional occupation/education comments: Retired teacher. Spiritual care concerns: No Comments At the time of my signature, I reviewed and agree with the nursing past medical, surgical, social, and family history. There is no relevant family history pertinent to the patient complaint. Exam Const: General: cooperative, no acute distress, well developed, alert, ill appearing chronically; not acutely, tired appearing, uncomfortable and well nourished Nutritional Appearance: well nourished and obese Orientation/consciousness: patient oriented x3 Limitations: no limitations HENMT: Head: normal to inspection Ears: hearing grossly normal bilaterally, external ears normal, TM's normal bilaterally, EAC's normal, mastoids normal and no periauricular adenopathy Face/Nose/Sinus: Normal external nose present, Normal nares present and No nasal discharge present Mouth: Yes malodorous breath and Yes Abnormal oral and palatal mucosa present white patches Throat: posterior oropharynx abnormal erythema Eyes: General: appearance normal, both eyes and all related structures Alignment and Position: alignment normal Neck: Neck: normal visual inspection, full ROM, no lymphadenopathy and no meningeal signs Chest: Chest palpation & inspection: normal inspection of the chest Resp: Effort & Inspection: normal respiratory effort and able to speak in complete sentences Auscultation: clear to auscultation bilaterally, no crackles, no rales, no rhonchi and no wheezes Cardio: Rate: regular rate Skin: General skin exam: normal color and no rashes or lesions noted Neuro: General: patient oriented x3, gait normal, moves all extremities and no meningeal signs Cognition (Neuro): normal cognition Speech: normal speech Gait exam (Neuro): Normal gait present Extrem: General: normal to inspection, full ROM, capillary refill normal and normal gait Psych: Appearance: grossly normal and well kempt Mental Status: mental status grossly normal Speech and movement: Normal speech and movement present and Clear speech present Affect: normal affect Attitude: cooperative Course Course Level of Care: Express Care Visit Vital Signs Vital signs: Vital Signs Temperature 98 F 11/01/24 15:29 Pulse Rate 76 11/01/24 15:29 Respiratory Rate 18 11/01/24 15:29 Blood Pressure 118/86 11/01/24 15:29 Pulse Oximetry 97 11/01/24 15:29 Temperature 98 F 11/01/24 15:29 Pulse Rate 76 11/01/24 15:29 Respiratory Rate 18 11/01/24 15:29 Blood Pressure 118/86 11/01/24 15:29 Pulse Oximetry 97 11/01/24 15:29 Reviewed MDM - URI/Sore Throat MDM Narrative Medical decision making narrative: Patient sitting in exam room. Patient is nontoxic but appears uncomfortable. Patient presents with 1 week history approximately of a sore throat. Strep test is negative, will culture On exam white patches noted in the oral mucosa consistent with thrush. Will treat and encourage patient to follow-up with primary care provider Discharge instructions reviewed with patient, as well as provided in writing per nursing staff. The instructions also include specific and strict return/GO TO THE ER as well as f/u information. All questions have been answered, and the patient deny any further questions with discharge and discharge plan. Some parts of this dictation were generated by voice recognition software and may contain typographical and/or grammatical inaccuracies. Differential Diagnosis Differential diagnosis: Likely upper respiratory infection, otitis media, sinusitis, viral infection, pharyngitis and other (Thrush) Lab Data Labs: Lab Results 11/01/24 Range/Units 15:34 POC Grp A Strep Screen Negative (Negative) Reviewed Critical Care Time Critical Care Time Critical Care Time: No Discharge Plan Discharge Clinical Impression: Thrush of mouth and esophagus Patient Disposition: Home Condition: Stable Instructions: Antibiotic Form, Oral Candidiasis (ED) Additional Instructions: Follow-up with your primary care provider without fail within the week. Use the nystatin as prescribed Monitor your blood sugars closely For new or worsening symptoms go directly to emergency room Patient Language: Czech Prescriptions: New nystatin 100,000 unit/mL suspension 5 ml PO QID 10 Days Qty: 200 0RF Rx Instructions: swish and swallow No Action tamoxifen 20 mg tablet 20 mg PO QAM vitamin E 200 unit capsule 200 unit PO QAM tadalafil 5 mg tablet 5 mg PO DAILY cephalexin 250 mg capsule 250 mg PO DAILY modafinil 200 mg tablet 200 mg PO QAM 30 Days Qty: 30 2RF lorazepam 1 mg tablet 1 mg PO DAILY PRN (Reason: anxiety) Qty: 30 0RF citalopram 40 mg tablet 20 mg PO DAILY Qty: 90 1RF terazosin 2 mg capsule 2 mg PO QHS Qty: 30 2RF lisinopril 20 mg tablet 20 mg PO BID Qty: 60 2RF carvedilol 3.125 mg tablet 3.125 mg PO BID Qty: 180 0RF Jardiance 25 mg tablet 25 mg PO DAILY Qty: 90 1RF Gemtesa 75 mg tablet 75 mg PO DAILY Neuriva Original 100-100 mg Capsule 1 cap PO QAM aspirin 81 mg Capsule 81 mg PO DAILY hydroxyzine HCl 25 mg tablet 25 mg PO TID PRN (Reason: anxiety) Qty: 20 0RF atorvastatin 20 mg tablet See Rx Instructions .ROUTE .COMPLEX Qty: 90 2RF Dose Instruction: TAKE 1 TABLET BY MOUTH EVERY NIGHT AT BEDTIME Rx Instructions: TAKE 1 TABLET BY MOUTH EVERY NIGHT AT BEDTIME ergocalciferol (vitamin D2) 1,250 mcg (50,000 unit) capsule 1,250 mcg PO WEEKLY Qty: 14 1RF glipizide 10 mg tablet extended release 24hr 10 mg PO BID Qty: 180 1RF Follow-up/Referrals: PHYSICIAN,WILDLIFE REFUGE SPECIALIST [Primary Care Provider] - Time of Disposition: 15:39
[2024-11-01 15:29] VITALS: BP 118/86; PULSE 76; RESP 18; TEMP 36.6; O2SAT 97
[2024-11-01 15:36] LABS: EDSTREPNEGPOS1 Negative (Negative)
== END 2024-11-01 15:46 | disposition home or self-care (01) ==
PROVIDERS: Emergency Provider Nurse Practitioner
DX: B37.0 Candidal stomatitis (principal); B37.81 Candidal esophagitis; E11.9 Type 2 diabetes mellitus without complications; Z79.84 Long term (current) use of oral hypoglycemic drugs; I10 Essential (primary) hypertension; E78.00 Pure hypercholesterolemia, unspecified; G47.33 Obstructive sleep apnea (adult) (pediatric); M10.9 Gout, unspecified; Z85.3 Personal history of malignant neoplasm of breast; Z92.3 Personal history of irradiation; Z90.11 Acquired absence of right breast and nipple; Z96.653 Presence of artificial knee joint, bilateral; Z86.16 Personal history of COVID-19; Z79.82 Long term (current) use of aspirin
CPT/HCPCS: 87081; 87880; 99213; G0463

== ENCOUNTER 2024-11-02 11:26 | Observation (INO) | payer MEDICARE, SELFPAY ==
[2024-11-02] VITALS (12 sets, daily range): BP systolic 138–177; BP diastolic 83–96; PULSE 63–86; RESP 18–20; TEMP 36.4–36.8; O2SAT 94–98; BMI 37.4
--- NOTE | ~2024-11-02 | MR_ITS ---
EXAMINATION: MR brain/brain stem wo con DATE: 11/03/2024 14:07 INDICATION: CVA TECHNIQUE: Magnetic resonance imaging (MRI) of the brain and brainstem was performed without intraven ous contrast. Sequences included sagittal and axial T1-weighted SE, axial diffusion-weighted FS EPI A SSET, axial T2*-weighted GRE, axial T2-weighted FLAIR Propeller, and axial T2-weighted Propeller. Gloria arent diffusion coefficient (ADC) maps were created. COMPARISON: CT brain, same date. FINDINGS: Motion artifact is present in multiple sequences No abnormal restricted diffusion to suggest acute is chemic infarct. No MRI evidence of hemorrhage or extra-axial collection. No suspicious foci of suscep tibility to suggest prior intraparenchymal hemorrhage. Scattered foci of white matter hyperintensity, likely representing mild small vessel ischemic disease. Mild generalized parenchymal volume loss. Th e basilar cisterns are patent. Flow voids are preserved. Mild mucosal thickening in the ethmoid sinus es. Mild aerated secretions in the dependent right maxillary sinus. Bilateral lens replacements Globe s and orbital contents are otherwise within normal limits. IMPRESSION: No acute ischemic infarct. Small volume aerated secretions in the right maxillary sinus as can be seen with acute sinusitis in t he appropriate clinical context. Reviewed, dictated and finalized at location K. IMPRESSION: No acute ischemic infarct. Small volume aerated secretions in the right maxillary sinus as can be seen wit h acute sinusitis in the appropriate clinical context.
--- NOTE | ~2024-11-02 | XR_ITS ---
Portable chest x-ray Comparison: 10/18/2024 Clinical History: Weakness Findings: Lungs are clear, without focal consolidation or pleural effusion. Cardiomediastinal silho uette is stable. Bones and soft tissues are unremarkable. Impression: Clear lungs. Stable cardiomegaly. Reviewed, dictated and finalized at location . Impression: Clear lungs. Stable cardiomegaly.
--- NOTE | ~2024-11-02 | CT_ITS ---
EXAMINATION: CT brain wo con DATE: 11/02/2024 12:38 INDICATION: Altered mental status TECHNIQUE: Computed tomography (CT) of the head was performed without intravenous contrast. Sagittal and coronal reconstructions were performed. The mA was adjusted according to patient size. Iterative reconstruction technique was employed. The dose-length product was 681.00 mGy-cm. COMPARISON: head CT dated 10/18/2024 FINDINGS: No acute intracranial hemorrhage, acute infarction or abnormal extra axial fluid collection. There is mild scattered white matter hypoattenuation consistent with chronic small vessel ischemic disease. S ymmetric prominence of the sulci consistent with mild age-appropriate diffuse cerebral volume loss. V entricles are normal and symmetric. No mass/mass effect. Changes of bilateral intraocular lens replac ement. The orbits, paranasal sinuses and mastoid air cells are normal. IMPRESSION: 1. No acute intracranial process. 2. Age-related changes including mild diffuse volume loss and mild scattered white matter hypoattenua tion consistent with chronic small vessel ischemic disease. Reviewed, dictated and finalized at location A. IMPRESSION: 1. No acute intracranial process. 2. Age-related changes including mild diffuse volume loss and mild scattered wh ite matter hypoattenuation consistent with chronic small vessel ischemic diseas e.
--- NOTE | 2024-11-02 11:35 | ECG_ITS ---
Test Date: 2024-11-02 11:50:35 Measurements Intervals [place] Rate: 79 P: 0 WV: 0 QRS: -53 QRSD: 189 T: 90 QT: 460 QTc: 529 Interpretive Statements ATRIAL FIBRILLATION MARKED LEFT AXIS DEVIATION [QRS AXIS < -30] LEFT BUNDLE BRANCH BLOCK [120+ ms QRS DURATION, 80+ ms Q/S IN V1/V2, 85+ ms R IN I/aVL/V5/V6] Compared to ECG 10/28/2024 23:05:03 No significant changes Electronically Signed On 11-02-2024 19:14:05 CDT by Fabio Salcido
[2024-11-02 11:44] LABS: Glucose Point of Care 330 mg/dl (65-105)
[2024-11-02 11:50] LABS: Basophils Percent Auto 0.4 % (0.2-1.2); Eosinophils Absolute Auto 0.3 K/mm3 (0-0.3); Eosinophils Percent Auto 3.7 % (0-4.4); Hemoglobin 15.7 g/dL (14.0-18.0); Immature Granulocyte Absolute 0.05 K/mm3 (0.00-0.031); Immature Granulocyte Percent A 0.7 % (0-0.5); Lymphocytes Absolute Auto 1.68 K/mm3 (0.9-3.2); Lymphocytes Percent Auto 22.2 % (18.3-44.2); Mean Corpuscular HGB Conc 32.7 g/dl (32-36); Mean Corpuscular Hemoglobin 31.2 pg (26-34); Mean Corpuscular Volume 95.4 fl (80-100); Mean Platelet Volume 10.7 fl (7.4-10.4); Monocytes Absolute Auto 0.6 K/mm3 (0.1-0.6); Monocytes Percent Auto 8.2 % (2.6-8.5); Neutrophils Absolute Auto 4.9 K/mm3 (1.3-6.7); Neutrophils Percent Auto 64.8 % (45.5-73.1); Platelet Count Result 142 k/mm3 (150-375); Red Blood Count 5.03 M/mm3 (4.6-6.20); Red Cell Distribution Width 13.4 % (11.5-14.5); White Blood Count 7.6 K/mm3 (4.5-10.0)
[2024-11-02 11:52] LABS: Add Urine Microscopic? NO; Appearance Urine Clear (Clear); Bilirubin Urine Negative (Negative); Blood Urine Negative (Negative); Color Urine Yellow (Yellow); Glucose Urine UA 3+ mg/dL (Negative); Ketones Urine Negative (Negative); Leukocyte Esterase Ur Negative LEU/UL (Negative); Nitrate Urine Negative (Negative); Protein Urine Negative (Negative); Specific Grav Ur 1.036 (1.001-1.035); Urobilinogen Urine 0.2 mg/dL (<2.0)
[2024-11-02 12:01] LABS: Alanine Aminotransferase 17 U/L (6-50); Albumin Level 3.9 g/dL (3.5-5.1); Alkaline Phosphatase 66 U/L (38-126); Anion Gap 11 mmol/L (4-12); Aspartate Amino Transferase 21 U/L (17-59); Bilirubin,Total 0.4 mg/dL (0.2-1.3); Blood Urea Nitrogen 22 mg/dL (9-20); Carbon Dioxide 26 mmol/L (22-30); Chloride 100 mmol/L (98-107); Estimated CRCL calculation 90 ml/min; Estimated Glomerular Filt Rate > 60; Glucose 340 mg/dL (65-110); Potassium 4.5 mmol/L (3.4-5.0); Sodium 137 mmol/L (137-145)
[2024-11-02 12:02] LABS: Lactic Acid Reflex 2.5 mmol/L (0.7-2.0)
[2024-11-02 12:13] LABS: Troponin I < 0.012 ng/mL (0.000-0.034)
--- NOTE | 2024-11-02 12:21 | ED.GENADULT ---
HPI - General Adult General Chief complaint: Weakness Stated complaint: weakness Time Seen by Provider: 11/02/24 11:57 History of Present Illness HPI narrative: 29-year-old male present to the emergency department for evaluation for increased lethargy and increased anxiety. states the patient has had worsening anxiety since being able. Patient did have his brother a few days ago and due to increased anxiety he did not go to the . states patient has been started on hydroxyzine recently. noticed that the patient had increased slurring of speech starting on Tuesday. Patient is alert oriented and has no focal neuro deficit. Patient's only complaint is that he feels tired and has anxiety. A family feels the patient had an acute change in his behavior in October. State he does have long-lasting history of depression has had multiple family members but he went to sleep at his son's house in October did not have a CPAP and woke up with a panic attack and has had uncontrolled anxiety since that time. Patient has had 5 visits to the emergency department and 3 visits to urgent care in approximately 1 month. Related Data Home Medications ?Medication ?Instructions ?Recorded ?Confirmed ?Last Taken ?Type tamoxifen 20 mg tablet 20 mg PO QAM 05/25/19 10/16/24 12/06/19 History vitamin E 200 unit capsule 200 unit PO QAM 05/25/19 10/16/24 12/04/19 History coffee extract 100 mg-phosphatidyl 1 cap PO QAM 12/16/21 10/16/24 Unknown History serine 100 mg capsule (Neuriva Original) tadalafil 5 mg tablet 5 mg PO DAILY 04/13/22 10/16/24 Unknown History aspirin 81 mg capsule 81 mg PO DAILY 08/19/22 10/16/24 Unknown History cephalexin 250 mg capsule 250 mg PO DAILY 10/12/22 10/16/24 Unknown History vibegron 75 mg tablet (Gemtesa) 75 mg PO DAILY 07/11/23 10/16/24 Unknown History Allergies Allergy/AdvReac Type Severity Reaction Status Date / Time epinephrine Allergy Severe Chest Verified 11/01/24 15:18 tightness Review of Systems Review of Systems: All systems reviewed & are unremarkable except as noted in HPI and below PMFSH Past Medical History Medical History COVID Pancreatitis (08/2022) Type 2 diabetes mellitus Gout 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 Hypercholesterolemia Hypertension Anxiety Obstructive sleep apnea treated with BiPAP Urinary incontinence Surgical History Surgical History History of arthroscopy of left knee (06/2013) History of nasal septoplasty History of colonoscopy with polypectomy History of total mastectomy of right breast (05/2018) History of right breast biopsy At incisional site of mastectomy History of prostate surgery (11/2021) History of removal of Port-a-Cath History of bilateral knee replacement Right knee in June 2014. Left knee in May 2015. Family History Family History (Updated 11/02/24 @ 18:37 by Saira Odell RN) Mother Heart disease Father High cholesterol Mother Hypertension Sibling Cerebrovascular accident Social History Social History Social History: Surrogate medical decision maker: Princess Walsh, spouse. Code status: Full code. Smoking status: Never smoker Second hand tobacco smoke exposure: No Alcohol intake: never Alcohol use details: Perhaps 1 alcoholic beverage a month. Substance use: never Substance use type: does not use Do You Feel Safe in your Home?: Yes Lack of Transportation: No Lack of Food: Never True Current Housing: I Have Housing Concerned About Future Housing: No Difficulty Paying Gas/Electric Bills: No Difficulty Paying for Meds: No Currently Unemployed: No Education: Master's Degree or Higher Difficulty w/ Childcare or Family Care: No Additional living arrangements comments: Lives with in [place]. Additional occupation/education comments: Retired teacher. Spiritual care concerns: No Exam Narrative: APPEARANCE: Disheveled HEAD: normocephalic, atraumatic. EYES: PERRLA/EOMI, conjunctivae clear. NOSE: Normal no drainage EARS:TMS clear with good light reflex. THROAT: Pharynx clear, no exudate. NECK: Supple. No adenopathy, no masses. RESPIRATORY: Airway patent, respirations nonlabored. Clear to auscultation bilaterally, no rales, rhonchi, wheezing. CARDIOVASCULAR: Regular rate and rhythm without murmurs rubs or gallops. ABDOMINAL: Soft, nontender, nondistended, normal bowel sounds MUSCULOSKELETAL: Moves all extremities. Strength/ROM intact, No edema, No calf tenderness. NEURO: Alert. Patient is somnolent but easily follows command and wakes up to verbal stimuli. Normal neuro exam SKIN: Warm, dry. Normal Color Course Vital Signs Vital signs: Vital Signs Temperature 97.9 F 11/02/24 11:57 Pulse Rate 84 11/02/24 11:57 Blood Pressure 155/91 H 11/02/24 11:57 Pulse Oximetry 95 11/02/24 11:57 Oxygen Delivery Room Air 11/02/24 11:57 Temperature 98.3 F 11/02/24 18:35 Pulse Rate 63 11/02/24 18:35 Respiratory Rate 18 11/02/24 18:35 Blood Pressure 148/83 H 11/02/24 18:35 Pulse Oximetry 96 11/02/24 18:35 Oxygen Delivery Room Air 11/02/24 18:30 Medical Decision Making MDM Narrative Medical decision making narrative: 79-year-old male presents to the emergency department for evaluation for increased anxiety and some months. Patient is currently afebrile with no leukocytosis hemoglobin 15.7. Patient has no significant abnormalities his CMP other than elevated blood sugar with no anion gap. No concern for DKA. Patient's T bili AST ALT alk-phos are within normal limits patient has no elevation has troponin with no significant changes to his EKG. Patient does have a known left bundle branch. Patient's drug screen was negative and alcohol was negative. Patient was negative for influenza RSV and for COVID. No acute findings on the CT scan. Patient has a normal focal exam but is slow to answer questions. Some of this may be secondary to the hydroxyzine, secondary to depression. With family stating that he had an acute change of his mental status I a.m. concerned for possibility of CVA and will discuss this with hospitalist for admission for MRI and further evaluation. Patient does have follow-up with a counselor and is scheduled to see a psychiatrist in the future Differential Diagnosis Differential Diagnosis: TIA, CVA, medication overdose, depression, anxiety Vital Signs Vital Signs: Vital Signs Temperature 97.9 F 11/02/24 11:57 Pulse Rate 84 11/02/24 11:57 Blood Pressure 155/91 H 11/02/24 11:57 Pulse Oximetry 95 11/02/24 11:57 Oxygen Delivery Room Air 11/02/24 11:57 Temperature 98.3 F 11/02/24 18:35 Pulse Rate 63 11/02/24 18:35 Respiratory Rate 18 11/02/24 18:35 Blood Pressure 148/83 H 11/02/24 18:35 Pulse Oximetry 96 11/02/24 18:35 Oxygen Delivery Room Air 11/02/24 18:30 Lab Data Lab results reviewed: Yes I reviewed the patient's lab results. 11/02/24 11:43 11/02/24 11:43 Labs: Lab Results 11/02/24 11/02/24 11/02/24 Range/Units 11:41 11:42 11:43 WBC 7.6 (4.5-10.0) K/mm3 RBC 5.03 (4.6-6.20) M/mm3 Hgb 15.7 (14.0-18.0) g/dL Hct 48.0 (42.0-52.0) % MCV 95.4 (80-100) fl MCH 31.2 (26-34) pg MCHC 32.7 (32-36) g/dl RDW 13.4 (11.5-14.5) % Plt Count 142 L (150-375) k/mm3 MPV 10.7 H (7.4-10.4) fl Immature Gran % (Auto) 0.7 H (0-0.5) % Neut % (Auto) 64.8 (45.5-73.1) % Lymph % (Auto) 22.2 (18.3-44.2) % [place] % (Auto) 8.2 (2.6-8.5) % Eos % (Auto) 3.7 (0-4.4) % Baso % (Auto) 0.4 (0.2-1.2) % Lymph # (Auto) 1.68 (0.9-3.2) K/mm3 [place] # (Auto) 0.6 (0.1-0.6) K/mm3 Eos # (Auto) 0.3 (0-0.3) K/mm3 Baso # (Auto) 0.0 (0.0-0.1) K/mm3 Abs Immat Gran (auto) 0.05 H (0.00-0.031) K/mm3 Absolute Neuts (auto) 4.9 (1.3-6.7) K/mm3 Absolute Nucleated RBC 0.000 (0.0-0.012) K/mm3 Nucleated RBC % 0.0 (0.0-0.2) % Sodium 137 (137-145) mmol/L Potassium 4.5 (3.4-5.0) mmol/L Chloride 100 (98-107) mmol/L Carbon Dioxide 26 (22-30) mmol/L Anion Gap 11 (4-12) mmol/L BUN 22 H (9-20) mg/dL Creatinine 0.86 (0.7-1.3) mg/dL Estim Creat Clear Calc 90 ml/min Estimated GFR > 60 (59 - ) Glucose 340 H (65-110) mg/dL POC Capillary Glucose 330 H (65-105) mg/dl Lactic Acid 2.5 H (0.7-2.0) mmol/L Calcium 9.0 (8.4-10.2) mg/dL Total Bilirubin 0.4 (0.2-1.3) mg/dL AST 21 (17-59) U/L ALT 17 (6-50) U/L Alkaline Phosphatase 66 (38-126) U/L Troponin I < 0.012 (0.000-0.034) ng/mL Total Protein (6.3-8.2) g/dL Albumin (3.5-5.1) g/dL Urine Color Yellow (Yellow) Urine Appearance Clear (Clear) Urine pH 5.0 (5.0-9.0) Ur Specific [place] 1.036 H (1.001-1.035) Urine Protein Negative (Negative) mg/dL Urine Glucose (UA) 3+ H (Negative) mg/dL Urine Ketones Negative (Negative) mg/dL Ur Blood (Man) Negative (Negative) Urine Nitrate Negative (Negative) Urine Bilirubin Negative (Negative) Urine Urobilinogen 0.2 (<2.0) mg/dL Leukocyte Esterase Rfl Negative (Negative) LIAN/UL Urine Opiates Screen Negative (Negative) Urine Methadone Screen Negative (Negative) Ur Barbiturates Screen Negative (Negative) Ur Phencyclidine Scrn Negative (Negative) Ur Amphetamine Screen Negative (Negative) U Benzodiazepines Scrn Negative (Negative) Urine Cocaine Screen Negative (Negative) U Cannabinoids Screen Negative (Negative) Ethyl Alcohol < 10 (<10) mg/dL Influenza A (RT-PCR) (Negative) Influenza B (RT-PCR) (Negative) RSV (RT-PCR) (Negative) SARS-CoV-2 RNA (RT-PCR) (Negative) 11/02/24 11/02/24 11/02/24 Range/Units 11:43 12:16 15:19 WBC (4.5-10.0) K/mm3 RBC (4.6-6.20) M/mm3 Hgb (14.0-18.0) g/dL Hct (42.0-52.0) % MCV (80-100) fl MCH (26-34) pg MCHC (32-36) g/dl RDW (11.5-14.5) % Plt Count (150-375) k/mm3 MPV (7.4-10.4) fl Immature Gran % (Auto) (0-0.5) % Neut % (Auto) (45.5-73.1) % Lymph % (Auto) (18.3-44.2) % [place] % (Auto) (2.6-8.5) % Eos % (Auto) (0-4.4) % Baso % (Auto) (0.2-1.2) % Lymph # (Auto) (0.9-3.2) K/mm3 [place] # (Auto) (0.1-0.6) K/mm3 Eos # (Auto) (0-0.3) K/mm3 Baso # (Auto) (0.0-0.1) K/mm3 Abs Immat Gran (auto) (0.00-0.031) K/mm3 Absolute Neuts (auto) (1.3-6.7) K/mm3 Absolute Nucleated RBC (0.0-0.012) K/mm3 Nucleated RBC % (0.0-0.2) % Sodium (137-145) mmol/L Potassium (3.4-5.0) mmol/L Chloride (98-107) mmol/L Carbon Dioxide (22-30) mmol/L Anion Gap (4-12) mmol/L BUN (9-20) mg/dL Creatinine (0.7-1.3) mg/dL Estim Creat Clear Calc ml/min Estimated GFR (59 - ) Glucose (65-110) mg/dL POC Capillary Glucose (65-105) mg/dl Lactic Acid 1.5 (0.7-2.0) mmol/L Calcium (8.4-10.2) mg/dL Total Bilirubin (0.2-1.3) mg/dL AST (17-59) U/L ALT (6-50) U/L Alkaline Phosphatase (38-126) U/L Troponin I Cancelled (0.000-0.034) ng/mL Total Protein 7.0 (6.3-8.2) g/dL Albumin 3.9 (3.5-5.1) g/dL Urine Color (Yellow) Urine Appearance (Clear) Urine pH (5.0-9.0) Ur Specific [place] (1.001-1.035) Urine Protein (Negative) mg/dL Urine Glucose (UA) (Negative) mg/dL Urine Ketones (Negative) mg/dL Ur Blood (Man) (Negative) Urine Nitrate (Negative) Urine Bilirubin (Negative) Urine Urobilinogen (<2.0) mg/dL Leukocyte Esterase Rfl (Negative) LIAN/UL Urine Opiates Screen (Negative) Urine Methadone Screen (Negative) Ur Barbiturates Screen (Negative) Ur Phencyclidine Scrn (Negative) Ur Amphetamine Screen (Negative) U Benzodiazepines Scrn (Negative) Urine Cocaine Screen (Negative) U Cannabinoids Screen (Negative) Ethyl Alcohol (<10) mg/dL Influenza A (RT-PCR) Negative (Negative) Influenza B (RT-PCR) Negative (Negative) RSV (RT-PCR) Negative (Negative) SARS-CoV-2 RNA (RT-PCR) Negative (Negative) Imaging Data Radiologist's impression: Impressions Chest X-Ray 11/02/24 12:31 Impression: Clear lungs. Stable cardiomegaly. Head CT 11/02/24 12:39 IMPRESSION: 1. No acute intracranial process. 2. Age-related changes including mild diffuse volume loss and mild scattered white matter hypoattenuation consistent with chronic small vessel ischemic disease. Discharge Plan Discharge Clinical Impression: Anxiety, AMS (altered mental status), Behavioral change Patient Disposition: Still a Patient Condition: Stable Quality Stroke Scale Stroke Scale 1: 1a Level of consciousness: not alert but arousable-1 1b Level of consciousness questions: answers one correctly-1 1c Level of consciousness commands: obeys both correctly-0 2 Best gaze: normal-0 3 Visual: no visual loss-0 4 Facial palsy: normal-0 5a Motor: left arm: no drift-0 5b Motor: right arm: no drift-0 6a Motor: left leg: no drift-0 6b Motor: right leg: no drift-0 7 Limb ataxia: absent-0 8 Sensory: normal-0 9 Best language: some loss of fluency-1 10 Dysarthria: slurs some words-1 11 Extinction and inattention: no abnormality-0 Level:: 4
[2024-11-02 12:58] LABS: Influenza A QL RT-PCR Negative (Negative); Influenza B QL RT-PCR Negative (Negative); RSV RNA, RT-PCR Negative (Negative); SARS-CoV-2 RNA PCR Negative (Negative)
[2024-11-02 12:59] LABS: Ethanol < 10 mg/dL (<10)
[2024-11-02 13:09] LABS: Amphetamine Screen Urine Negative (Negative); Barbiturate Screen Urine Negative (Negative); Benzodiazepines Screen Urine Negative (Negative); Cannabinoid Screen Urine Negative (Negative); Cocaine Screen Urine Negative (Negative); Methadone Screen Urine Negative (Negative); Opiate Screen Urine Negative (Negative); Phencyclidine Screen Urine Negative (Negative)
[2024-11-02 13:47] LABS: Reflex Lactic Acid Yes or No Add Lactic
[2024-11-02 15:36] LABS: Lactic Acid 1.5 mmol/L (0.7-2.0)
[2024-11-02] MEDS: LACTATED RINGERS 1,000 ML 999 ML IV CONT (16:25)
--- NOTE | 2024-11-02 17:02 | PM.IMHP ---
H&P: HPI History of Present Illness Date/Time: 11/02/24 17:02 Chief Complaint: Weakness, Anxiety Narrative: 79 y/o M with PMH of anxiety, hypertension, HLD, male breast cancer s/p mastectomy and radiation, gout, diabetes, pancreatitis (2022), and YULISA on BiPAP presents here with lethargy and anxiety. The patient presents here from a local urgent care for further evaluation of generalized weakness and anxiety. Patient initially developed symptoms acutely in October. The patient was staying at his son's house in did not have his CPAP machine. Overnight he abruptly woke up with a panic attack and has reportedly had uncontrolled anxiety since. He has had 5 emergency department visits and 3 urgent care visits for similar symptoms. Presenting here today for continued anxiety, lethargy, and now noted the patient developed slurred speech on Tuesday. He was started on hydroxyzine for his anxiety a few days ago. The patient also has a longstanding history of depression and anxiety and recently had multiple family members contributing to these medical problems. He has follow-up with Psychiatry planned, cannot remember when but states it is soon. Lethargy is not accompanied by focal weakness, focal numbness, vision changes, headache, or facial droop. Reports dizziness that has been ongoing for a few weeks which has caused him to feel somewhat off balance. Also reports he was diagnosed with thrush a few days ago. Anxiety is not accompanied by suicidal ideation or homicidal ideation. Initial VS at presentation: 97.9? F, HR 84, RR 18, 155/91, and 95% on RA. ED workup showed: No leukocytosis, no anemia, no significant electrolyte derangement, creatinine 0.86 and GFR >60, glucose 340, initial troponin negative, UA showed a high specific gravity 3+ glucose otherwise unremarkable, UDS and ETOH negative, viral PCR negative. CXR showed clear lungs in stable cardiomegaly. Head CT showed no acute intracranial process and age related changes. Review of Systems Review of Systems: All systems reviewed & are unremarkable except as noted in HPI and below [facility] Past Medical History Medical History Anemia BPH w urinary obs/LUTS C. difficile diarrhea Colitis COVID Pancreatitis (08/2022) Type 2 diabetes mellitus Gout 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 Hypercholesterolemia Hypertension Anxiety Obstructive sleep apnea treated with BiPAP Urinary incontinence Surgical History Surgical History History of arthroscopy of left knee (06/2013) History of nasal septoplasty History of colonoscopy with polypectomy History of total mastectomy of right breast (05/2018) History of right breast biopsy At incisional site of mastectomy History of prostate surgery (11/2021) History of removal of Port-a-Cath History of bilateral knee replacement Right knee in June 2014. Left knee in May 2015. Family History Family History Mother Heart disease Father High cholesterol Mother Hypertension Sibling Cerebrovascular accident Social History Social History Social History: Surrogate medical decision maker: Princess Walsh, spouse. Code status: Full code. Smoking status: Never smoker Second hand tobacco smoke exposure: No Alcohol intake: never Alcohol use details: Perhaps 1 alcoholic beverage a month. Substance use: never Substance use type: does not use Do You Feel Safe in your Home?: Yes Lack of Transportation: No Lack of Food: Never True Current Housing: I Have Housing Concerned About Future Housing: No Difficulty Paying Gas/Electric Bills: No Difficulty Paying for Meds: No Currently Unemployed: No Education: Master's Degree or Higher Difficulty w/ Childcare or Family Care: No Additional living arrangements comments: Lives with in [place]. Additional occupation/education comments: Retired teacher. Spiritual care concerns: No Meds Home Medications and Allergies Home Medications ?Medication ?Instructions ?Recorded ?Confirmed ?Type tamoxifen 20 mg tablet 20 mg PO QAM 05/25/19 10/16/24 History vitamin E 200 unit capsule 200 unit PO QAM 05/25/19 10/16/24 History coffee extract 100 mg-phosphatidyl 1 cap PO QAM 12/16/21 10/16/24 History serine 100 mg capsule (Neuriva Original) tadalafil 5 mg tablet 5 mg PO DAILY 04/13/22 10/16/24 History aspirin 81 mg capsule 81 mg PO DAILY 08/19/22 10/16/24 History cephalexin 250 mg capsule 250 mg PO DAILY 10/12/22 10/16/24 History modafinil 200 mg tablet 200 mg PO QAM 1 month #30 tabs 02/21/23 10/16/24 Rx vibegron 75 mg tablet (Gemtesa) 75 mg PO DAILY 07/11/23 10/16/24 History atorvastatin 20 mg tablet See Rx Instructions .Route 06/25/24 10/16/24 Rx .COMPLEX #90 tabs citalopram 40 mg tablet 20 mg (1/2 x 40 mg) PO DAILY #90 10/15/24 10/15/24 Rx tabs lorazepam 1 mg tablet 1 mg PO DAILY PRN anxiety #30 tabs 10/15/24 10/15/24 Rx terazosin 2 mg capsule 2 mg PO QHS #30 caps 10/15/24 10/15/24 Rx Jardiance 25 mg tablet 25 mg PO DAILY #90 tabs 10/16/24 10/16/24 Rx (empagliflozin) carvedilol 3.125 mg tablet 3.125 mg PO BID #180 tabs 10/16/24 10/16/24 Rx lisinopril 20 mg tablet 20 mg PO BID #60 tabs 10/16/24 10/16/24 Rx ergocalciferol (vitamin D2) 1,250 1,250 mcg PO WEEKLY #14 caps 10/22/24 Rx mcg (50,000 unit) capsule glipizide 10 mg tablet, extended 10 mg PO BID #180 tabs 10/22/24 Rx release 24 hr hydroxyzine HCl 25 mg tablet 25 mg PO TID PRN anxiety #20 tabs 10/29/24 Rx nystatin 100,000 unit/mL oral 5 ml PO QID 10 days #200 mL 11/01/24 Rx suspension Allergies Allergy/AdvReac Type Severity Reaction Status Date / Time epinephrine Allergy Severe Chest Verified 11/01/24 15:18 tightness Vital Signs Vital Signs - 24 hr 11/02/24 11:57 11/02/24 12:30 11/02/24 13:30 Temperature 97.9 F 97.8 F 97.7 F Pulse Rate 84 80 79 Respiratory Rate 18 18 Blood Pressure 155/91 H 145/85 H 147/91 H Pulse Oximetry 95 98 98 Oxygen Delivery Room Air 11/02/24 14:30 11/02/24 15:24 11/02/24 16:20 Temperature 97.6 F 97.7 F 97.7 F Pulse Rate 81 75 78 Respiratory Rate 20 20 18 Blood Pressure 140/88 151/95 H 177/96 H Pulse Oximetry 95 95 95 Oxygen Delivery Exam Const: General: comfortable and no acute distress Other: , male, chronically ill-appearing, obese body habitus HENMT: Face/Nose/Sinus: Normal nares present Mouth: Yes moist mucous membranes Eyes: General: appearance normal, both eyes and all related structures Sclera: sclerae normal Pupils: Equal, round and reactive pupils present EOM: EOMs intact bilaterally Resp: Effort & Inspection: normal respiratory effort Auscultation: clear to auscultation bilaterally Cardio: Rate: regular rate Rhythm: regular rhythm Other: S1-S2 present without murmur, rub, ectopy GI: Other: Abdomen rounded, soft, nontender. Normoactive bowel sounds in all quadrants. Skin: General skin exam: normal color and no rashes or lesions noted Wounds: no wounds Neuro: Motor exam (neuro): 5/5 motor strength present throughout Sensory Exam: normal sensation Other: Slow speech nilson, no dysarthria appreciated. Able to answer orientation questions, however very forgetful. Extrem: General: normal to inspection Psych: Affect: Sad affect present Other: Flat affect, denies SI/HI. H&P: Results Labs Labs: Short CBC 11/02/24 Range/Units 11:43 WBC 7.6 (4.5-10.0) K/mm3 Hgb 15.7 (14.0-18.0) g/dL Hct 48.0 (42.0-52.0) % Plt Count 142 L (150-375) k/mm3 BMP 11/02/24 11:43 Sodium 137 Potassium 4.5 Chloride 100 Carbon Dioxide 26 BUN 22 H Creatinine 0.86 Glucose 340 H Calcium 9.0 Cardiac Enzymes 11/02/24 11/02/24 Range/Units 11:43 11:43 Troponin I < 0.012 Cancelled (0.000-0.034) ng/mL Liver Function 11/02/24 Range/Units 11:43 Total Bilirubin 0.4 (0.2-1.3) mg/dL AST 21 (17-59) U/L ALT 17 (6-50) U/L Alkaline Phosphatase 66 (38-126) U/L Albumin 3.9 (3.5-5.1) g/dL Urine 11/02/24 Range/Units 11:42 Urine Color Yellow (Yellow) Urine Appearance Clear (Clear) Urine pH 5.0 (5.0-9.0) Ur Specific [place] 1.036 H (1.001-1.035) Urine Protein Negative (Negative) mg/dL Urine Glucose (UA) 3+ H (Negative) mg/dL Assessment and Plan Assessment and plan (1) Slurred speech: Code(s): R47.81 - Slurred speech Status: Acute Assessment and Plan: New dysarthria noted on 10/31. - admission for observation and telemetry - not candidate for thrombolytics or thrombectomy due to time frame, no LVO on imaging - CXR: Clear lungs, stable cardiomegaly. - Head CT: No acute intracranial process, age-related changes including mild diffuse volume loss and scattered white matter hypoattenuation consistent with chronic small-vessel ischemic disease. - will hold on neurology consultation pending MRI results - brain MRI w/wo ordered - neuro checks Q4 DDx: Slurred speech coinciding with new prescription, Atarax, raises suspicion for medication side effect. Cannot rule out CVA. (2) Anxiety: Code(s): F41.9 - Anxiety disorder, unspecified Status: Acute Assessment and Plan: - acutely worsened in October, recently placed on Atarax - psych consulted (3) Generalized weakness: Code(s): R53.1 - Weakness Status: Acute Assessment and Plan: - CXR showed no indicators for infection - UA showed no indicators for infection - hemoglobin 15.7, no leukocytosis, no significant electrolyte derangements, initial troponin negative - lactic 2.5 -> 1.5, check procalcitonin Suspect generalized weakness sequela of worsening depression and anxiety. No signs of infection beyond elevated lactic. Checking procalcitonin. (4) Type 2 diabetes mellitus: Qualifiers: Diabetes mellitus complication status: with hyperglycemia Diabetes mellitus custodial insulin use: without custodial use Qualified Code(s): E11.65 - Type 2 diabetes mellitus with hyperglycemia Code(s): E11.9 - Type 2 diabetes mellitus without complications Status: Acute Assessment and Plan: - hypoglycemia protocol - POC blood glucose ACHS - correct regimen ordered - high dose TIDWM and HS, based off BMI - A1C 10.2% on 10/16/2024 (5) HTN (hypertension): Qualifiers: Hypertension type: essential hypertension Qualified Code(s): I10 - Essential (primary) hypertension Code(s): I10 - Essential (primary) hypertension Status: Chronic Assessment and Plan: - chronic, currently 177/96 - continue home medications - monitor (6) YULISA (obstructive sleep apnea): Code(s): G47.33 - Obstructive sleep apnea (adult) (pediatric) Status: Chronic Assessment and Plan: - continue home CPAP Plan Recently diagnosed with thrush a few days ago, will continue nystatin oral. Diet: Renal GI Prophylaxis: Not currently indicated DVT Prophylaxis: SCDs IV fluids: none Lines/Tubes: Peripheral IV Code Status: Full code Quality VTE Prophylaxis VTE prophylaxis: mechanical ordered Hospitalist MIPS Advance Care Plan I have confirmed that the patient's Advanced Care Plan is present, code status is documented, or surrogate decision maker is listed in patient medical record.: Yes Medication Reconciliation I have utilized all available resources to obtain, update and review the patients current medications (includes all prescriptions, OTC, herbals, cannabis, and nutritional supplements).: Yes
--- NOTE | 2024-11-02 17:25 | ADMGEN ---
This patient, Rayray Walsh, was admitted to Medical Room 247-. Patient/family oriented to hospital policies and general routines including ID bracelet, bed and alarms, visiting hours, pain management, procedures, bathroom and other care routines, personal items, smoking policy, room service/diet, and visiting hours. Information on how to activate the Rapid Response Team has been discussed. Patient/Family are encouraged to report perceived risks to care and to ask questions if they do not understand what they are told or what they should do.
[2024-11-02 20:46] LABS: Procalcitonin 0.1 ng/mL
[2024-11-02 21:16] LABS: Glucose Point of Care 209 mg/dl (65-105)
[2024-11-02] MEDS: INSULIN ASPART (*BKC) 100 UNITS/ML SUB-Q (21:20)
[2024-11-03] VITALS (7 sets, daily range): BP systolic 125–155; BP diastolic 72–100; PULSE 67–88; RESP 18; TEMP 36.4–37; O2SAT 92
[2024-11-03 05:16] LABS: Basophils Percent Auto 0.5 % (0.2-1.2); Eosinophils Absolute Auto 0.3 K/mm3 (0-0.3); Eosinophils Percent Auto 3.9 % (0-4.4); Hematocrit 48.1 % (42.0-52.0); Hemoglobin 16.2 g/dL (14.0-18.0); Immature Granulocyte Absolute 0.06 K/mm3 (0.00-0.031); Immature Granulocyte Percent A 0.7 % (0-0.5); Lymphocytes Absolute Auto 1.97 K/mm3 (0.9-3.2); Lymphocytes Percent Auto 23.1 % (18.3-44.2); Mean Corpuscular HGB Conc 33.7 g/dl (32-36); Mean Corpuscular Hemoglobin 31.5 pg (26-34); Mean Corpuscular Volume 93.4 fl (80-100); Mean Platelet Volume 10.9 fl (7.4-10.4); Monocytes Absolute Auto 0.7 K/mm3 (0.1-0.6); Monocytes Percent Auto 8.2 % (2.6-8.5); Neutrophils Absolute Auto 5.4 K/mm3 (1.3-6.7); Neutrophils Percent Auto 63.6 % (45.5-73.1); Platelet Count Result 142 k/mm3 (150-375); Red Blood Count 5.15 M/mm3 (4.6-6.20); Red Cell Distribution Width 13.1 % (11.5-14.5); White Blood Count 8.5 K/mm3 (4.5-10.0)
[2024-11-03 05:29] LABS: Alanine Aminotransferase 16 U/L (6-50); Albumin Level 3.9 g/dL (3.5-5.1); Alkaline Phosphatase 64 U/L (38-126); Anion Gap 10 mmol/L (4-12); Aspartate Amino Transferase 27 U/L (17-59); Bilirubin,Total 0.8 mg/dL (0.2-1.3); Blood Urea Nitrogen 19 mg/dL (9-20); Calcium 8.9 mg/dL (8.4-10.2); Carbon Dioxide 26 mmol/L (22-30); Chloride 103 mmol/L (98-107); Estimated CRCL calculation 100 ml/min; Estimated Glomerular Filt Rate > 60; Glucose 131 mg/dL (65-110); Potassium 3.9 mmol/L (3.4-5.0); Sodium 139 mmol/L (137-145)
[2024-11-03 07:48] LABS: Glucose Point of Care 158 mg/dl (65-105)
[2024-11-03] MEDS: LORazepam (*CRX) 1 MG TABLET PO (07:55)
[2024-11-03] MEDS: ASPIRIN 81 MG ENTERIC TABLET PO (07:55)
[2024-11-03] MEDS: carvediloL 3.125 MG TABLET PO (07:55)
[2024-11-03] MEDS: CITALOPRAM HYDROBROMIDE 20 MG TABLET PO (07:55)
[2024-11-03] MEDS: EMPAGLIFLOZIN 25 MG TABLET PO (07:55)
[2024-11-03] MEDS: TAMOXIFEN CITRATE (*CHEMO) 10 MG TABLET 20 MG PO (07:56)
[2024-11-03] MEDS: CEPHALEXIN 250 MG CAPSULE PO (07:56)
[2024-11-03] MEDS: lisinopriL 20 MG TABLET PO (08:00)
[2024-11-03] MEDS: hydrOXYzine HCL 25 MG TABLET PO (11:15)
[2024-11-03 11:37] LABS: Glucose Point of Care 193 mg/dl (65-105)
[2024-11-03] MEDS: LORazepam INJ (*CRX) 2 MG/ML VIAL 1 MG IV PUSH (11:57)
--- OUTSIDE RECORDS SUMMARY | 2024-11-03 13:15 | XMS_ITS | Clinical Summary ---
Author Organization [facility] Address [address] [place] [address] Phone Care Team Providers Care Cartographic Designer Name Role Phone Unavailable Unavailable Unavailable [...]
--- OUTSIDE RECORDS SUMMARY | 2024-11-03 13:15 | XMS_ITS | Encounter Summary ---
Author Organization [facility] Address [address] [place] [address] Care Team Providers Care Sustainability Officer Name Role Phone Gabriel Barrios MD Primary Care Provider [phone] Encounter Details Date Type Department Care Team (Late Contact Info) Description 11/16/2018 Chart Note [facility] Radiation Therapy [address] [place] [address] [place] [address] [place] [address] Social History Tobacco Use Types [...] Description 04/01/2025 10:15 AM CDT Office Visit [facility] Oncology and Hematology - [place] [address] [facility] [address] [place] [address] Raul Leger MD [address] [facility] [address] [place] [address] documented as of this encounter Visit Diagnoses Not on filedocumented in this encounter Care Teams Sustainability Officer Relationship Specialty Start Date End Date Gabriel Barrios MD [address] [place] [address] PCP - General Family Practice 05/01/18 documented as of this encounter
--- OUTSIDE RECORDS SUMMARY | 2024-11-03 13:15 | XMS_ITS | Clinical Summary ---
Author Organization [facility] Address [address] [place] [address] Care Team Providers Care Cabinetmaker Apprentice Name Role Phone Geovanny Mccarty MD Primary Care Provider Source Comments [facility],non-owned Affiliates and Associated Physician Practices is amultiple site organization consisting of ambulatory clinics and hospital sitesin [place], [place], [place] and [place]. This disclosure is being madepursuant to the Care Everywhere program and may not contain all information available regarding this patient. 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 Gender Identity Not on file Sexual Orientation Not on file Last Filed Vital Signs Vital Sign Reading Time Taken Comments Blood Pressure 140/80 08/14/2017 10:40 AM PROFILING MACHINE SETUP OPERATOR Pulse 102 08/14/2017 10:40 AM PROFILING MACHINE SETUP OPERATOR Temperature 36.5 C (97.7 F) 08/14/2017 10:40 AM PROFILING MACHINE SETUP OPERATOR Respiratory Rate 16 08/14/2017 10:40 AM PROFILING MACHINE SETUP OPERATOR Oxygen Saturation 96% 08/14/2017 10:40 AM PROFILING MACHINE SETUP OPERATOR Inhaled Oxygen Concentration - - Weight 149.7 kg (330 lb) 08/14/2017 10:40 AM PROFILING MACHINE SETUP OPERATOR Height 188 cm (6' 2 ) 08/14/2017 10:40 AM PROFILING MACHINE SETUP OPERATOR Body Mass Index 42.37 08/14/2017 10:40 AM PROFILING MACHINE SETUP OPERATOR Plan of Treatment Health Maintenance Due Date [...] complete this topic Insurance MEDICARE MEDICARE [facility] MEDICARE Care Teams Cabinetmaker Apprentice Relationship Specialty Start Date End Date Geovanny Mccarty MD [address] [place] [address] PCP - General 12/29/21
--- OUTSIDE RECORDS SUMMARY | 2024-11-03 13:15 | XMS_ITS | Clinical Summary ---
Author Organization [facility] Address [address] [place] [address] Care Team Providers Care Flue Tile Press Operator Name Role Phone Gabriel Barrios MD Primary Care Provider [phone] Allergies Active Allergy Reactions Criticality Noted Date [...] 09/25/2024 11:00 AM CDT Office Visit 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 Oncology and Hematology - [place] [address] [place] [address] [place] [id number] Raul Leger MD 09/05/2024 External Device Data [...] 04/01/2025 10:15 AM CDT Office Visit [facility] Oncology and Hematology - [place] [address] [place] [address] Raul Leger MD [address] [facility] [address] [place] [address] Health Maintenance Due Date Last [...] Resu lt from Last 3 Months Insurance [facility] MEDICARE PART A AND B [facility] Care Teams Flue Tile Press Operator Relationship Specialty Start Date End Date Gabriel Barrios MD [address] [place] [address] PCP - General Family Practice 05/01/18
--- OUTSIDE RECORDS SUMMARY | 2024-11-03 13:15 | XMS_ITS ---
Care Plan - [facility] Created on: November 03, 2024 ALEX JENSEN : 1945 Sex: Male Author Organization [facility] Address [address] [place] [address] Phone Care Team Providers Care Child Care Leader Name Role Phone Unavailable Unavailable Unavailable
--- OUTSIDE RECORDS SUMMARY | 2024-11-03 13:15 | XMS_ITS ---
Author Organization [facility] Address [address] [place] [address] Phone Care Team Providers Care Music Professionals Name Role Phone Unavailable Unavailable Unavailable Plan of Treatment No Plan of Treatment Recorded Assessments Includes: Assessments for all patient encounters No Assessments Recorded Medical Equipment - Implanted Devices Includes: Current and historical Devices No Medical Equipment Recorded Medications Administered Includes: Administered Medications in patient's chart No Administered Medications Recorded Results Includes: Results from 11/04/2023 through 11/03/2024 No Results Recorded For Specified Dates History [...]
--- NOTE | 2024-11-03 14:15 | P.DS_ITS ---
DS: Admitting Diagnosis Discharge Date 11/03/2024 Admitting Diagnosis slurred speech DS: Discharge Diagnosis Discharge Diagnosis (1) Slurred speech: Code(s): R47.81 - Slurred speech Status: Acute Assessment and Plan: New dysarthria noted on 10/31. - admission for observation and telemetry - not candidate for thrombolytics or thrombectomy due to time frame, no LVO on imaging - CXR: Clear lungs, stable cardiomegaly. - Head CT: No acute intracranial process, age-related changes including mild diffuse volume loss and scattered white matter hypoattenuation consistent with chronic small-vessel ischemic disease. - will hold on neurology consultation pending MRI results - brain MRI w/wo ordered - neuro checks Q4 DDx: Slurred speech coinciding with new prescription, Atarax, raises suspicion for medication side effect. Cannot rule out CVA. (2) Anxiety: Code(s): F41.9 - Anxiety disorder, unspecified Status: Acute Assessment and Plan: - acutely worsened in October, recently placed on Atarax - psych consulted (3) Generalized weakness: Code(s): R53.1 - Weakness Status: Acute Assessment and Plan: - CXR showed no indicators for infection - UA showed no indicators for infection - hemoglobin 15.7, no leukocytosis, no significant electrolyte derangements, initial troponin negative - lactic 2.5 -> 1.5, check procalcitonin Suspect generalized weakness sequela of worsening depression and anxiety. No signs of infection beyond elevated lactic. Checking procalcitonin. (4) Type 2 diabetes mellitus: Qualifiers: Diabetes mellitus intermediate insulin use: without intermediate use Diabetes mellitus complication status: with hyperglycemia Qualified Code(s): E11.65 - Type 2 diabetes mellitus with hyperglycemia Code(s): E11.9 - Type 2 diabetes mellitus without complications Status: Acute Assessment and Plan: - hypoglycemia protocol - POC blood glucose ACHS - correct regimen ordered - high dose TIDWM and HS, based off BMI - A1C 10.2% on 10/16/2024 (5) HTN (hypertension): Qualifiers: Hypertension type: essential hypertension Qualified Code(s): I10 - Essential (primary) hypertension Code(s): I10 - Essential (primary) hypertension Status: Chronic Assessment and Plan: - chronic, currently 177/96 - continue home medications - monitor (6) YULISA (obstructive sleep apnea): Code(s): G47.33 - Obstructive sleep apnea (adult) (pediatric) Status: Chronic Assessment and Plan: - continue home CPAP DS: Summary Hospital Course Reason for hospitalization: Slurred speech Hospital Course: Admitted for evaluation of slurring of speech. No focal deficits. A few weeks of increased stress and feeling off balance and blood sugars running a bit higher than usual. Denied any chest pain palpitations shortness of breath syncope or presyncope. Denied any focal weakness or numbness. Denied any change in special senses. Denied GI or changes. He noted that he has had multiple evaluations for similar symptoms [facility] in recent months. CT of the brain was unremarkable for age. MRI of the brain was attempted but incomplete due to patient motion and inability to stay in the machine in spite of 1 mg Ativan IV prior to the procedure. By the afternoon of discharge she had tolerating his diet was up walking all independently and wished to go home. He did not desire to have any further testing done but said he would follow up with his primary physician. Time Spent with Patient Time attestation: Total time spent providing and/or coordinating discharge services: Exam Narrative: HEENT: PERRL, sclerae nonicteric, pharyngeal mucosa pink and intact NECK: No JVD CHEST: Clear to auscultation. Normal effort. HEART: NL S1/S2, regular, no murmur ABDOMEN: BS+, soft, nontender, no mass, no bruits EXTREMITIES: No cyanosis, edema, or clubbing NEUROLOGIC: CN intact and symmetric to inspection. MUSCULOSKELETAL: Tone and strength symmetric. PSYCH: Alert. Oriented to person, place, and time. DS: Data Data Completed and Pending Labs on day of discharge: Labs from last 24 hours 11/03/24 11/03/24 11/03/24 11:35 07:41 04:39 WBC 8.5 RBC 5.15 Hgb 16.2 Hct 48.1 MCV 93.4 MCH 31.5 MCHC 33.7 RDW 13.1 Plt Count 142 L MPV 10.9 H Immature Gran % (Auto) 0.7 H Neut % (Auto) 63.6 Lymph % (Auto) 23.1 Granite % (Auto) 8.2 Eos % (Auto) 3.9 Baso % (Auto) 0.5 Lymph # (Auto) 1.97 Granite # (Auto) 0.7 H Eos # (Auto) 0.3 Baso # (Auto) 0.0 Abs Immat Gran (auto) 0.06 H Absolute Neuts (auto) 5.4 Absolute Nucleated RBC 0.000 Nucleated RBC % 0.0 Sodium 139 Potassium 3.9 Chloride 103 Carbon Dioxide 26 Anion Gap 10 BUN 19 Creatinine 0.78 Estim Creat Clear Calc 100 Estimated GFR > 60 Glucose 131 H POC Capillary Glucose 193 H 158 H Lactic Acid Calcium 8.9 Magnesium 2.0 Total Bilirubin 0.8 AST 27 ALT 16 Alkaline Phosphatase 64 Total Protein 7.0 Albumin 3.9 Procalcitonin 11/02/24 11/02/24 11/02/24 20:20 20:01 15:19 WBC RBC Hgb Hct MCV MCH MCHC RDW Plt Count MPV Immature Gran % (Auto) Neut % (Auto) Lymph % (Auto) Granite % (Auto) Eos % (Auto) Baso % (Auto) Lymph # (Auto) Granite # (Auto) Eos # (Auto) Baso # (Auto) Abs Immat Gran (auto) Absolute Neuts (auto) Absolute Nucleated RBC Nucleated RBC % Sodium Potassium Chloride Carbon Dioxide Anion Gap BUN Creatinine Estim Creat Clear Calc Estimated GFR Glucose POC Capillary Glucose 209 H Lactic Acid 1.5 Calcium Magnesium Total Bilirubin AST ALT Alkaline Phosphatase Total Protein Albumin Procalcitonin 0.1 Discharge Plan Discharge Discharging Clinician: Latrell Pandya Patient Disposition: Home Activity: no straining and no driving Diet: heart healthy, diabetic and low sodium Patient Language: Korean Stand Alone Forms: General Discharge Information Follow-up/Referrals: Geovanna Hartman NP [Primary Care Provider] - 1 Week (Uncontrolled diabetes. Episode of slurring of speech. ) Discharge Medications: Continued nystatin 100,000 unit/mL suspension 5 ml PO QID 10 Days Qty: 200 0RF Rx Instructions: swish and swallow tamoxifen 20 mg tablet 20 mg PO QAM tadalafil 5 mg tablet 5 mg PO DAILY cephalexin 250 mg capsule 250 mg PO DAILY Patient Comments: its prophylactic for recurrent bladder infections lorazepam 1 mg tablet 1 mg PO DAILY PRN (Reason: anxiety) Qty: 30 0RF citalopram 40 mg tablet 20 mg PO DAILY Qty: 90 1RF terazosin 2 mg capsule 2 mg PO QHS Qty: 30 2RF lisinopril 20 mg tablet 20 mg PO BID Qty: 60 2RF carvedilol 3.125 mg tablet 3.125 mg PO BID Qty: 180 0RF Jardiance 25 mg tablet 25 mg PO DAILY Qty: 90 1RF Gemtesa 75 mg tablet 75 mg PO DAILY aspirin 81 mg Capsule 81 mg PO DAILY hydroxyzine HCl 25 mg tablet 25 mg PO TID PRN (Reason: anxiety) Qty: 20 0RF atorvastatin 20 mg tablet See Rx Instructions .ROUTE .COMPLEX Qty: 90 2RF Dose Instruction: TAKE 1 TABLET BY MOUTH EVERY NIGHT AT BEDTIME Rx Instructions: TAKE 1 TABLET BY MOUTH EVERY NIGHT AT BEDTIME ergocalciferol (vitamin D2) 1,250 mcg (50,000 unit) capsule 1,250 mcg PO WEEKLY Qty: 14 1RF Patient Comments: dont remember the day Date of admission: 11/02/24 15:24 Primary Care Provider: Geovanna Hartman Admitting Provider: Tiago Alicea Attending physician on admission: Tiago Alicea Condition: Stable
== END 2024-11-03 15:05 | disposition home or self-care (01) ==
LOC: ANHED 12:34 → ANH2MED 17:01
PROVIDERS: Emergency Medicine; Student in an Organized Health Care Education/Training Program; Admitting Provider Internal Medicine; Emergency Provider Emergency Medicine; PCP Nurse Practitioner Family; Visit Provider Internal Medicine
DX: R47.81 Slurred speech (principal); F41.9 Anxiety disorder, unspecified; R53.1 Weakness; E11.65 Type 2 diabetes mellitus with hyperglycemia; I10 Essential (primary) hypertension; G47.33 Obstructive sleep apnea (adult) (pediatric); E78.5 Hyperlipidemia, unspecified; M10.9 Gout, unspecified; B37.9 Candidiasis, unspecified; Z20.822 Contact with and (suspected) exposure to COVID-19; Z86.16 Personal history of COVID-19; Z79.82 Long term (current) use of aspirin; Z79.84 Long term (current) use of oral hypoglycemic drugs; Z79.899 Other long term (current) drug therapy; Z85.3 Personal history of malignant neoplasm of breast; Z96.653 Presence of artificial knee joint, bilateral; Z99.89 Dependence on other enabling machines and devices
CPT/HCPCS: 36415; 70450; 70551; 71045; 80053; 80307; 81003; 82077; 82948; 83605; 83735; 84145; 84484; 85025; 87637; 93005; 96361; 96374; 96376; 99285; A9270; G0378; J1815; J2060; J7120

== ENCOUNTER 2024-11-02 13:41 | Emergency (ER) | payer MEDICARE, SELFPAY | END 2024-11-02 14:00 | disposition home or self-care (01) | LOC: EXPGOSH 12-24 12:15 | PROVIDERS: Emergency Provider Nurse Practitioner Family | DX: Z53.21 Procedure and treatment not carried out due to patient leaving prior to being seen by health care provider (principal) | CPT/HCPCS: 99199 ==

== ENCOUNTER 2024-11-06 17:22 | Emergency (ER) | payer MEDICARE, SELFPAY ==
[2024-11-06 17:30] VITALS: BP 144/68; PULSE 42; RESP 16; TEMP 36.3; O2SAT 96
--- NOTE | 2024-11-06 18:16 | ED.ANXIETY ---
HPI - Anxiety General Chief Complaint: Anxiety Stated Complaint: Anxiety Time Seen by Provider: 11/06/24 18:00 Source: patient, RN notes reviewed and old records reviewed Mode of arrival: ambulatory Limitations: no limitations History of Present Illness HPI narrative: 79 year old male accompanied by daughter [facility] with complaints of continuing anxiety and states that he is not able to get his Lorazepam till 11/09/2024 and has appointment with PCP doctor on that day but he his out of the medication. Patient admits to taking 2 of his 's Xanax to lessen his anxiety. Patient was sent to the hospital from [facility] on the of this month for elevated blood sugar and changes in behavior. Daughter states that he was given Atarax while in hospital and it made him hallucinate. Daughter reports that patient is seeing psychiatrist. Patient admits that he is not checking his sugars daily routinely and he states that he is usually only eating once a day. Daughter reports that the pharmacy has Rx waiting and needs authorization. MD complaint: anxiety Onset (ago): unknown (ongoing complaint) History of similar episodes: Yes Related Data Home Medications ?Medication ?Instructions ?Recorded ?Confirmed ?Last Taken ?Type tamoxifen 20 mg tablet 20 mg PO QAM 05/25/19 11/02/24 12/06/19 History tadalafil 5 mg tablet 5 mg PO DAILY 04/13/22 11/02/24 Unknown History aspirin 81 mg capsule 81 mg PO DAILY 08/19/22 11/02/24 Unknown History cephalexin 250 mg capsule 250 mg PO DAILY 10/12/22 11/02/24 Unknown History vibegron 75 mg tablet (Gemtesa) 75 mg PO DAILY 07/11/23 11/02/24 Unknown History glipizide 10 mg tablet, extended mg PO 11/06/24 Unknown History release 24 hr Allergies Allergy/AdvReac Type Severity Reaction Status Date / Time epinephrine Allergy Severe Chest Verified 11/06/24 18:11 tightness hydroxyzine (From Atarax) AdvReac Severe Hallucinati Verified 11/06/24 18:30 ng Review of Systems Review of Systems: CONSTITUTIONAL: Denies fever, chills, or sweats. EYES: Denies visual changes, redness, or discharge. ENT: Denies rhinorrhea, congestion, sore throat, or otalgia. CARDIOVASCULAR: Denies chest pain, palpitations, or edema. RESPIRATORY: Denies cough or dyspnea. GASTROINTESTINAL: Denies abdominal pain, nausea, vomiting, or diarrhea. GENITOURINARY: Denies dysuria or hematuria. SKIN: Denies rash or itching. MUSCULOSKELETAL: Denies back pain, joint pain, or myalgia. NEUROLOGIC: Denies headache, numbness, or weakness. PSYCHIATRIC: Reports anxiety or depression. All systems reviewed & are unremarkable except as noted in HPI and below PMFSH Past Medical History Medical History Anemia BPH w urinary obs/LUTS C. difficile diarrhea Colitis COVID Pancreatitis (08/2022) Type 2 diabetes mellitus Gout 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 Hypercholesterolemia Hypertension Anxiety Obstructive sleep apnea treated with BiPAP Urinary incontinence Surgical History Surgical History History of arthroscopy of left knee (06/2013) History of nasal septoplasty History of colonoscopy with polypectomy History of total mastectomy of right breast (05/2018) History of right breast biopsy At incisional site of mastectomy History of prostate surgery (11/2021) History of removal of Port-a-Cath History of bilateral knee replacement Right knee in June 2014. Left knee in May 2015. Family History Family History Mother Heart disease Father High cholesterol Mother Hypertension Sibling Cerebrovascular accident Social History Social History Social History: Surrogate medical decision maker: Princess Walsh, spouse. Code status: Full code. Smoking status: Never smoker Second hand tobacco smoke exposure: No Alcohol intake: never Alcohol use details: Perhaps 1 alcoholic beverage a month. Substance use: never Substance use type: prescription drug Do You Feel Safe in your Home?: Yes Lack of Transportation: No Lack of Food: Never True Current Housing: I Have Housing Concerned About Future Housing: No Difficulty Paying Gas/Electric Bills: No Difficulty Paying for Meds: No Currently Unemployed: No Education: Master's Degree or Higher Difficulty w/ Childcare or Family Care: No Additional living arrangements comments: Lives with in [place]. Additional occupation/education comments: Retired teacher. Spiritual care concerns: No Comments At time of signature, agree with nursing past medical, surgical, social and family history. There is no relevant family history pertinent to the presenting complaint Exam Narrative: GENERAL: Well-appearing, well-nourished, unkept appearance and in no acute distress. HEAD: Normocephalic, atraumatic. EYES: PERRLA and EOMI. ENT: Nares clear, no rhinorrhea or epistaxis. Mucous membranes moist. NECK: Supple. no lymphadenopathy CHEST: Clear to auscultation. No respiratory distress. no cough noted SAO2 96% on room air HEART: Regular rate and rhythm. No murmur heard. Normal peripheral pulses. ABDOMEN: Soft, nontender, nondistended, normal active bowel sounds. EXTREMITIES: Normal range of motion. No edema. SKIN: Warm, dry, no rash. NEURO: No focal deficits. Alert and oriented x3.reports anxiety appears calm at present time denies any suicidal or homicidal ideation Course Course Emergency Course: Patient is aware of diagnosis, understands and agrees to treatment plan.? Anticipatory guidance given.? Patient agrees to follow-up as directed and is aware of reasons to seek care at the emergency department. Portions of this record may have been created with voice recognition software Level of Care: Express Care Visit Vital Signs Vital signs: Vital Signs Temperature 36.3 C L 11/06/24 17:30 Pulse Rate 42 L 11/06/24 17:30 Respiratory Rate 16 11/06/24 17:30 Blood Pressure 144/68 H 11/06/24 17:30 Pulse Oximetry 96 11/06/24 17:30 Temperature 36.3 C L 11/06/24 17:30 Pulse Rate 42 L 11/06/24 17:30 Respiratory Rate 16 11/06/24 17:30 Blood Pressure 144/68 H 11/06/24 17:30 Pulse Oximetry 96 11/06/24 17:30 Reviewed MDM - Anxiety Differential Diagnosis Differential diagnosis: Likely panic disorder, acute anxiety and other (medication refill) Medical Records Attestation: I reviewed the patient's medical records. Lab Data Attestation: I reviewed the patient's lab results. Lab results narrative: fingerstick 193 Labs: Lab Results 11/06/24 Range/Units 18:27 POC Capillary Glucose 193 H (65-105) mg/dl Critical Care Time Critical Care Time Critical Care Time: No Discharge Plan Discharge Clinical Impression: Anxiety Patient Disposition: Home Condition: Stable Instructions: Anxiety (ED) Additional Instructions: Follow up appointment on Tuesday with your PCP office Lorazepam 1 mg 5 tabs ordered till his appointment with PCP Maintain regular meals and avoid high concentrated sweets and carbohydrates Wear BiPap/CPAP as ordered daily If your symptoms persist, change or worsen significantly before you can contact your personal physician then please, without delay, go to the emergency department for further evaluation. Follow-up with PCP in 7-10 days or sooner if needed Follow up with PCP soon in regards to your blood pressure which is elevated above threshold for referral. Blood pressure above 120/80 may indicate pre-hypertension.144/68 Check glucose level at least 2 X daily If your symptoms persist, change or worsen significantly before you can contact your personal physician then please, without delay, go to the emergency department for further evaluation. Follow-up with PCP in 7-10 days or sooner if needed Follow up with PCP soon in regards to your blood pressure which is elevated above threshold for referral. Blood pressure above 120/80 may indicate pre-hypertension. Patient Language: Georgian Prescriptions: New lorazepam 1 mg tablet 1 mg PO DAILY PRN (Reason: anxiety) Qty: 5 0RF No Action nystatin 100,000 unit/mL suspension 5 ml PO QID 10 Days Qty: 200 0RF Rx Instructions: swish and swallow glipizide 10 mg tablet extended release 24hr PO tamoxifen 20 mg tablet 20 mg PO QAM tadalafil 5 mg tablet 5 mg PO DAILY cephalexin 250 mg capsule 250 mg PO DAILY Patient Comments: its prophylactic for recurrent bladder infections citalopram 40 mg tablet 20 mg PO DAILY Qty: 90 1RF terazosin 2 mg capsule 2 mg PO QHS Qty: 30 2RF lisinopril 20 mg tablet 20 mg PO BID Qty: 60 2RF carvedilol 3.125 mg tablet 3.125 mg PO BID Qty: 180 0RF Jardiance 25 mg tablet 25 mg PO DAILY Qty: 90 1RF Gemtesa 75 mg tablet 75 mg PO DAILY aspirin 81 mg Capsule 81 mg PO DAILY atorvastatin 20 mg tablet See Rx Instructions .ROUTE .COMPLEX Qty: 90 2RF Dose Instruction: TAKE 1 TABLET BY MOUTH EVERY NIGHT AT BEDTIME Rx Instructions: TAKE 1 TABLET BY MOUTH EVERY NIGHT AT BEDTIME ergocalciferol (vitamin D2) 1,250 mcg (50,000 unit) capsule 1,250 mcg PO WEEKLY Qty: 14 1RF Patient Comments: dont remember the day lorazepam 1 mg tablet 1 mg PO DAILY PRN (Reason: anxiety) Qty: 30 0RF Follow-up/Referrals: PHYSICIAN,TRANSFORMER COIL WINDER [Primary Care Provider] - Time of Disposition: 18:59 Quality [place] Coma Scale Eyes: Open Verbal: Oriented and Alert Motor: Follows Commands [place] Coma Total Score: 15
[2024-11-06 18:29] LABS: Glucose Point of Care 193 mg/dl (65-105)
== END 2024-11-06 19:06 | disposition home or self-care (01) ==
PROVIDERS: Emergency Provider Registered Nurse
DX: F41.9 Anxiety disorder, unspecified (principal); N40.1 Benign prostatic hyperplasia with lower urinary tract symptoms; E11.9 Type 2 diabetes mellitus without complications; I10 Essential (primary) hypertension; E78.00 Pure hypercholesterolemia, unspecified; M10.9 Gout, unspecified; G47.33 Obstructive sleep apnea (adult) (pediatric); Z85.3 Personal history of malignant neoplasm of breast; Z90.11 Acquired absence of right breast and nipple; Z92.3 Personal history of irradiation; Z96.653 Presence of artificial knee joint, bilateral; Z86.16 Personal history of COVID-19; Z79.82 Long term (current) use of aspirin
CPT/HCPCS: 82948; 99213; G0463

== ENCOUNTER 2024-12-26 09:15 | Outpatient (RCR) | payer MEDICARE, SELFPAY ==
--- NOTE | 2024-11-28 16:02 | PTOPEVAL1 ---
Assessment and note entered by Tucker Llamas Evaluation Information Assessment Status Evaluation ICD-10 Condition Codes (PT) Pain in right shoulder M25.511 Onset 10/29/24 Subjective Information Pt. reports that he fell out of bed 1 month ago. he report that he noticed that right shoulder was painful and stiff. He went to the doctor 1 week ago. He has not had x-ray or MRI. He states that all his shoulder pain is located on the outside of the right shoulder. he reports he is right hand dominant. he states that reaching overhead or putting weight through the right arm will increase his pain. He states that pain is also trigged with reaching behind his back. He reports that shoulder pain only lightly disturbs sleep. he report that his goal is to reduce his right shoulder pain. Reported Pain Level Pain Score 3: Self Report Assessment PT Clinical Summary Pt. is a 79 year old male who enters the clinic with right shoulder pain secondary to likely rotator cuff syndrome on the right. He presents with impaired ROM, impaired proximal u.e. strength , impaired postural awareness and pain. Continued skilled PT is indicated in order to improve these areas to allow for improved mobility and comfort with IADL performance. Plan of Care Interventions Electrical Stimulation,Hot Pack/Cold Pack,Manual Therapy,Neuro Re-education,Patient/Caregiver Education,Therapeutic Activities,Therapeutic Exercise PT Services Indicated Yes Treatment Frequency and 2x/week x 10 visits Duration These treatments will address the objective and functional deficits as defined above. The patient will be advanced safely and appropriately in order for the patient to progress towards his/her prior level of function. Additional exercises will be introduced and as well as a comprehensive home exercise program upon discharge, if needed, ?to ensure carryover of functional gains achieved in the clinic. This treatment plan has been reviewed and agreement upon by the patient.
--- NOTE | 2024-11-28 16:03 | OPREHPOC ---
Outpatient Therapy Plan of Care This is a Multidisciplinary Plan of Care that may contain components documented by all disciplines (PT, OT, and ST.) PT Problem 1 PT Problem #1 Knowledge Deficit PT Goal 1 Goal / Goal Update Pt. will be independent with a HEP addressing strength and mobility. Target Visit 2 PT Problem 2 PT Problem #2 Pain PT Goal 1 Goal / Goal Update Pt. will report right shoulder pain at 1/10 at worst in a period of 1 week. Target Visit 10 PT Problem 3 PT Problem #3 Impaired Range of Motion PT Goal 1 Goal / Goal Update Pt. will attain 140 degrees active right shoulder flexion against gravity. Pt. will attain 90 degrees active right shoulder ER against gravity for ease of grooming. Target Visit 10 PT Problem 4 PT Problem #4 Impaired Strength PT Goal 1 Goal / Goal Update Pt. will be able to lift 2# overhead for 5 reps with the right u.e. in order to complete functional overhead task Target Visit 10
--- NOTE | 2024-12-26 10:14 | PTOPDC ---
Assessment and note entered by Tucker Llamas Evaluation Information Assessment Status Evaluation ICD-10 Condition Codes (PT) Pain in right shoulder M25.511 Onset 10/29/24 Subjective Information Pt. reports that his arm pain is less intense. He states that he is able to sleep through the night . He still has pain with reaching away from his body, but notices that he can use the right arm more. He states that he will continue with exercise and is ready for discharge at this time. Reported Pain Level Pain Score 1: Self Report Pain Score 2: Self Report Assessment PT Clinical Summary Mr. Walsh has attended a total of 10 treatment sessions. In this time he has demonstrated improvements in strength and ROM at the right shoulder. He continues to present with weakness at the right shoulder, however weakness does not hinder his ability to accurately complete ADL's and most IADL's. At this time he demonstrates independence with a HEP focused on ROM and strength and will be discharged from our care. Plan of Care PT Services Indicated No
== END 2024-12-26 10:45 | disposition home or self-care (01) ==
LOC: ANHGOSHPT 09:15
PROVIDERS: Visit Provider Nurse Practitioner Family
DX: M25.511 Pain in right shoulder (principal)
CPT/HCPCS: 97014; 97110; 97140; 97161; 97530; G0283

== ENCOUNTER 2025-03-28 11:22 | Outpatient (CLI) | payer MEDICARE, SELFPAY ==
[2025-03-28 11:48] LABS: Hematocrit 47.6 % (42.0-52.0); Hemoglobin 16.1 g/dL (14.0-18.0); Immature Granulocyte Percent A 0.9 % (0-0.5); Immature Platelet Fraction Pct 5.0 % (0.9-11.2); Lymphocytes Absolute Auto 1.93 K/mm3 (0.9-3.2); Mean Corpuscular HGB Conc 33.8 g/dl (32-36); Mean Corpuscular Hemoglobin 31.0 pg (26-34); Mean Corpuscular Volume 91.5 fl (80-100); Nucleated Red Blood Cells Absolute Auto 0.000 K/mm3 (0.0-0.012); Nucleated Red Blood Cells Perc 0.0 % (0.0-0.2); Platelet Count Result 128 k/mm3 (150-375); Red Blood Count 5.20 M/mm3 (4.6-6.20); White Blood Count 7.5 K/mm3 (4.5-10.0)
[2025-03-28 16:28] LABS: Alanine Aminotransferase 17 U/L (6-50); Albumin Level 4.0 g/dL (3.5-5.1); Alkaline Phosphatase 80 U/L (38-126); Anion Gap 7 mmol/L (4-12); Aspartate Amino Transferase 38 U/L (17-59); Bilirubin,Total 0.7 mg/dL (0.2-1.3); Blood Urea Nitrogen 17 mg/dL (9-20); Calcium 9.1 mg/dL (8.4-10.2); Carbon Dioxide 26 mmol/L (22-30); Chloride 100 mmol/L (98-107); Estimated Glomerular Filt Rate > 60; Glucose 235 mg/dL (65-110); Potassium 4.5 mmol/L (3.4-5.0); Sodium 133 mmol/L (137-145); Total Protein 6.9 g/dL (6.3-8.2)
== END 2025-03-28 11:23 | disposition home or self-care (01) ==
LOC: ANHLAB 11:24
PROVIDERS: PCP Family Medicine; Visit Provider Internal Medicine Hematology & Oncology
DX: C50.421 Malignant neoplasm of upper-outer quadrant of right male breast (principal); Z17.0 Estrogen receptor positive status [ER+]
CPT/HCPCS: 36415; 80053; 85025; 85055; 86300

== ENCOUNTER 2025-04-04 07:41 | Outpatient (CLI) | payer MEDICARE, SELFPAY ==
--- NOTE | ~2025-04-04 | CT_ITS ---
EXAMINATION: CT chest abdomen pelvis w con DATE: 04/04/2025 08:12 INDICATION: Malignant neoplasm of upper outer quadrant of right breast. TECHNIQUE: Computed tomography (CT) of the chest, abdomen, and pelvis was performed with 100 mL Omnipaque 350 intravenous contrast. Automated exposure control and iterative reconstruction technique were employed. The dose-length product was 1959.19 mGy-cm. COMPARISON: CT abdomen and pelvis 08/31/2022, chest CT 09/28/2021 FINDINGS: CHEST CT: The lungs demonstrate mild atelectasis. There is a chronic 3 mm nodule in right upper lobe, likely benign. No pleural effusion. The heart size is normal. 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 There are coronary artery calcifications. No pericardial effusion. There are changes of right mastectomy. There are old rib fractures. There is severe thoracic spondylosis. There is a benign bone island in T11 vertebral body. ABDOMEN/PELVIS CT: The liver, gallbladder, spleen, pancreas, and adrenal glands are normal. There is cortical thinning of the kidneys. There are cysts in right kidney measuring up to 2.3 cm. The prostate is mildly enlarged. There is a right inguinal hernia containing fat. There is diverticulosis of the colon without evidence of diverticulitis. There are no dilated loops of bowel. The appendix is normal. There are no pathologically enlarged lymph nodes. There is no free intraperitoneal fluid. There is severe lumbar spondylosis. IMPRESSION: 1. No evidence of metastatic disease. 2. 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 Reviewed, dictated and finalized at location E.
--- NOTE | ~2025-04-04 | NM_ITS ---
EXAMINATION: NM bone scan whole body DATE: 04/04/2025 12:24 INDICATION: Right breast cancer TECHNIQUE: 26.1 mCi Tc-99m HDP was administered intravenously. Delayed whole- body scintigrams were obtained. COMPARISON: CT chest, abdomen and pelvis dated 04/04/2025 and bone scan dated 07/27/24 FINDINGS: Degenerative joint centered uptake with severe osteoarthritic changes evident on prior CT at the right sternoclavicular joint. Additional likely degenerative joint centered uptake at the bilateral acromioclavicular joints, at the bilateral wrists, feet and at the patellofemoral articulation of the right knee. Prominent increased uptake associated with subacute fractures with callus formation at the anterior left fifth and sixth ribs. No other suspicious foci of abnormal bone uptake to suggest metastatic disease. IMPRESSION: 1. No evident osseous metastatic disease. 2. Prominent increased uptake associated with a healing subacute fractures of the anterior left fifth and sixth ribs as seen on CT imaging. Reviewed, dictated and finalized at location A. IMPRESSION: 1. No evident osseous metastatic disease. 2. Prominent increased uptake associated with a healing subacute fractures of t he anterior left fifth and sixth ribs as seen on CT imaging.
--- OUTSIDE RECORDS SUMMARY | 2025-04-04 07:45 | XMS_ITS | Encounter Summary ---
Author Organization [facility] Address [address] [place] [address] Care Team Providers Care Sewer Pipe Sorter Name Role Phone Gabriel Barrios MD Primary Care Provider [phone] Encounter Details Date Type Department Care Team (Late Contact Info) Description 11/16/2018 Chart Note [facility] Radiation Therapy [address] [place] [address] [place] [address] [place] [address] Social History Tobacco Use Types [...] Care Team (Late st Contact Info) Description 04/10/2025 4:35 PM CDT Telephone Check Up [facility] Oncology and Hematology - [place] [address] [facility] [address] [place] [address] Raul Leger MD [address] [facility] [address] [place] [address] 09/30/2025 10:15 AM CDT Office Visit [facility] Oncology and Hematology - [place] [address] [place] [address] Raul Leger MD [address] [facility] [address] [place] [address] documented as of this encounter Visit Diagnoses Not on filedocumented in this encounter Care Teams Sewer Pipe Sorter Relationship Specialty Start Date End Date Gabriel Barrios MD [address] [place] [id number] PCP - General Family Practice 05/01/18 documented as of this encounter
--- OUTSIDE RECORDS SUMMARY | 2025-04-04 07:45 | XMS_ITS | Clinical Summary ---
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, estrogen receptor positive (CMS/HCC) (Primary Dx) 03/29/2025 Orders Only [facility] [address] [facility] [address] [place] [phone] Raul Leger MD 03/19/2025 External Device Data [facility] ABSTRACTION Provider, Abstract 03/05/2025 External Device Data [facility] ABSTRACTION Provider, Abstract 03/05/2025 External Device Data [facility] ABSTRACTION Provider, Abstract 02/19/2025 External Device Data [facility] ABSTRACTION Provider, Abstract 02/19/2025 External Device Data [facility] ABSTRACTION Provider, Abstract 02/12/2025 External Device Data [facility] ABSTRACTION Provider, Abstract 01/16/2025 External Device Data [place] ABSTRACTION Provider, Abstract 01/15/2025 External Device Data [facility] ABSTRACTION Provider, Abstract [...] Sign Reading Time Taken Comments Blood Pressure 127/92 04/01/2025 10:46 AM CDT Pulse 78 04/01/2025 10:34 AM CDT Temperature 36.4 C (97.6 F) 04/01/2025 10:34 AM CDT Respiratory Rate 16 04/01/2025 10:3 4 AM CDT Oxygen Saturation 95% 04/01/2025 10: 34 AM CDT Inhaled Oxygen Concentration - - Weight 132.1 kg (291 lb 3.2 oz) 025 10:34 AM CDT Height 188 cm (6' 2) 03/11/2022 10:58 AM CDT Body Mass Index 37.39 03/11/2022 10:58 AM CDT Plan of Treatment Upcoming Encounters Date Type Department Care Team (Late st Contact Info) Description 04/10/2025 4:35 PM CDT Telephone Check Up [facility] [address] [place] [address] [address] [place] [address] Raul Leger MD [address] [facility] [address] [place] [address] 09/30/2025 10:15 AM CDT Office Visit [facility] [place] [address] [place] [address] Raul Leger MD [address] [facility] [address] [place] [address] Health Maintenance Due Date Last Done Comments DTAP/TDAP/TD VACCINES (1 - Tdap) 1966 PNEUMOCOCCAL VACCINE 50+ YEA RS (1 of 2 - PCV) 1966 ZOSTER VACCINE (1 of 2) 1966 RSV VACCINE (60+ or ) (1 - 1-dose 75+ series) 2022 INFLUENZA VACCINE (#1) 2025 COLORECTAL SCREENING Discontinued 05/14/2022, 10/01/19 16 Colorectal Cancer Screening Discontinued FIT-DNA Q 3 years Discontinued FIT/FOBT Q 1 year Discontinued Flex Sig/CT Colonography Q 5 years Discontinued Procedures Procedure Name Priority Date/Time Associated Diagnosis Comments CHG CA 15 3 Routine 03/28/2025 12:30 PM CDT COMPREHENSIVE METABOLIC PANEL Routine 03/28/2025 11:13 AM CDT CBC WITH AUTODIFFERENTIAL Routine 2024 10:35 AM CDT from Last 3 Months Results * CHG CA 15 3 (03/28/2025 12:30 PM CDT) Raul Leger MD [facility] - LABORATORY Final Result * COMPREHENSIVE METABOLIC PANEL (03/28/2025 11:13 AM CDT) Blood Raul Leger MD CHEMISTRY ORDERABLES Final Resu lt * CBC WITH AUTODIFFERENTIAL (03/28/2025 10:35 AM CDT) Blood Raul Leger MD HEMATOLOGY ORDERABLES Final Res ult from Last 3 Months Insurance [facility] SUPP MEDICARE PART A AND B [facility] SUPP Care Teams Real Estate Account Executive Relationship Specialty Start Date End Date Gabriel Barrios MD [address] [place] [address] PCP - General Family Practice 05/01/18
--- OUTSIDE RECORDS SUMMARY | 2025-04-04 07:45 | XMS_ITS | Clinical Summary ---
Author Organization [facility] Address [address] [place] [address] Care Team Providers Care Gas Scrubber Operator Name Role Phone Geovanny Mccarty MD Primary Care Provider Source Comments [facility],non-owned Affiliates and Associated Physician Practices is amultiple site organization consisting of ambulatory clinics and hospital sitesin [place], [place], [place] and [place]. This disclosure is being madepursuant to the Care Everywhere program and may not contain all information available regarding this patient. 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 Gender Identity Not on file Sexual Orientation Not on file Last Filed Vital Signs Vital Sign Reading Time Taken Comments Blood Pressure 140/80 08/14/2017 10:40 AM AUTO PHONE INSTALLER Pulse 102 08/14/2017 10:40 AM AUTO PHONE INSTALLER Temperature 36.5 C (97.7 F) 08/14/2017 10:40 AM AUTO PHONE INSTALLER Respiratory Rate 16 08/14/2017 10:40 AM AUTO PHONE INSTALLER Oxygen Saturation 96% 08/14/2017 10:40 AM AUTO PHONE INSTALLER Inhaled Oxygen Concentration - - Weight 149.7 kg (330 lb) 08/14/2017 10:40 AM AUTO PHONE INSTALLER Height 188 cm (6' 2) 08/14/2017 10:40 AM AUTO PHONE INSTALLER Body Mass Index 42.37 08/14/2017 10:40 AM AUTO PHONE INSTALLER Plan of Treatment Health Maintenance Due Date Last Done Comments HEPATITIS C SCREENING 08/19/1963 DTAP/TDAP/TD VACCINES (1 - Tdap) 1966 PNEUMOCOCCAL VACCINE 50+ (1 of 1 - PCV) 1997 ZOSTER VACCINE (1 of 2) 1997 SCREENING FOR DIABETES 08/14/2017 Respiratory Syncytial Virus (RSV) Vaccine Pt: or over 60 yrs (1 - 1-dose 75+ series) 2022 DEPRESSION SCREENING 07/04/2024 COVID-19 VACCINE (1 - 2023-2 5 season) 2025 INFLUENZA VACCINE (#1) 2025 HEPATITIS B VACCINE Aged Out No [...] age to complete this topic [place] [address] MEDICARE [facility] MEDICARE Care Teams Gas Scrubber Operator Relationship Specialty Start Date End Date Geovanny Mccarty MD [address] [place] [address] PCP - General 12/29/21
--- OUTSIDE RECORDS SUMMARY | 2025-04-04 07:45 | XMS_ITS | Patient Health Record ---
Author Organization [facility] Address [address] [place] [address] Care Team Providers Care Glue Mounter Operator Name Role Phone Geovanny Mccarty MD Primary Care Provider Unavailable Martha Marin Unavailable [phone] Allergies Allergen (clinical drug ingredient) Drug/Non Drug Allergy documented on EMR Reaction Allergy Type Onset Date Status epinephrine EPINEPHrine Unknown Drug Allergy Act aneta Results Component Value Reference Range Notes UDT Reviewed date:11/22/2024 01:49:13 PM Interpretation: Performing Lab: Notes/Report: THC N 0 - 50 ng/ml Cocaine N 0 - 300 ng/ml Amphetamine N 0 - 1000 ng/ml Buprenorphine (BUP) N 0 - 10 ng/ml Secobarbital (Bar) N 0 - 300 ng/ml Oxazepam (BZO) N 0 - 300 ng/ml 2-pbbfrgqzex-7,5-owvinxey-2,3-diphenylpyrrolidine (GERALDO P) N 0 - 300 ng/ml Methamphetamine (MET) N 0 - 1000 ng/ml Methylenedioxymethamphetamine (MDMA) N 0 - 500 ng/ml Morphine (MOP 300/[id number]) N 0 - 300 ng/ml Methadone (MTD) N 0 - 300 ng/ml Phencyclidine (PCP) N 0 - 25 ng/ml Nortriptyline (TCA) N 0 - 1000 ng/ml Oxycodone N 0 - 300 ng/ml x N 0 - 300 ng/ml Reason For Referral No Information Medications Medication SIG (Take, Route, Frequency, Duration) Notes Start Date End Date Status Tadalafil 5 MG Tablet 1 tablet Orally On ce a day Active Citalopram Hydrobromide 40 MG Tablet 1 tablet at bedtime Oral Once a day; Duration: 30 days 04/01/2025 Active Carvedilol 3.125 MG Tablet 1 tablet with food Orally Twice a day Active Ozempic (0.25 or 0.5 MG/DOSE) 2 MG/3ML Solution Pen-injector Subcutaneous; Duration: 56 Days Active Terazosin HCl 2 MG Capsule Oral; Duration: 30 Days Active Jardiance 25 MG Tablet Oral; Duration: 90 Days Active Tamoxifen Citrate 20 MG Tablet Oral; Duration: 90 Days Acti ve glipiZIDE ER 10 MG Tablet Extended Release 24 Hour 1 tablet Oral twice a day; Duration: 90 days Active metFORMIN HCl 1000 MG Tablet 1 tablet with a meal Orally Once a day Active Gemtesa 75 MG Tablet Oral; Duration: 30 Days Active Atorvastatin Calcium 20 MG Tablet 1 tablet Orally Once a day Active Lisinopril 20 MG Tablet 1 tablet Orally twice a day Active Social History Tobacco Use: Social History Observation Description Date Details (start date - stop date) Never Smoker NA - NA Sex Assigned At : Social History Observation Description Sex Assigned At Male Social History Miscellaneous: Social Info Question Answer Notes Safety issues: Do you feel safe at home? Yes Are there any firearms in the house? No Social History Social Info Question Answer Notes Household: Marital Status: Number of Adults in household: 2 Number of Children in Household: 0 Level of Education: Professional Schools/Masters /PhD Drug/Alcohol: Social Info Question Answer Notes Drugs Have you used drugs other than those for medical reasons in the past 12 months? No AUDIT-C (Standard) Did you have a drink containing alcohol in the past year? Yes How often did you have six or more drinks on one occasion in the past year? Never (0 point) How often did you have a drink containing alcohol in the past year? Monthly or less (1 point) Caffeine Intake: none Tobacco Use: Social Info Question Answer Notes Tobacco Control (Standard) Tobacco use: Nonsmoker Additional Details Category Social Info Options Details Miscellaneous: Occupation: Retired, was a highschool middle school music teacher Problems Problem Type SNOMED Code ICD Code Onset Dates Problem Status W/U Status Risk Notes Problem Mild recurrent major depression (16339702) Major depressive disorder, recurrent, mild (F33.0) Active confirmed Problem Moderate recurrent major depression (92594150) Major depressive disorder, recurrent, moderate (F33.1) Active confirmed Problem Generalized anxiety disorder (24303536) Generalized anxiety disorder (F41.1) Active confirmed Problem Fatigue (56472233) Fatigue, unspecified type (R53.83) Active confirmed Problem Panic disorder (022775841) Panic attacks (F41.0) Active confirmed Vital Signs Heart Rate 91 /min 04/01/2025 Height-cm 187.96 cm 04/01/2025 Blood pressure diastolic 78 mm Hg 04/01/2025 Weight-kg 132 kg 04/01/2025 Height 74 in 04/01/2025 Blood pressure systolic 122 mm Hg 04/01/2025 Weight 291 lbs 04/01/2025 BMI 37.36 kg/m2 04/01/2025 Procedures Procedure Date Ordered Date Performed Result Body Sit e MCI Testing 04/01/2025 N/A Encounters Encounter Location Date Provider Diagnosis [facility] [place] [facility] [place] [address] 11/22/2024 Martha Marin Generalized anxiety disorder F41.1 ; Major depressive disorder, recurrent, moderate F33.1 ; Panic attacks F41.0 ; Encounter for screening for depression Z13.31 and Encounter for screening for cardiovascular disorders Z13.[address] [address] 12/24/2024 Martha Marin Generalized anxiety disorder F41.1 ; Panic attacks F41.0 ; Major depressive disorder, recurrent, mild F33.0 ; Benign essential HTN I10 and Encounter for screening for depression Z13.31 [facility] [place] [facility] [place] [address] 01/28/2025 Martha Marin Major depressive disorder, recurrent, mild F33.0 ; Generalized anxiety disorder F41.1 ; Panic attacks F41.0 and Fatigue, unspecified type R53.83 [facility] [place] [facility] [place] [address] 04/01/2025 Martha Marin Major depressive disorder, recurrent, mild F33.0 ; Generalized anxiety disorder F41.1 ; Cognitive complaints R41.9 ; Panic attacks F41.0 and Fatigue, unspecified type R53.83 Assessments Encounter Date Diagnosis (ICD Code) Assessment Notes Treatment Notes Treatment Clinical Notes Section Notes 11/22/2024 Major depressive disorder, recurrent, moderate (ICD-10 - F33.1) 11/22/2024 Generalized anxiety disorder (ICD-10 - F41.1) corrected, citalopram 40 mg 0.5 tablet, not one whole tablet 12/24/2024 Generalized anxiety disorder (ICD-10 - F41.1) 12/24/2024 Panic attacks (ICD-10 - F41.0) 01/28/2025 Major depressive disorder, recurrent, mild (ICD-10 - F33.0) 01/28/2025 Generalized anxiety disorder (ICD-10 - F41.1) 04/01/2025 Major depressive disorder, recurrent, mild (ICD-10 - F33.0) 04/01/2025 Generalized anxiety disorder (ICD-10 - F41.1) 04/01/2025 Cognitive complaints (ICD-10 - R41.9) 01/28/2025 Panic attacks (ICD-10 - F41.0) 11/22/2024 Panic attacks (ICD-10 - F41.0) 12/24/2024 Major depressive disorder, recurrent, mild (ICD-10 - F33.0) 12/24/2024 Benign essential HTN (ICD-10 - I10) 11/22/2024 Encounter for screening for depression (ICD-10 - Z13.31) 01/28/2025 Fatigue, unspecified type (ICD-10 - R53.83) 04/01/2025 Panic attacks (ICD-10 - F41.0) 04/01/2025 Fatigue, unspecified type (ICD-10 - R53.83) 12/24/2024 Encounter for screening for depression (ICD-10 - Z13.31) 11/22/2024 Encounter for screening for cardiovascular disorders (ICD-10 - Z13.6) 11/22/2024 Other Learning About Depression Screening material was printed Rayray Walsh is a male patient with a 20-year history of anxiety and depression, presenting with recent exacerbation of panic attacks leading to multiple ER visits, now stabilized on new medication regimen. Generalized Anxiety Disorder with Panic Attacks Assessment: Patient reports a 20-year history of anxiety with recent exacerbation, experiencing 7 panic attacks over a 2-week period starting October 06, necessitating multiple ER visits. Previously managed symptoms with as-needed Risperdal, but lost control during recent episode. Initiated on citalopram 40mg and quetiapine 25mg approximately 2 weeks ago, with significant improvement in symptoms. Patient denies current anxiety symptoms. Recent stressors include deaths of two brothers and two golfing companions. Brief experience of hallucinations or paranoia during acute anxiety episode, but patient reports difficulty recalling details. Plan: - Continue citalopram 40mg 0.5 tablets daily - Continue quetiapine 25mg at night - Maintain alprazolam as needed for breakthrough anxiety - Follow up in 4 weeks - Monitor for medication side effects, particularly weight gain and blood sugar with quetiapine - Offered therapy referral Depression Assessment: Patient reports a 20-year history of depression, coinciding with anxiety onset. Denies current suicidal ideation or past suicide attempts. Mood has improved since starting citalopram 2 weeks ago. Plan: - Continue current medication regimen (see Anxiety plan) - Monitor mood during follow-up appointment Type 2 Diabetes Mellitus Assessment: Patient has a history of type 2 diabetes. Currently on glipizide and Jardiance. Reports monitoring blood glucose levels for the past 2 weeks, with readings ranging from 70 to 120 mg/dL. Appetite is described as not great. Plan: - Continue current diabetes medications - Encourage continued blood glucose monitoring - Assess appetite and weight at follow-up appointment 12/24/2024 Alma Walsh presents with improved anxiety and mood, but reports excessive daytime sleepiness and prolonged sleep duration. Anxiety Disorder Assessment: Patient reports significant improvement in anxiety symptoms since last visit. He denies any recent anxiety problems or panic attacks, stating he feels in control. He no longer requires alprazolam. Continued efficacy of citalopram 40mg noted for anxiety management. Plan: - Continue citalopram 40mg PO daily - Schedule follow-up appointment in 6 weeks Depressive Disorder Assessment: Patient reports mood is pretty good most of the time, with occasional depressive episodes. He denies current suicidal ideation. Citalopram 40mg appears to be effective in managing depressive symptoms. Plan: - Continue citalopram 40mg PO daily - Monitor for changes in mood or return of depressive symptoms Hypersomnia Assessment: Patient reports sleeping approximately 12 hours per day, with difficulty staying awake during daytime hours. This excessive sleepiness may be related to quetiapine use, which was recently initiated. Given the improvement in mood and anxiety symptoms, and considering the potential side effects of quetiapine (including sedation, increased blood sugar, and weight gain), discontinuation of quetiapine is warranted. Plan: - Discontinue quetiapine - Monitor sleep patterns and daytime alertness after quetiapine discontinuation Hyperglycemia Assessment: Elevated blood sugar noted, potentially related to quetiapine use. Blood pressure within normal limits. Plan: - Monitor blood glucose levels after discontinuation of quetiapine 01/28/2025 Other Rayray Walsh, male patient with a history of anxiety, depression, and diabetes, presenting for follow-up of medication management. Major Depressive Disorder Assessment: Patient reports continued depressive symptoms, primarily manifesting as hypersomnia. He denies suicidal ideation. Current treatment with citalopram 40 mg appears to be providing some benefit, as the patient reports doing pretty good without real bad anxiety or pain. However, persistent excessive sleep suggests room for improvement in symptom management. Recent loss of two brothers and mother (age 103) noted, which may be contributing to depressive symptoms. Plan: - Continue citalopram 40 mg - Trial switching citalopram administration time to bedtime for 1 week - If worsening occurs, revert to morning administration - Follow up in 2-3 months to reassess efficacy Anxiety Disorder Assessment: Patient reports improvement in anxiety symptoms with current medication regimen. Denies experiencing bad anxiety or panic recently. Plan: - Continue current anxiety management approach - Monitor for any recurrence of anxiety symptoms Sleep Disturbance Assessment: Patient reports persistent sleep issues, including difficulty falling asleep (taking about an hour) and sleeping better in the morning. Nocturia is present. Previously prescribed quetiapine for sleep has been discontinued as per prior recommendation. Plan: - Discontinue quetiapine - Trial citalopram at bedtime to potentially address sleep issues - Encourage follow-up with urologist for nocturia management (appointment scheduled for January 30) 04/01/2025 Other Gait, Strength, and Balance Training ExercisesThis handout provides simple exercises to improve your gait, strength, and balance. Theseexercises can help prevent falls, improve mobility, and enhance overall function. Perform them in asafe space, use support if needed, and stop if you feel pain or dizziness.1. Gait Training Exercises- Walk in a straight line for 10-20 feet, heel-to-toe.- Step over small objects (cones or rolled towels).- Practice walking sideways and backwards.- Use a treadmill if available, under supervision.2. Balance Exercises- Stand on one foot for 10-30 seconds; switch legs.- Walk heel-to-toe in a straight line.- Use a balance board or cushion to challenge stability.- Practice rising from a chair without using your hands.3. Strength Training Exercises- Tji-gz-gwqtg: rise from a chair repeatedly.- Wall push-ups: stand at arm's length from a wall and push.- Step-ups on a low step or stairs.- Leg lifts while seated or lying down.Consult your primary care provider (PCP) before starting these exercises, especially if you havemedical conditions or difficulty performing them Rayray Walsh, male, presents with concerns about memory decline, urinary issues, recent falls, and variable appetite. He is currently taking citalopram for mood management. Cognitive Decline Assessment: Patient reports significant memory difficulties over the past couple of years, including struggling with previously simple tasks, repetitive questioning, and difficulty making decisions. Family member notes patient seems to get lost going to familiar places. These symptoms suggest possible mild cognitive impairment or early-stage dementia. Further cognitive testing is warranted to assess the extent of impairment and determine appropriate interventions. Plan: - Perform initial paper-based cognitive test (clock test) today - Schedule comprehensive computer-based cognitive testing - Follow-up appointment within one week after cognitive testing to review results and discuss treatment options - Consider referral to neurology for further evaluation if cognitive concerns are confirmed Urinary Symptoms Assessment: Patient reports both urinary urgency and frequency, with nocturia occurring approximately hourly for the past couple of years. He also notes incomplete bladder emptying. Patient is currently under the care of a urologist and is scheduled for Botox injections in June as the next step in management. Plan: - Continue follow-up with urologist - Proceed with scheduled Botox injections in June Mood Management Assessment: Patient is currently taking citalopram 40 mg for mood management. No significant mood symptoms reported during this visit, though patient recently experienced the loss of a niece. Plan: - Continue citalopram - Adjust timing of citalopram administration to evening or nighttime - Follow up in two weeks after cognitive testing to reassess mood and medication efficacy Falls Assessment: Patient reports occasional falls, with a recent fall in the basement resulting in finger fractures. This indicates an increased risk for injury and potential need for fall prevention strategies. Plan: - Assess home environment for fall risks at next visit - Consider referral to physical therapy for gait and balance assessment Diabetes Management Assessment: Patient reports not checking blood sugar recently, with monitoring having stopped after an unspecified surgery. This lack of monitoring poses a risk for uncontrolled diabetes and associated complications. Plan: - Encourage resumption of regular blood glucose monitoring - Review importance of diabetes management at next follow-up - Consider referral to endocrinology or outreach educator if needed Variable Appetite Assessment: Patient reports fluctuating appetite, which may be related to mood, medication side effects, or other underlying health issues. Plan: - Monitor appetite and weight at future visits - Assess for any correlation with mood or medication changes Medical Decision Making Rayray Walsh is a male patient with a history of urinary issues presenting with concerns about memory decline and frequent urination. The patient's reported memory difficulties, including struggling with previously simple tasks and repetitive questioning, suggest potential cognitive impairment. Given the gradual onset over the past couple of years, along with the patient's age, early-stage dementia such as Alzheimer's disease is a consideration. A cognitive assessment, starting with a paper-based test followed by a potential computerized evaluation, has been proposed to further investigate these concerns. The clinician has indicated that if cognitive issues are confirmed, medications to support memory and cognition could be prescribed, with more extensive workups referred to neurology if needed. Regarding the urinary symptoms, the patient reports both urgency and frequency, with incomplete bladder emptying. The planned Botox treatment by urology in June suggests a diagnosis of overactive bladder that has not responded to conservative measures. Plan Of Treatment Pending Test Test Name Order Date MCI Testing 04/01/2025 Next Appt Details Provider Name:Levy Owusu , 04/08/2025 01:00:00 PM, [address], [facility] [address], [place], [address], Provider Name:Martha anthony, 04/16/2025 01:00:00 PM, [address], [address], [place], [address], Insurance Providers Payer Name Payer Address Payer Phone Subscriber Number Group Number Insured Name Patient Relationship to Insured Coverage Start Date Coverage End Date Medicare-I l Medicare [address] [place] [phone] [id number] JillianRayray Self - patient is the insured [facility] [address] [place] [address] [id number] AmberjazmynRayray rios Self - patient is the insured Medical (General) History Medical History History ICD Code Past Psychiatric History: Anxiety Disord er,Panic Disorder DM Type 2 Pancreatitis Gout Cancer of right male breast HTN YULISA restless leg syndrome type 2 diabetes mellitus vitamin D deficiency Surgical History Surgery Date(Month/Year) bilateral knee replacements removal of right breast cancer/lymphnode s Hospitalization History Reason Date(Month/Year) surgical stays
== END 2025-04-04 07:42 | disposition home or self-care (01) ==
PROVIDERS: PCP Family Medicine; Visit Provider Internal Medicine Hematology & Oncology
DX: C50.421 Malignant neoplasm of upper-outer quadrant of right male breast (principal); Z17.0 Estrogen receptor positive status [ER+]; I25.2 Old myocardial infarction; S22.42XD Multiple fractures of ribs, left side, subsequent encounter for fracture with routine healing; X58.XXXD Exposure to other specified factors, subsequent encounter
CPT/HCPCS: 71260; 74177; 78306; A9503; Q9967